=== PATIENT | female | born 1960 | race Caucasian/White ===

== ENCOUNTER 2022-12-17 10:06 | Outpatient (CLI) | payer MEDICAID, SELFPAY ==
--- NOTE | 2022-12-17 10:14 | MM_ITS ---
WS: [id number] SCREENING DIGITAL BREAST TOMOSYNTHESIS MAMMOGRAM WITH CAD HISTORY: SCREENING COMPARISON: None available. Bilateral CC and MLO with tomosynthesis and synthetic mammography submitted. Computer aided detection analyzed. Breast composition: There are scattered areas of fibroglandular density. Hyperdense 8 mm mass in the upper outer quadrant of the RIGHT breast is seen only on the MLO projection due to its posterior posi tion. This is probably a lymph node or sebaceous cyst. Cannot identify a fatty hilum. Benign calcific ations in each breast. No distortion. IMPRESSION: MM/[place] [id number] BI-RADS: 0-Incomplete: Need additional imaging evaluation FOLLOW UP: Need Additional Imaging Recommendation: RIGHT breast ultrasound follow-up, limited. Targeted to the upp er outer quadrant near the axillary tail. Lymph node versus mass or sebaceous c yst.
== END 2022-12-17 10:07 | disposition home or self-care (01) ==
PROVIDERS: Visit Provider Nurse Practitioner Family
DX: Z12.31 Encounter for screening mammogram for malignant neoplasm of breast (principal)
CPT/HCPCS: 77063; 77067

== ENCOUNTER 2023-01-07 15:13 | Emergency (ER) | payer MEDICAID, SELFPAY ==
[2023-01-07 15:21] VITALS: BP 172/83; PULSE 67; RESP 16; TEMP 36.6; O2SAT 98; BMI 23.5
--- NOTE | 2023-01-07 15:34 | XRR_ITS ---
PROCEDURE INFORMATION: Exam: XR Chest Exam date and time: 01/07/2023 4:02 PM Age: 62 years old Clinical indication: Pain; Angina pectoris; Additional info: Cp TECHNIQUE: Imaging protocol: Radiologic exam of the chest. Views: 1 view. COMPARISON: No relevant prior studies available. FINDINGS: Lungs: Unremarkable. No consolidation. Pleural spaces: Unremarkable. No pleural effusion. No pneumothorax. Heart/Mediastinum: Unremarkable. No cardiomegaly. Bones/joints: Unremarkable. XR/XR chest 1V portable 19300 IMPRESSION: No acute findings.
[2023-01-07] MEDS: aspirin 81 mg Chew Tablet 324 MG PO (15:38)
[2023-01-07 15:42] VITALS: BP 182/93; PULSE 59; RESP 18; O2SAT 99
--- NOTE | 2023-01-07 15:49 | ED_ITS ---
HPI - General Adult General: Chief complaint: Headache Stated complaint: headache, right arm pain, chest pain Time Seen by Provider: 01/07/23 15:32 Source: patient Mode of arrival: ambulatory Limitations: no limitations History of Present Illness: 62-year-old female states that she has been under a lot of stress last 2 days she is in the process of moving states she is bedbound her house yesterday and felt like she had inhaled some fumes said that since then she has had some intermittent sharp chest pains along with headaches she states that she currently headache free and having no chest pain dyspnea at this time no cough or fever. Associated symptoms: Reports chest pain and headache(s); Deny dyspnea, nausea, rash or vomiting Review of Systems Const: Denies: fever(s), chills, body aches or change in appetite ENMT: Denies: throat pain or dental pain Card: Reports: chest pain Resp: Denies: dyspnea GI: Denies: abdominal pain, nausea, vomiting or diarrhea Musc: Denies: neck pain or back pain Skin/Breast: Denies: rash Neuro: Reports: headache(s) Physical Exam Const: COMMON NORMALS: no acute distress, patient oriented x3 and healthy appearing HENMT: COMMON NORMALS: normocephalic and atraumatic HEAD & SCALP: normocephalic and atraumatic Neck/C-Spine: COMMON NORMALS: full ROM and supple Chest: COMMONS NORMALS: normal inspection of the chest and normal palpation of entire chest wall Resp: COMMON NORMALS: normal respiratory effort, No retractions, No use of accessory muscles and clear to auscultation bilaterally AUSCULTATION: clear to auscultation bilaterally Cardio: COMMON NORMALS: regular rate, regular rhythm and No murmurs present (Cardio) RATE: regular rate RHYTHM: regular rhythm GI: COMMON NORMALS: Normal to inspection, nondistended, normoactive bowel sounds present, Soft to palpation, non-tender and no masses PALPATION: Yes Soft to palpation Extremity: COMMON NORMALS: normal to inspection and full ROM Neuro: COMMON NORMALS: patient oriented x3, moves all extremities and no focal motor deficits Psych: COMMON NORMALS: mental status grossly normal, Normal thought process present and cooperative THOUGHT PROCESS: Normal thought process present Skin: COMMON NORMALS: no rashes or lesions noted and no wounds GENERAL SKIN EXAM: no rashes or lesions noted Course Vital Signs: Vital signs: Vital Signs Temperature 97.8 F 01/07/23 15:21 Pulse Rate 61 01/07/23 17:24 Respiratory Rate 16 01/07/23 17:24 Blood Pressure 180/80 01/07/23 17:24 Pulse Oximetry 98 01/07/23 17:24 Oxygen Delivery Me thod Room Air 01/07/23 15:42 MDM - General Adult Medical Decision Making Patient presents here with chest pain is atypical in nature she has been pain- free here her initial and repeat troponin had a negative delta no signs of acute coronary syndrome she is stable for discharge she is to follow-up with PCP and return if worsening. Lab Data I reviewed the patient's lab results. 01/07/23 15:49 01/07/23 15:49 Radiology Impressions Chest X-Ray 01/07/23 15:34 IMPRESSION: No acute findings. Laboratory Results WBC 9.83 10^3/uL (3.29-11.43) 01/07/23 15:49 RBC 4.64 10^6/uL (3.85-5.65) 01/07/23 15:49 Hgb 14.00 g/dL (11.27-16.99) 01/07/23 15:49 Hct 42.1 % (36-47) 01/07/23 15:49 MCV 90.7 fl (85-98) 01/07/23 15:49 MCH 30.2 pg (27-33) 01/07/23 15:49 MCHC 33.3 g/dL (30-55) 01/07/23 15:49 RDW 11.9 % (12.1-15.1) L 01/07/23 15:49 Plt Count 230 10^3/cmm (157-399) 01/07/23 15:49 MPV 9.5 fL (7.4-10.4) 01/07/23 15:49 Neut % (Auto) 62.5 % 01/07/23 15:49 Lymph % (Auto) 30.5 % 01/07/23 15:49 [place] % (Auto) 4.9 % 01/07/23 15:49 Eos % (Auto) 1.2 % 01/07/23 15:49 Baso % (Auto) 0.5 % 01/07/23 15:49 Neut # (Auto) 6.14 10^3/uL (1.8-7.7) 01/07/23 15:49 Lymph # (Auto) 3.0 10^3/uL (0.8-4.8) 01/07/23 15:49 [place] # (Auto) 0.5 10^3/uL (0.2-0.9) 01/07/23 15:49 Eos # (Auto) 0.1 10^3/uL (0.0-0.8) 01/07/23 15:49 Baso # (Auto) 0.1 10^3/uL (0.0-0.1) 01/07/23 15:49 Nucleated RBC % (auto) 0 % 01/07/23 15:49 Nucleated RBCs # 0.0 /100WBC 01/07/23 15:49 PT 12.00 SECONDS (12.1-14.9) L 01/07/23 15:49 INR 0.86 (0.8-1.2) 01/07/23 15:49 Sodium 137 mmol/L (136-145) 01/07/23 15:49 Potassium 3.5 mmol/L (3.5-5.1) 01/07/23 15:49 Chloride 100 mmol/L (98-107) 01/07/23 15:49 Carbon Dioxide 24 mmol/L (22-29) 01/07/23 15:49 Anion Gap 16.5 (5-19) 01/07/23 15:49 BUN 7 mg/dL (8-23) L 01/07/23 15:49 Creatinine 0.4 mg/dL (0.5-0.9) L 01/07/23 15:49 GFR Calculation 161.2 mL/min (90-130) H 01/07/23 15:49 Glucose 287 mg/dL (65-115) H 01/07/23 15:49 Calculated Osmolality 292 mOsm/kg (285-295) 01/07/23 15:49 Calcium 9.1 mg/dL (8.5-10.5) 01/07/23 15:49 Total Bilirubin 0.2 mg/dL (0.15-1.2) 01/07/23 15:49 AST 33 U/L (0-32) H 01/07/23 15:49 ALT 56 U/L (0-33) H 01/07/23 15:49 Alkaline Phosphatase 120 U/L (35-105) H 01/07/23 15:49 Troponin T Baseline 45 ng/L (0-10) H 01/07/23 15:49 Troponin T 120 Minute 44.34 ng/L (0-10) H 01/07/23 17:23 Delta Troponin T -0.66 ABS# (0-10) L 01/07/23 17:23 Total Protein 6.4 g/dL (6.6-8.7) L 01/07/23 15:49 Albumin 4.0 g/dL (3.5-5.2) 01/07/23 15:49 Globulin 2.4 g/dL (1.3-4.6) 01/07/23 15:49 No radiology studies performed this visit Discharge Plan Discharge Patient Disposition: Home Clinical Impression: Headache, Chest pain Condition: Stable Discharge Orders: Discharge ED (Routine); Ordered 01/07/23 Ordered By: Yunior Galloway Discharge Diet: Advance as tolerated Discharge Activity: Resume usual activity Patient Instructions: Chest Pain (ED) Coding Level of Care Code ED Packaging Machine Operator for Carlitos Parry
--- NOTE | 2023-01-07 15:51 | ECG_ITS ---
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 Measurements Intervals [place] Rate: 63 P: 29 IL: 182 QRS: 44 QRSD: 91 T: 56 QT: 420 QTc: 432 Interpretive Statements SINUS RHYTHM MODERATE ST DEPRESSION [0.05+ mV ST DEPRESSION] No previous ECG available for comparison Electronically Signed On 01-07-2023 19:06:55 CDT by Seven Gomez M.D. [email or web address]Tangerine Powerummc grenadaWhoisEDIprotestant deaconess hospitalSocial & Beyond/store/OM/[id number]
[2023-01-07 15:59] LABS: Basophils # 0.1 10^3/uL (0.0-0.1); Basophils % 0.5 %; Eosinophils # 0.1 10^3/uL (0.0-0.8); Eosinophils % 1.2 %; Hematocrit 42.1 % (36-47); Lymphocytes % 30.5 %; Mean Corpuscular HGB Conc 33.3 g/dL (30-55); Mean Corpuscular Hemoglobin 30.2 pg (27-33); Mean Corpuscular Volume 90.7 fl (85-98); Mean Platelet Volume 9.5 fL (7.4-10.4); Monocytes # 0.5 10^3/uL (0.2-0.9); Monocytes % 4.9 %; Neutrophils # 6.14 10^3/uL (1.8-7.7); Neutrophils % 62.5 %; Nucleated Red Blood Cells % 0 %; Platelet Count 230 10^3/cmm (157-399); Red Blood Count 4.64 10^6/uL (3.85-5.65); Red Cell Distribution Width 11.9 % (12.1-15.1); White Blood Count 9.83 10^3/uL (3.29-11.43)
[2023-01-07 16:11] LABS: INR 0.86 (0.8-1.2)
[2023-01-07 16:22] LABS: Troponin(5th) Baseline 45 ng/L (0-10)
[2023-01-07 16:24] LABS: Alanine Aminotransferase 56 U/L (0-33); Alkaline Phosphatase 120 U/L (35-105); Anion Gap 16.5 (5-19); Aspartate Amino Transferase 33 U/L (0-32); Blood Urea Nitrogen 7 mg/dL (8-23); Calcium 9.1 mg/dL (8.5-10.5); Carbon Dioxide 24 mmol/L (22-29); Chloride 100 mmol/L (98-107); Globulin 2.4 g/dL (1.3-4.6); Glomerular Filtration Rate 161.2 mL/min (90-130); Glucose 287 mg/dL (65-115); Osmolality Calculated 292 mOsm/kg (285-295); Potassium 3.5 mmol/L (3.5-5.1); Sodium 137 mmol/L (136-145); Total Bilirubin 0.2 mg/dL (0.15-1.2); Total Protein 6.4 g/dL (6.6-8.7)
[2023-01-07 17:24] VITALS: BP 180/80; PULSE 61; RESP 16; O2SAT 98
--- NOTE | 2023-01-07 17:34 | ECG_ITS ---
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 Measurements Intervals [place] Rate: 58 P: 33 RI: 204 QRS: 40 QRSD: 96 T: 58 QT: 468 QTc: 460 Interpretive Statements SINUS BRADYCARDIA MODERATE ST DEPRESSION [0.05+ mV ST DEPRESSION] Compared to ECG 01/07/2023 15:51:18 Sinus rhythm no longer present ST (T wave) deviation still present Electronically Signed On 01-07-2023 19:08:06 CDT by Seven Gomez M.D. [email or web address].SalonBookrwiser hospital for women and infantsServhawkst. mary's [facility] center.[employer]/store/OM/[id number]/[id number]
[2023-01-07 17:50] LABS: Troponin 5 2HR 44.34 ng/L (0-10); Troponin 5 2HR Delta -0.66 ABS# (0-10)
[2023-01-07 18:05] VITALS: BP 174/94; PULSE 65; RESP 16; O2SAT 98
== END 2023-01-07 18:06 | disposition home or self-care (01) ==
PROVIDERS: Emergency Provider Emergency Medicine
DX: R51.9 Headache, unspecified (principal); R07.9 Chest pain, unspecified
CPT/HCPCS: 36415; 71045; 80053; 84484; 85025; 85610; 93005; 99285

== ENCOUNTER → 2023-03-24 08:48 | Outpatient (BNVA) | payer MEDICAID, SELFPAY | PROVIDERS: Visit Provider Student in an Organized Health Care Education/Training Program | DX: G56.01 Carpal tunnel syndrome, right upper limb | CPT/HCPCS: 73130 ==

== ENCOUNTER 2023-04-22 05:46 | Day surgery (SDC) | payer MEDICAID, SELFPAY ==
[2023-04-22] VITALS (9 sets, daily range): BP systolic 126–182; BP diastolic 66–100; PULSE 71–82; RESP 17–22; TEMP 36.2–36.7; O2SAT 98–100; BMI 26.1
[2023-04-22 06:24] LABS: Glucose Point of Care 343 mg/dL (70-110)
[2023-04-22] MEDS: sodium chloride 0.9% 1,000 ML 30 ML IV (06:25)
[2023-04-22] MEDS: acetaminophen 1,000 MG/100 ML PIGGYBACK 400 MG IV (06:26)
[2023-04-22] MEDS: ketorolac 30 mg/mL INJ IVP (06:26)
[2023-04-22] MEDS: scopolamine 1.5 Patch 1 PATCH TRANSDERMA (06:26)
[2023-04-22] MEDS: insulin regular-human 100 units/1 mL 10 UNIT IVP (06:41)
--- NOTE | 2023-04-22 06:50 | ANES.PREANE2 ---
Pre-Anesthetic Assessment Height/Weight: Height 1.65 m Weight 71.214 kg Temp Pulse Resp BP Pulse Ox O2 Del Method 97.1 F L 82 18 182/90 98 Room Air 04/22/23 06:09 04/22/23 06:09 04/22/23 06:09 04/22/23 06:09 04/22/23 06:09 04/22/23 06:09 Operation Date: 04/22/23 07:00 Proposed Procedures p Carpal Tunnel Release(Right) - Osorio Abreu DO Last intake: Intake Last Liquid Date 04/21/23 Last Liquid Time 23:00 Last Solid Date 04/21/23 Last Solid Time 19:00 Social Tobacco Exam alert, oriented x 3 and regular rate & rhythm Airway Submandibular: within normal limits Cervical ROM: within normal limits Mallampati: Class I Pulmonary Chronic Obstructive Pulmonary Disease CV/HEM Hypertension Anesthetic Plan ASA status: 2 Anesthesia: MAC Medications/Allergies Home Medications Medication Instructions Recorded Confirmed Last Taken Type gabapentin 100 mg capsule 100 mg PO DAILY PRN Pain 03/24/23 04/21/23 04/19/23 History hydroxyzine HCl 25 mg tablet 25 mg PO BID PRN Anxiety 03/24/23 04/21/23 04/19/23 History ibuprofen 200 mg tablet (Advil) 200 mg PO 3XD 03/24/23 04/21/23 04/21/23 History lisinopril 5 mg tablet 5 mg PO BID 03/24/23 04/21/23 04/21/23 History metformin 500 mg tablet 500 mg PO BID 03/24/23 04/21/23 04/21/23 History rosuvastatin 5 mg tablet 5 mg PO DAILY 03/24/23 04/21/23 04/21/23 History prednisone 10 mg tablets in a dose 10 mg PO PER PKG DIR 04/21/23 04/21/23 04/18/23 History pack glipizide 5 mg tablet 5 mg PO DAILY 04/22/23 04/22/23 04/21/23 History Allergies Allergy/AdvReac Type Severity Reaction Status Date / Time Penicillins Allergy Unknown Verified 04/21/23 13:52 Current Medications Generic Name Dose Route Start Last Admin Trade Name Freq PRN Reason Stop Dose Admin Sodium Chloride 1,000 mls @ 30 mls/hr 04/22/23 06:00 04/22/23 06:25 Sodium Chloride 0.9% IV 04/23/23 05:59 30 mls/hr .Q24H BURKE Administration Data Anesthesia Cardiac Studies: No Data to Display
--- NOTE | 2023-04-22 06:50 | W.PM.OPSUD ---
Surgery/Procedure H&P Update DATE OF PROCEDURE: April 22, 2023 DATE H&P PERFORMED: 03/24/23 H&P UPDATE INFORMATION: I have reviewed H&P completed within last 30 days, I have examined patient prior to procedure and No changes to prior documentation PREOP DIAGNOSIS: Right carpal tunnel syndrome PRIMARY INDICATION FOR PROCEDURE: Right carpal tunnel syndrome PLANNED PROCEDURE: Operation Date: 04/22/23 07:00 Proposed Procedures p Carpal Tunnel Release(Right) - Osorio Abreu DO
[2023-04-22] MEDS: ceFAZolin 2,000 MG in sodium chloride 0.9% (plus) 50 ML 100 MG IV (07:04)
[2023-04-22] MEDS: ROPivacaine 0.5% SDV 30 mL 25 MG INJECTION (07:21)
[2023-04-22] MEDS: lidocaine-epi 1% 20 mL INJ 5 ML INJECTION (07:21)
--- NOTE | 2023-04-22 07:26 | W.PM.BPON ---
Date of Procedure: 04/22/2023 Surgeon: Osorio Abreu DO Admitting Representative(s): Reyna Miranda?Munira?TREE Procedure(s) performed: Right carpal tunnel release Findings of the procedure(s): Right carpal tunnel syndrome procedure went as planned with no complications or issues Estimated blood loss: 1 mL Specimen(s) removed: None Post-operative diagnosis: Right carpal tunnel syndrome
--- NOTE | 2023-04-22 07:27 | P.OP_ITS ---
Operative Report Date of procedure: April 22, 2023 Surgeon: Osorio Abreu DO Flight Test Mechanic: Reyna TAVAREZ was necessary for assistance in this case with hand positioning to execute the procedure, retraction and protection of neurovascular structures as well as to assist with wound closure and dressing application. Procedure: Preoperative diagnosis: Right carpal tunnel syndrome post-op diagnosis: Same Procedure done: 1.?Right carpal tunnel?release Surgeon: Osorio Abreu DO Anesthesia: MAC (Local) Estimated blood loss: 1 mL Tourniquet time 6 minutes IV fluids: See anesthesia?record Complications: None Findings: See operative?report narrative Condition: stable Disposition: same day Brief History: Patient is a pleasant 62 year-old female with?right carpal tunnel syndrome.? Patient has been worked up in the outpatient setting findings and physical examination consistent with this.? Patient nerve conduction studies consistent with carpal tunnel syndrome.? We detailed out patient's?risk benefits complication alternatives with surgical and nonsurgical treatment options. Through shared decision making, patient agrees to proceed with surgical intervention of the left carpal tunnel?release .? Patient understands and agrees with current plan.? All questions answered.? Patient elects to proceed with surgical intervention with carpal tunnel?release. Procedure: Patient seen and evaluated in the preoperative holding area.? Consent was?reviewed and signed with patient.? Correct extremity was marked.? Patient was seen evaluated by the anesthesia department once cleared for surgery was brought back to the operative suite.? Patient was [facility] in supine position all bony prominences were well-padded patient properly secured to the bed.??Right upper extremity was then placed onto an armboard.? A nonsterile tourniquet was applied to the?RIght upper arm.? Patient underwent anesthesia per the anesthesia department.? Patient's?Right upper extremity was then prepped and draped in standard orthopedic fashion.? Final timeout performed.? Patient?received appropriate preoperative antibiotics. Under sterile aseptic technique patient?received local anesthesia over the preplanned carpal tunnel incision site. Esmarch was used to exsanguinate the?Right upper extremity and tourniquet was insufflated to 250 mmHg. A standard mini open?Right carpal tunnel incision was made.? Starting distally at Martinez's cardinal line in line with the fourth?ray extending proximally distal to the wrist crease centered over the carpal tunnel.? Sharp scalpel incision was made through skin and subcutaneous tissue.? Self- retaining?retractor was placed and the palmar fascia was identified.? This was then split longitudinally and direct visualization of the transverse carpal ligament was then made.? I then utilizing scalpel feathered through the transverse carpal ligament until I entered the floor of the transverse carpal tunnel ligament into the carpal tunnel.? Next I switched to dissection scissors and completed my?release of the transverse carpal ligament distally with care to protect the?recurrent motor branch.? I completely?released into the palmar fat and until no entrapment was noted distally.? Care was made to protect the superficial palmar arch during my distal dissection.?? Next I utilized a nasal speculum placed on top of the transverse carpal ligament and utilize this to?retract the subcutaneous fat and tissue and under direct loupe magnification was able to identify the transverse carpal ligament.? Next I then placed a [place] underneath the transverse carpal tunnel ligament to protect the contents of the carpal tunnel and subsequently utilizing dissection scissors under loupe magnification completely?released the transverse carpal ligament proximally into the median antebrachial fascia.? Care was made to protect the palmar cutaneous branch by keeping my scissors curved ulnarly.? Once completely?released, I then placed my [place] and had appropriate decompression of the carpal tunnel proximally as well as distally.? I then inspected the contents of the carpal tunnel which showed an hourglass shape of the median nerve showing its compression.? No masses were noted.? Tendons appeared healthy.? Wound was then thoroughly irrigated.? Tourniquet deflated.? Hemostasis satisfactory with bipolar electrocautery.? I then closed the incision with interrupted nylon stitches.? Xeroform 4 x 4's and a bulky soft dressing was applied.? Patient was then awakened from anesthesia and taken to PACU in stable condition.? Patient tolerated procedure without complications. Disposition: Patient taken to PACU in stable condition?recovering well.? Dressing clean dry and intact.? Patient will?receive appropriate discharge instructions as well as pain medication postoperatively.? Patient to follow-up with me in the office in 2 weeks.? They understand they may be weightbearing as tolerated to the?right hand.? Patient should keep incision clean dry and intact.? Patient understands if any questions or concerns may contact the office.
[2023-04-22] MEDS: TRAMadol 50 mg Tablet PO (08:28)
--- NOTE | 2023-04-22 08:50 | ANE.PACU2 ---
Inpatient post-anesthesia follow up: Airway intact: Yes Vital signs: Temperature 98.1 F Pulse Rate 71 Respiratory Rate 18 Blood Pressure 156/87 Pulse Oximetry 99 Oxygen Delivery Me thod Room Air Oxygen Flow Rate 6 Fraction of Inspir ed Oxygen Hydration adequate: Yes Nausea and vomiting: No Pain level: 1 Mental status: Baseline
== END 2023-04-22 08:50 | disposition home or self-care (01) ==
PROVIDERS: Visit Provider Student in an Organized Health Care Education/Training Program
PROC: (CPT 64721; principal; 2023-04-22 07:00)
DX: G56.01 Carpal tunnel syndrome, right upper limb (principal); J44.9 Chronic obstructive pulmonary disease, unspecified; I10 Essential (primary) hypertension
CPT/HCPCS: 64721; 36416; 82962; J0131; J0690; J1815; J1885; J2250; J2704; J2795; J7030

== ENCOUNTER 2023-05-04 08:27 | Outpatient (CLI) | payer MEDICAID, SELFPAY ==
--- NOTE | 2023-05-04 08:34 | US_ITS ---
WS: [id number] ULTRASOUND RIGHT BREAST HISTORY: R BREAST MASS/ABNORMAL MAMMO COMPARISON: 12/17/2022 mammogram TECHNIQUE: 2-D and Doppler. There is a small lymph node in the upper outer quadrant of the RIGHT breast at 11:00, 6 cm from the n ipple measuring 1.1 x 0.7 x 0.3 cm. There is an additional cyst measuring 0.3 x 0.3 x 0.2 cm at 10:00 . No solid mass or area of shadowing. IMPRESSION: US/US breast LT limited* [id number] BI-RADS: 2-Benign FOLLOW-UP: 1 Year Follow-up
== END 2023-05-04 08:28 | disposition home or self-care (01) ==
LOC: RAD 08:27
PROVIDERS: Visit Provider Family Medicine
DX: N63.11 Unspecified lump in the right breast, upper outer quadrant (principal); N60.01 Solitary cyst of right breast
CPT/HCPCS: 76642

== ENCOUNTER 2023-08-06 19:50 | Emergency (ER) | payer MEDICAID, SELFPAY ==
[2023-08-06 19:58] VITALS: BP 153/66; PULSE 90; RESP 16; TEMP 36.6; O2SAT 95
--- NOTE | 2023-08-06 20:53 | XRR_ITS ---
PROCEDURE INFORMATION: Exam: XR Left Hip Exam date and time: 08/06/2023 9:24 PM Age: 62 years old Clinical indication: Hip pain; Left hip TECHNIQUE: Imaging protocol: Radiologic exam of the left hip. Views: 2 or 3 views hip with pelvis when performed. COMPARISON: No relevant prior studies available. FINDINGS: Bones/joints: Moderate osteoarthritis of the left hip without evidence of fracture or subluxation. Sacrum and coccyx are partially obscured by bowel gas/stool. Soft tissues: No gross soft tissue abnormality. XR/XR hip LT 2-3V wo/w pel* [id number] IMPRESSION: 1. Osteoarthritis without evidence of fracture or subluxation. If there is ongoing clinical concern, consider correlation with CT.
--- NOTE | 2023-08-06 20:55 | W.ED.BACK ---
HPI - Back Pain/Injury General: Chief Complaint: Back Pain/Injury Stated Complaint: left leg and back pain, cant put weight on leg Time Seen by Provider: 08/06/23 20:49 History of Present Illness: 62-year-old female comes in today for complaints of pain to the left hip. Patient reports increased pain with walking. Patient appears nontoxic. Patient appears no acute distress. Patient does have a history of diabetes, anxiety, and high cholesterol. Review of Systems General: Reports: 10 or more systems reviewed and unremarkable except in HPI and below Musc: Reports: joint pain (Left hip pain) Physical Exam Const: COMMON NORMALS: alert HENMT: COMMON NORMALS: normocephalic HEAD & SCALP: normocephalic Neck/C-Spine: COMMON NORMALS: full ROM Resp: COMMON NORMALS: normal respiratory effort and clear to auscultation bilaterally AUSCULTATION: clear to auscultation bilaterally Cardio: COMMON NORMALS: regular rate and regular rhythm RATE: regular rate RHYTHM: regular rhythm GI: COMMON NORMALS: Soft to palpation and non-tender PALPATION: Yes Soft to palpation Back/Pelvis: COMMON NORMALS: thoracic and lumbar spine normal to inspection LUMBAR SPINE/LOWER BACK: No lumbar spinal tenderness Extremity: LEFT LOWER EXTREMITY: Yes hip joint (Lateral hip) Left hip: Yes inspection, Yes palpation, Yes ROM and Yes neurovascular exam Neuro: SENSORIUM/ORIENTATION: Yes alert Skin: COMMON NORMALS: turgor normal GENERAL SKIN EXAM: turgor normal Course Vital Signs: Vital signs: Vital Signs Temperature 97.8 F 08/06/23 19:58 Pulse Rate 90 08/06/23 19:58 Respiratory Rate 16 08/06/23 19:58 Blood Pressure 153/66 08/06/23 19:58 Pulse Oximetry 95 08/06/23 19:58 Oxygen Delivery Me thod Room Air 08/06/23 19:58 MDM - Back Pain/Injury Medical Decision Making 62-year-old female comes in today for complaints of pain to the left lateral hip. On exam patient appears nontoxic. Patient has tenderness on palpation of the lateral hip. Distal pulses and sensation are intact. Differential diagnosis includes not limited to fracture, osteoarthritis, bursitis, sciatica. 2146, patient reported improvement of pain after 30 mg injection of Toradol. Patient continued to have some pain and was given 1 hydrocodone tablet. Patient x-ray noted no fracture or significant abnormality. Clinical exam suggest trochanteric bursitis. We will go ahead and give 10 mg of dexamethasone. Patient be put on some diclofenac. And recommended to follow-up with strategic debriefing specialist. Patient was given some hydrocodone 7 tablets to use as needed for severe pain. Patient reported understanding and agreed to plan. XR interpretation done by ED provider, pending radiology final review Discharge Plan Discharge Patient Disposition: Home Clinical Impression: Trochanteric bursitis of left hip Condition: Stable Prescriptions: New diclofenac sodium 75 mg tablet,delayed release (DR/EC) 75 mg PO BID Qty: 20 0RF hydrocodone-acetaminophen 5-325 mg tablet 1 tab PO Q8H PRN (Reason: pain (scale score 7-10)) Qty: 7 0RF No Action lisinopril 5 mg tablet 5 mg PO BID rosuvastatin 5 mg tablet 5 mg PO DAILY metformin 500 mg tablet 500 mg PO BID gabapentin 100 mg capsule 100 mg PO DAILY PRN (Reason: Pain) hydroxyzine HCl 25 mg tablet 25 mg PO BID PRN (Reason: Anxiety) ibuprofen [Advil] 200 mg tablet 200 mg PO 3XD prednisone 10 mg Tablets,Dose Pack 10 mg PO PER PKG DIR glipizide 5 mg Tablet 5 mg PO DAILY tramadol 50 mg tablet 50 mg PO Q6H PRN (Reason: pain) Qty: 20 0RF Discharge Orders: Discharge ED (Routine); Ordered 08/06/23 Ordered By: Keshav Conde Referrals: Rufino Childers [Primary Care Provider] - Patient Instructions: Bursitis - Hip Activity Restrictions/Additional Instructions: Take medication as directed. Drink plenty of water with medicine. Activity as tolerated. Use a cane or crutch to hide to help with walking if needed. Follow-up with primary care or strategic debriefing specialist for further evaluation and treatment as needed. Return to ED for new concerns. Coding Level of Care Code ED Day Care Supervisor for Carlitos Parry
[2023-08-06] MEDS: ketorolac 30 mg/mL INJ IM (21:00)
[2023-08-06] MEDS: dexamethasone 10 mg/mL INJ IM (21:57)
[2023-08-06] MEDS: HYDROcodone-acetaminophen 10-325 mg Tablet 1 TAB PO (21:58)
[2023-08-06 22:26] VITALS: PULSE 78; RESP 18; O2SAT 96
--- NOTE | 2023-08-06 22:29 | PC.NURSE ---
At time of report, patient reported pain as greatly improved.
--- NOTE | 2023-08-07 09:27 | DCPLANNER ---
message sent to ortho for er f/u
== END 2023-08-06 22:16 | disposition home or self-care (01) ==
PROVIDERS: Emergency Provider Nurse Practitioner Family; PCP Family Medicine
DX: M70.62 Trochanteric bursitis, left hip (principal); Z79.84 Long term (current) use of oral hypoglycemic drugs
CPT/HCPCS: 73502; 96372; 99284; J1100; J1885

== ENCOUNTER 2024-10-23 20:07 | Emergency (ER) | payer SELFPAY ==
--- OUTSIDE RECORDS SUMMARY | 2020-10-29 04:27 | XMS_ITS | Continuity of Care Document ---
Author Organization [facility] Address [address] [place] [address] Phone Care Team Providers Care Cashier Manager Name Role Phone Box , Austen Unavailable Unavailable Allergies, Adverse Reactions, Alerts Substance Reaction Status Criticality No Known Allergies Active No Inform ation Medications Medication Instructions Dosage Effective Dates (start - stop) Status Comments prednisone 20 mg tablet take 1 tablet by oral route 3 times every day 20 MG - Active omeprazole 20 mg capsule,delayed release take 1 capsule by oral route every day 30 minutes to 1 hour before a meal 20 MG - Active Durezol 0.05 % eye drops instill 1 drop by ophthalmic route 4 times every day into affected eye(s) ;start 24hrs post op x 2 wks; then 2 times/day x 7 days; then taper 1.00 drop - Active Vitamin D3 25 mcg (1,000 unit) capsule - Active Fish Oil 300 mg-500 mg capsule - Active Menopause Support 20 mg tablet - Active losartan 50 mg tablet take [...] Diagnoses Date Provider Providers Copied on Encounter [facility] , [address], [place], [address], [place] tel:[phone] [facility] No Information [address] Austen. [address], [place], [place], [id number]. tel:[phone] OFFICE/OUTPA TIENT VISIT EST [facility] , [address], [place], [address], [place] tel:[phone] [facility] Follow-up iridocycliti s (chief complaint) Body mass index [BMI]40.0-44 .9, adultIridocy clitisEssent ial (primary) hypertension 1 Masters Carina. [address], [place], [place], [address], [place]. [phone] OFFICE/OUTPA TIENT VISIT NEW [facility] , [address], [place], [address], [place] tel:[phone] [facility] New patient, iridocycliti s (chief complaint) Body mass index [BMI]40.0-44 .9, adultIridocy clitis 1 Masters Carina. [address], [place], [place], [id number], [place]. tel:[phone] Referring Provider: Eric Lombardo, [address], [place], [address]. tel:[phone] [facility] , [address], [place], [address], [place] tel:[phone] [facility] No Information [address] Austen. [address], [place], [place], [address]. tel:[phone] [facility] , [address], [place], [address], [place] tel:[phone] [facility] Unspecified iridocycliti sOther hyperlipidem iaEssential (primary) hypertension Major depressive disorder, recurrent, unspecifiedM igraine, unspecified, not intractable, without status migrainosusP rimary iridocycliti s, bilateralOth er specified abnormal immunologica l findings in serum Box Austen. [address], [place], [place], [address]. tel:[phone] Family History Family Member Type Diagnosis Age [...] protein, LNP, preservative free, 30 mcg/0.3mL dose ([email or web address]) administered Source: Other Provider Payers Payer name Insurance type Covered democrat ID Authoriza tion(s) [employer] [place] E2 OT [id number] Social History Type Description Quantity Date Captured [...] symptoms are not controlled. She saw her cow tender last week who put her on oral [...] iridocyclitis Fariba was referred by Dr Beltrán cow tender for iridocyclitis affecting the left eye only. Her PCP is Thea Neff [facility] in [place], [place] ph [phone].She has been having eye issues for about 3 years but it became much worse February 2020 with her eyes burning and hurting. There have been no biopsies completed The current cow tender has not been able to improve her [...]
--- OUTSIDE RECORDS SUMMARY | 2021-01-22 11:25 | XMS_ITS | Continuity of Care Document ---
Author Organization [facility] Address [address] [place] [address] Phone Care Team Providers Care Manager Delivery Name Role Phone Jose Miguel Godoy MD Unavailable Unavailable Allergies, Adverse Reactions, Alerts Substance Reaction Status Criticality No Known Allergies Active No Inform ation Medications Medication Instructions Dosage Effective Dates (start - stop) Status Comments metoprolol tartrate 50 mg tablet take 1 tablet by oral route every day with meals 50 MG - Active simvastatin 40 mg tablet take 1 tablet by oral route every day in the evening 40 MG - Active losartan 50 mg tablet take 1 tablet by oral route every day 50 MG - Active venlafaxine 75 mg tablet take 1 tablet by oral route 2 times every day with food 75 MG - Active FISH OIL (unknown strength) take 1 capsule by oral route 2 times every day Not Available - Active VITAMIN D2 (unknown strength) take 1 capsule by oral route 2 times every week Not Available - Active vitamin B complex tablet - Active black cohosh 40 mg tablet - Active Procedures Procedure Date OFFICE CONSULTATION CCP ANTIBODY ROUTINE VENIPUNCTURE Advance Directives Directive Yes / No Effective Date File Name No Information Encounters Encounter Description Practice Location Reason(s) For Visit Diagnoses Date Provider Providers Copied on Encounter [facility], [address] [place], [place], [id number], [place] tel:[phone] [facility] No Information Walt Gillespie. [address], [address], [place], [address]. tel: [phone] OFFICE CONSULTATION [facility], [address] [place], [place], [address], [phone] [facility] Body mass index (BMI) 38.0-38.9, adultChronic iritis of both eyesPositive GLORY (antinuclear antibody) Walt Gillespie. [address] [facility] [address], [place], [address]. tel: [phone] Referring Provider: Eric Lombardo, [address] [place], [address] . tel:[phone] Family History Family Member Type Diagnosis Age At Onset No Information Payers Payer name Insurance type Covered alliance party ID Authoriza tidavid(s) [facility] PPO BL [id number] Social History Type Description Quantity Date Captured Comments Alcohol Use Details Unknown Caffeine Use Details Unknown Tobacco Use Status No Information Smoking Status No Information Sex Female Chief Complaint And Reason For Visit No Information Reason For Referral Reason For Referral No Information Plan Of Treatment Date Type Action Status Referral Ordered: THEA NEFF -[facility] Assist[facility] & Advanced Practice Nursing Providers : Nurse Practitioner (related to Chronic iritis of both eyes) ordered Referral Ordered: Eric Beltrán MD -Allopathic & Osteopathic Physicians : Ophthalmology (related to Chronic iritis of both eyes) ordered Referral Referred To: THEA NEFF [address] [place], [phone] Ordered: Referrals: Physician Assistants & Advanced Practice Nursing Providers : Nurse Practitioner. THEA NEFF ordered Referral Referred To: Eric Beltrán MD Ordered: Referrals: Allopathic & Osteopathic Physicians : Ophthalmology. Eric Beltrán MD ordered Patient Education venlafaxine 75 mg table t completed History Of Present Illness Encounter Date Complaint History Of Prese nt Illness No Information Functional Status Date Functional Assessmen t No Information Instructions Date Instruction Additional Infor mation Give encouragement to exercise R elated to Body mass index (BMI) 38.0-38.9, adult Assessments Type Assessment Date No Information Patient Care Teams Name Effective Dates (start - stop) Status Members No Information
--- OUTSIDE RECORDS SUMMARY | 2021-05-24 04:20 | XMS_ITS | Continuity of Care Document ---
Author Organization [facility] Address [address] [place] [address] Phone Care Team Providers Care Spot Remover Name Role Phone Jacob CADET, Peter Unavailable Unavail able Allergies, Adverse Reactions, Alerts Substance Reaction Status Criticality No Known Allergies Active No Inform ation Medications Medication Instructions Dosage Effective Dates (start - stop) Status Comments doxycycline hyclate 20 mg tablet take 1 tablet by oral route every day 1 hour before a meal or 2 hours after a meal 20 MG - Active valacyclovir 500 mg tablet take 1 tablet by oral route 3 times every day x 2 weeks - Active losartan 50 mg tablet Take 1 tablet ever y day - Active metoprolol succinate ER 50 mg tablet,extended release 24 hr Take 1 tablet every day - Active rizatriptan 10 mg tablet PRN for migraines - Active venlafaxine ER 75 mg capsule,extended release 24 hr Take 1 tablet every day - Active simvastatin 40 mg tablet Take 1 tablet every day - Active Procedures Procedure Date Ophth Serv: Med Exam; Interm E Closure Lacrimal Punctum; By Plug Ophth Serv: Med Exam; Interm E Ophth Serv: Med Exam; Interm E Ophth Serv: Med Exam; Interm E Ophth Serv: Med Exam; Interm E Ophth Serv: Med Exam; Interm E Ophth Serv: Med Exam; Interm E Ophth Serv: Med Exam; Interm E Ophth Serv: Med Exam; Interm E Ophth Serv: Med Exam; Interm E Ophth Serv: Med Exam; Interm E Ophth Serv: Med Exam; Interm E Ophth Serv: Med Exam; Interm E Ophth Serv: Med Exam; Interm E 21 Refraction Ophth Serv: Med Exam; Comp Est Ophth Serv: Med Exam; Interm E Ophth Serv: Med Exam; Interm E OCT Posterior Chamber Of Optic Nerve Mar Ophth Serv: Med Exam; Comp New Advance Directives Directive Yes / No Effective Date File Name No Information Encounters Encounter Description Practice Location Reason(s) For Visit Diagnoses Date Provider Providers Copied on Encounter [facility], [address], [place], [place], [id number] , [place] tel:[phone] [facility] No Information 2 Jacob Green. [address] [place], [address], [place]. [phone] [place]: [place], [address] [address] [place], [address]. [phone] [facility], [address], [place], [place], [address] , [place] tel:[phone] [facility] dry eyes (chief complaint) Dry eye syndrome of bilateral lacrimal glandsOther forms of systemic lupus erythematosus Meibomian gland dysfunction of unsp, unspecified eyelid 2 Jacob Green. [address] [place], [address], [place]. [phone] [place]: [place], [address] [place], [address]. tel:[phone] [facility], [address], [place], [place], [address] , [place] tel:[phone] [facility] Punctual Plug insertion (chief complaint) Dry eye syndrome of bilateral lacrimal glands 1 Jacob Green. [address] [place], [address], [place]. tel:[phone] [place]: [place], [address] [place], [address]. [phone] [facility], [address], [place], [place], [address] , [place] tel:[phone] [facility] corneal eval (chief complaint) Dry eye syndrome of bilateral lacrimal glands 1 Jacob Green. [address] [place], [address], [place]. [phone] Referring Provider: Eric Beltrán MD, [address] [place], [address]. tel:[phone] [facility], [address], [place], [place], [address] , [place] tel:[phone] [facility] 2 week iritis recheck (chief complaint) Primary iridocyclitis , bilateralOthe r forms of systemic lupus erythematosus 1 Jerel Reyes. [address] [place], [address], [place]. tel:[phone] Referring Provider: Eric Beltrán MD, [address] [place], [address]. tel:[phone] [facility], [address], [place], [place], [address] , [place] tel:[phone] [facility] Iritis recheck OS (chief complaint) Primary iridocyclitis , bilateralOthe r forms of systemic lupus erythematosus 1 Jerel Reyes. [address], [place], [address], [place]. tel:[phone] Referring Provider: Eric Beltrán MD, [address], [place], [address]. tel:[phone] [facility], [address], [place], [place], [address] , [place] tel:[phone] [facility] problem (chief complaint) Primary iridocyclitis , bilateral Oct-2 1 Shiv Mcghee. [address], [place], [address], [place]. tel:[phone] Referring Provider: Taz Nunez, [address], [place], [address]. tel:[phone] [facility], [address], [place], [place], [address] , [place] tel:[phone] [facility] Iritis recheck OU (chief complaint) Primary iridocyclitis , bilateralOthe r forms of systemic lupus erythematosus Dry eye syndrome of bilateral lacrimal glands Oct-1 1 Jerel Reyes. [address], [place], [address], [place]. tel:[phone] Referring Provider: Eric Beltrán MD, [address], [place], [address]. tel:[phone] [facility], [address], [place], [place], [address] , [place] tel:[phone] [facility] Iritis recheck OU (chief complaint) Primary iridocyclitis , bilateralOthe r forms of systemic lupus erythematosus Dry eye syndrome of bilateral lacrimal glands Sep-3 1 Jerel Reyes. [address], [place], [address], [place]. tel:[phone] Referring Provider: Eric Beltrán MD, [address], [place], [address]. tel:[phone] [facility], [address], [place], [place], [address] , [place] tel:[phone] [facility] Iritis recheck (chief complaint) Primary iridocyclitis , bilateralOthe r forms of systemic lupus erythematosus Dry eye syndrome of bilateral lacrimal glands 1 Jerel Reyes. [address], [place], [address], [place]. [phone] Referring Provider: Eric Beltrán MD, [address], [place], [address]. tel:[phone] [facility], [address], [place], [place], [address] , [place] tel: [phone] [facility] Iritis recheck (chief complaint) Primary iridocyclitis , bilateralOthe r forms of systemic lupus erythematosus Dry eye syndrome of bilateral lacrimal glands 1 Jerel Reyes. [address], [place], [address], [place]. tel:[phone] Referring Provider: Eric Beltrán MD, [address], [place], [address]. tel:[phone] [facility], [address], [place], [place], [address] , [place] tel:[phone] [facility] Iritis recheck OS (chief complaint) Primary iridocyclitis , bilateralOthe r forms of systemic lupus erythematosus 1 Jerel Reyes. [address], [place], [address], [place]. [phone] Referring Provider: Eric Beltrán MD, [address], [place], [address]. [phone] [facility], [address], [place], [place], [address] , [place] tel:[phone] [facility] recheck (chief complaint) Primary iridocyclitis , bilateralOthe r forms of systemic lupus erythematosus 1 Jerel Reyes. [address], [place], [address], [place]. tel:[phone] Referring Provider: Eric Beltrán MD, [address], [place], [address]. [phone] [facility], [address], [place], [place], [address] , [place] tel: [phone] [facility] Iritis OU (chief complaint) Primary iridocyclitis , bilateralAge- related nuclear cataract, bilateralDry eye syndrome of bilateral lacrimal glandsGlaucom atous optic atrophy, bilateral Aug- 1 Jerel Reyes. [address], [place], [address], [place]. tel:[phone] Referring Provider: Eric Beltrán MD, [address], [place], [address]. tel:[phone] [facility], [address], [place], [place], [address] , [place] tel: [phone] [facility] 2 week iritis recheck OU (chief complaint) Primary iridocyclitis , bilateralAge- related nuclear cataract, bilateralDry eye syndrome of bilateral lacrimal glandsGlaucom atous optic atrophy, bilateral 1 Jerel Reyes. [address], [place], [address], [place]. [phone] Referring Provider: Eric Beltrán MD, [address], [place], [address]. [phone] [facility], [address], [place], [place], [address] , [place] tel:[phone] [facility] comprehensive eye exam (chief complaint) Primary iridocyclitis , bilateralAge- related nuclear cataract, bilateralDry eye syndrome of bilateral lacrimal glandsGlaucom atous optic atrophy, bilateral Jun- 1 Jerel Reyes. [address], [place], [address], [place]. tel:[phone] Referring Provider: Eric Beltrán MD, [address], [place], [address]. tel:[phone] [facility], [address], [place], [place], [address] , [place] tel: [phone] [facility] Iritis recheck OU (chief complaint) Primary iridocyclitis , bilateralDry eye syndrome of bilateral lacrimal glands 1 Jerel Reyes. [address], [place], [address], [place]. [phone] Referring Provider: Eric Beltrán MD, [address], [place], [address]. [phone] [facility], [address], [place], [place], [address] , [place] tel:[phone] [facility] Iritis Recheck (chief complaint) Primary iridocyclitis , bilateralGlau comatous optic atrophy, bilateralAge- related nuclear cataract, bilateralDry eye syndrome of bilateral lacrimal glands 1 Jerel Reyes. [address], [place], [address], [place]. [phone] Referring Provider: Eric Beltrán MD, [address], [place], [address]. tel:[phone] [facility], [address], [place], [place], [address] , [place] tel:[phone] [facility] Second Opinion (chief complaint) Primary iridocyclitis , bilateralGlau comatous optic atrophy, bilateralDry eye syndrome of bilateral lacrimal glandsAge-rel ated nuclear cataract, bilateral 1 Jerel Reyes. [address], [place], [address], [place]. tel:[phone] Referring Provider: Eric Beltrán MD, [address], [place], [address]. tel:[phone] Family History Family Member Type Diagnosis Age At Onset Paternal grandmother Problem (finding) stroke Father Problem (finding) heart attack Paternal grandfather Problem (finding) Diabetes mellit us Payers Payer name Insurance type Covered green party ID Authoriza tion(s) No Information Social History Type Description Quantity Date Captured Comments Alcohol Use Details Unknown Caffeine Use Details Unknown Tobacco Use Status No Information Smoking Status No Information Sex Female Chief Complaint And Reason For Visit No Information Reason For Referral Reason For Referral No Information History Of Present Illness Encounter Date Complaint History Of Prese nt Illness dry eyes The 60 year old female presents for dry eyes in both eyes. Patient reports dry eyes, foreign body sensation and irritation. It started about 1 month(s) ago. Symptom(s) affect left eye more than right. The symptom is constant. The condition is described as foreign body sensation. Patient denies decreased vision and eye pain. The patient reports compliance instilling AT's PRN OU. Last eye exam 3 month(s) ago. Punctual Plug insertion The 60 y ear old female presents for Punctual Plug insertion in both eyes. Pt states OS feels irritated and painful today. Pt has been using PF ATs BID. Vision is stable OU. corneal eval The 60 year old female presents for corneal eval in the left eye per Dr. Beltrán. Pt c/o irritation and intermittent sharp pain OS x 1 year. Pt is not instilling any drops as this time. VA has been stable OU. 2 week iritis recheck Iritis recheck OS The 60 year ol d female presents for Iritis recheck OS. Durezol qid OS x 1 week and now is using TID OS. 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 Patient's left eye is painful. Vision is unaffected. problem The 60 year old female presents for problem in the left eye. Eye pain. Earlier it was a jabbing. She is light sensitive. Headaches yesterday and today. Using Durezol BID OS. Iritis recheck OU The 60 year ol d female presents for Iritis recheck OU in the both eyes. Using Durezol QID OS, qday OD. Patient feels her eyes are doing good some days, and some days they are not. Vision is fluctuating. No eye pain or discomfort. Iritis recheck OU The 59 year ol d female presents for Iritis recheck OU in the both eyes. Durezol qday x 1 month. Her left eye still hurts since February. Vision is stable. Iritis recheck The 59 year old female presents for Iritis recheck in the both eyes. Sometimes light sensitive. Tapered off Pred. Does not use Tears. Iritis recheck The 59 year old female presents for Iritis recheck in the left eye. today was her last dose of Prednisone 20mg. She is still light sensitive. Her eye feels irritated. Not using any drops. Iritis recheck OS The 59 year ol d female has returned for a 2 week Iritis recheck OS. Durezol was started but she felt it wasn't helping. I couldn't see and it burned too much. She changed back to Prednisolone QID yesterday. Patient had evaluation with Dr. Alaniz. She said he ordered more blood work and it was all good. recheck The 59 year old female presents for recheck iritis in the left eye. It affects both near and far vision. The symptom is constant. The condition is stable. Using prednisolone two times daily in the left eye. Iritis OU The 59 year old female has returned for a 1 month Iritis recheck OU. She tapered off of drops OU. She has been off all steroid drops x 1 week. OS started bothering her today. Irritating. Vision is not affected. Light sensitive. 2 week iritis recheck OU The 59 year old female presents for 2 week iritis recheck OU. Patient is using Pred Forte OS TID to QID per day. No eye pain or discomfort. Using tears OD. comprehensive eye exam The 59 ye ar old female presents for comprehensive eye exam in the both eyes. Stopped steroid drop 2 weeks ago. Using OTC twice per day in each eye. Right eye is light sensitive and her left eye is painful. Burning in both eyes. Blurred vision both up close and far. She has to struggle to see. Denies flashes and floaters. Poor night vision. Glare from headlights. Iritis recheck OU The 59 year ol d female has returned for a 2 week Iritis recheck OU. She's using Durezol and down to qday OU. OS feels very stressed. Very light sensitive but outside only. Vision is a little blurry. Iritis Recheck The 59 year old female presents for Iritis Recheck in the both eyes.Patient reports vision is stable. Some blurry during VA.Patient using Durezol BID OU. Second Opinion The 59 year old female is here for a second opinion. CARYN 06/2019. Curious if she has glaucoma. Great grandmother had glaucoma. Her second concern is eye pain and light sensitivity for about 3 years. Very light sensitive on a cloudy day. Today is very severe. The eyes burn. It was worse this morning. It was harder to focus vision this morning but it's gotten better with the day as well. She does not use artificial tears but she does take Fish Oil Bid. No autoimmune diseases. No surgery or trauma. She had this same issues February 2020 and her regular eye doctor Rx'd Durezol 1 gtt q 3 hours and Polytrim 1 gtt q 3 hours. She only used the drops about 4 days then came down with COVID and hasn't used since. Functional Status Date Functional Assessmen t No Information Instructions Date Instruction Additional Infor obdulio Meibomian gland dysf unction of unspecified eye, unspecified eyelid, - warm compresses, digital expression, at's Related to Meibomian gland dysfunction of unspecified eye, unspecified eyelid Other forms of syste lucy lupus erythematosus, OU Related to Other forms of systemic lupus erythematosus Dry eye syndrome of bilateral lacrimal glands, OU - rx doxy 20mg qd po, subtherapeutic for inflammation ([place] in [place])still recommend patient familiarize with instilling gtts and increase use of artifical tears, I'm not good with them so I rarely use them. Related to Dry eye syndrome of bilateral lacrimal glands Dry eye syndrome of bilateral lacrimal glands, OU - f/u 3 months or sooner with issues. cont. use of ats. Related to Dry eye syndrome of bilateral lacrimal glands Dry eye syndrome of bilateral lacrimal glands, OU - will have patient return with clinic allows for punctal plug insertion. (green sheet completed today)pf at's liberally (pt reports she is not good at putting gtts in, but rec. familiarizing and trying to be better about it). Related to Dry eye syndrome of bilateral lacrimal glands Other forms of syste lucy lupus erythematosus, - Will touch base with Dr. Godoy again once patient is seen by Jocelynn. Not on systemic treatment at this time. Related to Other forms of systemic lupus erythematosus Primary iridocycliti s, bilateral, OU - Trace cell OS. Continue oral Valacyclovir 500mg TID and continue Durezol Bid OS until patient is seen by Dr. Cabezas on 02/26. Related to Primary iridocyclitis, bilateral Other forms of syste lucy lupus erythematosus, - She had her first visit with Dr. Godoy yesterday. Blood work drawn. Considering Humira. Dr. Beltrán will call to speak with Dr. Godoy. Related to Other forms of systemic lupus erythematosus Primary iridocycliti s, bilateral, OU - Quiet on Durezol TID. No pain with back/forth movement. OD bothers her occasionally but typically just OS. Unsure why she's having the discomfort she's having with no inflammatory evidence on exam. Would like second opinion with Dr. James. In the mean time back Durezol back to Bid. Related to Primary iridocyclitis, bilateral Primary iridocycliti s, bilateral, OU - Increase Durezol back to qid OS for 1 week, then may restart slow taper if symptoms resolve.Add cyclopentolate 1%: bid OS x 1 weekKeep f/u appt on 01/[address] Guevara if symptoms worsen Related to Primary iridocyclitis, bilateral Dry eye syndrome of bilateral lacrimal glands, OU - Continue PF tears 6-8x/day. Related to Dry eye syndrome of bilateral lacrimal glands Other forms of syste lucy lupus erythematosus, - Seeing Dr. Godoy 01/21/21. Related to Other forms of systemic lupus erythematosus Primary iridocycliti s, bilateral, OU - 1 week + on Durezol QID OS, qday OD: quiet OU today. Continue qday OD, Durezol tid x 2 weeks, bid x 2 weeks then follow up. It's currently under control. Explained that it will never go away completely. Related to Primary iridocyclitis, bilateral Primary iridocycliti s, bilateral, OU - Quiet OD, 1+ cell OS on Pred Forte qday OU. Would like to change back to Durezol. Patient felt the best on oral Prednisone but doesn't know if her body could take it again. Will restart Durezol QID OS, qday OD. Related to Primary iridocyclitis, bilateral Other forms of syste lucy lupus erythematosus, - Dr. Alaniz feels Humira is not necessary at this time. PCP feels she should get a second opinion after reviewing lab results. We work with Dr. Jose Miguel Godoy a lot. Related to Other forms of systemic lupus erythematosus Dry eye syndrome of bilateral lacrimal glands, OU - Continue PF tears 6-8x/day. Related to Dry eye syndrome of bilateral lacrimal glands Dry eye syndrome of bilateral lacrimal glands, OU - Continue PF tears 6-8x/day. Related to Dry eye syndrome of bilateral lacrimal glands Other forms of syste lucy lupus erythematosus, - Dr. Alaniz feels Humira is not necessary at this time. Related to Other forms of systemic lupus erythematosus Primary iridocycliti s, bilateral, OU - Tapered off oral Prednisone, not using Prednisolone drops. Some flare today, no cellular activity. Will restart Prednisolone (or Durezol, which every she has at home) qday to avoid reoccurrence, maintenance. Use x 1 month then recheck. Related to Primary iridocyclitis, bilateral Dry eye syndrome of bilateral lacrimal glands, OU - Need to aggressively treat dry eyes with Prednisone use. Recommend using PF tears 6-8x/day. Samples given in office. Related to Dry eye syndrome of bilateral lacrimal glands Other forms of syste lucy lupus erythematosus, - Spoke with Dr. Alaniz with potential to start patient on Humira if symptoms were to persist. Do not feel patient needs to start Humira at this time. 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 Related to Other forms of systemic lupus erythematosus Primary iridocycliti s, bilateral, OU - Inflammation resolved on exam today. Will taper Prednisone: 2 pills daily x 1 week, 1 pill daily x 1 week then 1/2 pill daily x 1 week. Related to Primary iridocyclitis, bilateral Primary iridocycliti s, bilateral, OU - Still has chronic flare OU. On Prednisolone QID x 1 day OS. Could not tolerate Durezol. At this time will DC steroid eye drops and start an oral steroid. Side effects reviewed. Prednisone 20m tablet tid x 10 days. Be sure to take with food and an antiacid. Related to Primary iridocyclitis, bilateral Other forms of syste lucy lupus erythematosus, - Has had evaluation with Dr. Alaniz. Blood work came back normal. The question is, is there an underlying disease? Even if she does not have an autoimmune disease it's appropriate to take a systemic medication for Iritis. Will consult with Dr. Alaniz via phone. Related to Other forms of systemic lupus erythematosus Primary iridocycliti s, bilateral, OU - Quiet OD, flare no cell OS on Pred QID. Will change to Durezol QID x 2 weeks. Related to Primary iridocyclitis, bilateral Other forms of syste lucy lupus erythematosus, - Explained how autoimmune diseases attack the eyes, bodies, etc. Now seeing Dr. Alaniz. We have sent all records to Dr. Alaniz. Dr. Beltrán wants to send all records with patient physically as well. Related to Other forms of systemic lupus erythematosus Age-related nuclear cataract, bilateral, OU - Working on iritis for now. Related to Age-related nuclear cataract, bilateral Primary iridocycliti s, bilateral, OU - Off steroid drops x 1 week OU. Trace cell OS. Restart Pred QID OS. Updated labs came back since last seen showing positive markers for Lupus. This is likely cause of recurrent Iritis. Recommend evaluation with Dr. Jose Miguel Godoy. Exams and labs faxed to Dr. Godoy. Related to Primary iridocyclitis, bilateral Dry eye syndrome of bilateral lacrimal glands, OU - Continue Gel QID AND PRN OU. 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 Will cut to Bid x 2 weeks, qday x 2 weeks then follow up in 1 month. At that time we'll decide if we can stop Pred. Patient has had labs drawn, working on getting results. Related to Primary iridocyclitis, bilateral Age-related nuclear cataract, bilateral, OU - Waiting for Iritis to be quiet/stable off treatment. Related to Age-related nuclear cataract, bilateral Dry eye syndrome of bilateral lacrimal glands, OU - Continue Gel QID AND PRN OU. 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 Due to chronic inflammation that's not resolving will order labs to rule out autoimmune disease. HLA-B27 lab sheet given to patient. Will restart Pred QID OS. Related to Primary iridocyclitis, bilateral Age-related nuclear cataract, bilateral, OU - Eye is not healing enough to proceed with cataract surgery at this time, see above. Will hold off updating the glasses Rx. Related to Age-related nuclear cataract, bilateral Dry eye syndrome of bilateral lacrimal glands, OU - Gel samples given. Stressed QID AND PRN OU. 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 Continue Fish Oil Bid. Discussed the impact JENN can have on eyes and vision. Related to Dry eye syndrome of bilateral lacrimal glands Primary iridocycliti s, bilateral, OU - Flare, no cell on Durezol qday OU. Will continue this regimen x 2 months then recheck. Related to Primary iridocyclitis, bilateral Primary iridocycliti s, bilateral, OU - Improving on Durezol QID OU. Will start Durezol taper OU: bid x 1 week, q day x 1 week. 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 IOP are within normal limits. Will monitor every 6 months. 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 Related to Age-related nuclear cataract, bilateral Dry eye syndrome of bilateral lacrimal glands, OU - Stressed artificial tears QID and prn daily. Dry eye can have the same symptoms as Iritis. Related to Dry eye syndrome of bilateral lacrimal glands Primary iridocycliti s, bilateral, OU - Inflammation OU. 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 Patient declined refraction today. Related to Age-related nuclear cataract, bilateral Glaucomatous optic a trophy, bilateral, OU - Nerve fiber layer OCT: borderline for glaucoma OU. IOP are within normal limits. Will monitor every 6 months. 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
--- OUTSIDE RECORDS SUMMARY | 2024-10-21 15:30 | XMS_ITS | Encounter Summary ---
Author Organization [employer] Address [address] [place] [address] Care Team Providers Care Ribbon Hanking Machine Operator Name Role Phone Rufino Childers MD Primary Care Provider [phone] Encounter Details Date Type Department Care Team (Latest Contact Info) Description 10/21/2024 3:30 PM CDT - 10/21/2024 11:59 PM CDT Hospital Encounter [facility] [employer] [facility] [address] [address] Kirstie Benjamin, [facility] [address] [place] [phone] Discharge Disposition: Home or Self Care Social History Tobacco Use Types Packs/Day Years Used Date Smoking Tobacco: Every Day Cigarettes Smokeless Tobacco: Never Alcohol Use Standard Drinks/Week Comments No 0 (1 standard drink = 0.6 oz pur e alcohol) Comments No Sex and Gender Information Value Date Recorded Sex Assigned at Not on file Legal Sex Female 5:01 AM DOORPERSON OR LUGGAGE PORTER Gender Identity Not on file Sexual Orientation Not on file documented as of this encounter Medications at Time of Discharge glipiZIDE (GLUCOTROL) 5 mg tabletIndications:O ther specified diabetes mellitus with hyperglycemia, unspecified whether fdc insulin use ([facility]) Take 1 Tablet (5 mg) by mouth daily with breakfast. 30 Tablet 10/21/2024 diclofenac sodium (VOLTAREN) 75 mg Tablet, Delayed Release (E.C.)Indications:A cute pain of right shoulder Take 1 Tablet (75 mg) by mouth 2 times daily. 60 Tablet 10/21/2024 metFORMIN (GLUCOPHAGE) 500 mg tabletIndications:O ther specified diabetes mellitus with hyperglycemia, unspecified whether terminal superintendent insulin use (CMS/HCC) Take 1 Tablet (500 mg) by mouth 2 times daily with meals. 60 Tablet 10/21/2024 lisinopriL (PRINIVIL) 10 mg tabletIndications:H TN (hypertension), benign 1 Tablet (10 mg) by NG Tube route daily. 100 Tablet 3 10/21/2024 rosuvastatin (CRESTOR) 20 mg tabletIndications:H yperlipidemia, unspecified hyperlipidemia type Take 1 Tablet (20 mg) by mouth daily. 100 Tablet 3 11/29/2023 ofloxacin (OCUFLOX) 0.3 % solution INSTILL 1 DROP INTO LEFT EYE 4 TIMES DAILY 07/07/2023 albuterol sulfate HFA 90 mcg/actuation aerosol inhalerIndications: Upper respiratory tract infection, unspecified type Take 2 Puffs by inhalation every 6 hours as needed for Shortness of Breath. 8.5 Gram 1 09/25/2023 hydrOXYzine HCL (ATARAX) 25 mg tabletIndications:A nxiety state Take 1 Tablet (25 mg) by mouth 3 times daily as needed for Anxiety. 30 Tablet 1 04/03/2023 documented as of this encounter Plan of Treatment Upcoming Encounters Date Type Department Care Team (Late st Contact Info) Description 01/23/2025 2:00 PM DOORPERSON OR LUGGAGE PORTER Office Visit [address] [phone] Kirstie Benjamin FNP [address] [phone] 03/24/2025 11:20 AM DOORPERSON OR LUGGAGE PORTER Office Visit [facility] [address] [phone] Rufino Childers MD [address] [phone] documented as of this encounter Procedures Procedure Name Priority Date/Time Associated Diagnosis Comments XR SHOULDER 2+ VW RIGHT Routine 10/21/2024 3:40 PM CDT Acute pain of right shoulder documented in this encounter Results * XR SHOULDER 2+ VW RIGHT (10/21/2024 3:40 PM CDT) Anatomical Region Laterality Modality Upper Extremity Computed Radiogr aphy 10/21/2024 3:40 PM CDT Impressions 10/24/2024 7:34 AM CDT IMPRESSION: 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 Narrative 10/24/2024 7:34 AM CDT EXAM: XR SHOULDER 2+ VW RIGHT DATE/TIME OF EXAM: 10/21/2024 3:40 PM REASON FOR EXAM: See Diagnosis DIAGNOSIS: Acute pain of right shoulder COMPARISON: None. FINDINGS: No evidence of a fracture, dislocation, or acute joint space abnormality. The acromioclavicular and coracoclavicular distances appear anatomic. Mild degenerative arthrosis radiographically in the acromioclavicular and coracoclavicular joints. Bones appear osteopenic. No underlying displaced rib or clavicular fracture. Procedure Note Rosalio Denny MD - 10/24/2024 EXAM: XR SHOULDER 2+ VW RIGHT DATE/TIME OF EXAM: 10/21/2024 3:40 PM REASON FOR EXAM: See Diagnosis DIAGNOSIS: Acute pain of right shoulder COMPARISON: None. FINDINGS: No evidence of a fracture, dislocation, or acute joint space abnormality. The acromioclavicular and coracoclavicular distances appear anatomic. Mild degenerative arthrosis radiographically in the acromioclavicular and coracoclavicular joints. Bones appear osteopenic. No underlying displaced rib or clavicular fracture. 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 Kirstie Benjamin DRAFTER CIVIL (CAD) DIAGNOSTIC IMAGING ORDER HEVER Final Result documented in this encounter Visit Diagnoses Diagnosis Acute pain of right shoulder documented in this encounter Care Teams Ribbon Hanking Machine Operator Relationship Specialty Start Date End Date Rufino Childers MD [address] [phone] PCP - General Family Practice 11/10/18 documented as of this encounter
--- OUTSIDE RECORDS SUMMARY | 2024-10-21 16:20 | XMS_ITS | Encounter Summary ---
Author Organization [facility] Address [address] [place] [address] Care Team Providers Care Sagger Soak Name Role Phone Rufino Childers MD Primary Care Provider [phone] Reason for Visit * Reason Comments Shoulder Pain Patient is c/o right shoulder pain. Encounter Details Date Type Department Care Team (Latest Contact Info) Description 10/21/2024 4:20 PM CDT Office Visit [address] [address] Kirstie Benjamin, [facility] [address] [address] Hyperlipidemia, unspecified hyperlipidemia type (Primary Dx); Type 2 diabetes mellitus with hyperglycemia, without long-term current use of insulin ([facility]); Acute pain of right shoulder; History of fall; Other specified diabetes mellitus with hyperglycemia, unspecified whether snf insulin use ([facility]); HTN (hypertension), benign; Pain of toe of right foot; Rheumatoid arthritis involving multiple sites with positive rheumatoid factor (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) Social History Tobacco Use Types Packs/Day Years Used Date Smoking Tobacco: Every Day Cigarettes Smokeless Tobacco: Never Tobacco Cessation:Ready to Q uit: No; Counseling Given: Yes Alcohol Use Standard Drinks/Week Comments No 0 (1 standard drink = 0.6 oz pur e alcohol) Comments No Sex and Gender Information Value Date Recorded Sex Assigned at Not on file Legal Sex Female 5:01 AM ROTARY DRUM TANNER Gender Identity Not on file Sexual Orientation Not on file documented as of this encounter Last Filed Vital Signs Vital Sign Reading Time Taken Comments Blood Pressure 136/70 10/21/2024 2:35 PM CDT Pulse 88 10/21/2024 2:35 PM CDT Temperature 36.3 C (97.3 F) 10/21/2024 2:35 PM CDT Respiratory Rate 20 10/21/2024 2:35 PM CDT Oxygen Saturation 98% 10/21/2024 2:35 PM CDT Inhaled Oxygen Concentration - - Weight 71.3 kg (157 lb 4 oz) 10/21/2024 2:35 PM CDT Height 165.1 cm (5' 5 ) 10/21/2024 2:35 PM CDT Body Mass Index 26.17 10/21/2024 2:35 PM CDT documented in this encounter Patient Instructions * Attachments The following attachments cannot be sent through Care Everywhere. * Shoulder Arthritis: Exercises (Macedonian) documented in this encounter Progress Notes * Kirstie Benjamin, IT SECURITY MANAGER - 10/21/2024 2:34 PM CDT Chief Complaint Patient presents with Shoulder Pain Patient is c/o right shoulder pain. History of Present Illness The patient is a 63-year-old female who presents for evaluation of right shoulder pain and inability to lift the shoulder. She reports significant pain in her right shoulder, which she can lift to some extent but with considerable discomfort. The onset of this pain was a few days ago. She recalls a fall a couple of weeksprior, after which she received treatment for a bruised hand. Her work involves considerable physical activity, which is currently hindered by her shoulder pain. She is seeking an injection for her shoulder pain. Additionally, she mentions an incident yesterday where she injured her second toe by kicking something. She can move her foot, but it is bruised. She believes her blood sugar levels are within the range of 125 to 151. She is currently on metformin and glipizide for diabetes management. She has discontinued gabapentin due to increased pain and stopped taking Voltaren but is considering resuming it. She is unsure about her current use of hydroxyzine. She is also on lisinopril. Review of Systems Constitutional: Negative. HENT: Negative. Eyes: Negative. Respiratory: Negative. Cardiovascular: Negative. Gastrointestinal: Negative. Genitourinary: Negative. Musculoskeletal: Positive for falls, joint pain and myalgias. Skin: Negative. Neurological: Negative. Endo/Heme/Allergies: Negative. Psychiatric/Behavioral: Negative. BP 136/70 (BP Location: Left arm, Patient Position (BP): Sitting, BP Cuff Size: Adult) Pulse 88 Temp 97.3 ??F (36.3 ??C) (Temporal) Resp 20 Ht 5' 5 (1.651 m) Wt 71.3 kg (157 lb 4 oz) SpO2 98% BMI 26.17 kg/m?? Physical Exam Ears: Fluid in ears Extremities: Bruising on right second toe Musculoskeletal: Right shoulder pain with limited range of motion Physical Exam Vitals and nursing note reviewed. Constitutional: Appearance: She is well-developed. HENT: Head: Normocephalic and atraumatic. Right Ear: External ear normal. Left Ear: External ear normal. Nose: Nose normal. Mouth/Throat: Mouth: Mucous membranes are moist. Eyes: Extraocular Movements: Extraocular movements intact. Conjunctiva/sclera: Conjunctivae normal. Cardiovascular: Rate and Rhythm: Normal rate and regular rhythm. Heart sounds: Normal heart sounds. Pulmonary: Effort: Pulmonary effort is normal. Breath sounds: Normal breath sounds. Musculoskeletal: Right shoulder: Decreased range of motion (extension to 90 degrees). Cervical back: Normal range of motion. Skin: General: Skin is warm and dry. Neurological: Mental Status: She is alert and oriented to person, place, and time. Psychiatric: Mood and Affect: Mood normal. Behavior: Behavior normal. Thought Content: Thought content normal. Judgment: Judgment normal. Results Labs - Blood Glucose Test: 125-151 mg/dL Administrations This Visit dexAMETHasone (DECADRON) injection 4 mg Admin Date 10/21/2024 Action Given Dose 4 mg Route IM Documented By Bria Sheriff LPN ICD-10-CM ICD-9-CM 1. Hyperlipidemia, unspecified hyperlipidemia type E78.5 272.4 LIPID PANEL LIPID PANEL 2. Type 2 diabetes mellitus with hyperglycemia, without long-term current use of insulin ([facility]) E11.65 250.00 CBC WITH DIFFERENTIAL 790.29 COMPREHENSIVE METABOLIC PANEL HEMOGLOBIN A1C MICROALBUMIN/CREATININE RATIO, RANDOM UR MICROALBUMIN/CREATININE RATIO, RANDOM UR HEMOGLOBIN A1C COMPREHENSIVE METABOLIC PANEL CBC WITH DIFFERENTIAL 3. Acute pain of right shoulder M25.511 719.41 diclofenac sodium (VOLTAREN) 75 mg Tablet, Delayed Release (E.C.) dexAMETHasone (DECADRON) injection 4 mg XR SHOULDER 2+ VW RIGHT 4. History of fall Z91.81 V15.88 5. Other specified diabetes mellitus with hyperglycemia, unspecified whether rodent exterminator insulin use ([facility]) E13.65 250.00 glipiZIDE (GLUCOTROL) 5 mg tablet metFORMIN (GLUCOPHAGE) 500 mg tablet 6. HTN (hypertension), benign I10 401.1 lisinopriL (PRINIVIL) 10 mg tablet 7. Pain of toe of right foot M79.674 729.5 dexAMETHasone (DECADRON) injection 4 mg 8. Rheumatoid arthritis involving multiple sites with positive rheumatoid factor ([facility]) M05.79 714.0 9. 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 Right shoulder pain. - Severe pain in the right shoulder, started a few days ago, difficulty lifting the shoulder. - Steroid injection will be administered today to alleviate the shoulder pain. - X-ray of the shoulder ordered to rule out dislocation or other issues. - Further treatment will be considered based on x-ray results. 2. Second toe injury. - Injured second toe yesterday by kicking it against an object, reports bruising but can move the toe. - Taping the injured toe to the adjacent one recommended as primary treatment if broken. - No x-ray ordered for the toe due to limited treatment options. - Toe injury monitored through physical examination. 3. Diabetes mellitus. - Blood sugar levels reported between 125-151, considered good control. - Currently taking metformin and glipizide. - Lab work will be conducted today to monitor diabetes and ensure continued medication refills. - Diabetes management discussed, lab work ordered. 4. Medication management. - Requested refills for medications. - Prescriptions for metformin, glipizide, and lisinopril sent to pharmacy. - Gabapentin discontinued due to causing more pain. - Voltaren refill offered for shoulder and foot pain. 5. Hypertension-stable. Continue current management with medications and BP monitoring at home. Labs drawn in clinic for monitoring of disease progression 6. Mixed hyperlipidemia- Continue statin therapy. No statin induced myalgia reported. If this develops may try COQ10. Follow low cholesterol diet. Labs drawn in clinic to monitor for chronic disease progression 7. RA-stable. Continue follow up with specialty. No changes to medications Kirstie YOU-Munira This note was automatically generated by a Generative AI technology (WaveConnex), reviewed, edited, and finalized by KENYATTA Maldonado. The author of this note, patient (or authorized signs sales representative), and all other persons present consent to the audio recording of this visit for charting documentation purposes. Depression Screen Positive: PHQ-2 score >= 3 or PHQ-9 score >= 9 PHQ-2 Total: 0 (10/21/2024 2:34 PM) DEPRESSION PLAN OF CARE Her depression screen was negative. (PHQ2 <3, PHQ9 <10, [place] <11) documented in this encounter Miscellaneous Notes * Patient Instructions - Bria SheriffABDIAS - 10/21/2024 2:34 PM CDT What is Diabetic Retinopathy? Diabetic retinopathy is the most common eye disease in patients with diabetes and a leading cause of blindness in [place] adults. It is caused by changes in the blood vessels in the light-sensitive tissue at the back of the eyeball, called the retina. A healthy retina is necessary for good vision. In some people with diabetic retinopathy, blood vessels may swell and leak fluid. In other people, abnormal new blood vessels grow on the surface of theretina. Diabetic retinopathy usually affects both eyes. If you have diabetic retinopathy, at first you may not notice changes to your vision. But over time, diabetic retinopathy can get worse and cause vision loss. Fortunately, vision loss can be prevented if diabetic retinopathy is found and treated early. Who is at risk for diabetic retinopathy? All people with diabetes - both type 1 and type 2 - are at risk. That's why everyone with diabetes should get a complete dilated eye exam at least once a year. (A dilated exam uses eye drops to open the pupil for a better view of the retina.) What can I do to protect my vision? Get a complete dilated eye exam at least once a year and remember to ask your accounts payable coordinator or mold tooling technician to send a report of their findings to your Primary Care Provider (or give you a report that you can take to your PCP.) Better control of blood sugar levels slows the start and worsening of retinopathy. People with diabetes who keep their blood sugar levels as close to normal as possible also have much less kidney andnerve disease. Better control also reduces the need for sight-saving laser surgery. Other studies have shown that controlling elevated blood pressure and cholesterol can reduce the risk of vision loss. Controlling these will help your overall health as well as help protect your vision. Facts about diabetic retinopathy: You can develop diabetic retinopathy and still be able to see fine. However, you are at high risk for vision loss. Your eyeglass cutter can tell if you have diabetic retinopathy. Whether or not you have symptoms, early detection and timely treatment can prevent vision loss. People with the most severe type of retinopathy, called proliferative retinopathy. can reduce theirrisk of blindness by 95 percent with timely treatment and appropriate follow-up care. The longer someone has diabetes, the more likely he or she will get diabetic retinopathy. Between 40 to 45 percent of Americans diagnosed with diabetes have some stage of diabetic retinopathy. If you have diabetic retinopathy, your doctor can recommend treatment to help prevent it from getting worse. documented in this encounter Plan of Treatment Upcoming Encounters Date Type Department Care Team (Late st Contact Info) Description 01/23/2025 2:00 PM ROTARY DRUM TANNER Office Visit [facility] [address] [address] Kirstie Benjamin FNP [address] [address] 03/24/2025 11:20 AM ROTARY DRUM TANNER Office Visit [facility] [address] [address] Rufino Childers MD [address] [address] documented as of this encounter Procedures Procedure Name Priority Date/Time Associated Diagnosis Comments MICROALBUMIN/CREATINI NE RATIO, RANDOM UR Routine 10/21/2024 2:56 PM CDT Type 2 diabetes mellitus with hyperglycemia, without long-term current use of insulin ([facility]) CBC WITH DIFFERENTIAL Stat 10/21/2024 2:56 PM CDT Type 2 diabetes mellitus with hyperglycemia, without long-term current use of insulin ([facility]) HEMOGLOBIN A1C Routine 10/21/2024 2:56 PM CDT Type 2 diabetes mellitus with hyperglycemia, without long-term current use of insulin ([facility]) LIPID PANEL Routine 10/21/2024 2:56 PM CDT Hyperlipidemia, unspecified hyperlipidemia type COMPREHENSIVE METABOLIC PANEL Routine 10/21/2024 2:56 PM CDT Type 2 diabetes mellitus with hyperglycemia, without long-term current use of insulin ([facility]) documented in this encounter Results * XR [...] a superimposed fracture or dislocation. Kirstie Benjamin [facility] DIAGNOSTIC IMAGING ORDER HEVER Final Result * (ABNORMAL) MICROALBUMIN/CREATININE RATIO, RANDOM UR (10/21/2024 2:56 PM CDT) CREATININE, URINE 149 20 - 275 mg/dL [facility] ALBUMIN, URINE 14.5 See Note: mg/dL [facility] Comment: Reference Range: Reference Range Not established ALB/CREAT RATIO, URINE 97(H) <30 mg/g creat [facility] Comment: The ADA defines abnormalities in albumin excretion as follows: Albuminuria Category Result (mg/g creatinine) Normal to Mildly increased <30 Moderately increased 30-299 Severely increased > OR = 300 The ADA recommends that at least two of three specimens collected within a 3-6 month period be abnormal before considering a patient to be within a diagnostic category. Test Performed at: [facility] [address] [place] [address] Harriett Oliva MD Urine URINE SPECIMEN OBTAINED BY CLEAN CATCH PROCEDURE / Unknown 10/21/2024 2:56 PM CDT 10/22/2024 2:59 AM CDT Kirstie Benjamin [facility] URINE ORDERABLES Final R esult [facility] [phone] [facility] [address] [place] [address] * (ABNORMAL) LIPID PANEL (10/21/2024 2:56 PM CDT) CHOLESTEROL 247(H) <200 mg/dL [facility] HDL 35(L) > OR = 50 mg/dL [facility] TRIGLYCERIDE 415(H) <150 mg/dL [facility] Comment: If a non-fasting specimen was collected, consider repeat triglyceride testing on a fasting specimen if clinically indicated. Kwabena et al. J. of Clin. Lipidol. 2015;9:129-169. LDL CALCULATED mg/dL (calc) [facility] Comment: LDL cholesterol not calculated. Triglyceride levels greater than 400 mg/dL invalidate calculated LDL results. Reference range: <100 Desirable range <100 mg/dL for primary prevention; <70 mg/dL for patients with CHD or diabetic patients with > or = 2 CHD risk factors. LDL-C is now calculated using the Murtaza calculation, which is a validated novel method providing better accuracy than the Friedewald equation in the estimation of LDL-C. John KINGSTON et al. KAI. 2013;310(19): 3441-2750 (http://education.51Talk/faq/BHC505) CHOL/HDL RATIO 7.1(H) <5.0 (calc) [facility] NON-HDL CHOLESTEROL 212(H) <130 mg/dL (calc) [facility] Comment: For patients with diabetes plus 1 major ASCVD risk factor, treating to a non-HDL-C goal of <100 mg/dL (LDL-C of <70 mg/dL) is considered a therapeutic option. Test Performed at: [facility] [id number] [facility] [place] [address] Harriett Oliva MD Blood 10/21/2024 2:56 PM CDT 10/22/2024 5:33 AM CDT Kirstie YOU CHEMISTRY ORDERABLES Fin al Result [facility] [phone] [facility] [address] [facility] [place] [address] * (ABNORMAL) HEMOGLOBIN A1C (10/21/2024 2:56 PM CDT) HEMOGLOBIN A1C 12.1(H) <5.7 % [facility] Comment: For someone without known diabetes, a hemoglobin A1c value of 6.5% or greater indicates that they may have diabetes and this should be confirmed with a follow-up test. For someone with known diabetes, a value <7% indicates that their diabetes is well controlled and a value greater than or equal to 7% indicates suboptimal control. A1c targets should be individualized based on duration of diabetes, age, comorbid conditions, and other considerations. Currently, no consensus exists regarding use of hemoglobin A1c for diagnosis of diabetes for children. ESTIMATED AVERAGE GLUCOSE (MG/DL) 301 mg/dL [facility] ESTIMATED AVERAGE GLUCOSE (MMOL/L) 16.6 mmol/L [facility] Comment: Test Performed at: [facility] [address] [place] [address] Harriett Oliva MD Blood 10/21/2024 2:56 PM CDT 10/22/2024 5:33 AM CDT Kirstie Benjamin IT SECURITY MANAGER CHEMISTRY ORDERABLES Fin al Result [facility] [phone] [facility] [address] [place] [address] * (ABNORMAL) COMPREHENSIVE METABOLIC PANEL (10/21/2024 2:56 PM CDT) Pathologist [facility] GLUCOSE 225(H) 65 - 99 mg/dL [facility] Comment: Fasting reference interval For someone without known diabetes, a glucose value >125 mg/dL indicates that they may have diabetes and this should be confirmed with a follow-up test. BUN 10 7 - 25 mg/dL [facility] CREATININE 0.63 0.50 - 1.05 mg/dL [facility] GFR 99 > OR = 60 mL/min/1. 73m2 [facility] BUN/CREAT RATIO SEE NOTE: 6 - 22 (calc) [facility] Comment: Not Reported: BUN and Creatinine are within reference range. SODIUM 138 135 - 146 mmol/L [facility] POTASSIUM 3.9 3.5 - 5.3 mmol/L [facility] CHLORIDE 100 98 - 110 mmol/L [facility] CO2 27 20 - 32 mmol/L [facility] CALCIUM 9.5 8.6 - 10.4 mg/dL [facility] TOTAL PROTEIN 6.7 6.1 - 8.1 g/dL [facility] ALBUMIN 3.9 3.6 - 5.1 g/dL [facility] GLOBULIN 2.8 1.9 - 3.7 g/dL (calc) [facility] ALBUMIN/GLOBULIN RATIO 1.4 1.0 - 2.5 (calc) [facility] BILIRUBIN TOTAL 0.3 0.2 - 1.2 mg/dL [facility] ALKALINE PHOSPHATASE 86 37 - 153 U/L [facility] AST 10 10 - 35 U/L [facility] ALT 8 6 - 29 U/L [facility] Comment: Test Performed at: [facility] [address] [place] [address] Harriett Oliva MD Blood 10/21/2024 2:56 PM CDT 10/22/2024 5:33 AM CDT Kirstie Benjamin IT SECURITY MANAGER CHEMISTRY ORDERABLES Fin al Result [facility] [phone] [facility] [address] [place] [address] * CBC WITH DIFFERENTIAL (10/21/2024 2:56 PM CDT) WBC 8.8 3.8 - 10.8 Thousand/u L [facility] RBC 4.65 3.80 - 5.10 Million/uL [facility] HEMOGLOBIN 14.4 11.7 - 15.5 g/dL [facility] HEMATOCRIT 42.5 35.0 - 45.0 % [facility] MCV 91.4 80.0 - 100.0 fL [facility] MCH 31.0 27.0 - 33.0 pg [facility] MCHC 33.9 32.0 - 36.0 g/dL [facility] Comment: For adults, a slight decrease in the calculated MCHC value (in the range of 30 to 32 g/dL) is most likely not clinically significant; however, it should be interpreted with caution in correlation with other red cell parameters and the patient's clinical condition. RDW 12.7 11.0 - 15.0 % [facility] PLATELETS 288 140 - 400 Thousand/u L [facility] MPV 9.5 7.5 - 12.5 fL [facility] NEUTROPHIL ABSOLUTE 4,963 1,500 - 7,800 cells/uL [facility] LYMPHOCYTE ABSOLUTE 3,124 850 - 3,900 cells/uL [facility] MONOCYTE ABSOLUTE 493 200 - 950 cells/uL [facility] EOSINOPHIL ABSOLUTE 158 15 - 500 cells/uL [facility] BASOPHILS ABSOLUTE 62 0 - 200 cells/uL [facility] NEUTROPHIL 56.4 % [facility] LYMPHOCYTES 35.5 % [facility] MONOCYTE 5.6 % [facility] EOSINOPHILS 1.8 % [facility] BASOPHILS 0.7 % [facility] Comment: Test Performed at: [facility] [address] Harriett Oliva MD Blood 10/21/2024 2:56 PM CDT 10/22/2024 5:33 AM CDT us Kirstie Benjamin IT SECURITY MANAGER HEMATOLOGY ORDERABLES Fi nal Result [facility] [phone] [facility] [address] [place] [address] documented in this encounter Visit Diagnoses Diagnosis Hyperlipidemia, unspecified hyperlipidemia type- Primary Type 2 diabetes mellitus with hyperglycemia, without long-term current use of insulin ([facility]) Acute pain of right shoulder History of fall Personal history of fall Other specified diabetes mellitus with hyperglycemia, unspecified whether rodent exterminator insulin use ([facility]) HTN (hypertension), benign Essential hypertension, benign Pain of toe of right foot Pain in limb Rheumatoid arthritis involving multiple sites with positive rheumatoid factor ([facility]) Neuropathy due to secondary diabetes mellitus ([facility]) Acute pain of right shoulder documented in this encounter Administered Medications Inactive Administered Medications - up to 3 most recent administrations Medication Order MAR Action Action Date Dose Rate Site dexAMETHasone (DECADRON) injection 4 mg 4 mg, IM, ONE TIME ONLY, 1 dose, On Thu10/21/24 at 1445, RoutineIndications:Acute pain of right shoulder,Pain of toe of right foot Given 10/21/2024 2:51 PM CDT 4 mg Ventrogluteal, Right documented in this encounter Care Teams Sagger Soak Relationship Specialty Start Date End Date Rufino Childers MD [address] [facility] [address] [place] [address] PCP - General Family Practice 11/10/18 documented as of this encounter
[2024-10-23 20:14] VITALS: BP 191/91; PULSE 74; RESP 16; TEMP 36.6; O2SAT 97
--- NOTE | 2024-10-23 21:28 | CTR_ITS ---
PROCEDURE INFORMATION: Exam: CT Head Without Contrast Exam date and time: 10/23/2024 11:16 PM Age: 63 years old Clinical indication: Altered mental status/memory loss; Confusion or disorientation; C/O confusion x 3 days; Additional info: AMS TECHNIQUE: Imaging protocol: Computed tomography of the head without contrast. Radiation optimization: All CT scans at this facility use at least one of these dose optimization techniques: automated exposure control; mA and/or kV adjustment per patient size (includes targeted exams where dose is matched to clinical indication); or iterative reconstruction. COMPARISON: No relevant prior studies available. RADIATION DOSE METRICS: Total DLP (mGy-cm): 982.73 FINDINGS: Brain: Normal. No hemorrhage. Unremarkable white matter. No mass effect. Cerebral ventricles: No ventriculomegaly. Paranasal sinuses: Visualized sinuses are unremarkable. No fluid levels. Mastoid air cells: Visualized mastoid air cells are well aerated. Bones: Unremarkable. No acute fracture. Soft tissues: Unremarkable. CT/CT head wo con* [id number] IMPRESSION: No acute intracranial abnormality.
--- NOTE | 2024-10-23 21:28 | XRR_ITS ---
PROCEDURE INFORMATION: Exam: XR Chest Exam date and time: 10/23/2024 11:08 PM Age: 63 years old Clinical indication: Other: AMS; C/O confusion x 3 days TECHNIQUE: Imaging protocol: Radiologic exam of the chest. Views: 1 view. COMPARISON: CR XR chest 1V portable [id number] 01/07/2023 4:02 PM FINDINGS: Lungs: Unremarkable. No consolidation. Pleural spaces: Unremarkable. No pleural effusion. No pneumothorax. Heart/Mediastinum: Unremarkable. No cardiomegaly. Bones/joints: Unremarkable. XR/XR chest 1V portable [id number] IMPRESSION: No acute findings.
[2024-10-23 23:09] LABS: Hematocrit 42.1 % (36-47); Hemoglobin 14.20 g/dL (11.27-16.99); Mean Corpuscular HGB Conc 33.7 g/dL (30-55); Mean Corpuscular Hemoglobin 30.0 pg (27-33); Mean Corpuscular Volume 88.8 fl (85-98); Nucleated Red Blood Cells % 0 %; Platelet Count 271 10^3/cmm (157-399); Red Blood Count 4.74 10^6/uL (3.85-5.65); White Blood Count 9.69 10^3/uL (3.29-11.43)
[2024-10-23 23:36] LABS: Alanine Aminotransferase 10 U/L (0-33); Albumin Level 3.8 g/dL (3.5-5.2); Alkaline Phosphatase 97 U/L (35-105); Anion Gap 15.3 (5-19); Aspartate Amino Transferase 7 U/L (0-32); Blood Urea Nitrogen 9 mg/dL (8-23); Calcium 9.7 mg/dL (8.5-10.5); Carbon Dioxide 25 mmol/L (22-29); Chloride 100 mmol/L (98-107); Creatinine Clr Calc Pharmacy 113.4627; Globulin 3.5 g/dL (1.3-4.6); Glucose 187 mg/dL (65-115); Magnesium 1.9 mg/dL (1.7-2.3); Osmolality Calculated 288 mOsm/kg (285-295); Potassium 3.3 mmol/L (3.5-5.1); Sodium 137 mmol/L (136-145); Total Protein 7.3 g/dL (6.6-8.7)
[2024-10-23 23:37] LABS: Lactic Sepsis W/Reflex 1.1 mmol/L (0.5-2.2)
[2024-10-23 23:39] LABS: Glucose Urine UA Negative (Normal); Nitrate Urine Negative (Negative)
[2024-10-23 23:45] LABS: Add Urine Microscopic? YES
[2024-10-23 23:50] LABS: Specific Gravity, Urine 1.033 (1.005-1.030)
--- NOTE | 2024-10-23 23:53 | W.ED.GENADLT ---
HPI - General Adult General: Chief complaint: General Medical Stated complaint: Low Sugar, Confusion, Barely eating, sleeping more Time Seen by Provider: 10/23/24 23:10 History of Present Illness: 63-year-old female with intermittent confusion over the last week or so. Seems to be getting a bit worse. She was afraid her sugar was low, but was not not. She has had some chills this evening, not prior. No vision or language problems. No new trouble with strength or walking. She is concerned she may have a urinary tract infection Related Data Home Medications ?Medication ?Instructions ?Recorded ?Confirmed ibuprofen 200 mg tablet (Advil) 200 mg PO 3XD 03/24/23 10/20/24 lisinopril 5 mg tablet 5 mg PO BID 03/24/23 10/20/24 rosuvastatin 5 mg tablet 5 mg PO DAILY 03/24/23 10/20/24 Previous Rx's ?Medication ?Instructions ?Recorded glipizide 5 mg tablet 5 mg PO DAILY 1 month #30 tabs 10/19/24 metformin 500 mg tablet 500 mg PO BID 1 month #60 tabs 10/19/24 sulfamethoxazole 800 1 tab PO DAILY 5 days #14 tabs 10/24/24 mg-trimethoprim 160 mg tablet (Bactrim DS) Allergies Allergy/AdvReac Type Severity Reaction Status Date / Time Penicillins Allergy Unknown Verified 10/20/24 13:41 [facility] ED PFSH: Social History Smoking and tobacco/nicotine status: unknown if used tobacco/nicotine Physical Exam Const: COMMON NORMALS: no acute distress GENERAL APPEARANCE: cooperative; not ill appearing and not frail appearing HENMT: COMMON NORMALS: normocephalic, atraumatic and Normal external nose present HEAD & SCALP: normocephalic and atraumatic FACE & SINUS: normal facial exam and face symmetric NOSE: Normal external nose present Eye: COMMON NORMALS: Equal, round and reactive pupils present and EOMs intact bilaterally PUPIL: Yes Equal, round and reactive pupils present Neck/C-Spine: GENERAL: Yes trachea midline Chest: CHEST: Yes Symmetrical chest wall rise Resp: COMMON NORMALS: normal respiratory effort, No retractions, No use of accessory muscles and clear to auscultation bilaterally AUSCULTATION: clear to auscultation bilaterally Cardio: COMMON NORMALS: regular rate and regular rhythm RATE: regular rate RHYTHM: regular rhythm GI: COMMON NORMALS: Normal to inspection, nondistended, normoactive bowel sounds present Extremity: COMMON NORMALS: no pedal edema Neuro: CHAYITO COMA SCALE: document GCS findings [place] coma scale eye opening: Spontaneous [place] coma scale verbal response: Orientated [place] coma scale motor response: Obey commands [place] coma scale total score: 15 SENSORY EXAM: Yes extremities (intact) Psych: COMMON NORMALS: speech normal SPEECH: Yes normal speech Skin: COMMON NORMALS: no rashes or lesions noted GENERAL SKIN EXAM: no rashes or lesions noted Course Vital Signs: Vital signs: Vital Signs Temperature 97.8 F 10/23/24 20:14 Pulse Rate 89 10/24/24 00:31 Respiratory Rate 17 10/24/24 00:31 Blood Pressure 190/78 10/24/24 00:31 Pulse Oximetry 99 10/24/24 00:31 Oxygen Delivery Me thod Room Air 10/23/24 20:14 [facility] - General Adult Medical Decision Making Patient was hypertensive on arrival. Improved currently. Blood sugar is 187. Potassium is 3.3. Other laboratory in terms of serum not remarkable. Chest x-ray is negative. Head CT is negative. Urine specific gravity is mildly high with 1+ leukocyte esterase. Other findings are equivocal urinalysis noriega. In absence of any other discernible cause, will treat urine. Hydration. Antibiotics. Lab Data 10/23/24 23:03 10/23/24 23:03 Radiology Impressions Chest X-Ray 10/23/24 21:28 IMPRESSION: No acute findings. Head CT 10/23/24 21:28 IMPRESSION: No acute intracranial abnormality. Laboratory Results WBC 9.69 10^3/uL (3.29-11.43) 10/23/24 23:03 RBC 4.74 10^6/uL (3.85-5.65) 10/23/24 23:03 Hgb 14.20 g/dL (11.27-16.99) 10/23/24 23:03 Hct 42.1 % (36-47) 10/23/24 23:03 MCV 88.8 fl (85-98) 10/23/24 23:03 MCH 30.0 pg (27-33) 10/23/24 23:03 MCHC 33.7 g/dL (30-55) 10/23/24 23:03 RDW 12.4 % (12.1-15.1) 10/23/24 23:03 Plt Count 271 10^3/cmm (157-399) 10/23/24 23:03 MPV 9.0 fL (7.4-10.4) 10/23/24 23:03 Neut % (Auto) 48.7 % 10/23/24 23:03 Lymph % (Auto) 42.4 % 10/23/24 23:03 Fleming % (Auto) 5.9 % 10/23/24 23:03 Eos % (Auto) 2.1 % 10/23/24 23:03 Baso % (Auto) 0.6 % 10/23/24 23:03 Neut # (Auto) 4.72 10^3/uL (1.8-7.7) 10/23/24 23:03 Lymph # (Auto) 4.1 10^3/uL (0.8-4.8) 10/23/24 23:03 Fleming # (Auto) 0.6 10^3/uL (0.2-0.9) 10/23/24 23:03 Eos # (Auto) 0.2 10^3/uL (0.0-0.8) 10/23/24 23:03 Baso # (Auto) 0.1 10^3/uL (0.0-0.1) 10/23/24 23:03 Nucleated RBC % (auto) 0 % 10/23/24 23:03 Nucleated RBCs # 0.0 /100WBC 10/23/24 23:03 Sodium 137 mmol/L (136-145) 10/23/24 23:03 Potassium 3.3 mmol/L (3.5-5.1) L 10/23/24 23:03 Chloride 100 mmol/L (98-107) 10/23/24 23:03 Carbon Dioxide 25 mmol/L (22-29) 10/23/24 23:03 Anion Gap 15.3 (5-19) 10/23/24 23:03 BUN 9 mg/dL (8-23) 10/23/24 23:03 Creatinine 0.5 mg/dL (0.5-0.9) 10/23/24 23:03 GFR Calculation 124.2 mL/min (90-130) 10/23/24 23:03 Glucose 187 mg/dL (65-115) H 10/23/24 23:03 POC Glucose 189 mg/dL (70-110) H 10/23/24 20:13 Calculated Osmolality 288 mOsm/kg (285-295) 10/23/24 23:03 Lactic Acid 1.1 mmol/L (0.5-2.2) 10/23/24 23:03 Calcium 9.7 mg/dL (8.5-10.5) 10/23/24 23:03 Magnesium 1.9 mg/dL (1.7-2.3) 10/23/24 23:03 Total Bilirubin 0.3 mg/dL (0.15-1.2) 10/23/24 23:03 AST 7 U/L (0-32) 10/23/24 23:03 ALT 10 U/L (0-33) 10/23/24 23:03 Alkaline Phosphatase 97 U/L (35-105) 10/23/24 23:03 C-Reactive Protein 8.6 mg/L (0.0-4.9) H 10/23/24 23:03 Total Protein 7.3 g/dL (6.6-8.7) 10/23/24 23:03 Albumin 3.8 g/dL (3.5-5.2) 10/23/24 23:03 Globulin 3.5 g/dL (1.3-4.6) 10/23/24 23:03 Urine Color Yellow (Yellow) 10/23/24:33 Urine Appearance Clear (CLEAR) 10/23/24 23: Urine pH 5.5 (5-7) 10/23/24 23:33 Ur Specific Sacul 1.033 (1.005-1.030) H 10/23/24 23:33 Urine Protein 2+ (Negative) A 10/23/24: Urine Glucose (UA) Negative (Normal) 10/23/24: Urine Ketones 2+ (Negative) H 10/23/24 23:33 Urine Blood Negative (Negative) 10/23/24 23: Urine Nitrate Negative (Negative) 10/23/24 23: Urine Bilirubin Negative (Negative) 10/23/24 23: Urine Urobilinogen 1.0 mg/dL (Negative) 10/23/24 23:33 Ur Leukocyte Esterase 1+ (Negative) A 10/23/24 23:33 Urine RBC 0-2 /hpf (0-2) 10/23/24 23:33 Urine WBC 0-5 /hpf (0-5) 10/23/24 23:33 Ur Squamous Epith Cells 6-10 /hpf (0-5) 10/23/24 23:33 Amorphous Sediment Not Reportable 10/23/24 23:33 Urine Bacteria None seen /hpf (NONE) 10/23/24 23:33 Hyaline Casts 3.30 /lpf 10/23/24 23:33 All radiology interpretation(s) finalized by discharge Discharge Plan Discharge Patient Disposition: Home Clinical Impression: UTI (urinary tract infection), Acute dehydration Condition: Stable Prescriptions: New sulfamethoxazole-trimethoprim [Bactrim DS] 800-160 mg tablet 1 tab PO DAILY 5 Days Qty: 14 0RF No Action lisinopril 5 mg tablet 5 mg PO BID rosuvastatin 5 mg tablet 5 mg PO DAILY ibuprofen [Advil] 200 mg tablet 200 mg PO 3XD glipizide 5 mg tablet 5 mg PO DAILY 30 Days Qty: 30 0RF metformin 500 mg tablet 500 mg PO BID 30 Days Qty: 60 0RF Discharge Orders: Discharge ED (Routine); Ordered 10/24/24 Ordered By: Jose Miguel Antunez Referrals: Rufino Childers [Primary Care Provider, Family Practice] - 4-7 days Patient Instructions: Dehydration (ED), Urinary Tract Infection in Older Adults (ED), Opioid Safety, Pain Management, Patient Portal & Lyn Instructions Activity Restrictions/Additional Instructions: Antibiotics as directed. Stay hydrated. Drink plenty of fluids for the next 48 hours. Return for worsening mental status despite the above, fever despite antibiotics, any other concerning symptoms. Follow-up with your doctor this coming week. Call tomorrow for appointment. Print Language: Comoran Coding Level of Care Code ED Washing Machine Operator for Carlitos Parry
[2024-10-24] VITALS (7 sets, daily range): BP systolic 123–197; BP diastolic 58–111; PULSE 58–89; RESP 17; O2SAT 95–99
[2024-10-24] MEDS: potassium chloride oral liq 20 mEq/15 mL UDC 40 MEQ PO (00:24)
[2024-10-24] MEDS: cefTRIAXone 1,000 mg SDV 1000 MG IVP (00:24)
[2024-10-24] MEDS: labetalol 5 mg/mL SDV 20mL 20 MG IVP (01:19)
--- OUTSIDE RECORDS SUMMARY | 2024-10-26 07:57 | XMS_ITS | Encounter Summary ---
Author Organization [facility] Address [address] [place] [address] Care Team Providers Care Paper Reel Operator Name Role Phone Rufino Childers MD Primary Care Provider [phone] Encounter Details Date Type Department Care Team (Late st Contact Info) Description 08/24/2017 Lab Requisition [facility] [place] [address] [place] [address] Flavio Flores, WIL [address] [place] [address] Social History Tobacco Use Types Packs/Day Years Used Date Smoking Tobacco: Every Day Cigarettes 1 30 Smokeless Tobacco: Never Alcohol Use Standard Drinks/Week Comments No 0 (1 standard drink = 0.6 oz pur e alcohol) Comments No Sex and Gender Information Value Date Recorded Sex Assigned at Not on file 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 Gender Identity Not on file Sexual Orientation Not on file Occupation Industry Job Start Date Job End Date Not on file Not on file Not on file Not on file documented as of this encounter Plan of Treatment Not on file documented as of this encounter Procedures Procedure Name Priority Date/Time Associated Diagnosis Comments SEDIMENTATION RATE Routine 08/24/2017 9: 00 PM CDT RHEUMATOID FACTOR Routine 08/24/2017 9:0 0 PM CDT GLORY SCREEN W/REFLEX Routine 08/24/2017 9 :00 PM CDT documented in this encounter Results * GLORY SCREEN W/REFLEX (08/24/2017 9:00 PM CDT) Pathologist [facility] GLORY SCREEN Negative Negative 08/26/2017 3:28 PM CDT [facility] Blood Collection / Unknown 08/24/2017 9:00 PM CDT 08/24/2017 11:20 PM CDT Flavio Flores LITERATURE PROFESSOR CHEMISTRY ORDERABLES Final Resu lt Performing Organization Address City/[facility]/ZIP Co de Phone Number [facility] CLIA# [id number] [address] [place], [place] [id number] * (ABNORMAL) SEDIMENTATION RATE (08/24/2017 9:00 PM CDT) Pathologist [facility] ESR (SEDIMENTATION RATE) 31(H) 0 - 30 mm/Hr 08/24/2017 11:50 PM CDT [facility] Blood Collection / Unknown 08/24/2017 9:00 PM CDT 08/24/2017 11:20 PM CDT Flavio Flores LITERATURE PROFESSOR HEMATOLOGY ORDERABLES Final Res ult Performing Organization Address City/[facility]/ZIP Co de Phone Number [facility] CLIA # [id number] [address] [place] [id number] * (ABNORMAL) RHEUMATOID FACTOR (08/24/2017 9:00 PM CDT) Pathologist [facility] RHEUMATOID FACTOR 51(H) <14 IU/mL 08/25/2017 10:50 PM CDT [facility] Blood Collection / Unknown 08/24/2017 9:00 PM CDT 08/24/2017 11:20 PM CDT Flavio Flores LITERATURE PROFESSOR CHEMISTRY ORDERABLES Final Resu lt Performing Organization Address City/[facility]/ZIP Co de Phone Number [facility] CLIA# [id number] [address] [place], [place] [address] documented in this encounter Visit Diagnoses Not on filedocumented in this encounter Care Teams Paper Reel Operator Relationship Specialty Start Date End Date Rufino Childers MD [address] [address] PCP - General Family Practice 11/10/18 documented as of this encounter
--- OUTSIDE RECORDS SUMMARY | 2024-10-26 07:57 | XMS_ITS | Encounter Summary ---
Author Organization [facility] Address [address] [place] [address] Care Team Providers Care Rotary Shear Operator Name Role Phone Rufino Childers MD Primary Care Provider [phone] Encounter Details Date Type Department Care Team (Latest Contact Info) Description 11/26/2006 Outpatient Historical [facility] Medicine [address] [address] Rhona Duenas MD NO ADDRESS ON FILE Acute Bronchitis (Primary Dx) Social History Tobacco Use Types Packs/Day Years Used Date Smoking Tobacco: Never Assessed Comments Unknown Sex and Gender Information Value Date Recorded Sex Assigned at Not on file 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
--- OUTSIDE RECORDS SUMMARY | 2024-10-26 07:57 | XMS_ITS | Encounter Summary ---
Author Organization [facility] Address [address] [place] [address] Care Team Providers Care Mail Distributor Name Role Phone Rufino Childers MD Primary Care Provider [phone] Encounter Details Date Type Department Care Team (Late st Contact Info) Description 10/18/2024 External Device Data [facility] ABSTRACTION Provider, Abstract NO ADDRESS ON FILE Social History Tobacco Use Types Packs/Day Years Used Date Smoking Tobacco: Every Day Cigarettes Smokeless Tobacco: Never Alcohol Use Standard Drinks/Week Comments No 0 (1 standard drink = 0.6 oz pur e alcohol) Comments No Sex and Gender Information Value Date Recorded Sex Assigned at Not on file Legal Sex Female 5:01 AM APPLICATION SUPPORT DEVELOPER Gender Identity Not on file Sexual Orientation Not on file documented as of this encounter Plan of Treatment Upcoming Encounters Date Type Department Care Team (Late st Contact Info) Description 01/23/2025 2:00 PM APPLICATION SUPPORT DEVELOPER Office Visit [address] [address] Kirstie Benjamin FNP [address] [address] 03/24/2025 11:20 AM APPLICATION SUPPORT DEVELOPER Office Visit [address] [address] Rufino Chidlers MD [address] [address] documented as of this encounter Visit Diagnoses Not on filedocumented in this encounter Care Teams Mail Distributor Relationship Specialty Start Date End Date Rufino Childers MD [address] [address] PCP - General Family Practice 11/10/18 documented as of this encounter
--- OUTSIDE RECORDS SUMMARY | 2024-10-26 07:57 | XMS_ITS | Encounter Summary ---
Author Organization [facility] Address [address] [place] [address] Care Team Providers Care Art Instructor Name Role Phone Rufino Childers MD Primary Care Provider [phone] Encounter Details Date Type Department Care Team (Late st Contact Info) Description 07/06/2017 Lab Requisition [facility] Laboratory Services [place] [address] [place] [address] Anam Kenyon, NO ADDRESS ON FILE Social History Tobacco Use Types Packs/Day Years Used Date Smoking Tobacco: Every Day Cigarettes 1 30 Smokeless Tobacco: Never Alcohol Use Standard Drinks/Week Comments No 0 (1 standard drink = 0.6 oz pur e alcohol) Comments No Sex and Gender Information Value Date Recorded Sex Assigned at Not on file Legal 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 Gender Identity Not on file Sexual Orientation Not on file Occupation Industry Job Start Date Job End Date Not on file Not on file Not on file Not on file documented as of this encounter Plan of Treatment Not on file documented as of this encounter Procedures Procedure Name Priority Date/Time Associated Diagnosis Comments CBC WITH DIFFERENTIAL Routine 07/06/2017 9:00 PM CDT TSH Routine 07/06/2017 9:00 PM CDT HEMOGLOBIN A1C Routine 07/06/2017 9:00 PM CDT LIPID PANEL Routine 07/06/2017 9:00 PM CDT COMPREHENSIVE METABOLIC PANEL Routine 07/06/2017 9:00 PM CDT documented in this encounter Results * (ABNORMAL) COMPREHENSIVE METABOLIC PANEL (07/06/2017 9:00 PM CDT) SODIUM 140 136 - 145 mmol/L 07/06/2017 11:53 PM [facility] POTASSIUM 3.8 3.5 - 5.1 mmol/L 07/06/2017 11:53 PM [facility] CHLORIDE 99 98 - 107 mmol/L 07/06/2017 11:53 PM [facility] CO2 25 22 - 29 mmol/L 07/06/2017 11:53 PM [facility] CALCIUM 9.5 8.6 - 10.0 mg/dL 07/06/2017 11:53 PM [facility] BUN 12 6 - 20 mg/dL 07/06/2017 11:53 PM [facility] CREATININE 0.71 0.51 - 0.95 mg/dL 07/06/2017 11:53 PM [facility] GLUCOSE 147(H) 74 - 106 mg/dL 07/06/2017 11:53 PM [facility] TOTAL PROTEIN 7.3 6.6 - 8.7 g/dL 07/06/2017 11:53 PM [facility] ALBUMIN 4.4 3.5 - 5.2 g/dL 07/06/2017 11:53 PM [facility] BILIRUBIN TOTAL <0.2 0.0 - 1.2 mg/dL 07/06/2017 11:53 PM [facility] ALKALINE PHOSPHATASE 78 35 - 104 U/L 07/06/2017 11:53 PM [facility] AST 12 10 - 35 U/L 07/06/2017 11:53 PM [facility] ALT 15 10 - 35 U/L 07/06/2017 11:53 PM [facility] GFR >60 >=60 mL/min/1.7 3 sq meter 07/06/2017 11:53 PM [facility] Comment: eGFR has not been validated for use in the elderly (> 70 years of age), women, patients with serious co-morbid conditions, or persons with extremes of body size or muscle mass and should also be interpreted with caution in patients with acute kidney failure, dialysis dependent patients, patients reporting exceptional dietary intake (e.g. vegetarian diet, high protein diets, creatine supplementation), and patients with severe liver disease. Based on National Kidney Disease Education Program If patient is , please refer to the GFR result. GFR, >60 >=60 mL/min/1.7 3 sq meter 07/06/2017 11:53 PM T [facility] ANION GAP 16 12 - 20 mmol/L 07/06/2017 11:53 PM [facility] Blood Collection / Unknown 07/06/2017 9:00 PM CDT 07/06/2017 9:47 PM CDT us Anam Kenyon DO CHEMISTRY ORDERABLES Final Resu lt [facility] CLIA # [id number] [address] [place] [phone] * (ABNORMAL) CBC WITH DIFFERENTIAL (07/06/2017 9:00 PM CDT) WBC 10.4(H) 4.0 - 10.0 K/uL 07/06/2017 11:54 PM [facility] RBC 4.43 3.93 - 5.22 M/uL 07/06/2017 11:54 PM [facility] HEMOGLOBIN 13.6 11.2 - 15.7 g/dL 07/06/2017 11:54 PM [facility] HEMATOCRIT 41.3 34.1 - 44.9 % 07/06/2017 11:54 PM [facility] MCV 93.2 79.4 - 94.8 fL 07/06/2017 11:54 PM [facility] MCH 30.7 25.6 - 32.2 pg 07/06/2017 11:54 PM [facility] MCHC 32.9 32.2 - 35.5 g/dL 07/06/2017 11:54 PM [facility] RDW 13.5 11.0 - 14.5 % 07/06/2017 11:54 PM [facility] RDW-STDEV 43.9 36.9 - 56.9 fL 07/06/2017 11:54 PM [facility] PLATELETS 308 163 - 337 K/uL 07/06/2017 11:54 PM [facility] MPV 9.8(L) 10.0 - 14.8 fL 07/06/2017 11:54 PM [facility] NEUTROPHILS 41 34 - 71 % 07/06/2017 11:54 PM [facility] LYMPHOCYTES 46 19 - 52 % 07/06/2017 11:54 PM [facility] MONOCYTES 7 5 - 13 % 07/06/2017 11:54 PM [facility] EOSINOPHILS 6 1 - 6 % 07/06/2017 11:54 PM [facility] BASOPHILS 0 0 - 1 % 07/06/2017 11:54 PM [facility] IMMATURE GRANULOCYTES 0 % 07/06/2017 11:54 PM [facility] NEUTROPHIL ABSOLUTE 4.25 1.56 - 6.13 K/uL 07/06/2017 11:54 PM [facility] LYMPHOCYTE ABSOLUTE 4.81(H) 1.20 - 3.40 K/uL 07/06/2017 11:54 PM [facility] MONOCYTE ABSOLUTE 0.70(H) 0.24 - 0.36 K/uL 07/06/2017 11:54 PM [facility] EOSINOPHIL ABSOLUTE 0.57(H) 0.04 - 0.36 K/uL 07/06/2017 11:54 PM [facility] BASOPHILS ABSOLUTE 0.04 0.01 - 0.08 K/uL 07/06/2017 11:54 PM [facility] IMMATURE GRANULOCYTES ABSOLUTE 0.03 K/uL 07/06/2017 11:54 PM [facility] Blood Collection / Unknown 07/06/2017 9:00 PM CDT 07/06/2017 9:47 PM CDT us Anam W Kenyon DO HEMATOLOGY ORDERABLES Final Res ult Performing Organization Address [facility]/ZIP Co de Phone Number [facility] CLIA # [id number] [address] [place] [address] * (ABNORMAL) HEMOGLOBIN A1C (07/06/2017 9:00 PM CDT) HEMOGLOBIN A1C 6.9(H) 4.8 - 5.9 % 07/06/2017 11:55 PM CDT [facility] EST. AVG GLUCOSE, A1C 151 mg/dL 07/06/2017 11:55 PM CDT [facility] Blood Collection / Unknown 07/06/2017 9:00 PM CDT 07/06/2017 9:47 PM CDT us Anam Kenyon DO CHEMISTRY ORDERABLES Final Resu lt Performing Organization Address [facility]/ZIP Co de Phone Number [facility] CLIA # [id number] [address] [place] [phone] * TSH (07/06/2017 9:00 PM CDT) Pathologist [facility] TSH 2.84 0.27 - 4.20 uIU/mL 07/06/2017 11:54 PM CDT [facility] Blood Collection / Unknown 07/06/2017 9:00 PM CDT 07/06/2017 9:47 PM CDT us Anam Kenyon DO CHEMISTRY ORDERABLES Final Resu lt Performing Organization Address [facility]/ZIP Co de Phone Number [facility] CLIA # [id number] [address] [place] [phone] * (ABNORMAL) LIPID PANEL (07/06/2017 9:00 PM CDT) CHOLESTEROL 222(H) <200 mg/dL 07/06/2017 11:53 PM CDT [facility] TRIGLYCERIDE 195(H) <150 mg/dL 07/06/2017 11:53 PM CDT [facility] HDL 42 40 - 59 mg/dL 07/06/2017 11:53 PM T [facility] LDL CALCULATED 141(H) <100 mg/dL 07/06/2017 11:53 PM T [facility] NON-HDL CHOLESTEROL 180(H) <130 mg/dL 07/06/2017 11:53 PM T [facility] Blood Collection / Unknown 07/06/2017 9:00 PM CDT 07/06/2017 9:47 PM CDT Narrative [facility] - 07/06/2017 11:53 PM CDT TOTAL CHOLESTEROL mg/dL Desirable <200 Borderline high 200-239 High >=240 TRIGLYCERIDES mg/dL Normal <150 Borderline high 150-199 High 200-499 Very high >=500 HDL CHOLESTEROL mg/dL Low <40 Normal 40-59 Desirable >=60 NON HDL CHOLESTEROL mg/dL Optimal <130 Near Optimal 130-159 Borderline High 160-189 Very High >=190 Calculated LDL mg/dL Optimal <100 Near Optimal 100-129 Borderline High 130-159 High 160-189 Very High >=190 ATPIII Guidelines Reference Ranges for Lipid Panels (NCEP/AMA) Anam Kenyon DO CHEMISTRY ORDERABLES Final Resu lt [facility] CLIA # [id number] [address] [id number] documented in this encounter Visit Diagnoses Not on filedocumented in this encounter Care Teams Art Instructor Relationship Specialty Start Date End Date Rufino Childers MD [address] [address] PCP - General Family Practice 11/10/18 documented as of this encounter
--- OUTSIDE RECORDS SUMMARY | 2024-10-26 07:57 | XMS_ITS | Encounter Summary ---
Author Organization [facility] Address [address] [place] [address] Care Team Providers Care Land Acquisition Manager Name Role Phone Rufino Childers MD Primary Care Provider [phone] Reason for Visit * Auth/Cert Specialty Diagnoses / Procedures Referred By Maryann blackburn Referred To Contact Laboratory [facility] Laboratory Services [address] [address] Phone: tel: fax: Referral ID Status Reason Start Date Expiration Date Visits Re quested Visits Authorized [id number] 1 1 Encounter Details Date Type Department Care Team ([facility] Contact Info) Description 12/25/2020 Lab Requisition [facility] Laboratory [facility] [address] [address] Renetta Dunn [address] [phone] Social History Tobacco Use Types Packs/Day Years Used Date Smoking Tobacco: Every Day Cigarettes Smokeless Tobacco: Never Alcohol Use Standard Drinks/Week Comments No 0 (1 standard drink = 0.6 oz pur e alcohol) Comments Unknown Sex and Gender Information Value Date Recorded Sex Assigned at Not on file Legal Sex Female 5:01 AM DREDGE HAND Gender Identity Not on file Sexual Orientation Not on file documented as of this encounter Plan of Treatment Upcoming Encounters Date Type Department Care Team ([facility] Contact Info) Description 01/23/2025 2:00 PM DREDGE HAND Office Visit [facility] [address] [address] Kirstie Benjamin FNP [address] [place] [address] 03/24/2025 11:20 AM DREDGE HAND Office Visit [facility] [address] [place] [address] Rufino Childers MD [address] [place] [address] documented as of this encounter Procedures Procedure Name Priority Date/Time Associated Diagnosis Comments CBC WITH DIFFERENTIAL Routine 12/24/2020 7:00 PM CDT HEMOGLOBIN A1C Routine 12/24/2020 7:00 PM CDT LIPID PANEL Routine 12/24/2020 7:00 PM CDT COMPREHENSIVE METABOLIC PANEL Routine 12/24/2020 7:00 PM CDT documented in this encounter Results * (ABNORMAL) LIPID PANEL (12/24/2020 7:00 PM CDT) CHOLESTEROL 143 <200 mg/dL 12/25/2020 9:22 AM CDT [facility] TRIGLYCERIDE 232(H) <150 mg/dL 12/25/2020 9:22 AM CDT [facility] HDL 40 40 - 59 mg/dL 12/25/2020 9:22 AM CDT [facility] LDL CALCULATED 57 <100 mg/dL 12/25/2020 9:22 AM CDT [facility] NON-HDL CHOLESTEROL 103 <130 mg/dL 12/25/2020 9:22 AM T [facility] Blood 12/24/2020 7:00 PM CDT 12/25/2020 8:04 AM CDT Narrative [facility] - 12/25/2020 9:22 AM CDT TOTAL CHOLESTEROL mg/dL Desirable <200 Borderline high 200-239 High >=240 TRIGLYCERIDES mg/dL Normal <150 Borderline high 150-199 High 200-499 Very high >=500 HDL CHOLESTEROL mg/dL Low <40 Normal 40-59 Desirable >=60 NON HDL CHOLESTEROL mg/dL Optimal <130 Near Optimal 130-159 Borderline High 160-189 Very High >=190 CALCULATED LDL mg/dL LDL <70, OPTIMAL if have Atherosclerotic cardiovascular disease (ASCVD) or intermediate or higher (>7.5%) 10 year risk of ASCVD including most adults with diabetes. LDL <100, Optimal in adult patients with low (<7.5%) 10 year ASCVD risk LDL 100-160, Suboptimal LDL >160, High LDL >190, Very high ATPIII Guidelines Reference Ranges for Lipid Panels (NCEP/AMA) . Renetta PARKERP CHEMISTRY ORDERABLES Final Resul t Performing Organization Address [facility] de Phone Number [facility] [id number] [address] [place] [address] [phone] * (ABNORMAL) HEMOGLOBIN A1C (12/24/2020 7:00 PM CDT) HEMOGLOBIN A1C 9.5(H) <=5.6 % 12/25/2020 9:22 AM CDT [facility] EST. AVG GLUCOSE, A1C 226 mg/dL 12/25/2020 9:22 AM CDT [facility] Blood Collection / Unknown 12/24/2020 7:00 PM CDT 12/25/2020 8:04 AM CDT Narrative [facility] - 12/25/2020 9:22 AM CDT HGB A1C INTERPRETATION NORMAL: <5.7% PRE-DIABETES: 5.7 - 6.4% DIABETES: 6.5% OR GREATER Renetta YOU CHEMISTRY ORDERABLES Final Resul t Performing Organization Address [facility] Co de Phone Number [facility] [id number] [address] [place] [address] [phone] * (ABNORMAL) COMPREHENSIVE METABOLIC PANEL (12/24/2020 7:00 PM CDT) SODIUM 136 136 - 145 mmol/L 12/25/2020 9:22 AM [facility] POTASSIUM 3.5 3.5 - 5.1 mmol/L 12/25/2020 9:22 AM [facility] CHLORIDE 99 98 - 107 mmol/L 12/25/2020 9:22 AM [facility] CO2 25 22 - 29 mmol/L 12/25/2020 9:22 AM [facility] CALCIUM 9.5 8.8 - 10.2 mg/dL 12/25/2020 9:22 AM [facility] BUN 10 8 - 23 mg/dL 12/25/2020 9:22 AM [facility] CREATININE 0.61 0.51 - 0.95 mg/dL 12/25/2020 9:22 AM [facility] GLUCOSE 256(H) 74 - 99 mg/dL 12/25/2020 9:22 AM [facility] TOTAL PROTEIN 6.9 6.6 - 8.7 g/dL 12/25/2020 9:22 AM [facility] ALBUMIN 4.4 3.5 - 5.2 g/dL 12/25/2020 9:22 AM [facility] BILIRUBIN TOTAL 0.2 <=1.2 mg/dL 12/25/2020 9:22 AM [facility] ALKALINE PHOSPHATASE 86 35 - 104 U/L 12/25/2020 9:22 AM [facility] AST 11 10 - 35 U/L 12/25/2020 9:22 AM [facility] ALT 11 10 - 35 U/L 12/25/2020 9:22 AM [facility] GFR >60 mL/min/1.7 3 sq meter 12/25/2020 9:22 AM [facility] Comment: eGFR has not been validated for [...] refer to the GFR result. GFR, >60 mL/min/1.7 3 sq meter 12/25/2020 9:22 AM CDT [facility] ANION GAP 12 12 - 20 mmol/L 12/25/2020 9:22 AM T [facility] Blood 12/24/2020 7:00 PM CDT 12/25/2020 8:04 AM CDT us Renetta Dunn DAY CARE AIDE CHEMISTRY ORDERABLES Final Resul t [facility] [id number] [address] [place] [phone] * (ABNORMAL) CBC WITH DIFFERENTIAL (12/24/2020 7:00 PM CDT) WBC 9.9 4.0 - 10.0 K/uL 12/25/2020 8:58 AM [facility] RBC 4.34 3.93 - 5.22 M/uL 12/25/2020 8:58 AM [facility] HEMOGLOBIN 13.0 11.2 - 15.7 g/dL 12/25/2020 8:58 AM [facility] HEMATOCRIT 40.0 34.1 - 44.9 % 12/25/2020 8:58 AM [facility] MCV 92.2 79.4 - 94.8 fL 12/25/2020 8:58 AM [facility] MCH 30.0 25.6 - 32.2 pg 12/25/2020 8:58 AM [facility] MCHC 32.5 32.2 - 35.5 g/dL 12/25/2020 8:58 AM [facility] RDW 12.4 11.0 - 14.5 % 12/25/2020 8:58 AM [facility] RDW-STDEV 42.2 36.9 - 56.9 fL 12/25/2020 8:58 AM [facility] PLATELETS 289 163 - 337 K/uL 12/25/2020 8:58 AM [facility] MPV 9.8(L) 10.0 - 14.8 fL 12/25/2020 8:58 AM [facility] NEUTROPHILS 43 34 - 71 % 12/25/2020 8:58 AM [facility] LYMPHOCYTES 47 19 - 52 % 12/25/2020 8:58 AM [facility] MONOCYTES 6 5 - 13 % 12/25/2020 8:58 AM [facility] EOSINOPHILS 3 1 - 6 % 12/25/2020 8:58 AM [facility] BASOPHILS 1 0 - 1 % 12/25/2020 8:58 AM [facility] IMMATURE GRANULOCYTES 0 % 12/25/2020 8:58 AM [facility] NEUTROPHIL ABSOLUTE 4.28 1.56 - 6.13 K/uL 12/25/2020 8:58 AM [facility] LYMPHOCYTE ABSOLUTE 4.65(H) 1.20 - 3.40 K/uL 12/25/2020 8:58 AM [facility] MONOCYTE ABSOLUTE 0.55(H) 0.24 - 0.36 K/uL 12/25/2020 8:58 AM [facility] EOSINOPHIL ABSOLUTE 0.33 0.04 - 0.36 K/uL 12/25/2020 8:58 AM [facility] BASOPHILS ABSOLUTE 0.05 0.01 - 0.08 K/uL 12/25/2020 8:58 AM [facility] IMMATURE GRANULOCYTES ABSOLUTE 0.02 K/uL 12/25/2020 8:58 AM [facility] Blood 12/24/2020 7:00 PM CDT 12/25/2020 8:04 AM CDT us Renetta Dunn DAY CARE AIDE HEMATOLOGY ORDERABLES Final Resu lt [facility] [id number] [address] [address] documented in this encounter Visit Diagnoses Not on filedocumented in this encounter Care Teams Land Acquisition Manager Relationship Specialty Start Date End Date Rufino Childers MD [address] [address] PCP - General Family Practice 11/10/18 documented as of this encounter
--- OUTSIDE RECORDS SUMMARY | 2024-10-26 07:57 | XMS_ITS | Encounter Summary ---
Author Organization [facility] Address [address] [place] [address] Care Team Providers Care Pca Name Role Phone Rufino Childers MD Primary Care Provider [phone] Encounter Details Date Type Department Care Team (Late st Contact Info) Description 01/18/2018 Lab Requisition [facility] Laboratory Services [place] [address] [address] Rufino Childers MD [address] [place] [phone] Social History Tobacco Use Types Packs/Day Years Used Date Smoking Tobacco: Every Day Cigarettes 1 40 Smokeless Tobacco: Never Alcohol Use Standard Drinks/Week Comments No 0 (1 standard drink = 0.6 oz pur e alcohol) Comments No Sex and Gender Information Value Date Recorded Sex Assigned at Not on file Legal Sex Female 6:48 AM ASSET PROTECTION GREETER Gender Identity Not on file Sexual Orientation Not on file Occupation Industry Job Start Date Job End Date Not on file Not on file Not on file Not on file documented as of this encounter Plan of Treatment Not on file documented as of this encounter Procedures Procedure Name Priority Date/Time Associated Diagnosis Comments HEMOGLOBIN A1C Routine 01/18/2018 8:00 PM ASSET PROTECTION GREETER documented in this encounter Results * (ABNORMAL) HEMOGLOBIN A1C (01/18/2018 8:00 PM ASSET PROTECTION GREETER) HEMOGLOBIN A1C 6.8(H) 4.8 - 5.9 % 01/18/2018 10:12 PM ASSET PROTECTION GREETER [facility] EST. AVG GLUCOSE, A1C 148 mg/dL 01/18/2018 10:12 PM ASSET PROTECTION GREETER [facility] Blood Collection / Unknown 01/18/2018 8:00 PM ASSET PROTECTION GREETER 01/18/2018 9:42 PM ASSET PROTECTION GREETER Narrative [facility] - 01/18/2018 10:12 PM ASSET PROTECTION GREETER HGB A1C INTERPRETATION NORMAL: <5.7% PRE-DIABETES: 5.7 - 6.4% DIABETES: 6.5% OR GREATER Rufino Childers MD CHEMISTRY ORDERABLES Laxmi l Result [facility] CLIA # [id number] [address] [address] documented in this encounter Visit Diagnoses Not on filedocumented in this encounter Care Teams Pca Relationship Specialty Start Date End Date Rufino Childers MD [address] [phone] PCP - General Family Practice 11/10/18 documented as of this encounter
--- OUTSIDE RECORDS SUMMARY | 2024-10-26 07:57 | XMS_ITS | Encounter Summary ---
Author Organization [facility] Address [address] [place] [address] Care Team Providers Care Photography Assistant Name Role Phone Rufino Childers MD Primary Care Provider [phone] Encounter Details Date Type Department Care Team (Late st Contact Info) Description 01/26/2017 Lab Requisition [facility] Laboratory Services [place] [address] [place] [address] Yoly Mosqueda, LAW RESEARCHER [address] [place] [phone] Social History Tobacco Use Types Packs/Day Years Used Date Smoking Tobacco: Every Day Cigarettes 1 30 Smokeless Tobacco: Never Alcohol Use Standard Drinks/Week Comments No 0 (1 standard drink = 0.6 oz pur e alcohol) Comments No Sex and Gender Information Value Date Recorded Sex Assigned at Not on file Legal Sex Female 6:48 AM PASSENGER BRAKEMAN Gender Identity Not on file Sexual Orientation Not on file Occupation Industry Job Start Date Job End Date Not on file Not on file Not on file Not on file documented as of this encounter Plan of Treatment Not on file documented as of this encounter Procedures Procedure Name Priority Date/Time Associated Diagnosis Comments HEMOGLOBIN A1C Routine 01/26/2017 8:13 PM PASSENGER BRAKEMAN LIPID PANEL Routine 01/26/2017 8:13 PM PASSENGER BRAKEMAN COMPREHENSIVE METABOLIC PANEL Routine 01/26/2017 8:13 PM PASSENGER BRAKEMAN documented in this encounter Results * (ABNORMAL) COMPREHENSIVE METABOLIC PANEL (01/26/2017 8:13 PM [facility]) SODIUM 140 136 - 145 mmol/L 01/26/2017 10:24 PM [facility] POTASSIUM 3.9 3.5 - 5.1 mmol/L 01/26/2017 10:24 PM [facility] CHLORIDE 100 98 - 107 mmol/L 01/26/2017 10:24 PM [facility] CO2 26 22 - 29 mmol/L 01/26/2017 10:24 PM [facility] CALCIUM 10.0 8.6 - 10.0 mg/dL 01/26/2017 10:24 PM [facility] BUN 12 6 - 20 mg/dL 01/26/2017 10:24 PM [facility] CREATININE 0.52 0.51 - 0.95 mg/dL 01/26/2017 10:24 PM [facility] GLUCOSE 121(H) 74 - 106 mg/dL 01/26/2017 10:24 PM [facility] TOTAL PROTEIN 7.3 6.6 - 8.7 g/dL 01/26/2017 10:24 PM [facility] ALBUMIN 4.2 3.5 - 5.2 g/dL 01/26/2017 10:24 PM [facility] BILIRUBIN TOTAL <0.2 0.0 - 1.2 mg/dL 01/26/2017 10:24 PM [facility] ALKALINE PHOSPHATASE 85 35 - 104 U/L 01/26/2017 10:24 PM [facility] AST 13 10 - 35 U/L 01/26/2017 10:24 PM [facility] ALT 15 10 - 35 U/L 01/26/2017 10:24 PM [facility] GFR >60 >=60 mL/min/1.7 3 sq meter 01/26/2017 10:24 PM [facility] Comment: eGFR has not been validated [...] GFR, >60 >=60 mL/min/1.7 3 sq meter 01/26/2017 10:24 PM [facility] ANION GAP 14 12 - 20 mmol/L 01/26/2017 10:24 PM [facility] Blood Venipuncture / Unknown 01/26/2017 8:13 PM PASSENGER BRAKEMAN 01/26/2017 9:10 PM PASSENGER BRAKEMAN Yoly Mosqueda [facility] CHEMISTRY ORDERABLES Final Resu lt Performing Organization Address [facility] Co de Phone Number [facility] CLIA # [id number] [address] [place] [id number] * (ABNORMAL) HEMOGLOBIN A1C (01/26/2017 8:13 PM PASSENGER BRAKEMAN) HEMOGLOBIN A1C 8.7(H) 4.8 - 5.9 % 01/26/2017 9:36 PM [facility] EST. AVG GLUCOSE, A1C 203 mg/dL 01/26/2017 9:36 PM [facility] Blood Venipuncture / Unknown 01/26/2017 8:13 PM PASSENGER BRAKEMAN 01/26/2017 9:10 PM PASSENGER BRAKEMAN Yoly Mosqueda [facility] CHEMISTRY ORDERABLES Final Resu lt Performing Organization Address [facility]/ZIP Co de Phone Number [facility] CLIA # [id number] [address] [place] [address] * (ABNORMAL) LIPID PANEL (01/26/2017 8:13 PM PASSENGER BRAKEMAN) CHOLESTEROL 213(H) <200 mg/dL 01/26/2017 10:24 PM [facility] TRIGLYCERIDE 426(H) <150 mg/dL 01/26/2017 10:24 PM PASSENGER BRAKEMAN [facility] HDL 34(L) 40 - 59 mg/dL 01/26/2017 10:24 PM [facility] LDL CALCULATED <100 mg/dL 01/26/2017 10:24 PM [facility] Comment:Calculated LDL is no t accurate when the Triglyceride value exceeds 400. NON-HDL CHOLESTEROL 179(H) <130 mg/dL 01/26/2017 10:24 PM [facility] Blood Venipuncture / Unknown 01/26/2017 8:13 PM PASSENGER BRAKEMAN 01/26/2017 9:10 PM PASSENGER BRAKEMAN Narrative [facility] - 01/26/2017 10:24 PM PASSENGER BRAKEMAN TOTAL CHOLESTEROL mg/dL Desirable <200 Borderline high [...] Guidelines Reference Ranges for Lipid Panels (NCEP/AMA) Yoly Mosqueda LAW RESEARCHER CHEMISTRY ORDERABLES Final Resu lt [facility] CLIA # [id number] [address] [address] documented in this encounter Visit Diagnoses Not on filedocumented in this encounter Care Teams Photography Assistant Relationship Specialty Start Date End Date Rufino Childers MD [address] [phone] PCP - General Family Practice 11/10/18 documented as of this encounter
--- OUTSIDE RECORDS SUMMARY | 2024-10-26 07:57 | XMS_ITS | Encounter Summary ---
Author Organization [facility] Address [address] [place] [address] Care Team Providers Care Touch Up Painter Name Role Phone Rufino Childers MD Primary Care Provider [phone] Encounter Details Date Type Department Care Team (Late st Contact Info) Description 04/08/2016 Lab Requisition [facility] Laboratory Services [place] [address] [place] [address] Renay Castillo MD [address] [place] [address] Social History Tobacco Use Types Packs/Day Years Used Date Smoking Tobacco: Every Day Cigarettes 1 30 Smokeless Tobacco: Never Alcohol Use Standard Drinks/Week Comments No 0 (1 standard drink = 0.6 oz pur e alcohol) Comments No Sex and Gender Information Value Date Recorded Sex Assigned at Not on file Legal Sex Female 6:48 AM MASTER TECHNICIAN Gender Identity Not on file Sexual Orientation Not on file Occupation Industry Job Start Date Job End Date Not on file Not on file Not on file Not on file documented as of this encounter Plan of Treatment Not on file documented as of this encounter Procedures Procedure Name Priority Date/Time Associated Diagnosis Comments DIFFERENTIAL, MANUAL Routine 04/07/2016 5:00 PM MASTER TECHNICIAN CBC WITH DIFFERENTIAL Routine 04/07/2016 5:00 PM MASTER TECHNICIAN HEMOGLOBIN A1C Routine 04/07/2016 5:00 PM MASTER TECHNICIAN COMPREHENSIVE METABOLIC PANEL Routine 04/07/2016 5:00 PM MASTER TECHNICIAN documented in this encounter Results * (ABNORMAL) MANUAL DIFFERENTIAL (04/07/2016 5:00 PM MASTER TECHNICIAN) SEGMENTED NEUTROPHILS 40(L) 45 - 70 % 04/08/2016 1:[address] [facility] LYMPHOCYTES RELATIVE 56(H) 20 - 45 % 04/08/2016 1:[address] [facility] MONOCYTES RELATIVE 4 2 - 8 % 04/08/2016 1:[address] [facility] NEUTROPHILS ABSOLUTE COUNT 4.04 1.78 - 5.38 K/uL 04/08/2016 1:[address] [facility] LYMPHOCYTES ABSOLUTE 5.66(H) 1.20 - 4.00 K/uL 04/08/2016 1:[address] [facility] MONOCYTES ABSOLUTE 0.40 0.30 - 0.82 K/uL 04/08/2016 1:[address] [facility] TOTAL CELLS COUNTED IN DIFF 100 04/08/2016 1:[address] [facility] PLATELET EST. Adequate 04/08/2016 1:[address] [facility] RBC MORPHOLOGY Normal 04/08/2016 1:[address] [facility] Blood Collection / Unknown 04/07/2016 5:00 PM MASTER TECHNICIAN 04/08/2016 10:14 AM MASTER TECHNICIAN us Renay Castillo MD HEMATOLOGY ORDERABLES COM Final Result [facility] CLIA # [id number] [address] [place] [address] * (ABNORMAL) HEMOGLOBIN A1C (04/07/2016 5:00 PM MASTER TECHNICIAN) HEMOGLOBIN A1C 7.7(H) 4.8 - 5.9 % 04/08/2016 11:[address] [facility] EST. AVG GLUCOSE, A1C 174 mg/dL 04/08/2016 11:[address] [facility] Blood Collection / Unknown 04/07/2016 5:00 PM MASTER TECHNICIAN 04/08/2016 10:14 AM MASTER TECHNICIAN us Renay Castillo MD CHEMISTRY ORDERABLES Final Resul t [facility] CLIA # [id number] [address] [address] * (ABNORMAL) COMPREHENSIVE METABOLIC PANEL (04/07/2016 5:00 PM MASTER TECHNICIAN) SODIUM 137 136 - 145 mmol/L 04/08/2016 11:[address] [facility] POTASSIUM 4.3 3.5 - 5.1 mmol/L 04/08/2016 11:[address] [facility] CHLORIDE 98 98 - 107 mmol/L 04/08/2016 11:[address] [facility] CO2 26 22 - 29 mmol/L 04/08/2016 11:[address] [facility] CALCIUM 9.8 8.6 - 10.0 mg/dL 04/08/2016 11:[address] [facility] BUN 14 6 - 20 mg/dL 04/08/2016 11:[address] [facility] CREATININE 0.61 0.51 - 0.95 mg/dL 04/08/2016 11:[address] [facility] GLUCOSE 118(H) 74 - 106 mg/dL 04/08/2016 11:[address] [facility] TOTAL PROTEIN 7.3 6.6 - 8.7 g/dL 04/08/2016 11:[address] [facility] ALBUMIN 4.4 3.5 - 5.2 g/dL 04/08/2016 11:[address] [facility] BILIRUBIN TOTAL <0.2 0.0 - 1.2 mg/dL 04/08/2016 11:[address] [facility] ALKALINE PHOSPHATASE 73 35 - 104 U/L 04/08/2016 11:[address] [facility] AST 14 10 - 35 U/L 04/08/2016 11:[address] [facility] ALT 12 10 - 35 U/L 04/08/2016 11:[address] [facility] GFR >60 >=60 mL/min/1.7 3 sq meter 04/08/2016 11:[address] [facility] Comment: eGFR has not been validated [...] GFR, >60 >=60 mL/min/1.7 3 sq meter 04/08/2016 11:[address] [facility] ANION GAP 13 12 - 20 mmol/L 04/08/2016 11:[address] [facility] Blood Collection / Unknown 04/07/2016 5:00 PM MASTER TECHNICIAN 04/08/2016 10:14 AM [facility] us Renay Castillo MD CHEMISTRY ORDERABLES Final Resul t [facility] CLIA # [id number] [address] [place] [address] * (ABNORMAL) CBC WITH DIFFERENTIAL (04/07/2016 5:00 PM MASTER TECHNICIAN) WBC 10.1(H) 4.0 - 10.0 K/uL 04/08/2016 10:[address] [facility] RBC 4.75 3.93 - 5.22 M/uL 04/08/2016 10:[address] [facility] HEMOGLOBIN 14.3 11.2 - 15.7 g/dL 04/08/2016 10:[address] [facility] HEMATOCRIT 44.3 34.1 - 44.9 % 04/08/2016 10:[address] [facility] MCV 93.3 79.4 - 94.8 fL 04/08/2016 10:[address] [facility] MCH 30.1 25.6 - 32.2 pg 04/08/2016 10:[address] [facility] MCHC 32.3 32.2 - 35.5 g/dL 04/08/2016 10:[address] [facility] RDW 12.9 11.0 - 14.5 % 04/08/2016 10:[address] [facility] RDW-STDEV 43.0 36.9 - 56.9 fL 04/08/2016 10:[address] [facility] PLATELETS 291 163 - 337 K/uL 04/08/2016 10:[address] [facility] MPV 9.8(L) 10.0 - 14.8 fL 04/08/2016 10:[address] [facility] Blood Collection / Unknown 04/07/2016 5:00 PM MASTER TECHNICIAN 04/08/2016 10:14 AM MASTER TECHNICIAN us Renay Castillo MD HEMATOLOGY ORDERABLES Final Resu lt [facility] CLIA # [id number] [address] [place] [address] documented in this encounter Visit Diagnoses Not on filedocumented in this encounter Care Teams Touch Up Painter Relationship Specialty Start Date End Date Rufino Childers MD [address] [phone] PCP - General Family Practice 11/10/18 documented as of this encounter
--- OUTSIDE RECORDS SUMMARY | 2024-10-26 07:57 | XMS_ITS | Encounter Summary ---
Author Organization [facility] Address [address] [place] [address] Care Team Providers Care Armature Tester Name Role Phone Rufino Childers MD Primary Care Provider [phone] Reason for Visit * Reason Comments Clinical Consult Before Scheduling Encounter Details Date Type Department Care Team (Late st Contact Info) Description 10/20/2024 Nurse Triage [facility] Medicine [address] [address] Rufino Childers MD [facility] [address] [address] Social History Tobacco Use Types Packs/Day Years Used Date Smoking Tobacco: Every Day Cigarettes Smokeless Tobacco: Never Alcohol Use Standard Drinks/Week Comments No 0 (1 standard drink = 0.6 oz pur e alcohol) Comments No Sex and Gender Information Value Date Recorded Sex Assigned at Not on file Legal Sex Female 5:01 AM DOCK PUMPER Gender Identity Not on file Sexual Orientation Not on file documented as of this encounter Miscellaneous Notes * Telephone Encounter - Zarina Womack - 10/20/2024 10:30 AM CDT 10/20/2024 10:30 AM I returned the pt's call and advised that her insurance coverage has not been active for over a year. I advised that I could not give her definite pricing for her appointment as I did not know the level of care she would need but provided an estimate of $110 - $155 for her office visit. The pt advised that she needs labs done in order to get her medications refilled as she is a diabetic and has not been seen in almost 12 months. I advised that we can order her labs and she may have them performed at the health department in lieu of having them performed at the clinic to limit her spending forher care today. I advised that I could not give her an estimate for any ordered imaging at this time. I advised the pt that we can take payment via Debit / Credit card as well as taking palomino / check payment. She advised that she will get dressed and come in for a walk in appointment. I advised thatthe walk in is on a first come first serve basis and cannot be scheduled till she is in office. Understanding was obtained. Zarina * Telephone Encounter - Taylor Galo LPN - 10/20/2024 8:38 AM CDT 10/20/2024 8:38 AM Adult patient complains of Joint Pain: Patient c/o pain in right shoulder Symptoms started this AM Denies an injury or activity outside the norm precipitating the pain. Denies swelling to affected joint. Denies redness or heat to affected joint. Pain is rated 10/10 Patient has had this pain before. Home therapies tried: / Status: Patient likely cannot become Patient reports she cannot lift her right arm above her head. Patient rates her pain 10 out of 10. Patient states this is from her rheumatoid arthritis. Upon reviewing chart, this is not a new problem for Fariba. Patient also has not been seen since 11/07/2023. Patient is also requesting to know how much the visit will cost. I advised I did not have that information but I could have the clinic return her call and let her know. Patient verbalized understanding and will wait for the phone call. FORMATIONAL MESSAGE ONLY. Not able to schedule appointment within the recommended timeframe. Patient informed of additional [facility] and expresses intent to utilize walk-in. Taylor CALERO * Telephone Encounter - Rochelle Bettencourt - 10/20/2024 8:38 AM CDT Copied from [facility] #[id number]. Topic: Symptomatic Care >> Oct 20, 2024 8:34 AM Rochelle Lombardo wrote: Has this patient seen any provider (current or former) at the requested clinic in the past? Yes, Select the appropriate age range and symptom Patient has symptoms and is seeking care. Caller Name: Fariba Nick Callback Number: Telephone Information: Call Notes: arm pain - pain has been going on for a while but getting worse. Today she can't lift her arm. She said there is extreme pain. Age Range/Symptom: Adult 18+ - Pain, present for less than 3 days AND 8, 9 or 10 severity on a 0-10scale (10 being worst) Is there an encounter open? No Transferred to [facility] line and Taylor answered call. documented in this encounter Plan of Treatment Upcoming Encounters Date Type Department Care Team (Late st Contact Info) Description 01/23/2025 2:00 PM DOCK PUMPER Office Visit [facility] [address] [phone] Kirstie Benjamin FNP [address] [place] [phone] 03/24/2025 11:20 AM DOCK PUMPER Office Visit [facility] [address] [place] [phone] Rufino Childers MD [address] [phone] documented as of this encounter Visit Diagnoses Not on filedocumented in this encounter Care Teams Armature Tester Relationship Specialty Start Date End Date Rufino Childers MD [address] [phone] PCP - General Family Practice 11/10/18 documented as of this encounter
--- OUTSIDE RECORDS SUMMARY | 2024-10-26 07:57 | XMS_ITS | Encounter Summary ---
Author Organization [facility] Address [address] [place] [address] Care Team Providers Care [employer] Advisor Name Role Phone Rufino Childers MD Primary Care Provider + [phone] Encounter Details Date Type Department Care Team (Late st Contact Info) Description 05/23/2019 Lab Requisition [facility] Laboratory Services [place] [address] [address] Kirstie Benjamin, [facility] [address] [place] [phone] Social History Tobacco Use Types Packs/Day Years Used Date Smoking Tobacco: Every Day Cigarettes 1 40 Smokeless Tobacco: Never Alcohol Use Standard Drinks/Week Comments No 0 (1 standard drink = 0.6 oz pur e alcohol) Comments No Sex and Gender Information Value Date Recorded Sex Assigned at Not on file Legal Sex Female 6:48 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 Gender Identity Not on file Sexual Orientation Not on file Occupation Industry Job Start Date Job End Date Not on file Not on file Not on file Not on file documented as of this encounter Plan of Treatment Not on file documented as of this encounter Procedures Procedure Name Priority Date/Time Associated Diagnosis Comments CBC WITH DIFFERENTIAL Routine 05/23/2019 7:18 PM CDT HEMOGLOBIN A1C Routine 05/23/2019 7:18 PM CDT LIPID PANEL Routine 05/23/2019 7:18 PM CDT COMPREHENSIVE METABOLIC PANEL Routine 05/23/2019 7:18 PM CDT documented in this encounter Results * (ABNORMAL) CBC WITH DIFFERENTIAL (05/23/2019 7:18 PM CDT) WBC 10.3(H) 4.0 - 10.0 K/uL 05/23/2019 9:44 PM CDT [facility] RBC 4.64 3.93 - 5.22 M/uL 05/23/2019 9:44 PM [facility] HEMOGLOBIN 13.7 11.2 - 15.7 g/dL 05/23/2019 9:44 PM [facility] HEMATOCRIT 42.7 34.1 - 44.9 % 05/23/2019 9:44 PM [facility] MCV 92.0 79.4 - 94.8 fL 05/23/2019 9:44 PM [facility] MCH 29.5 25.6 - 32.2 pg 05/23/2019 9:44 PM [facility] MCHC 32.1(L) 32.2 - 35.5 g/dL 05/23/2019 9:44 PM [facility] RDW 13.3 11.0 - 14.5 % 05/23/2019 9:44 PM [facility] RDW-STDEV 43.4 36.9 - 56.9 fL 05/23/2019 9:44 PM [facility] PLATELETS 281 163 - 337 K/uL 05/23/2019 9:44 PM [facility] MPV 10.1 10.0 - 14.8 fL 05/23/2019 9:44 PM [facility] NEUTROPHILS 49 34 - 71 % 05/23/2019 9:44 PM [facility] LYMPHOCYTES 40 19 - 52 % 05/23/2019 9:44 PM [facility] MONOCYTES 7 5 - 13 % 05/23/2019 9:44 PM [facility] EOSINOPHILS 3 1 - 6 % 05/23/2019 9:44 PM [facility] BASOPHILS 0 0 - 1 % 05/23/2019 9:44 PM CDT [facility] IMMATURE GRANULOCYTES 0 % 05/23/2019 9:44 PM CDT [facility] NEUTROPHIL ABSOLUTE 5.03 1.56 - 6.13 K/uL 05/23/2019 9:44 PM CDT [facility] LYMPHOCYTE ABSOLUTE 4.13(H) 1.20 - 3.40 K/uL 05/23/2019 9:44 PM CDT [facility] MONOCYTE ABSOLUTE 0.71(H) 0.24 - 0.36 K/uL 05/23/2019 9:44 PM CDT [facility] EOSINOPHIL ABSOLUTE 0.34 0.04 - 0.36 K/uL 05/23/2019 9:44 PM CDT [facility] BASOPHILS ABSOLUTE 0.04 0.01 - 0.08 K/uL 05/23/2019 9:44 PM CDT [facility] IMMATURE GRANULOCYTES ABSOLUTE 0.01 K/uL 05/23/2019 9:44 PM CDT [facility] Blood Collection / Unknown 05/23/2019 7:18 PM CDT 05/23/2019 7:18 PM CDT us Kirstie Benjamin ADMISSIONS CLINICIAN HEMATOLOGY ORDERABLES Fi nal Result [facility] CLIA # [id number] [address] [place] [id number] * (ABNORMAL) HEMOGLOBIN A1C (05/23/2019 7:18 PM CDT) HEMOGLOBIN A1C 6.7(H) <=5.6 % 05/23/2019 10:17 PM CDT [facility] EST. AVG GLUCOSE, A1C 146 mg/dL 05/23/2019 10:17 PM CDT [facility] Blood Collection / Unknown 05/23/2019 7:18 PM CDT 05/23/2019 7:18 PM CDT Narrative [facility] - 05/23/2019 10:17 PM CDT HGB A1C INTERPRETATION NORMAL: <5.7% PRE-DIABETES: 5.7 - 6.4% DIABETES: 6.5% OR GREATER Kirstie Benjamin ADMISSIONS CLINICIAN CHEMISTRY ORDERABLES Fin al Result [facility] CLIA # [id number] [address] [address] * (ABNORMAL) COMPREHENSIVE METABOLIC PANEL (05/23/2019 7:18 PM CDT) SODIUM 139 136 - 145 mmol/L 05/23/2019 9:46 PM [facility] POTASSIUM 3.8 3.5 - 5.1 mmol/L 05/23/2019 9:46 PM [facility] CHLORIDE 101 98 - 107 mmol/L 05/23/2019 9:46 PM [facility] CO2 26 22 - 29 mmol/L 05/23/2019 9:46 PM [facility] CALCIUM 9.8 8.6 - 10.0 mg/dL 05/23/2019 9:46 PM [facility] BUN 14 6 - 20 mg/dL 05/23/2019 9:46 PM [facility] CREATININE 0.53 0.51 - 0.95 mg/dL 05/23/2019 9:46 PM [facility] GLUCOSE 114(H) 74 - 99 mg/dL 05/23/2019 9:46 PM [facility] TOTAL PROTEIN 7.8 6.6 - 8.7 g/dL 05/23/2019 9:46 PM [facility] ALBUMIN 4.4 3.5 - 5.2 g/dL 05/23/2019 9:46 PM [facility] BILIRUBIN TOTAL <0.2 <=1.2 mg/dL 05/23/2019 9:46 PM [facility] ALKALINE PHOSPHATASE 94 35 - 104 U/L 05/23/2019 9:46 PM [facility] AST 10 10 - 35 U/L 05/23/2019 9:46 PM [facility] ALT 8(L) 10 - 35 U/L 05/23/2019 9:46 PM CDT [facility] GFR >60 >=60 mL/min/1.7 3 sq meter 05/23/2019 9:46 PM CDT [facility] Comment: eGFR has not been validated for [...] GFR, >60 >=60 mL/min/1.7 3 sq meter 05/23/2019 9:46 PM CDT [facility] ANION GAP 12 12 - 20 mmol/L 05/23/2019 9:46 PM CDT [facility] Blood Collection / Unknown 05/23/2019 7:18 PM CDT 05/23/2019 7:18 PM CDT us Kirstie Benjamin ADMISSIONS CLINICIAN CHEMISTRY ORDERABLES Fin al Result [facility] CLIA # [id number] [address] [place] [address] * (ABNORMAL) LIPID PANEL (05/23/2019 7:18 PM CDT) CHOLESTEROL 230(H) <200 mg/dL 05/23/2019 9:47 PM CDT [facility] TRIGLYCERIDE 216(H) <150 mg/dL 05/23/2019 9:47 PM CDT [facility] HDL 39(L) 40 - 59 mg/dL 05/23/2019 9:47 PM T [facility] LDL CALCULATED 148(H) <100 mg/dL 05/23/2019 9:47 PM CDT [facility] NON-HDL CHOLESTEROL 191(H) <130 mg/dL 05/23/2019 9:47 PM T [facility] Blood Collection / Unknown 05/23/2019 7:18 PM CDT 05/23/2019 7:18 PM CDT Narrative [facility] - 05/23/2019 9:47 PM CDT TOTAL CHOLESTEROL mg/dL Desirable <200 [...] Reference Ranges for Lipid Panels (NCEP/AMA) . Kirstie Benjamin ADMISSIONS CLINICIAN CHEMISTRY ORDERABLES Fin al Result [facility] CLIA # [id number] [address] [address] documented in this encounter Visit Diagnoses Not on filedocumented in this encounter Care Teams [employer] Advisor Relationship Specialty Start Date End Date Rufino Childers MD [address] [phone] PCP - General Family Practice 11/10/18 documented as of this encounter
--- OUTSIDE RECORDS SUMMARY | 2024-10-26 07:57 | XMS_ITS | Encounter Summary ---
Author Organization [facility] Address [address] [place] [address] Care Team Providers Care Mud Tank Operator Name Role Phone Rufino Childers MD Primary Care Provider [phone] Encounter Details Date Type Department Care Team ([facility] st Contact Info) Description 07/13/2018 Lab Requisition [facility] Laboratory Services [place] [address] [place] [address] Dimas Carr, INTELLECTUAL PROPERTY LEGAL ASSISTANT [address] [address] Social History Tobacco Use Types Packs/Day Years Used Date Smoking Tobacco: Every Day Cigarettes 1 40 Smokeless Tobacco: Never Alcohol Use Standard Drinks/Week Comments No 0 (1 standard drink = 0.6 oz pur e alcohol) Comments No Sex and Gender Information Value Date Recorded Sex Assigned at Not on file 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0 - 10.0 K/uL 07/13/2018 2:33 AM [facility] RBC 4.62 3.93 - 5.22 M/uL 07/13/2018 2:33 AM [facility] HEMOGLOBIN 13.6 11.2 - 15.7 g/dL 07/13/2018 2:33 AM [facility] HEMATOCRIT 42.8 34.1 - 44.9 % 07/13/2018 2:33 AM [facility] MCV 92.6 79.4 - 94.8 fL 07/13/2018 2:33 AM [facility] MCH 29.4 25.6 - 32.2 pg 07/13/2018 2:33 AM [facility] MCHC 31.8(L) 32.2 - 35.5 g/dL 07/13/2018 2:33 AM [facility] RDW 13.3 11.0 - 14.5 % 07/13/2018 2:33 AM [facility] RDW-STDEV 43.6 36.9 - 56.9 fL 07/13/2018 2:33 AM [facility] PLATELETS 302 163 - 337 K/uL 07/13/2018 2:33 AM [facility] MPV 9.7(L) 10.0 - 14.8 fL 07/13/2018 2:33 AM [facility] NEUTROPHILS 34 34 - 71 % 07/13/2018 2:33 AM [facility] LYMPHOCYTES 52 19 - 52 % 07/13/2018 2:33 AM [facility] MONOCYTES 8 5 - 13 % 07/13/2018 2:33 AM [facility] EOSINOPHILS 5 1 - 6 % 07/13/2018 2:33 AM [facility] BASOPHILS 0 0 - 1 % 07/13/2018 2:33 AM [facility] IMMATURE GRANULOCYTES 0 % 07/13/2018 2:33 AM [facility] NEUTROPHIL ABSOLUTE 3.61 1.56 - 6.13 K/uL 07/13/2018 2:33 AM T [facility] LYMPHOCYTE ABSOLUTE 5.51(H) 1.20 - 3.40 K/uL 07/13/2018 2:33 AM [facility] MONOCYTE ABSOLUTE 0.83(H) 0.24 - 0.36 K/uL 07/13/2018 2:33 AM [facility] EOSINOPHIL ABSOLUTE 0.53(H) 0.04 - 0.36 K/uL 07/13/2018 2:33 AM [facility] BASOPHILS ABSOLUTE 0.04 0.01 - 0.08 K/uL 07/13/2018 2:33 AM [facility] IMMATURE GRANULOCYTES ABSOLUTE 0.03 K/uL 07/13/2018 2:33 AM [facility] Blood Collection / Unknown 07/12/2018 10:00 PM CDT 07/13/2018 2:29 AM CDT us Dj Gross INTELLECTUAL PROPERTY LEGAL ASSISTANT HEMATOLOGY ORDERABLES Final Resu lt [facility] CLIA # [id number] [address] [place] [address] * COMPREHENSIVE METABOLIC PANEL (07/12/2018 10:00 PM CDT) SODIUM 141 136 - 145 mmol/L 07/13/2018 2:31 AM [facility] POTASSIUM 3.8 3.5 - 5.1 mmol/L 07/13/2018 2:31 AM [facility] CHLORIDE 103 98 - 107 mmol/L 07/13/2018 2:31 AM [facility] CO2 25 22 - 29 mmol/L 07/13/2018 2:31 AM [facility] CALCIUM 9.7 8.6 - 10.0 mg/dL 07/13/2018 2:31 AM [facility] BUN 14 6 - 20 mg/dL 07/13/2018 2:31 AM [facility] CREATININE 0.66 0.51 - 0.95 mg/dL 07/13/2018 2:31 AM [facility] GLUCOSE 95 74 - 99 mg/dL 07/13/2018 2:31 AM [facility] TOTAL PROTEIN 7.4 6.6 - 8.7 g/dL 07/13/2018 2:31 AM [facility] ALBUMIN 4.3 3.5 - 5.2 g/dL 07/13/2018 2:31 AM [facility] BILIRUBIN TOTAL <0.2 0.0 - 1.2 mg/dL 07/13/2018 2:31 AM [facility] ALKALINE PHOSPHATASE 82 35 - 104 U/L 07/13/2018 2:31 AM [facility] AST 12 10 - 35 U/L 07/13/2018 2:31 AM [facility] ALT 10 10 - 35 U/L 07/13/2018 2:31 AM [facility] GFR >60 >=60 mL/min/1.7 3 sq meter 07/13/2018 2:31 AM [facility] Comment: eGFR has not been validated for [...] GFR, >60 >=60 mL/min/1.7 3 sq meter 07/13/2018 2:31 AM [facility] ANION GAP 13 12 - 20 mmol/L 07/13/2018 2:31 AM [facility] Blood Collection / Unknown 07/12/2018 10:00 PM CDT 07/13/2018 2:10 AM CDT us Dj Gross INTELLECTUAL PROPERTY LEGAL ASSISTANT CHEMISTRY ORDERABLES Final Resul t [facility] CLIA # [id number] [address] [address] * (ABNORMAL) HEMOGLOBIN A1C (07/12/2018 10:00 PM CDT) HEMOGLOBIN A1C 6.5(H) 4.8 - 5.9 % 07/13/2018 2:46 AM CDT [facility] EST. AVG GLUCOSE, A1C 140 mg/dL 07/13/2018 2:46 AM CDT [facility] Blood Collection / Unknown 07/12/2018 10:00 PM CDT 07/13/2018 2:30 AM CDT Narrative [facility] - 07/13/2018 2:46 AM CDT HGB A1C INTERPRETATION NORMAL: <5.7% PRE-DIABETES: 5.7 - 6.4% DIABETES: 6.5% OR GREATER us Dj Gross INTELLECTUAL PROPERTY LEGAL ASSISTANT CHEMISTRY ORDERABLES Final Resul t [facility] CLIA # [id number] [address] [id number] documented in this encounter Visit Diagnoses Not on filedocumented in this encounter Care Teams Mud Tank Operator Relationship Specialty Start Date End Date Rufino Childers MD [address] [id number] PCP - General Family Practice 11/10/18 documented as of this encounter
--- OUTSIDE RECORDS SUMMARY | 2024-10-26 07:57 | XMS_ITS | Encounter Summary ---
Author Organization [facility] Address [address] [place] [address] Care Team Providers Care Automotive Paint Technician Name Role Phone Rufino Childers MD Primary Care Provider [phone] Encounter Details Date Type Department Care Team (Late st Contact Info) Description 12/24/2015 Lab Requisition [facility] Laboratory Services [place] [address] [place] [address] Anam Kenyon, NO ADDRESS ON FILE Social History Tobacco Use Types Packs/Day Years Used Date Smoking Tobacco: Every Day Cigarettes 1 30 Smokeless Tobacco: Never Alcohol Use Standard Drinks/Week Comments No 0 (1 standard drink = 0.6 oz pur e alcohol) Comments No Sex and Gender Information Value Date Recorded Sex Assigned at Not on file 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 Gender Identity Not on file Sexual Orientation Not on file Occupation Industry Job Start Date Job End Date Not on file Not on file Not on file Not on file documented as of this encounter Plan of Treatment Not on file documented as of this encounter Procedures Procedure Name Priority Date/Time Associated Diagnosis Comments DIFFERENTIAL, MANUAL Routine 12/24/2015 9:05 PM CDT CBC WITH DIFFERENTIAL Routine 12/24/2015 9:05 PM CDT TSH Routine 12/24/2015 9:05 PM CDT HEMOGLOBIN A1C Routine 12/24/2015 9:05 PM CDT COMPREHENSIVE METABOLIC PANEL Routine 12/24/2015 9:05 PM CDT documented in this encounter Results * (ABNORMAL) MANUAL DIFFERENTIAL (12/24/2015 9:05 PM CDT) SEGMENTED NEUTROPHILS 46 45 - 70 % 12/25/2015 12:38 AM CDT [facility] LYMPHOCYTES RELATIVE 49(H) 20 - 45 % 12/25/2015 12:38 AM CDT [facility] MONOCYTES RELATIVE 5 2 - 8 % 12/25/2015 12:38 AM CDT [facility] NEUTROPHILS ABSOLUTE COUNT 4.74 1.78 - 5.38 K/uL 12/25/2015 12:38 AM CDT [facility] LYMPHOCYTES ABSOLUTE 5.05(H) 1.20 - 4.00 K/uL 12/25/2015 12:38 AM T [facility] MONOCYTES ABSOLUTE 0.52 0.30 - 0.82 K/uL 12/25/2015 12:38 AM T [facility] TOTAL CELLS COUNTED IN DIFF 100 12/25/2015 12:38 AM T [facility] PLATELET EST. Consistent with Count 12/25/2015 12:38 AM T [facility] RBC MORPHOLOGY Normal 12/25/2015 12:38 AM T [facility] Blood Collection / Unknown 12/24/2015 9:05 PM CDT 12/24/2015 9:53 PM CDT us Anam Kenyon DO HEMATOLOGY ORDERABLES COM Final Result [facility] CLIA # [id number] [address] [place] [address] * TSH (12/24/2015 9:05 PM CDT) TSH 1.88 0.27 - 4.20 uIU/mL 12/24/2015 11:52 PM CDT [facility] Blood Collection / Unknown 12/24/2015 9:05 PM CDT 12/24/2015 9:53 PM CDT us Anam Kenyon DO CHEMISTRY ORDERABLES Final Resu lt Performing Organization Address City/[facility]/ZIP Co de Phone Number [facility] CLIA # [id number] [address] [place] [address] * (ABNORMAL) HEMOGLOBIN A1C (12/24/2015 9:05 PM CDT) HEMOGLOBIN A1C 12.1(H) 4.8 - 5.9 % 12/24/2015 11:30 PM CDT [facility] EST. AVG GLUCOSE, A1C 301 mg/dL 12/24/2015 11:30 PM CDT [facility] Blood Collection / Unknown 12/24/2015 9:05 PM CDT 12/24/2015 9:53 PM CDT us Anam Kenyon DO CHEMISTRY ORDERABLES Final Resu lt Performing Organization Address [facility]/ZIP Co de Phone Number [facility] CLIA # [id number] [address] [place] [address] * (ABNORMAL) COMPREHENSIVE METABOLIC PANEL (12/24/2015 9:05 PM CDT) SODIUM 137 136 - 145 mmol/L 12/24/2015 11:52 PM T [facility] POTASSIUM 3.9 3.5 - 5.1 mmol/L 12/24/2015 11:52 PM T [facility] CHLORIDE 97(L) 98 - 107 mmol/L 12/24/2015 11:52 PM T [facility] CO2 25 22 - 29 mmol/L 12/24/2015 11:52 PM T [facility] CALCIUM 9.7 8.6 - 10.0 mg/dL 12/24/2015 11:52 PM [facility] BUN 18 6 - 20 mg/dL 12/24/2015 11:52 PM [facility] CREATININE 0.57 0.51 - 0.95 mg/dL 12/24/2015 11:52 PM T [facility] GLUCOSE 318(H) 74 - 106 mg/dL 12/24/2015 11:52 PM [facility] TOTAL PROTEIN 7.1 6.6 - 8.7 g/dL 12/24/2015 11:52 PM [facility] ALBUMIN 3.8 3.5 - 5.2 g/dL 12/24/2015 11:52 PM [facility] BILIRUBIN TOTAL <0.2 0.0 - 1.2 mg/dL 12/24/2015 11:52 PM [facility] ALKALINE PHOSPHATASE 104 35 - 104 U/L 12/24/2015 11:52 PM [facility] AST 9(L) 10 - 35 U/L 12/24/2015 11:52 PM [facility] ALT 13 10 - 35 U/L 12/24/2015 11:52 PM [facility] GFR >60 >=60 mL/min/1.7 3 sq meter 12/24/2015 11:52 PM [facility] Comment: eGFR has not been validated [...] GFR, >60 >=60 mL/min/1.7 3 sq meter 12/24/2015 11:52 PM [facility] ANION GAP 15 12 - 20 mmol/L 12/24/2015 11:52 PM [facility] Blood Collection / Unknown 12/24/2015 9:05 PM CDT 12/24/2015 9:53 PM CDT us Anam Kenyon DO CHEMISTRY ORDERABLES Final Resu lt [facility] CLIA # [id number] [address] [place] [address] * (ABNORMAL) CBC WITH DIFFERENTIAL (12/24/2015 9:05 PM CDT) WBC 10.3(H) 4.0 - 10.0 K/uL 12/24/2015 11:05 PM [facility] RBC 4.63 3.93 - 5.22 M/uL 12/24/2015 11:05 PM [facility] HEMOGLOBIN 14.1 11.2 - 15.7 g/dL 12/24/2015 11:05 PM [facility] HEMATOCRIT 41.3 34.1 - 44.9 % 12/24/2015 11:05 PM [facility] MCV 89.2 79.4 - 94.8 fL 12/24/2015 11:05 PM [facility] MCH 30.5 25.6 - 32.2 pg 12/24/2015 11:05 PM [facility] MCHC 34.1 32.2 - 35.5 g/dL 12/24/2015 11:05 PM [facility] RDW 12.5 11.0 - 14.5 % 12/24/2015 11:05 PM [facility] RDW-STDEV 40.2 36.9 - 56.9 fL 12/24/2015 11:05 PM [facility] PLATELETS 275 163 - 337 K/uL 12/24/2015 11:05 PM [facility] MPV 10.0 10.0 - 14.8 fL 12/24/2015 11:05 PM [facility] Blood Collection / Unknown 12/24/2015 9:05 PM CDT 12/24/2015 9:53 PM CDT us Anam Kenyon DO HEMATOLOGY ORDERABLES Final Res ult [facility] CLIA # [id number] [address] [place] [id number] documented in this encounter Visit Diagnoses Not on filedocumented in this encounter Care Teams Automotive Paint Technician Relationship Specialty Start Date End Date Rufino Childers MD [address] [address] PCP - General Family Practice 11/10/18 documented as of this encounter
--- OUTSIDE RECORDS SUMMARY | 2024-10-26 07:57 | XMS_ITS | Encounter Summary ---
Author Organization [facility] Address [address] [place] [address] Care Team Providers Care Cemetery Workers Supervisor Name Role Phone Rufino Childers MD Primary Care Provider [phone] Encounter Details Date Type Department Care Team (Late st Contact Info) Description 11/28/2019 Lab Requisition [facility] Laboratory Services [place] [address] [place] [address] Anam Kenyon, NO ADDRESS ON FILE Social History Tobacco Use Types Packs/Day Years Used Date Smoking Tobacco: Every Day Cigarettes 1 40 Smokeless Tobacco: Never Alcohol Use Standard Drinks/Week Comments No 0 (1 standard drink = 0.6 oz pur e alcohol) Comments No Sex and Gender Information Value Date Recorded Sex Assigned at Not on file 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 Gender Identity Not on file Sexual Orientation Not on file Occupation Industry Job Start Date Job End Date Not on file Not on file Not on file Not on file documented as of this encounter Plan of Treatment Not on file documented as of this encounter Procedures Procedure Name Priority Date/Time Associated Diagnosis Comments CBC WITH DIFFERENTIAL Routine 11/29/2019 5:34 AM CDT SEDIMENTATION RATE Routine 11/29/2019 5: 34 AM CDT RHEUMATOID FACTOR Routine 11/29/2019 5:3 4 AM CDT TSH Routine 11/29/2019 5:34 AM CDT HEMOGLOBIN A1C Routine 11/29/2019 5:34 AM CDT LIPID PANEL Routine 11/29/2019 5:34 AM CDT COMPREHENSIVE METABOLIC PANEL Routine 11/29/2019 5:34 AM CDT documented in this encounter Results * (ABNORMAL) RHEUMATOID FACTOR (11/29/2019 5:34 AM CDT) Pathologist [facility] RHEUMATOID FACTOR 84(H) <14 IU/mL 11/29/2019 11:57 PM CDT [facility]ORAT[facility] Blood Collection / Unknown 11/29/2019 5:34 AM CDT 11/29/2019 5:35 AM CDT Anam Kenyon DO CHEMISTRY ORDERABLES Final Resu lt Performing Organization Address City/[facility]/ZIP Co de Phone Number [facility] [address] [place] [address] * TSH (11/29/2019 5:34 AM CDT) Pathologist [facility] TSH 2.82 0.27 - 4.20 uIU/mL 11/29/2019 7:42 AM CDT [facility] Blood Collection / Unknown 11/29/2019 5:34 AM CDT 11/29/2019 5:35 AM CDT us Anam Kenyon DO CHEMISTRY ORDERABLES Final Resu lt [facility] CLIA # [id number] [address] [place] [address] * (ABNORMAL) LIPID PANEL (11/29/2019 5:34 AM CDT) Pathologist [facility] CHOLESTEROL 223(H) <200 mg/dL 11/29/2019 7:42 AM CDT [facility] TRIGLYCERIDE 159(H) <150 mg/dL 11/29/2019 7:42 AM CDT [facility] HDL 38(L) 40 - 59 mg/dL 11/29/2019 7:42 AM CDT [facility] LDL CALCULATED 153(H) <100 mg/dL 11/29/2019 7:42 AM CDT [facility] NON-HDL CHOLESTEROL 185(H) <130 mg/dL 11/29/2019 7:42 AM CDT [facility] Blood Collection / Unknown 11/29/2019 5:34 AM CDT 11/29/2019 5:35 AM CDT Narrative [facility] - 11/29/2019 7:42 AM CDT TOTAL CHOLESTEROL mg/dL Desirable <200 [...] Reference Ranges for Lipid Panels (NCEP/AMA) . us Anam Kenyon DO CHEMISTRY ORDERABLES Final Resu lt [facility] CLIA # [id number] [address] [place] [id number] * (ABNORMAL) HEMOGLOBIN A1C (11/29/2019 5:34 AM CDT) HEMOGLOBIN A1C 7.3(H) <=5.6 % 11/29/2019 7:43 AM CDT [facility] EST. AVG GLUCOSE, A1C 163 mg/dL 11/29/2019 7:43 AM CDT [facility] Blood Collection / Unknown 11/29/2019 5:34 AM CDT 11/29/2019 5:35 AM CDT Narrative [facility] - 11/29/2019 7:43 AM CDT HGB A1C INTERPRETATION NORMAL: <5.7% PRE-DIABETES: 5.7 - 6.4% DIABETES: 6.5% OR GREATER us Anam Kenyon DO CHEMISTRY ORDERABLES Final Resu lt Performing Organization Address [facility]/ZIP Co de Phone Number [facility] CLIA # [id number] [address] [place] [address] * SEDIMENTATION RATE (11/29/2019 5:34 AM CDT) ESR (SEDIMENTATION RATE) 12 0 - 30 mm/Hr 11/29/2019 7:48 AM CDT [facility] Blood Collection / Unknown 11/29/2019 5:34 AM CDT 11/29/2019 5:35 AM CDT us Anam Kenyon DO HEMATOLOGY ORDERABLES Final Res ult Performing Organization Address [facility]/ZIP Co de Phone Number [facility] CLIA # [id number] [address] [place] [address] * (ABNORMAL) COMPREHENSIVE METABOLIC PANEL (11/29/2019 5:34 AM CDT) SODIUM 138 136 - 145 mmol/L 11/29/2019 7:42 AM CDT [facility] POTASSIUM 3.7 3.5 - 5.1 mmol/L 11/29/2019 7:42 AM CDT [facility] CHLORIDE 102 98 - 107 mmol/L 11/29/2019 7:42 AM CDT [facility] CO2 25 22 - 29 mmol/L 11/29/2019 7:42 AM CDT [facility] CALCIUM 9.9 8.6 - 10.0 mg/dL 11/29/2019 7:42 AM CDT [facility] BUN 9 6 - 20 mg/dL 11/29/2019 7:42 AM CDT [facility] CREATININE 0.62 0.51 - 0.95 mg/dL 11/29/2019 7:42 AM [facility] GLUCOSE 76 74 - 99 mg/dL 11/29/2019 7:42 AM [facility] TOTAL PROTEIN 7.1 6.6 - 8.7 g/dL 11/29/2019 7:42 AM [facility] ALBUMIN 4.3 3.5 - 5.2 g/dL 11/29/2019 7:42 AM [facility] BILIRUBIN TOTAL 0.2 <=1.2 mg/dL 11/29/2019 7:42 AM [facility] ALKALINE PHOSPHATASE 83 35 - 104 U/L 11/29/2019 7:42 AM [facility] AST 13 10 - 35 U/L 11/29/2019 7:42 AM [facility] ALT 8(L) 10 - 35 U/L 11/29/2019 7:42 AM [facility] GFR >60 >=60 mL/min/1.7 3 sq meter 11/29/2019 7:42 AM [facility] Comment: eGFR has not been validated [...] GFR, >60 >=60 mL/min/1.7 3 sq meter 11/29/2019 7:42 AM [facility] ANION GAP 11(L) 12 - 20 mmol/L 11/29/2019 7:42 AM [facility] Blood Collection / Unknown 11/29/2019 5:34 AM CDT 11/29/2019 5:35 AM CDT us Anam Kenyon DO CHEMISTRY ORDERABLES Final Resu lt [facility] CLIA # [id number] [address] [place] [address] * (ABNORMAL) CBC WITH DIFFERENTIAL (11/29/2019 5:34 AM CDT) WBC 10.6(H) 4.0 - 10.0 K/uL 11/29/2019 7:31 AM [facility] RBC 4.43 3.93 - 5.22 M/uL 11/29/2019 7:31 AM [facility] HEMOGLOBIN 13.4 11.2 - 15.7 g/dL 11/29/2019 7:31 AM [facility] HEMATOCRIT 40.2 34.1 - 44.9 % 11/29/2019 7:31 AM [facility] MCV 90.7 79.4 - 94.8 fL 11/29/2019 7:31 AM [facility] MCH 30.2 25.6 - 32.2 pg 11/29/2019 7:31 AM [facility] MCHC 33.3 32.2 - 35.5 g/dL 11/29/2019 7:31 AM [facility] RDW 12.3 11.0 - 14.5 % 11/29/2019 7:31 AM [facility] RDW-STDEV 40.9 36.9 - 56.9 fL 11/29/2019 7:31 AM [facility] PLATELETS 268 163 - 337 K/uL 11/29/2019 7:31 AM [facility] MPV 9.5(L) 10.0 - 14.8 fL 11/29/2019 7:31 AM [facility] NEUTROPHILS 42 34 - 71 % 11/29/2019 7:31 AM [facility] LYMPHOCYTES 48 19 - 52 % 11/29/2019 7:31 AM [facility] MONOCYTES 5 5 - 13 % 11/29/2019 7:31 AM [facility] EOSINOPHILS 4 1 - 6 % 11/29/2019 7:31 AM [facility] BASOPHILS 1 0 - 1 % 11/29/2019 7:31 AM [facility] IMMATURE GRANULOCYTES 0 % 11/29/2019 7:31 AM [facility] NEUTROPHIL ABSOLUTE 4.44 1.56 - 6.13 K/uL 11/29/2019 7:31 AM [facility] LYMPHOCYTE ABSOLUTE 5.12(H) 1.20 - 3.40 K/uL 11/29/2019 7:31 AM [facility] MONOCYTE ABSOLUTE 0.54(H) 0.24 - 0.36 K/uL 11/29/2019 7:31 AM T [facility] EOSINOPHIL ABSOLUTE 0.38(H) 0.04 - 0.36 K/uL 11/29/2019 7:31 AM [facility] BASOPHILS ABSOLUTE 0.08 0.01 - 0.08 K/uL 11/29/2019 7:31 AM [facility] IMMATURE GRANULOCYTES ABSOLUTE 0.03 K/uL 11/29/2019 7:31 AM [facility] REVIEWED ON SMEAR 020 7:31 AM [facility] Blood Collection / Unknown 11/29/2019 5:34 AM CDT 11/29/2019 5:35 AM CDT us Anam Kenyon DO HEMATOLOGY ORDERABLES Final Res ult [facility] CLIA # [id number] [address] [address] documented in this encounter Visit Diagnoses Not on filedocumented in this encounter Care Teams Cemetery Workers Supervisor Relationship Specialty Start Date End Date Rufino Childers MD [address] [address] PCP - General Family Practice 11/10/18 documented as of this encounter
--- OUTSIDE RECORDS SUMMARY | 2024-10-26 07:58 | XMS_ITS | Encounter Summary ---
Author Organization [facility] Address [address] [place] [address] Care Team Providers Care Wildlife Control Operator Name Role Phone Rufino Childers MD Primary Care Provider [phone] [phone] Encounter Details Date Type Department Care Team (Late st Contact Info) Description 05/08/2020 Lab Requisition [facility] [place] [address] [place] [address] Anam Kenyon, NO ADDRESS ON FILE Social History Tobacco Use Types Packs/Day Years Used Date Smoking Tobacco: Every Day Cigarettes 0.5 40 Smokeless Tobacco: Never Alcohol Use Standard Drinks/Week Comments No 0 (1 standard drink = 0.6 oz pur e alcohol) Comments No Sex and Gender Information Value Date Recorded Sex Assigned at Not on file 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 No / Unsure 04/27/2020 9:18 AM PIPE INSULATOR documented as of this encounter Plan of Treatment Not on file documented as of this encounter Procedures Procedure Name Priority Date/Time Associated Diagnosis Comments RHEUMATOID FACTOR Routine 05/08/2020 1:4 6 PM PIPE INSULATOR GLORY SCREEN W/REFLEX Routine 05/08/2020 1 :46 PM PIPE INSULATOR TSH Routine 05/08/2020 1:44 PM PIPE INSULATOR LIPID PANEL Routine 05/08/2020 1:44 PM PIPE INSULATOR COMPREHENSIVE METABOLIC PANEL Routine 05/08/2020 1:44 PM PIPE INSULATOR CBC WITH DIFFERENTIAL Routine 05/08/2020 1:42 PM PIPE INSULATOR HEMOGLOBIN A1C Routine 05/08/2020 1:42 PM PIPE INSULATOR documented in this encounter Results * (ABNORMAL) RHEUMATOID FACTOR (05/08/2020 1:46 PM PIPE INSULATOR) Pathologist [facility] [place] RHEUMATOID FACTOR 119(H) <14 IU/mL 05/09/2020 1:00 AM PIPE INSULATOR [facility] Blood Venipuncture / Unknown 05/08/2020 1:46 PM PIPE INSULATOR 05/08/2020 1:46 PM PIPE INSULATOR Anam Kenyon DO CHEMISTRY ORDERABLES Final Resu lt Performing Organization Address [facility]/ZIP Co de Phone Number [address] [address] * (ABNORMAL) GLORY SCREEN W/REFLEX (05/08/2020 1:46 PM PIPE INSULATOR) Pathologist [facility] [place] GLORY SCREEN Positive(A) Negative 05/09/2020 7:43 PM PIPE INSULATOR [facility] GLORY TITER 1:80 Titer 05/09/2020 7:43 PM PIPE INSULATOR [facility] GLORY PATTERN Homogeneous 05/09/2020 7:43 PM PIPE INSULATOR [facility] Blood Venipuncture / Unknown 05/08/2020 1:46 PM PIPE INSULATOR 05/08/2020 1:46 PM PIPE INSULATOR Narrative [facility] - 05/09/2020 7:43 PM PIPE INSULATOR GLORY performed by indirect immunofluorescence(IFA). Anam Kenyon DO CHEMISTRY ORDERABLES Final Resu lt [facility] [address] [place] [address] * TSH (05/08/2020 1:44 PM PIPE INSULATOR) Pathologist [facility] [place] TSH 2.39 0.27 - 4.20 uIU/mL 05/08/2020 2:14 PM PIPE INSULATOR [facility] Blood Venipuncture / Unknown 05/08/2020 1:44 PM PIPE INSULATOR 05/08/2020 1:44 PM PIPE INSULATOR us Anam Kenyon DO CHEMISTRY ORDERABLES Final Resu lt [facility] CLIA # [id number] [address] [place] [address] * (ABNORMAL) LIPID PANEL (05/08/2020 1:44 PM PIPE INSULATOR) Pathologist [facility] [place] CHOLESTEROL 228(H) <200 mg/dL 05/08/2020 2:14 PM PIPE INSULATOR [facility] TRIGLYCERIDE 161(H) <150 mg/dL 05/08/2020 2:14 PM [facility] HDL 42 40 - 59 mg/dL 05/08/2020 2:14 PM [facility] LDL CALCULATED 154(H) <100 mg/dL 05/08/2020 2:14 PM [facility] NON-HDL CHOLESTEROL 186(H) <130 mg/dL 05/08/2020 2:14 PM PIPE INSULATOR [facility] Blood Venipuncture / Unknown 05/08/2020 1:44 PM PIPE INSULATOR 05/08/2020 1:44 PM PIPE INSULATOR Narrative [facility] - 05/08/2020 2:14 PM PIPE INSULATOR TOTAL CHOLESTEROL mg/dL Desirable <200 Borderline high [...] Kenyon DO CHEMISTRY ORDERABLES Final Resu lt [facility] CLIA # [id number] [address] [place] [address] * (ABNORMAL) COMPREHENSIVE METABOLIC PANEL (05/08/2020 1:44 PM PIPE INSULATOR) SODIUM 138 136 - 145 mmol/L 05/08/2020 2:16 PM [facility] POTASSIUM 4.4 3.5 - 5.1 mmol/L 05/08/2020 2:16 PM [facility] CHLORIDE 103 98 - 107 mmol/L 05/08/2020 2:16 PM [facility] CO2 24 22 - 29 mmol/L 05/08/2020 2:16 PM [facility] CALCIUM 9.5 8.8 - 10.2 mg/dL 05/08/2020 2:16 PM [facility] BUN 9 8 - 23 mg/dL 05/08/2020 2:16 PM [facility] CREATININE 0.56 0.51 - 0.95 mg/dL 05/08/2020 2:16 PM [facility] GLUCOSE 139(H) 74 - 99 mg/dL 05/08/2020 2:16 PM [facility] TOTAL PROTEIN 7.2 6.6 - 8.7 g/dL 05/08/2020 2:16 PM [facility] ALBUMIN 4.0 3.5 - 5.2 g/dL 05/08/2020 2:16 PM [facility] BILIRUBIN TOTAL 0.2 <=1.2 mg/dL 05/08/2020 2:16 PM [facility] ALKALINE PHOSPHATASE 91 35 - 104 U/L 05/08/2020 2:16 PM [facility] AST 15 10 - 35 U/L 05/08/2020 2:16 PM [facility] ALT <5(L) 10 - 35 U/L 05/08/2020 2:16 PM [facility] GFR >60 >=60 mL/min/1.7 3 sq meter 05/08/2020 2:16 PM [facility] Comment: eGFR has not been validated for [...] GFR, >60 >=60 mL/min/1.7 3 sq meter 05/08/2020 2:16 PM [facility] ANION GAP 11(L) 12 - 20 mmol/L 05/08/2020 2:16 PM [facility] Blood Venipuncture / Unknown 05/08/2020 1:44 PM PIPE INSULATOR 05/08/2020 1:44 PM PIPE INSULATOR us Anam Kenyon DO CHEMISTRY ORDERABLES Final Resu lt [facility] CLIA # [id number] [address] [place] [address] * (ABNORMAL) HEMOGLOBIN A1C (05/08/2020 1:42 PM PIPE INSULATOR) HEMOGLOBIN A1C 7.6(H) <=5.6 % 05/08/2020 2:18 PM [facility] EST. AVG GLUCOSE, A1C 171 mg/dL 05/08/2020 2:18 PM [facility] Blood Venipuncture / Unknown 05/08/2020 1:42 PM PIPE INSULATOR 05/08/2020 1:42 PM PIPE INSULATOR Narrative [facility] - 05/08/2020 2:18 PM PIPE INSULATOR HGB A1C INTERPRETATION NORMAL: <5.7% PRE-DIABETES: 5.7 - 6.4% DIABETES: 6.5% OR GREATER us Anam Kenyon DO CHEMISTRY ORDERABLES Final Resu lt [facility] CLIA # [id number] [address] [place] [address] * (ABNORMAL) CBC WITH DIFFERENTIAL (05/08/2020 1:42 PM PIPE INSULATOR) WBC 8.3 4.0 - 10.0 K/uL 05/08/2020 1:49 PM [facility] RBC 4.43 3.93 - 5.22 M/uL 05/08/2020 1:49 PM [facility] HEMOGLOBIN 13.5 11.2 - 15.7 g/dL 05/08/2020 1:49 PM [facility] HEMATOCRIT 40.4 34.1 - 44.9 % 05/08/2020 1:49 PM [facility] MCV 91.2 79.4 - 94.8 fL 05/08/2020 1:49 PM [facility] MCH 30.5 25.6 - 32.2 pg 05/08/2020 1:49 PM [facility] MCHC 33.4 32.2 - 35.5 g/dL 05/08/2020 1:49 PM [facility] RDW 12.1 11.0 - 14.5 % 05/08/2020 1:49 PM [facility] RDW-STDEV 40.5 36.9 - 56.9 fL 05/08/2020 1:49 PM [facility] PLATELETS 301 163 - 337 K/uL 05/08/2020 1:49 PM [facility] MPV 9.7(L) 10.0 - 14.8 fL 05/08/2020 1:49 PM [facility] NEUTROPHILS 38 34 - 71 % 05/08/2020 1:49 PM [facility] LYMPHOCYTES 52 19 - 52 % 05/08/2020 1:49 PM [facility] MONOCYTES 6 5 - 13 % 05/08/2020 1:49 PM [facility] EOSINOPHILS 4 1 - 6 % 05/08/2020 1:49 PM [facility] BASOPHILS 1 0 - 1 % 05/08/2020 1:49 PM [facility] IMMATURE GRANULOCYTES 0 % 05/08/2020 1:49 PM [facility] NEUTROPHIL ABSOLUTE 3.14 1.56 - 6.13 K/uL 05/08/2020 1:49 PM [facility] LYMPHOCYTE ABSOLUTE 4.27(H) 1.20 - 3.40 K/uL 05/08/2020 1:49 PM [facility] MONOCYTE ABSOLUTE 0.47(H) 0.24 - 0.36 K/uL 05/08/2020 1:49 PM [facility] EOSINOPHIL ABSOLUTE 0.31 0.04 - 0.36 K/uL 05/08/2020 1:49 PM [facility] BASOPHILS ABSOLUTE 0.06 0.01 - 0.08 K/uL 05/08/2020 1:49 PM [facility] IMMATURE GRANULOCYTES ABSOLUTE 0.01 K/uL 05/08/2020 1:49 PM [facility] Blood Venipuncture / Unknown 05/08/2020 1:42 PM PIPE INSULATOR 05/08/2020 1:42 PM PIPE INSULATOR us Anam Kenyon DO HEMATOLOGY ORDERABLES Final Res ult [facility] CLIA # [id number] [address] [place] [address] documented in this encounter Visit Diagnoses Not on filedocumented in this encounter Care Teams Wildlife Control Operator Relationship Specialty Start Date End Date Rufino Childers MD [address] [phone] PCP - General Family Practice 11/10/18 documented as of this encounter
--- OUTSIDE RECORDS SUMMARY | 2024-10-26 07:58 | XMS_ITS | Clinical Summary ---
Author Organization [facility] Address [address] [place] [address] Care Team Providers Care Mill Platform Supervisor Name Role Phone Rufino Childers MD Primary Care Provider [phone] [phone] Allergies Active Allergy Reactions Criticality Noted Date Comments Penicillins Other (See Comments) 09/01/2008 Many years ago, unsure of reaction Medications blood sugar diagnostic (ACCU-CHEK ADVANTAGE TEST) Misc Strp Test twice per day Dx250.02 100 Strip 3 11/28/2011 Active lancets (ACCU-CHEK SOFTCLIX LANCETS) Misc Misc Test twice per day and prn 100 Each 3 11/28/2011 Active metFORMIN (GLUCOPHAGE) 1,000 mg tabletIndicatio ns:Uncontrolled type 2 diabetes mellitus without complication, without long-term current use of insulin Take 1 Tablet (1,000 mg) by mouth 2 times daily with meals. 180 Tablet 03/10/2017 Active gabapentin (NEURONTIN) 100 mg capsuleIndicati ons:Bilateral carpal tunnel syndrome Take 1 Capsule (100 mg) by mouth 3 times daily. 90 Capsule 01/17/2020 Active meloxicam (Mobic) 7.5 mg tabletIndicatio ns:Rheumatoid arthritis involving multiple sites with positive rheumatoid factor (CMS/HCC) Take 1 Tablet (7.5 mg) by mouth 2 times daily as needed for Pain. 60 Tablet 2 01/17/2020 Active ibuprofen (MOTRIN) 200 mg tablet Take 200 mg by mouth every 6 hours as needed for Pain, Mild. Active Active Problems Problem Noted Date Diagnosed Date Rheumatoid arthritis involvi ng multiple sites with positive rheumatoid factor 01/12/2018 Primary osteoarthritis involving multiple joints 01/12/2018 Encounter for monitoring of hydroxychloroquine t herapy 01/12/2018 Trigger ring finger of left hand 01/12/2018 Tobacco use 03/01/2015 Migraine 01/24/2013 Diabetes mellitus type II, uncontrolled 11/26/19 12 Plantar fasciitis 11/26/2011 Resolved Problems Problem Noted Date Diagnosed Date Resolved Date Foot pain 01/09/2011 04/16/2014 Family History Medical History Relation Name Comments Colon Cancer Father Diabetes Maternal Grandmother Breast Cancer Mother Diabetes Mother Osteoporosis Mother Ovarian Cancer Mother Relation Name Status Comments Father Maternal Grandmother Mother Social History Tobacco Use Types Packs/Day Years Used Date Smoking Tobacco: Every Day Cigarettes 0.5 40 Smokeless Tobacco: Never Tobacco Cessation:Ready to Q uit: No; Counseling Given: Yes Alcohol Use Standard Drinks/Week Comments No 0 (1 standard drink = 0.6 oz pur e alcohol) Comments No Sex and Gender Information Value Date Recorded Sex Assigned at Not on file Legal Sex Female 6:48 AM COMPUTER TYPESETTER Gender Identity Not on file Sexual Orientation Not on file Occupation Industry Job Start Date Job End Date Not on file Not on file Not on file Not on file Last Filed Vital Signs Vital Sign Reading Time Taken Comments Blood Pressure 150/78 04/27/2020 9:54 AM COMPUTER TYPESETTER Pulse 78 04/27/2020 9:25 AM COMPUTER TYPESETTER Temperature 36.4 C (97.6 F) 04/14/2019 11:24 AM COMPUTER TYPESETTER Respiratory Rate 20 04/14/2019 11:24 AM COMPUTER TYPESETTER Oxygen Saturation 99% 04/14/2019 11:24 AM COMPUTER TYPESETTER Inhaled Oxygen Concentration - - Weight 83.5 kg (184 lb) 04/27/2020 9:25 AM COMPUTER TYPESETTER Height 165.1 cm (5' 5 ) 04/27/2020 9:25 AM COMPUTER TYPESETTER Body Mass Index 30.62 04/27/2020 9:25 AM COMPUTER TYPESETTER Plan of Treatment Health Maintenance Due Date Last Done Comments DIABETES ANNUAL FOOT EXAM 12/22/1977 DTAP/TDAP/TD VACCINES (1 - Tdap) 12/22/1978 HPV/Cotest (21-29) 12/22/1980 CERVICAL CANCER SCREENING 12/22/1989 HPV/Cotest (30-65) 12/22/1989 PAP SMEAR 12/22/1989 COLORECTAL SCREENING 12/22/2004 Colorectal Cancer Screening 12/22/2004 FIT-DNA Q 3 years 12/22/2004 FIT/FOBT Q 1 year 12/22/2004 Flex Sig/CT Colonography Q 5 years 12/22/2004 ZOSTER VACCINE (1 of 2) 12/22/2009 DIABETES MICROALBUMIN ANNUAL SCREEN 01/12/2016 01/11/2015 DIABETES HBA1C Q 6 MONTHS 11/05/20202020, 11/29/2019, 05/23/2019, Additional history exists LDL CHOLESTEROL ANNUAL 05/08/2021 , 11/29/2019, 05/23/2019, Additional history exists BREAST CANCER SCREENING 12/18/2023 12/17/2022 DIABETES ANNUAL RETINAL EXAM 05/14/2024 05/15/2023 INFLUENZA VACCINE (#1) 2024 04/14/2019, 2019 RSV VACCINE (60+ or ) (1 - 1-dose 75+ series) 12/22/2034 Procedures Procedure Name Priority Date/Time Associated Diagnosis Comments LIPID PANEL Routine 05/08/2020 1:44 PM COMPUTER TYPESETTER HEMOGLOBIN A1C Routine 05/08/2020 1:42 PM COMPUTER TYPESETTER MICROALBUMIN/CREATIN INE RATIO, RANDOM UR Routine 01/11/2015 from Last 3 Months or Most Recently Relevant to Health Maintenance Results * (ABNORMAL) LIPID PANEL (05/08/2020 1:44 PM COMPUTER TYPESETTER) CHOLESTEROL 228(H) <200 mg/dL 05/08/2020 2:14 PM COMPUTER TYPESETTER [facility] TRIGLYCERIDE 161(H) <150 mg/dL 05/08/2020 2:14 PM [facility] HDL 42 40 - 59 mg/dL 05/08/2020 2:14 PM [facility] LDL CALCULATED 154(H) <100 mg/dL 05/08/2020 2:14 PM [facility] NON-HDL CHOLESTEROL 186(H) <130 mg/dL 05/08/2020 2:14 PM [facility] Blood Venipuncture / Unknown 05/08/2020 1:44 PM COMPUTER TYPESETTER 05/08/2020 1:44 PM COMPUTER TYPESETTER [facility] - 05/08/2020 2:14 PM COMPUTER TYPESETTER TOTAL CHOLESTEROL mg/dL Desirable <200 Borderline high [...] ORDERABLES Final Resu lt Performing Organization Address [facility] Co de Phone Number [facility] CLIA # [id number] [address] [place] [address] * (ABNORMAL) HEMOGLOBIN A1C (05/08/2020 1:42 PM COMPUTER TYPESETTER) HEMOGLOBIN A1C 7.6(H) <=5.6 % 05/08/2020 2:18 PM [facility] EST. AVG GLUCOSE, A1C 171 mg/dL 05/08/2020 2:18 PM [facility] Blood Venipuncture / Unknown 05/08/2020 1:42 PM COMPUTER TYPESETTER 05/08/2020 1:42 PM COMPUTER TYPESETTER [facility] - 05/08/2020 2:18 PM COMPUTER TYPESETTER HGB A1C INTERPRETATION NORMAL: <5.7% PRE-DIABETES: 5.7 - 6.4% DIABETES: 6.5% OR GREATER Anam Kenyon DO CHEMISTRY ORDERABLES Final Resu lt Performing Organization Address [facility]/ZIP Co de Phone Number [facility] CLIA # [id number] [address] [address] * MICROALBUMIN/CREATININE RATIO, RANDOM UR (01/11/2015) ABSTRACTED MICROALBUMIN,UR INE 17 EXTERNAL LAB MICROALBUMIN, URINE mg/dL EXTERNAL LAB CREATININE, URINE EXTERNAL LAB MICROALBUMIN/CR EAT RATIO, UR EXTERNAL LAB MICROALBUMIN, URINE mg/dL EXTERNAL LAB CREATININE, URINE 29.0 - 226.0 mg/dL EXTERNAL LAB MICROALBUMIN/CR EAT RATIO, UR mg/g Creatinine EXTERNAL LAB Urine specimen (specimen) 01/11/2015 Chiquis Li [employer] CONSULTANT URINE ORDERABLES Final Result EXTERNAL LAB from Last 3 Months or Most Recently Relevant to Health Maintenance Care Teams Mill Platform Supervisor Relationship Specialty Start Date End Date Rufino Childers MD [address] [phone] PCP - General Family Practice 11/10/18
--- OUTSIDE RECORDS SUMMARY | 2024-10-26 07:58 | XMS_ITS | Encounter Summary ---
Author Organization [facility] Address [address] [place] [address] Care Team Providers Care Manager Equipment Name Role Phone Rufino Childers MD Primary Care Provider [phone] Encounter Details Date Type Department Care Team (Late st Contact Info) Description 10/19/2024 External Device Data ST[facility] ABSTRACTION Provider, Abstract [...] on file Legal Sex Female 5:01 AM HEEL TURNER Gender Identity Not on file Sexual Orientation Not on file documented as of this encounter Plan of Treatment Upcoming Encounters Date Type Department Care Team (Late st Contact Info) Description 01/23/2025 2:00 PM HEEL TURNER Office Visit [address] [address] Kirstie Benjamin FNP [address] [address] 03/24/2025 11:20 AM HEEL TURNER Office Visit [address] [phone] Rufino Childers MD [address] [address] documented as of this encounter Visit Diagnoses Not on filedocumented in this encounter Care Teams Manager Equipment Relationship Specialty Start Date End Date Rufino Childers MD [address] [phone] PCP - General Family Practice 11/10/18 documented as of this encounter
--- OUTSIDE RECORDS SUMMARY | 2024-10-26 07:58 | XMS_ITS | Clinical Summary ---
Author Organization [facility] Address [address] Paul: Epic Prelude ADT WILLEM MARKS [address] Care Team Providers Care Electrician Manager Name Role Phone Rufino Childers MD Primary Care Provider [phone] Allergies Active Allergy Reactions Criticality Noted Date Comments Penicillins Other (See Comments) 09/01/2008 Many years ago, unsure of reaction Medications ofloxacin (OCUFLOX) 0.3 % solution INSTILL 1 DROP INTO LEFT EYE 4 TIMES DAILY 07/07/19 24 Active albuterol sulfate HFA 90 mcg/actuation aerosol inhalerIndications :Upper respiratory tract infection, unspecified type Take 2 Puffs by inhalation every 6 hours as needed for Shortness of Breath. 8.5 Gram 1 09/25/19 24 Active rosuvastatin (CRESTOR) 20 mg tabletIndications: Hyperlipidemia, unspecified hyperlipidemia type Take 1 Tablet (20 mg) by mouth daily. 100 Tablet 3 11/29/19 24 Active glipiZIDE (GLUCOTROL) 5 mg tabletIndications: Other specified diabetes mellitus with hyperglycemia, unspecified whether stock roller insulin use (CMS/HCC) Take 1 Tablet (5 mg) by mouth daily with breakfast. 30 Tablet 10/22/19 25 Active diclofenac sodium (VOLTAREN) 75 mg Tablet, Delayed Release (E.C.)Indications: Acute pain of right shoulder Take 1 Tablet (75 mg) by mouth 2 times daily. 60 Tablet 10/22/19 25 Active metFORMIN (GLUCOPHAGE) 500 mg tabletIndications: Other specified diabetes mellitus with hyperglycemia, unspecified whether stock roller insulin use (CMS/HCC) Take 1 Tablet (500 mg) by mouth 2 times daily with meals. 60 Tablet 10/22/19 25 Active lisinopriL (PRINIVIL) 10 mg tabletIndications: HTN (hypertension), benign 1 Tablet (10 mg) by NG Tube route daily. 100 Tablet 3 10/22/19 25 Active dapagliflozin propanediol (Farxiga) 10 mg TabletIndications: Type 2 diabetes mellitus with hyperglycemia, without long-term current use of insulin ([facility]) Take 1 Tablet (10 mg) by mouth daily. 90 Tablet 1 10/23/19 25 Active sulfamethoxazole-t rimethoprim (BACTRIM DS) 800-160 mg tablet Take 1 Tablet by mouth 2 times daily. Active hydrOXYzine HCL (ATARAX) 25 mg tabletIndications: Anxiety state,Primary insomnia Take 1 Tablet (25 mg) by mouth 3 times daily as needed for Anxiety or Insomnia. 90 Tablet 1 10/26/19 25 Active lisinopriL (PRINIVIL) 10 mg tabletIndications: HTN (hypertension), benign 1 Tablet (10 mg) by NG Tube route daily. 90 Tablet 3 01/14/20 23 025 Discontin ued(Reord er) hydrOXYzine HCL (ATARAX) 25 mg tabletIndications: Anxiety state Take 1 Tablet (25 mg) by mouth 3 times daily as needed for Anxiety. 30 Tablet 1 04/03/19 24 025 Discontin ued(Reord er) diclofenac sodium (VOLTAREN) 75 mg Tablet, Delayed Release (E.C.) Take 1 Tablet by mouth 2 times daily. 08/07/19 24 025 Discontin ued(Reord er) metFORMIN (GLUCOPHAGE) 500 mg tabletIndications: Other specified diabetes mellitus with hyperglycemia, unspecified whether stock roller insulin use ([facility]) Take 1 Tablet (500 mg) by mouth 2 times daily with meals. 60 Tablet 09/07/19 25 025 Discontin ued(Reord er) glipiZIDE (GLUCOTROL) 5 mg tabletIndications: Other specified diabetes mellitus with hyperglycemia, unspecified whether [facility] insulin use ([facility]) Take 1 Tablet (5 mg) by mouth daily with breakfast. 30 Tablet 09/07/19 25 025 Discontin ued(Reord er) Hospital, Clinic, or Other Facility Administered Medication Ordered Dose Route Frequency Start Date End Date Status dexAMETHasone (DECADRON) injection 4 mgIndications:Acute pain of right shoulder,Pain of toe of right foot 4 mg IM ONE TIME ONLY 10/21/2024 10/21/2024 Ended Active Problems Problem Noted Date Diagnosed Date Primary insomnia 10/25/2024 Type 2 diabetes mellitus wit h hyperglycemia, without long-term current use of insulin 10/21/2024 HTN (hypertension), benign 10/21/2024 Neuropathy due to secondary diabetes mellitus Rheumatoid arthritis involvi ng multiple sites with positive rheumatoid factor 01/12/2018 Encounter for monitoring of hydroxychloroquine t herapy 01/12/2018 Primary osteoarthritis involving multiple joints 01/12/2018 Trigger ring finger of left hand 01/12/2018 Tobacco use 03/01/2015 Migraine 01/24/2013 Diabetes mellitus type II, uncontrolled 11/26/19 12 Plantar fasciitis 11/26/2011 Resolved Problems Problem Noted Date Diagnosed Date Resolved Date Foot pain 01/09/2011 04/16/2014 Encounters Date Type Department Care Team Description 10/25/2024 2:20 PM CDT Office Visit [address] [phone] Kirstie Benjamin FNP Urinary tract infection without hematuria, site unspecified (Primary Dx); Anxiety state; Primary insomnia; Confusion; Dehydration; Type 2 diabetes mellitus with hyperglycemia, without long-term current use of insulin ([facility]) 10/25/2024 External Device Data ST[facility] ABSTRACTION Provider, Abstract 10/25/2024 External Device Data [facility] ABSTRACTION Provider, Abstract 10/25/2024 External Device Data [facility] ABSTRACTION Provider, Abstract 10/25/2024 Nurse Triage [address] [phone] Rufino Childers MD 10/24/2024 Orders Only [facility] [address] [place] [id number] Provider, Abstract 10/22/2024 Results Follow-Up [address] [phone] Kirstie Benjamin FNP MICROALBUMIN/CREATINI NE RATIO, RANDOM UR, LIPID PANEL, HEMOGLOBIN A1C, Additional followed-up results: 3 10/21/2024 4:20 PM CDT Office Visit [address] [address] Kirstie Benjamin FNP Hyperlipidemia, unspecified hyperlipidemia type (Primary Dx); Type 2 diabetes mellitus with hyperglycemia, without long-term current use of insulin ([facility]); Acute pain of right shoulder; History of fall; Other specified diabetes mellitus with hyperglycemia, unspecified whether [facility] insulin use ([facility]); HTN (hypertension), benign; Pain of toe of right foot; Rheumatoid arthritis involving multiple sites with positive rheumatoid factor ([facility]); Neuropathy due to secondary diabetes mellitus ([facility]) 10/21/2024 3:30 PM CDT - 10/21/2024 11:59 PM CDT Hospital Encounter [facility] [address] [phone] Kirstie Benjamin FNP Discharge Disposition: Home or Self Care 10/20/2024 Nurse Triage [address] [address] Rufino Childers MD 10/19/2024 External Device Data [place] ABSTRACTION Provider, Abstract 10/18/2024 External Device Data [facility] ABSTRACTION Provider, Abstract 09/28/2024 External Device Data [facility] ABSTRACTION Provider, Abstract 09/28/2024 External Device Data [facility] ABSTRACTION Provider, Abstract 09/27/2024 External Device Data [facility] ABSTRACTION Provider, Abstract 09/13/2024 External Device Data [facility] ABSTRACTION Provider, Abstract 09/06/2024 External Device Data [facility] ABSTRACTION Provider, Abstract 09/06/2024 Orders Only [address] [place] [phone] Zoila Farrell, RN Other specified diabetes mellitus with hyperglycemia, unspecified whether [facility] insulin use ([facility]) 09/06/[address] [address] Rufino Childers MD Needs Orders Written; Erroneous encounter-disregard 09/05/2024 Telephone [facility] [address] [place] [address] Rufino Childers MD Information; Patient Communication 08/11/2024 Orders Only [facility] [address] [place] [phone] Rufino Childers MD Other specified diabetes mellitus with hyperglycemia, unspecified whether stock roller insulin use ([facility]) 08/09/2024 External Device Data ST[facility] ABSTRACTION Provider, Abstract 08/03/2024 External Device Data [facility] ABSTRACTION Provider, Abstract 08/02/2024 External Device Data [facility] ABSTRACTION Provider, Abstract from Last 3 Months Immunizations Immunization Administration Dates Next Due (PNEUMOVAX 23)(50 YRS UP) PN EUMOCOCCAL POLYSACCHARIDE (PPV23) 0.5 ML, IM 01/26/2013 Adacel Vaccine > 7 Yo IM 06/20/2024 Family History Medical History Relation Name Comments [...] on file Legal Sex 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 Gender Identity Not on file Sexual Orientation Not on file Last Filed Vital Signs [...] Mass Index 25.38 10/25/2024 2:32 PM CDT Plan of Treatment Upcoming Encounters Date Type Department Care Team (Late st Contact Info) Description 01/23/2025 2:00 PM WASH OIL PUMP OPERATOR Office Visit [facility] [address] [address] Kirstie Benjamin FNP [address] [address] 03/24/2025 11:20 AM WASH OIL PUMP OPERATOR Office Visit [address] [place] [address] Rufino Childers MD [address] [place] [address] Health Maintenance Due Date Last Done Comments HPV/Cotest (21-29) 12/22/1980 CERVICAL CANCER SCREENING 12/22/1989 HPV/Cotest (30-65) 12/22/1989 PAP SMEAR 12/22/1989 COLORECTAL SCREENING 12/22/2004 Colorectal Cancer Screening 12/22/2004 FIT-DNA Q 3 years 12/22/2004 FIT/FOBT Q 1 year 12/22/2004 Flex Sig/CT Colonography Q 5 years 12/22/2004 ZOSTER VACCINE (1 of 2) 12/22/2009 RSV VACCINE (60+ or ) (1 - Risk 60-74 years 1-dose series) 2019 BREAST CANCER SCREENING 12/18/2023 12/17/2022 DIABETES ANNUAL FOOT EXAM 01/14/2024 01/13/2023 DIABETES ANNUAL RETINAL EXAM 05/14/2024 05/15/2023 INFLUENZA VACCINE (#1) 2024 , 04/14/2019, 04/14/2019 DIABETES: A1C (Auto Order) 01/21/202510/21, 10/15/2023, 04/16/2023, Additional history exists DIABETES HBA1C Q 6 MONTHS 04/23/20252024, 10/15/2023, 04/16/2023, Additional history exists DIABETES MICROALBUMIN ANNUAL SCREEN 10/21/2025 10/21/2024, 01/01/2023, 01/11/2015 LDL CHOLESTEROL ANNUAL 10/21/2025 , 12/24/2020, 05/08/2020, Additional history exists DTAP/TDAP/TD VACCINES (2 - T d or Tdap) 06/20/2034 06/20/2024 Medical Devices Implanted Type Area Technical Support 1 Software Engineer Device Identifier Shelf Expiration Date Model / Serial / Lot Lens Iol Tecnis Eyhance 19.5 [id number] - [id number] Implanted:Qty: 1 on 07/08/2023 by Deonte Mcnamara MD at [facility] Lens Left: Eye [employer] 08/17/2025 [id number] / [id number] / Lens Iol Tecnis [employer] 19.5 [id number] - [id number] Implanted:Qty: 1 on 09/30/2023 by Deonte Mcnamara MD at [facility] Lens Right: Eye [employer] 09/08/2025 [id number] / [id number] / Procedures Procedure Name Priority Date/Time Associated Diagnosis Comments POC URINALYSIS DIPSTICK AUTOMATED Routine 10/25/2024 3:10 PM CDT Urinary tract infection without hematuria, site unspecified Confusion POC GLUCOSE Routine 10/25/2024 3:09 PM CDT Confusion COMPREHENSIVE METABOLIC PANEL Routine 10/23/2024 10:22 AM CDT XR SHOULDER 2+ VW RIGHT Routine 10/21/2024 3:40 PM CDT Acute pain of right shoulder CBC WITH DIFFERENTIAL Stat 10/21/2024 2:56 PM CDT Type 2 diabetes mellitus with hyperglycemia, without long-term current use of insulin (CMS/HCC) COMPREHENSIVE METABOLIC PANEL Routine 10/21/2024 2:56 PM CDT Type 2 diabetes mellitus with hyperglycemia, without long-term current use of insulin (CMS/HCC) HEMOGLOBIN A1C Routine 10/21/2024 2:56 PM CDT Type 2 diabetes mellitus with hyperglycemia, without long-term current use of insulin ([facility]) LIPID PANEL Routine 10/21/2024 2:56 PM CDT Hyperlipidemia, unspecified hyperlipidemia type MICROALBUMIN/CREATINI NE RATIO, RANDOM UR Routine 10/21/2024 2:56 PM CDT Type 2 diabetes mellitus with hyperglycemia, without long-term current use of insulin ([facility]) DIABETES EYE EXAM Routine 05/15/2023 7:29 AM WASH OIL PUMP OPERATOR MAMMO 3D RC SCREEN BILAT W OR WO CAD Routine 12/17/2022 Encounter for screening mammogram for breast cancer from Last 3 Months or Most Recently Relevant to Health Maintenance Results * (ABNORMAL) POC URINALYSIS DIPSTICK AUTOMATED (10/25/2024 3:10 PM CDT) COLOR UA POC Yellow Pale to Dark Yellow [facility] CLARITY UA POC Clear Clear, Other [place] [facility] GLUCOSE UA POC 2+(A) Negative, Normal [facility] BILIRUBIN UA POC Negative Negative [facility] KETONES UA POC 3+(A) Negative [facility] SPECIFIC GRAVITY UA POC 1.020 1.000 - 1.030 [facility] BLOOD UA POC Negative Negative [facility] C LINIC [facility] PH UA POC 6.0 5.0 - 8.0 [facility] PROTEIN UA POC 1+(A) Negative [facility] UROBILINOGEN UA POC 0.2 <2.0 mg/dL [facility] NITRITE UA POC Negative Negative [facility] LEUKOCYTE ESTERASE UA POC Negative Negative [facility] KIT LOT NUMBER POC [phone] [facility] KIT EXP DATE POC 09/12/2024 [facility] Urine 10/25/2024 3:10 PM CDT Kirstie Benjamin IRON CARRIER POINT OF CARE TESTING Fi nal Result Performing Organization Address City/[facility]/ZIP Co de Phone Number [facility] CLIA# [id number] [address] [place] [address] * (ABNORMAL) POC GLUCOSE (10/25/2024 3:09 PM CDT) GLUCOSE POC 115(A) 65 - 99 mg/dL [facility] SPECIMEN SOURCE, GLUCOSE POC [facility] INTERNAL KIT QC POC Pass Pass [facility] KIT LOT NUMBER POC [phone] [facility] KIT EXP DATE POC 10/08/2024 [facility] Blood, capillary 10/25/2024 3:09 PM CDT Kirstie Benjamin IRON CARRIER POINT OF CARE TESTING Fi nal Result Performing Organization Address City/[facility] Co de Phone Number [facility] CLIA# [id number] [address] [facility] [address] [address] * COMPREHENSIVE METABOLIC PANEL (10/23/2024 10:22 AM CDT) Only the most recent of2 resultswithin the time period is included. Blood us Abstract Provider CHEMISTRY ORDERABLES Final Res ult * XR SHOULDER 2+ VW RIGHT (10/21/2024 [...] a superimposed fracture or dislocation. Kirstie Benjamin IRON CARRIER DIAGNOSTIC IMAGING ORDER HEVER Final Result * (ABNORMAL) MICROALBUMIN/CREATININE RATIO, RANDOM UR (10/21/2024 2:56 PM CDT) CREATININE, URINE 149 20 - 275 mg/dL [facility] ALBUMIN, URINE 14.5 See Note: mg/dL [facility] Comment: Reference Range: Reference Range Not established ALB/CREAT RATIO, URINE 97(H) <30 mg/g creat [facility] Comment: The ADA defines abnormalities in albumin excretion as follows: Albuminuria Category Result (mg/g creatinine) Normal to Mildly increased <30 Moderately increased 30-299 Severely increased > OR = 300 The ADA recommends that at least two of three specimens collected within a 3-6 month period be abnormal before considering a patient to be within a diagnostic category. Test Performed at: [facility] [address] [address] Harriett Oliva MD Urine URINE SPECIMEN OBTAINED BY CLEAN CATCH PROCEDURE / Unknown 10/21/2024 2:56 PM CDT 10/22/2024 2:59 AM CDT us Kirstie Silvina Benjamin IRON CARRIER URINE ORDERABLES Final R esult [facility] [phone] [facility] [address] [place] [address] * CBC WITH DIFFERENTIAL (10/21/2024 2:56 PM [...] [facility] Comment: Test Performed at: [facility] [address] [place] [address] Harriett Oliva MD Blood 10/21/2024 2:56 PM CDT 10/22/2024 5:33 AM CDT Kirstie PARKERP HEMATOLOGY ORDERABLES Fi nal Result Performing Organization Address [facility]/ZIP Co de Phone Number [facility] [phone] [facility] [address] [place] [address] * (ABNORMAL) HEMOGLOBIN A1C (10/21/2024 2:56 PM [...] [facility] Comment: Test Performed at: [facility] [address] [place] [address] Harriett Oliva MD Blood 10/21/2024 2:56 PM CDT 10/22/2024 5:33 AM CDT Kirstie YOU CHEMISTRY ORDERABLES Fin al Result Performing Organization Address City/[facility]/ZIP Co de Phone Number [facility] [phone] [facility] [address] [facility] [address] [address] * (ABNORMAL) LIPID PANEL (10/21/2024 2:56 PM CDT) CHOLESTEROL 247(H) <200 mg/dL [facility] HDL 35(L) > OR = 50 mg/dL [facility] TRIGLYCERIDE 415(H) <150 mg/dL [facility] Comment: If a non-fasting specimen was collected, consider repeat triglyceride testing on a fasting specimen if clinically indicated. Kwabena et al. J. of Clin. Lipidol. 2015;9:129-169. LDL CALCULATED mg/dL (calc) [facility] Comment: LDL cholesterol not calculated. Triglyceride levels greater than 400 mg/dL invalidate calculated LDL results. Reference range: <100 Desirable range <100 mg/dL for primary prevention; <70 mg/dL for patients with CHD or diabetic patients with > or = 2 CHD risk factors. LDL-C is now calculated using the John-Marcelino calculation, which is a validated novel method providing better accuracy than the Friedewald equation in the estimation of LDL-C. John SS et al. KAI. 2013;310(19): 0295-6971 (http://education.CIVICO/faq/NWB428) CHOL/HDL RATIO 7.1(H) <5.0 (calc) [facility] NON-HDL CHOLESTEROL 212(H) <130 mg/dL (calc) [facility] Comment: For patients with diabetes plus 1 major ASCVD risk factor, treating to a non-HDL-C goal of <100 mg/dL (LDL-C of <70 mg/dL) is considered a therapeutic option. Test Performed at: [facility] [address] [facility] [address] [address] Harriett Oliva MD Blood 10/21/2024 2:56 PM CDT 10/22/2024 5:33 AM CDT Kirstie Benjamin IRON CARRIER CHEMISTRY ORDERABLES Fin al Result [facility] [phone] [facility] [address] [address] * DIABETES EYE EXAM (05/15/2023 7:29 AM WASH OIL PUMP OPERATOR) us Abstract Provider HEALTH MAINTENANCE Final Resul t * MAMMO SCRN BILAT 3D RC W OR WO CAD (12/17/2022) Anatomical Region Laterality Modality Breast Bilateral Mammography us Padmini Ricks IRON CARRIER MAMMO ORDERABLES Edited Res ult - Final from Last 3 Months or Most Recently Relevant to Health Maintenance Advance Directives For more information, please contact: [phone] * Full Code (Latest Code Status on File) Date Activated Date Inactivated Comments 09/30/2023 9:56 AM 09/30/2023 12:49 PM * Full Code Date Activated Date Inactivated Comments 07/08/2023 12:37 PM 07/08/2023 4:11 PM Care Teams Electrician Manager Relationship Specialty Start Date End Date Rufino Childers MD [address] [address] PCP - General Family Practice 11/10/18
--- OUTSIDE RECORDS SUMMARY | 2024-10-26 07:58 | XMS_ITS | Encounter Summary ---
Author Organization [facility] Address [address] [place] [address] Care Team Providers Care Head And Neck Surgeon Name Role Phone Rufino Childers MD Primary Care Provider [phone] Encounter Details Date Type Department Care Team (Late st Contact Info) Description 09/10/[address] 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
--- OUTSIDE RECORDS SUMMARY | 2024-10-26 07:58 | XMS_ITS | Encounter Summary ---
Author Organization [facility] Address [address] [place] [address] Care Team Providers Care Certified Public Accountant Name Role Phone Rufino Childers MD Primary Care Provider [phone] Reason for Visit * Reason Onset Date Comments Results 10/22/2024 Encounter Details Date Type Department Care Team (Late st Contact Info) Description 10/22/2024 Results Follow-Up [facility] [address] [address] Kirstie Benjamin, [facility] [address] [address] MICROALBUMIN/CREATIN INE RATIO, RANDOM UR, LIPID PANEL, HEMOGLOBIN A1C, Additional followed-up results: 3 Social History Tobacco Use Types Packs/Day Years Used Date Smoking Tobacco: Every Day Cigarettes Smokeless Tobacco: Never Alcohol Use Standard Drinks/Week Comments No 0 (1 standard drink = 0.6 oz pur e alcohol) Comments No Sex and Gender Information Value Date Recorded Sex Assigned at Not on file Legal Sex Female 5:01 AM PRACTICE SPECIALIST Gender Identity Not on file Sexual Orientation Not on file documented as of this encounter Miscellaneous Notes * Telephone Encounter - Zoila Farrell RN - 10/24/2024 3:28 PM CDT 10/24/2024 3:28 PM Called and notified patients daughter whom is on the PHI of results. Voiced understanding. She willcall back if patient wants to do PT Zoila GUIDRY * Telephone Encounter - Zoila Farrell RN - 10/24/2024 10:17 AM CDT 10/24/2024 10:17 AM No answer. No voicemail or answering machine. Will continue to try to reach patient/caregiver. . Ifpatient/caregiver calls back, contact center please inform caller to expect a return call from the clinic. Zoila GUIDRY * Telephone Encounter - Zoila Farrell RN - 10/24/2024 10:16 AM CDT ----- Message from Kirstie Benjamin sent at 10/24/2024 8:07 AM CDT ----- Degenerative arthritis changes noted in the shoulder without other abnormalities. If not improving in 6 weeks let me know. If you wish to try physical therapy now we can place that order ----- Message ----- From: Reddy Cohen [facility] Incoming [facility] Results Sent: 10/24/2024 7:34 AM CDT To: KENYATTA Lee * Telephone Encounter - Zoila Farrell RN - 10/24/2024 10:16 AM CDT ----- Message from Kirstie Benjamin sent at 10/22/2024 11:59 AM CDT ----- Cholesterol panel is elevated. Decrease sugars and carbs in diet. Increase lean meats, leafy green vegetables, avocado, and nuts in diet. Sugar at time of draw was 225. Electrolytes are in normal range. Liver function is in normal range. Kidney function is in normal range. A1C is 12.1 making average daily sugar 301. I am sending in another oral medication to help get your sugars under control and hopefully prevent end organ damage. Blood counts are good. No anemia noted. ----- Message ----- From: Reddy Cohen [facility] Results Sent: 10/22/2024 8:18 AM CDT To: KENYATTA Lee documented in this encounter Plan of Treatment Upcoming Encounters Date Type Department Care Team (Late st Contact Info) Description 01/23/2025 2:00 PM PRACTICE SPECIALIST Office Visit [facility] [address] [place] [address] Kirstie Benjamin FNP [address] [place] [address] 03/24/2025 11:20 AM PRACTICE SPECIALIST Office Visit [facility] [address] [place] [address] Rufino Childers MD [address] [place] [address] documented as of this encounter Visit Diagnoses Diagnosis Type 2 diabetes mellitus with hyperglycemia, without long-term current use of insulin ([facility])- Primary documented in this encounter Care Teams Certified Public Accountant Relationship Specialty Start Date End Date Rufino Childers MD [address] [place] [address] PCP - General Family Practice 11/10/18 documented as of this encounter
== END 2024-10-24 02:19 | disposition home or self-care (01) ==
PROVIDERS: Emergency Provider Emergency Medicine; PCP Family Medicine
DX: N39.0 Urinary tract infection, site not specified (principal); E86.0 Dehydration; Z79.84 Long term (current) use of oral hypoglycemic drugs
CPT/HCPCS: 36415; 36416; 70450; 71045; 80053; 81001; 82962; 83605; 83735; 85025; 86140; 96361; 96374; 96375; 99285; J0696; J3490; J7030; J9999

== ENCOUNTER 2024-10-26 11:27 | Outpatient (CLI) | payer SELFPAY ==
--- NOTE | 2024-10-26 11:36 | MR_ITS ---
WS: [id number] MRI BRAIN WITH AND WITHOUT CONTRAST HISTORY: CONFUSION COMPARISON: CT head 10/23/2024 TECHNIQUE: Multiplanar imaging performed through the brain with MultiHance 16 ml's IV. Several diffusion abnormalities are noted in the brain. Largest diffusion abnormality with hypointense center in the RIGHT thalamus abuts the midline and is closely associated with the third ventricle. This necrotic lesion measures 13 x 10 mm. Additional diffusion abnormalities bilaterally in the rowan radiata. No associated hemorrhage. There is only a small amount of adjacent edema. Mild cerebral and cerebellar atrophy. No hippocampal atrophy. Ventricles and extra-axial spaces are normal. Clivus and pituitary gland are normal. Visualized posterior fossa and brainstem are also normal. Enhancement of the cortical spinal tracts associated with the diffusion abnormality. Mild peripheral enhancement of the RIGHT thalamic lesion. There is an additional 5 mm and area of nodular enhancement in the LEFT temporal lobe. Seen only on the coronal T1 postcontrast images is a 3 mm area of enhancement near the RIGHT caudate. Dural venous sinuses are normal. Paranasal sinuses: Small air-fluid level LEFT maxillary sinus. Mastoid air cells: Normal. Calvarium and scalp: Normal. MR/MR head wo/w con [id number] IMPRESSION: 1. Bilateral diffusion abnormalities with peripheral enhancement. RIGHT thalam ic lesion with peripheral enhancement. There is mild enhancement of the diffusi on abnormality associated with the cortical tracts and additional 5 mm area of nodular enhancement in the LEFT temporal lobe. Differential includes acute infa rcts. Consider embolic source due to the multiple distributions. Atypical appea oren for infarcts but this remains most likely. Also consider HAND SPRAY OPERATOR lymphoma, de myelination and less likely metastatic disease. Recommend evaluation by neurolo gy. 2. No hemorrhage. No midline shift or mass effect. Notified Kirstie Benjamin at 10/26/2024 1:10 PM.
[2024-10-26] MEDS: gadobenate dimeglumine 20 mL vial 16 ML IV (12:24)
== END 2024-10-26 11:28 | disposition home or self-care (01) ==
LOC: RAD 11:28
PROVIDERS: PCP Family Medicine; Visit Provider Registered Nurse
DX: R41.0 Disorientation, unspecified (principal); R93.0 Abnormal findings on diagnostic imaging of skull and head, not elsewhere classified; G93.89 Other specified disorders of brain
CPT/HCPCS: 70553; A9577

== ENCOUNTER 2024-10-27 13:52 | Inpatient (IN) | payer SELFPAY ==
--- OUTSIDE RECORDS SUMMARY | 2020-10-29 04:27 | XMS_ITS | Continuity of Care Document ---
Author Organization [facility] Address [address] [place] [address] Phone Care Team Providers Care Sales Floor Associate Name Role Phone Box , Austen Unavailable Unavailable Allergies, Adverse Reactions, Alerts Substance Reaction Status Criticality No Known Allergies Active No Inform ation Medications Medication Instructions Dosage Effective Dates (start - stop) Status Comments omeprazole 20 mg capsule,delayed release take 1 capsule by oral route every day 30 minutes to 1 hour before a meal 20 MG - Active prednisone 20 mg tablet take 1 tablet by oral route 3 times every day 20 MG - Active Menopause Support 20 mg tablet - Active Fish Oil 300 mg-500 mg capsule - Active Vitamin D3 25 mcg (1,000 unit) capsule - Active Durezol 0.05 % eye drops instill 1 drop by ophthalmic route 4 times every day into affected eye(s) ;start 24hrs post op x 2 wks; then 2 times/day x 7 days; then taper 1.00 drop - Active losartan 50 mg tablet take 1 tablet by oral route every day 50 MG - Active metoprolol succinate ER 50 mg tablet,extended release 24 hr take 1 tablet by oral route every day 50 MG - Active rizatriptan 10 mg tablet prn for migraines - Active venlafaxine ER 75 mg tablet,extended release 24 hr take 1 tablet by oral route every day in the morning at the same time each day with food 75 MG - Active simvastatin 40 mg tablet take 1 tablet by oral route every day in the evening 40 MG - Active Procedures Procedure Date OFFICE/OUTPATIENT VISIT EST OFFICE/OUTPATIENT VISIT NEW Advance Directives Directive Yes / No Effective Date File Name No Information Encounters Encounter Description Practice Location Reason(s) For Visit Diagnoses Date Provider Providers Copied on Encounter [facility] , [address], [place], [address], [place] tel:[phone] [facility] No Information [address] Box Austen. [address], [place], [place], [id number]. tel:[phone] OFFICE/OUTPA TIENT VISIT EST [facility] , [address], [place], [address], [place] tel:[phone] [facility] Follow-up iridocycliti s (chief complaint) Body mass index [BMI]40.0-44 .9, adultIridocy clitisEssent ial (primary) hypertension 1 Masters Carina. [address], [place], [place], [address], [place]. [phone] OFFICE/OUTPA TIENT VISIT NEW [facility] , [address], [place], [address], [place] tel:[phone] [facility] New patient, iridocycliti s (chief complaint) Body mass index [BMI]40.0-44 .9, adultIridocy clitis 1 Masters Carina. [address], [place], [place], [id number], [place]. tel:[phone] Referring Provider: Eric Lombardo, [address], [place], [address]. tel:[phone] [facility] , [address], [place], [address], [place] tel:[phone] [facility] No Information [address] Austen. [address], [place], [place], [id number]. tel:[phone] [facility] , [address], [place], [address], [place] tel:[phone] [facility] Unspecified iridocycliti sOther hyperlipidem iaEssential (primary) hypertension Major depressive disorder, recurrent, unspecifiedM igraine, unspecified, not intractable, without status migrainosusP rimary iridocycliti s, bilateralOth er specified abnormal immunologica l findings in serum Box Austen. [address], [place], [place], [id number]. tel:[phone] Family History Family Member Type Diagnosis Age At Onset Father Problem hypertension Father Problem Myocardial infarction Father Problem Alive and well Mother Problem MVA Father Problem coronary arteriosclerosis Immunizations Vaccine Date Status Comments SARS-COV-2 (COVID-19) vaccin e, mRNA, spike protein, LNP, preservative free, 30 mcg/0.3mL dose (Pfizer) administered Source: Other Provider SARS-COV-2 (COVID-19) vaccin e, mRNA, spike protein, LNP, preservative free, 30 mcg/0.3mL dose (wh[employer]Box) administered Source: Other Provider Payers Payer name Insurance type Covered alliance party ID Authoriza tion(s) [employer] [place] E2 OT [id number] Social History Type Description Quantity Date Captured Comments Sex Female Smoking Status No Information Chief Complaint And Reason For Visit No Information Reason For Referral Reason For Referral No Information Plan Of Treatment Date Type Action Status Goal Lifestyle education regardin g diet completed Goal Lifestyle education regardin g diet completed History Of Present Illness Encounter Date Complaint History Of Prese nt Illness Follow-up iridocyclitis Fariba sharpe s primary iridocyclitis. We have ruled out an autoimmune disease. Her symptoms are not controlled. She saw her customer consultant last week who put her on oral steroids and her symptoms have not improved at all. Dr Alaniz spoke with Dr Butts last week who said he wanted to try a few different treatments before preceding with Humira. Dr Alaniz let him know that we will have no problems getting the Humira approved. The patient seems a bit frustrated and wants to know if she is on the right path. I explained to her that the next treatment steps are in the hands of her eye doctor. She can communicated to the provider that she would like to start Humira. New patient, iridocyclitis Fariba was referred by Dr Beltrán customer consultant for iridocyclitis affecting the left eye only. Her PCP is Thea Neff [facility] in [place], [place] ph [phone].She has been having eye issues for about 3 years but it became much worse February 2020 with her eyes burning and hurting. There have been no biopsies completed The current customer consultant has not been able to improve her symptoms and that's what prompted him to perform an autoimmune work-up. She notes burning, painful, sensitivity to light even with cloudy days, blurred vision. She does not think there is an issue with dryness. she does not have watery eye. MEDICATIONS: polymyxin B sulfate- 0, Durezol- unsure if it helps because this was just started, Prednisolone acetate-0.LABS 07/17/20: CRP 2, ESR 22, HLA B27 negative, GLORY 1: 320 nuclear pattern, GLORY 1:160 homogenous, RF <14, ANCA <1, Lyme disease work-up was negative, PADMINI normal compliment levels normal (not low). She has not had problems with any signs or symptoms of infection. She denies fever, chills or sweats. Not having problems with hair loss, rashes or photosensitivity. Denies oral ulcers, lymphadenopathy, pleurisy, chest pain, shortness of breath, abdominal pains or edema. She gets short of breath when walking up steps. She has issues with headaches even prior to the eye issues. The migraines became better with ear piercing. She has achilles tendon pain at the insertion on the right. Sometimes there is swelling to the left ankle despite not having an injury. She denies GI issues. She has a history of CRPS. Functional Status Date Functional Assessmen t No Information Instructions Date Instruction Additional Infor obdulio Diet education (procedure) Relat ed to Hypertension Lifestyle education regarding di et Related to Body mass index [BMI]40.0-44.9, adult Giving encouragement to exercise Related to Body mass index [BMI]40.0-44.9, adult Lifestyle education regarding di et Related to Body mass index [BMI]40.0-44.9, adult Assessments Type Assessment Date No Information Patient Care Teams Name Effective Dates (start - stop) Status Members No Information
--- OUTSIDE RECORDS SUMMARY | 2021-01-22 11:25 | XMS_ITS | Continuity of Care Document ---
Author Organization [facility] Address [address] [place] [address] Phone Care Team Providers Care Prosthetic Technician Name Role Phone Jose Miguel Godoy MD [...] Diagnoses Date Provider Providers Copied on Encounter [facility], [address] [place], [place], [id number], [place] tel:[phone] [facility] [place] No Information Walt Gillespie. [address], [address], [place], [address]. tel: [phone] OFFICE CONSULTATION [facility], [address] [place], [place], [id number], [phone] [facility] Body mass index (BMI) 38.0-38.9, adultChronic iritis of both eyesPositive GLORY (antinuclear antibody) Walt Gillespie. [address], [place], [address]. tel: [phone] Referring Provider: Eric Lombardo, [address] [place], [address] . tel:[phone] Family History Family Member Type Diagnosis Age At Onset No Information Payers Payer name Insurance type Covered alliance party ID Authoriza tidavid(s) [facility] PPO BL [id number] Social History Type Description Quantity Date Captured [...] ordered Referral Referred To: THEA NEFF [address] [place], [phone] Ordered: Referrals: Physician Assistants & Advanced Practice [...]
--- OUTSIDE RECORDS SUMMARY | 2021-05-24 04:20 | XMS_ITS | Continuity of Care Document ---
Author Organization [facility] Address [address] [place] [address] Phone Care Team Providers Care Cardiovascular Technologist Name Role Phone Jacob CADET, Peter Unavailable [...] Diagnoses Date Provider Providers Copied on Encounter [facility], [address], [place], [place], [id number] , [place] tel:[phone] [facility] No Information 2 Jacob Green. [address] [place], [address], [place]. [phone] [place]: [place], [address] [facility] [place], [address]. [phone] [facility], [address], [place], [place], [address] , [place] tel:[phone] [facility] dry eyes (chief complaint) Dry eye syndrome of bilateral lacrimal glandsOther forms of systemic lupus erythematosus Meibomian gland dysfunction of unsp, unspecified eyelid 2 Jacob Green. [address] [facility] [place], [address], [place]. [phone] [place]: [place], [address] [place], [address]. tel:[phone] [facility], [address], [place], [place], [address] , [place] tel:[phone] [facility] Punctual Plug insertion (chief complaint) Dry eye syndrome of bilateral lacrimal glands 1 Jacob Green. [address] [place], [address], [place]. tel:[phone] [place]: [place], [address] [place], [address]. [phone] [facility], [address], [place], [place], [address] , [place] tel:[phone] [facility] corneal eval (chief complaint) Dry eye syndrome of bilateral lacrimal glands 1 Jacob Green. [address] [place], [address], [place]. [phone] Referring Provider: Eric Beltrán MD, [address] [place], [address]. tel:[phone] [facility], [address], [place], [place], [address] , [place] tel:[phone] [facility] 2 week iritis recheck (chief complaint) Primary iridocyclitis , bilateralOthe r forms of systemic lupus erythematosus 1 Jerel Reyes. [address] [place], [address], [place]. tel:[phone] Referring Provider: Eric Beltrán MD, [address] [place], [address]. tel:[phone] [facility], [address], [place], [place], [address] , [place] tel:[phone] [facility] Iritis recheck OS (chief complaint) Primary iridocyclitis , bilateralOthe r forms of systemic lupus erythematosus 1 Jerel Reyes. [address], [place], [address], [place]. tel:[phone] Referring Provider: Eric Beltrán MD, [address], [place], [address]. tel:[phone] [facility], [address], [place], [place], [address] , [place] tel:[phone] [facility] problem (chief complaint) Primary iridocyclitis , bilateral Oct-2 1 Shiv Mcghee. [address], [place], [address], [place]. tel:[phone] Referring Provider: Taz Nunez, [address], [place], [address]. tel:[phone] [facility], [address], [place], [place], [address] , [place] tel:[phone] [facility] Iritis recheck OU (chief complaint) Primary iridocyclitis , bilateralOthe r forms of systemic lupus erythematosus Dry eye syndrome of bilateral lacrimal glands Oct-1 1 Jerel Reyes. [address], [place], [address], [place]. tel:[phone] Referring Provider: Eric Beltrán MD, [address], [place], [address]. tel:[phone] [facility], [address], [place], [place], [address] , [place] tel:[phone] [facility] Iritis recheck OU (chief complaint) Primary iridocyclitis , bilateralOthe r forms of systemic lupus erythematosus Dry eye syndrome of bilateral lacrimal glands Sep-3 1 Jerel Reyes. [address], [place], [address], [place]. tel:[phone] Referring Provider: Eric Beltrán MD, [address], [place], [address]. tel:[phone] [facility], [address], [place], [place], [address] , [place] tel:[phone] [facility] Iritis recheck (chief complaint) Primary iridocyclitis , bilateralOthe r forms of systemic lupus erythematosus Dry eye syndrome of bilateral lacrimal glands 1 Jerel Reyes. [address], [place], [address], [place]. [phone] Referring Provider: Eric Beltrán MD, [address], [place], [address]. tel:[phone] [facility], [address], [place], [place], [address] , [place] tel: [phone] [facility] Iritis recheck (chief complaint) Primary iridocyclitis , bilateralOthe r forms of systemic lupus erythematosus Dry eye syndrome of bilateral lacrimal glands 1 Jerel Reyes. [address], [place], [address], [place]. tel:[phone] Referring Provider: Eric Beltrán MD, [address], [place], [address]. tel:[phone] [facility], [address], [place], [place], [address] , [place] tel:[phone] [facility] Iritis recheck OS (chief complaint) Primary iridocyclitis , bilateralOthe r forms of systemic lupus erythematosus 1 Jerel Reyes. [address], [place], [address], [place]. [phone] Referring Provider: Eric Beltrán MD, [address], [place], [address]. [phone] [facility], [address], [place], [place], [address] , [place] tel:[phone] [facility] recheck (chief complaint) Primary iridocyclitis , bilateralOthe r forms of systemic lupus erythematosus 1 Jerel Reyes. [address], [place], [address], [place]. tel:[phone] Referring Provider: Eric Beltrán MD, [address], [place], [address]. [phone] [facility], [address], [place], [place], [address] , [place] tel: [phone] [facility] Iritis OU (chief complaint) Primary iridocyclitis , bilateralAge- related nuclear cataract, bilateralDry eye syndrome of bilateral lacrimal glandsGlaucom atous optic atrophy, bilateral Aug- 1 Jerel Reyes. [address], [place], [address], [place]. tel:[phone] Referring Provider: Eric Beltrán MD, [address], [place], [address]. tel:[phone] [facility], [address], [place], [place], [address] , [place] tel: [phone] [facility] 2 week iritis recheck OU (chief complaint) Primary iridocyclitis , bilateralAge- related nuclear cataract, bilateralDry eye syndrome of bilateral lacrimal glandsGlaucom atous optic atrophy, bilateral 1 Jerel Reyes. [address], [place], [address], [place]. [phone] Referring Provider: Eric Beltrán MD, [address], [place], [address]. [phone] [facility], [address], [place], [place], [address] , [place] tel:[phone] [facility] comprehensive eye exam (chief complaint) Primary iridocyclitis , bilateralAge- related nuclear cataract, bilateralDry eye syndrome of bilateral lacrimal glandsGlaucom atous optic atrophy, bilateral Jun- 1 Jerel Reyes. [address], [place], [address], [place]. tel:[phone] Referring Provider: Eric Beltrán MD, [address], [place], [address]. tel:[phone] [facility], [address], [place], [place], [address] , [place] tel: [phone] [facility] Iritis recheck OU (chief complaint) Primary iridocyclitis , bilateralDry eye syndrome of bilateral lacrimal glands 1 Jerel Reyes. [address], [place], [address], [place]. [phone] Referring Provider: Eric Beltrán MD, [address], [place], [address]. [phone] [facility], [address], [place], [place], [address] , [place] tel:[phone] [facility] Iritis Recheck (chief complaint) Primary iridocyclitis , bilateralGlau comatous optic atrophy, bilateralAge- related nuclear cataract, bilateralDry eye syndrome of bilateral lacrimal glands 1 Jerel Reyes. [address], [place], [address], [place]. [phone] Referring Provider: Eric Beltrán MD, [address], [place], [address]. tel:[phone] [facility], [address], [place], [place], [address] , [place] tel:[phone] [facility] Second Opinion (chief complaint) Primary iridocyclitis , bilateralGlau comatous optic atrophy, bilateralDry eye syndrome of bilateral lacrimal glandsAge-rel ated nuclear cataract, bilateral 1 Jerel Reeys. [address], [place], [address], [place]. tel:[phone] Referring Provider: Eric Beltrán MD, [address], [place], [address]. tel:[phone] Family History Family Member Type Diagnosis Age At Onset Paternal grandmother Problem (finding) stroke Father Problem (finding) heart attack Paternal grandfather Problem (finding) Diabetes mellit us Payers Payer name Insurance type Covered constitution party ID Authoriza tion(s) No Information Social [...] is using TID OS. 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 Patient's left eye is painful. 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 Related to Other forms of [...] glands Age-related nuclear cataract, bilateral, OU - Working [...] Dr. Godoy. 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 Related to Age-related nuclear cataract, bilateral Dry eye syndrome of bilateral lacrimal glands, OU - Stressed artificial tears QID and prn daily. Dry eye can have the same symptoms as Iritis. Related to Dry eye syndrome of bilateral lacrimal glands Primary iridocycliti s, bilateral, OU - Improving on Durezol QID OU. Will start Durezol taper OU: bid x 1 week, q day x 1 week. 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 IOP are within normal limits. Will monitor every 6 months. 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
--- OUTSIDE RECORDS SUMMARY | 2024-10-21 15:30 | XMS_ITS | Encounter Summary ---
Author Organization [employer] Address [address] [place] [address] Care Team Providers Care Retail Administrative Assistant Name Role Phone Rufino Childers MD Primary Care Provider [phone] Encounter Details Date Type Department Care Team (Latest Contact Info) Description 10/21/2024 3:30 PM CDT - 10/21/2024 11:59 PM CDT Hospital Encounter [facility] [employer] [facility] [address] [phone] Kirstie Benjamin, [facility] [address] [place] [phone] Discharge Disposition: Home or Self Care Social History Tobacco Use Types Packs/Day Years Used Date Smoking Tobacco: Every Day Cigarettes Smokeless Tobacco: Never Alcohol Use Standard Drinks/Week Comments No 0 (1 standard drink = 0.6 oz pur e alcohol) Comments No Sex and Gender Information Value Date Recorded Sex Assigned at Not on file Legal Sex Female 5:01 AM SALES ANALYST Gender Identity Not on file Sexual Orientation Not on file documented as of this encounter Medications at Time of Discharge glipiZIDE (GLUCOTROL) 5 mg tabletIndications:O ther specified diabetes mellitus with hyperglycemia, unspecified whether penitentiary insulin use ([facility]) Take 1 Tablet (5 mg) by mouth daily with breakfast. 30 Tablet 10/21/2024 diclofenac sodium (VOLTAREN) 75 mg Tablet, Delayed Release (E.C.)Indications:A cute pain of right shoulder Take 1 Tablet (75 mg) by mouth 2 times daily. 60 Tablet 10/21/2024 metFORMIN (GLUCOPHAGE) 500 mg tabletIndications:O ther specified diabetes mellitus with hyperglycemia, unspecified whether intermodal dispatcher insulin use (CMS/HCC) Take 1 Tablet (500 [...] st Contact Info) Description 01/23/2025 2:00 PM SALES ANALYST Office Visit [address] [phone] Kirstie Benjamin FNP [address] [phone] 03/24/2025 11:20 AM SALES ANALYST Office Visit [facility] [address] [phone] Rufino Childers MD [address] [phone] documented as of this encounter [...] a superimposed fracture or dislocation. Kirstie Benjamin PHONE OPERATOR DIAGNOSTIC IMAGING ORDER HEVER Final Result documented in this encounter Visit Diagnoses Diagnosis Acute pain of right shoulder documented in this encounter Care Teams Retail Administrative Assistant Relationship Specialty Start Date End Date Rufino Childers MD [address] [phone] PCP - General Family Practice 11/10/18 documented as of this encounter
--- OUTSIDE RECORDS SUMMARY | 2024-10-21 16:20 | XMS_ITS | Encounter Summary ---
Author Organization [facility] Address [address] [place] [address] Care Team Providers Care Ship'S Carpenter Name Role Phone Rufino Childers MD Primary Care Provider [phone] Reason for Visit * Reason Comments Shoulder Pain Patient is c/o right shoulder pain. Encounter Details Date Type Department Care Team (Latest Contact Info) Description 10/21/2024 4:20 PM CDT Office Visit [address] [address] Kirstie Benjamin, [facility] [address] [address] Hyperlipidemia, unspecified hyperlipidemia type (Primary Dx); Type 2 diabetes mellitus with hyperglycemia, without long-term current use of insulin ([facility]); Acute pain of right shoulder; History of fall; Other specified diabetes mellitus with hyperglycemia, unspecified whether chcf insulin use ([facility]); HTN (hypertension), benign; Pain of toe of right foot; Rheumatoid arthritis involving multiple sites with positive rheumatoid factor ([facility]); Neuropathy due to secondary diabetes mellitus ([facility]) Social History Tobacco Use Types Packs/Day Years Used Date Smoking Tobacco: Every Day Cigarettes Smokeless Tobacco: Never Tobacco Cessation:Ready to Q uit: No; Counseling Given: Yes Alcohol Use Standard Drinks/Week Comments No 0 (1 standard drink = 0.6 oz pur e alcohol) Comments No Sex and Gender Information Value Date Recorded Sex Assigned at Not on file Legal Sex Female 5:01 AM PR MANAGER Gender Identity Not on file Sexual Orientation [...] through Care Everywhere. * Shoulder Arthritis: Exercises (Mohawk) documented in this encounter Progress Notes * Kirstie Benjamin, FITNESS AND WELLNESS MANAGER - 10/21/2024 2:34 PM CDT Chief [...] hyperglycemia, without long-term current use of insulin ([facility]) E11.65 250.00 CBC WITH DIFFERENTIAL 790.29 COMPREHENSIVE [...] hyperglycemia, unspecified whether terminal superintendent insulin use ([facility]) E13.65 250.00 glipiZIDE (GLUCOTROL) 5 mg tablet metFORMIN (GLUCOPHAGE) 500 mg tablet 6. HTN (hypertension), benign I10 401.1 lisinopriL (PRINIVIL) 10 mg tablet 7. Pain of toe of right foot M79.674 729.5 dexAMETHasone (DECADRON) injection 4 mg 8. Rheumatoid arthritis involving multiple sites with positive rheumatoid factor ([facility]) M05.79 714.0 9. Neuropathy due to secondary diabetes mellitus ([facility]) E13.40 249.60 357.2 Assessment & Plan 1. [...] automatically generated by a Generative AI technology ([employer]), reviewed, edited, and finalized by KENYATTA Maldonado. The author of this note, patient (or authorized loan servicing representative), and all other persons present consent to the audio recording of this visit for charting documentation purposes. Depression Screen Positive: PHQ-2 score >= 3 or PHQ-9 score >= 9 PHQ-2 Total: 0 (10/21/2024 2:34 PM) DEPRESSION PLAN OF CARE Her depression screen was negative. (PHQ2 <3, PHQ9 <10, [place] <11) documented in this encounter Miscellaneous Notes * Patient Instructions - Bria SheriffABDIAS - 10/21/2024 2:34 PM CDT What is Diabetic Retinopathy? Diabetic retinopathy is the most common eye disease in patients with diabetes and a leading cause of blindness in [place] adults. It is caused by changes in [...] a year and remember to ask your document preparation specialist or styrene dehydration reactor operator to send a report of their findings [...] at high risk for vision loss. Your retail parts professional can tell if you have diabetic retinopathy. [...] st Contact Info) Description 01/23/2025 2:00 PM PR MANAGER Office Visit [facility] [address] [address] Kirstie Benjamin FNP [address] [address] 03/24/2025 11:20 AM PR MANAGER Office Visit [facility] [address] [address] Rufino Childers MD [address] [address] documented as of this encounter Procedures Procedure Name Priority Date/Time Associated Diagnosis Comments MICROALBUMIN/CREATINI NE RATIO, RANDOM UR Routine 10/21/2024 2:56 PM CDT Type 2 diabetes mellitus with hyperglycemia, without long-term current use of insulin ([facility]) CBC WITH DIFFERENTIAL Stat 10/21/2024 2:56 PM CDT Type 2 diabetes mellitus with hyperglycemia, without long-term current use of insulin ([facility]) HEMOGLOBIN A1C Routine 10/21/2024 2:56 PM CDT Type 2 diabetes mellitus with hyperglycemia, without long-term current use of insulin ([facility]) LIPID PANEL Routine 10/21/2024 2:56 PM CDT Hyperlipidemia, unspecified hyperlipidemia type COMPREHENSIVE METABOLIC PANEL Routine 10/21/2024 2:56 PM CDT Type 2 diabetes mellitus with hyperglycemia, without long-term current use of insulin ([facility]) documented in this encounter Results * XR [...] a superimposed fracture or dislocation. Kirstie Benjamin [facility] DIAGNOSTIC IMAGING ORDER HEVER Final Result * (ABNORMAL) MICROALBUMIN/CREATININE RATIO, RANDOM UR (10/21/2024 2:56 PM CDT) CREATININE, URINE 149 20 - 275 mg/dL [facility] ALBUMIN, URINE 14.5 See Note: mg/dL [facility] Comment: Reference Range: Reference Range Not established ALB/CREAT RATIO, URINE 97(H) <30 mg/g creat [facility] Comment: The ADA defines abnormalities in albumin excretion as follows: Albuminuria Category Result (mg/g creatinine) Normal to Mildly increased <30 Moderately increased 30-299 Severely increased > OR = 300 The ADA recommends that at least two of three specimens collected within a 3-6 month period be abnormal before considering a patient to be within a diagnostic category. Test Performed at: [facility] [address] [place] [address] Harriett Oliva MD Urine URINE SPECIMEN OBTAINED BY CLEAN CATCH PROCEDURE / Unknown 10/21/2024 2:56 PM CDT 10/22/2024 2:59 AM CDT Kirstie Benjamin [facility] URINE ORDERABLES Final R esult [facility] [phone] [facility] [address] [place] [address] * (ABNORMAL) LIPID PANEL (10/21/2024 2:56 PM [...] LDL-C. John KINGSTON et al. KAI. 2013;310(19): 9274-9766 (http://education.[employer]/faq/RFU688) CHOL/HDL RATIO 7.1(H) <5.0 (calc) [facility] NON-HDL CHOLESTEROL 212(H) <130 mg/dL (calc) [facility] Comment: For patients with diabetes plus 1 major ASCVD risk factor, treating to a non-HDL-C goal of <100 mg/dL (LDL-C of <70 mg/dL) is considered a therapeutic option. Test Performed at: [facility] [address] [facility] [place] [address] Harriett Oliva MD Blood 10/21/2024 2:56 PM CDT 10/22/2024 5:33 AM CDT Kirstie YOU CHEMISTRY ORDERABLES Fin al Result [facility] [phone] [facility] [address] [facility] [place] [address] * (ABNORMAL) HEMOGLOBIN A1C (10/21/2024 2:56 PM [...] [facility] Comment: Test Performed at: [facility] [address] [place] [address] Harriett Oliva MD Blood 10/21/2024 2:56 PM CDT 10/22/2024 5:33 AM CDT Kirstie Benjamin FITNESS AND WELLNESS MANAGER CHEMISTRY ORDERABLES Fin al Result [facility] [phone] [facility] [address] [place] [address] * (ABNORMAL) COMPREHENSIVE METABOLIC PANEL (10/21/2024 2:56 PM CDT) Pathologist [facility] GLUCOSE 225(H) 65 - 99 mg/dL [facility] Comment: Fasting reference interval For someone [...] [facility] Comment: Test Performed at: [facility] [address] [place] [address] Harriett Oliva MD Blood 10/21/2024 2:56 PM CDT 10/22/2024 5:33 AM CDT Kirstie Benjamin FITNESS AND WELLNESS MANAGER CHEMISTRY ORDERABLES Fin al Result [facility] [phone] [facility] [address] [place] [address] * CBC WITH DIFFERENTIAL (10/21/2024 2:56 PM [...] [facility] Comment: Test Performed at: [facility] [address] Harriett Oliva MD Blood 10/21/2024 2:56 PM CDT 10/22/2024 5:33 AM CDT us Kirstie Benjamin FITNESS AND WELLNESS MANAGER HEMATOLOGY ORDERABLES Fi nal Result [facility] [phone] [facility] [address] [place] [address] documented in this encounter Visit Diagnoses Diagnosis Hyperlipidemia, unspecified hyperlipidemia type- Primary Type 2 diabetes mellitus with hyperglycemia, without long-term current use of insulin ([facility]) Acute pain of right shoulder History of fall Personal history of fall Other specified diabetes mellitus with hyperglycemia, unspecified whether terminal superintendent insulin use ([facility]) HTN (hypertension), benign Essential hypertension, benign Pain of toe of right foot Pain in limb Rheumatoid arthritis involving multiple sites with positive rheumatoid factor ([facility]) Neuropathy due to secondary diabetes mellitus ([facility]) Acute pain of right shoulder documented in [...] Right documented in this encounter Care Teams Ship'S Carpenter Relationship Specialty Start Date End Date Rufino Childers MD [address] [facility] [address] [place] [id number] PCP - General Family Practice 11/10/18 documented as of this encounter
--- OUTSIDE RECORDS SUMMARY | 2024-10-25 14:20 | XMS_ITS | Encounter Summary ---
Author Organization [facility] Address [address] [place] [address] Care Team Providers Care Throat Cutter Name Role Phone Rufino Childers MD Primary Care Provider [phone] Reason for Referral * MRI (Urgent) - Closed Specialty Diagnoses / Procedures Referred By Maryann blackburn Referred To Contact Radiology Diagnoses Confusion Procedures MRI BRAIN W WO CONTRAST Kirstie Benjamin FNP [address] [address] Phone: tel: fax: [facility] [address] [place] [address] Phone: tel: fax: Referral ID Status Reason Start Date Expiration Date Visits Re quested Visits Authorized [id number] Closed 10/25/2024 11/25/2025 1 1 Reason for Visit * Reason Comments ER Follow Up Encounter Details Date Type Department Care Team (Late st Contact Info) Description 10/25/2024 2:20 PM CDT Office Visit [facility] [place] [address] [address] Kirstie Benjamin FNP [address] [address] Urinary tract infection without hematuria, site unspecified (Primary Dx); Anxiety state; Primary insomnia; Confusion; Dehydration; Type 2 diabetes mellitus with hyperglycemia, without long-term current use of insulin ([facility]) Social History Tobacco Use Types Packs/Day Years Used Date Smoking Tobacco: Every Day Cigarettes Smokeless Tobacco: Never Tobacco Cessation:Ready to Q uit: No; Counseling Given: Yes Alcohol Use Standard Drinks/Week Comments No 0 (1 standard drink = 0.6 oz pur e alcohol) Comments No Sex and Gender Information Value Date Recorded Sex Assigned at Not on file 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 Gender Identity Not on file Sexual Orientation Not on file documented as of this encounter Last Filed Vital Signs Vital Sign Reading Time Taken Comments Blood Pressure 152/80 10/25/2024 2:37 PM CDT Pulse 92 10/25/2024 2:32 PM CDT Temperature 36.4 C (97.5 F) 10/25/2024 2:32 PM CDT Respiratory Rate 22 10/25/2024 2:32 PM CDT Oxygen Saturation 98% 10/25/2024 2:32 PM CDT Inhaled Oxygen Concentration - - Weight 69.2 kg (152 lb 8 oz) 10/25/2024 2:32 PM CDT Height 165.1 cm (5' 5 ) 10/25/2024 2:32 PM CDT Body Mass Index 25.38 10/25/2024 2:32 PM CDT documented in this encounter Patient Instructions * Attachments The following attachments cannot be sent through Care Everywhere. * Dehydration (Macedonian) documented in this encounter Progress Notes * Kirstie Benjamin, CERAMIC RESTORER - 10/25/2024 3:07 PM CDT Chief Complaint Patient presents with ER Follow Up History of Present Illness The patient is a 63-year-old female who presents for confusion. She was seen in the ER on 10/23/2024 for the same complaint and felt it might have been related to her blood sugar, which was 187 at that time. A head CT was negative, and she was treated for a urinary tract infection due to the presence of leukocytes and mildly high specific gravity. She was given a prescription for Bactrim but has o nly taken one pill since discharge and has not improved. She is accompanied by her daughter. The patient's daughter reports that she was prescribed antibiotics for a urinary tract infection during her recent ER visit. However, she has only taken one dose as she could not recall if she had taken it this morning. Her fluid intake is primarily coffee, tea, and soda. She is uncertain about herability to urinate today. She experiences nausea and poor sleep, which started around the same time as her shoulder pain. She also reports difficulty walking and pain in her left arm. She has a slight headache. The confusion began last week, with the first noticeable episode occurring on . Prior to this, she occasionally confused the days of the week. She is able to identify her current location anddate of but struggles with identifying the current day, month, year, and president. She has not made any recent changes to her chronic medications, except for those prescribed in the ER. She has not taken hydroxyzine for some time and is currently out of it. She was started on Farxiga and has taken two doses so far. Coffee/Tea/Caffeine-containing Drinks: The patient drinks coffee and tea. Sleep: She reports poor sleep. Living Condition: She lives with her daughter. Review of Systems Constitutional: Negative. HENT: Negative. Eyes: Negative. Respiratory: Negative. Cardiovascular: Negative. Gastrointestinal: Positive for nausea. Genitourinary: Negative. Musculoskeletal: Negative. Skin: Negative. Neurological: Positive for weakness. Endo/Heme/Allergies: Negative. Psychiatric/Behavioral: Positive for memory loss. The patient has insomnia. BP (!) 152/80 Pulse 92 Temp 97.5 ??F (36.4 ??C) (Temporal) Resp 22 Ht 5' 5 (1.651 m) Wt 69.2 kg (152 lb 8 oz) SpO2 98% BMI 25.38 kg/m?? Physical Exam General: Alert, oriented to place, mildly confused about time and date. Neurological: Alert, oriented to place, mildly confused about time and date. Unable to recall current president. No focal deficits noted. Physical Exam Vitals and nursing note reviewed. [...] normal. Breath sounds: Normal breath sounds. Musculoskeletal: General: Normal range of motion. Cervical back: Normal range of motion. Skin: General: Skin is warm and dry. Neurological: Mental Status: She is confused. Comments: Shuffling gait, weakness Psychiatric: Mood and Affect: Mood normal. Behavior: Behavior normal. Thought Content: Thought content normal. Judgment: Judgment normal. Results Labs - Blood sugar: 10/23/2024, 187 mg/dL - Urine test: 10/23/2024, Presence of leukocytes and mildly high specific gravity - Blood sugar: 115 mg/dL - Urine test: Dehydration symptoms, spilling ketones and protein Imaging - Head CT: 10/23/2024, Negative Lab Results Component Value Date/Time PHUA 6.0 10/25/2024 03:10 PM URINELEUKOC Negative 10/25/2024 03:10 PM NITRITEUA Negative 10/25/2024 03:10 PM KETONEURINE 3+ (A) 10/25/2024 03:10 PM PROTEINUA 1+ (A) 10/25/2024 03:10 PM GLUUA 2+ (A) 10/25/2024 03:10 PM BLOODUA Negative 10/25/2024 03:10 PM Lab Results Component Value Date/Time GLUCPOC 115 (A) 10/25/2024 03:09 PM FLUAPOC Not Detected 09/25/2023 03:38 PM FLUBPOC Not Detected 09/25/2023 03:38 PM RHEUMFACTOR 119 (H) 05/08/2020 01:46 PM ICD-10-CM ICD-9-CM 1. Urinary tract infection without hematuria, site unspecified N39.0 599.0 POC URINALYSIS DIPSTICK AUTOMATED 2. Anxiety state F41.1 300.00 hydrOXYzine HCL (ATARAX) 25 mg tablet 3. Primary insomnia F51.01 307.42 hydrOXYzine HCL (ATARAX) 25 mg tablet 4. Confusion R41.0 298.9 MRI BRAIN W WO CONTRAST POC URINALYSIS DIPSTICK AUTOMATED POC GLUCOSE 5. Dehydration E86.0 276.51 6. Type 2 diabetes mellitus with hyperglycemia, without long-term current use of insulin ([facility]) E11.65 250.00 790.29 Assessment & Plan 1. Confusion. - Confusion may be attributed to a urinary tract infection or a rapid decrease in blood sugar levels. - Head CT scan was negative for stroke. - MRI of the brain will be ordered to further investigate the cause of confusion. - Prescription for hydroxyzine provided to aid in sleep regulation, which may help alleviate confusion. 2. Urinary Tract Infection. - Previously treated for UTI with Bactrim but has only taken one dose since discharge. - Urinary tract infections can cause significant confusion. - Advised to continue taking Bactrim twice daily to treat the infection. - Increase fluid intake, particularly water, juice, or tea, and avoid soda. 3. Dehydration. - Showing signs of dehydration, including spilling ketones and protein in urine. - Blood sugar was 115, which is normal but a significant drop from previous levels. - Increase fluid intake recommended to address dehydration. 4. Insomnia/anxiety. - Prescription for hydroxyzine provided to aid in sleep regulation. - Hydroxyzine may help improve sleep and potentially reduce confusion. 5. Type II DM- Monitor blood sugars at home. Will obtain A1C for monitoring of stability of disease. Continue current medication regimen. Check feet daily for wounds. Wear shoes at all times. Kirstie KAHN This note was automatically generated by a Generative AI technology (SPARQ), reviewed, edited, and finalized by KENYATTA Maldonado. The author of this note, patient (or authorized food products sales representative), and all other persons present consent to the audio recording of this visit for charting documentation purposes. documented in this encounter Miscellaneous Notes * Patient Instructions - Bria Sheriff LPN - 10/25/2024 2:31 PM CDT What is Diabetic Retinopathy? Diabetic retinopathy is the most common eye disease in patients with diabetes and a leading cause of blindness in [place] adults. It is caused by changes in [...] a year and remember to ask your design engineering manager or automotive light mechanic to send a report of their findings [...] at high risk for vision loss. Your carpentry professional can tell if you have diabetic [...] st Contact Info) Description 01/23/2025 2:00 PM AUTO HEADLIGHT MECHANIC Office Visit [address] [id number] Kirstie Benjamin, KENYATTA [address] [place] [address] 03/24/2025 11:20 AM AUTO HEADLIGHT MECHANIC Office Visit [facility] [address] [place] [address] Rufino Childers MD [address] [place] [address] documented as of this encounter Procedures Procedure Name Priority Date/Time Associated Diagnosis Comments POC URINALYSIS DIPSTICK AUTOMATED Routine 10/25/2024 3:10 PM CDT Urinary tract infection without hematuria, site unspecified Confusion POC GLUCOSE Routine 10/25/2024 3:09 PM CDT Confusion documented in this encounter Results * MRI BRAIN W WO CONTRAST (10/26/2024) Anatomical Region Laterality Modality Head Magnetic Resonan ce Kirstie Benjamin [facility] MR ORDERABLES Final Re sult * (ABNORMAL) POC URINALYSIS DIPSTICK AUTOMATED (10/25/2024 3:10 PM CDT) COLOR UA POC Yellow Pale to Dark Yellow [facility] CLARITY UA POC Clear Clear, Other [facility] GLUCOSE UA POC 2+(A) Negative, Normal [facility] BILIRUBIN UA POC Negative Negative [facility] KETONES UA POC 3+(A) Negative [facility] SPECIFIC GRAVITY UA POC 1.020 1.000 - 1.030 [facility] BLOOD UA POC Negative Negative [facility] C LINIC [facility] PH UA POC 6.0 5.0 - 8.0 [facility] IC [facility] PROTEIN UA POC 1+(A) Negative [facility] UROBILINOGEN UA POC 0.2 <2.0 mg/dL [facility] NITRITE UA POC Negative Negative [facility] LEUKOCYTE ESTERASE UA POC Negative Negative [facility] KIT LOT NUMBER POC [id number] [facility] KIT EXP DATE POC 09/12/2024 [facility] Urine 10/25/2024 3:10 PM CDT Kirstie Benjamin CERAMIC RESTORER POINT OF CARE TESTING Fi nal Result [facility] CLIA# [id number] [address] [facility] [address] [place] [address] * (ABNORMAL) POC GLUCOSE (10/25/2024 3:09 PM CDT) GLUCOSE POC 115(A) 65 - 99 mg/dL [facility] SPECIMEN SOURCE, GLUCOSE POC [facility] INTERNAL KIT QC POC Pass Pass [facility] KIT LOT NUMBER POC [id number] [facility] KIT EXP DATE POC 10/08/2024 [facility] Blood, capillary 10/25/2024 3:09 PM CDT Kirstie Silvinaobi Benjamin CERAMIC RESTORER POINT OF CARE TESTING Fi nal Result Performing Organization Address City/[facility]/ZIP Co de Phone Number [facility] CLIA# [id number] [address] [facility] [address] [address] documented in this encounter Visit Diagnoses Diagnosis Urinary tract infection without hematuria, site unspecified- Primary Anxiety state Anxiety state, unspecified Primary insomnia Persistent disorder of initiating or maintaining sleep Confusion Unspecified psychosis Dehydration Type 2 diabetes mellitus with hyperglycemia, without long-term current use of insulin ([facility]) documented in this encounter Care Teams Throat Cutter Relationship Specialty Start Date End Date Rufino Childers MD [address] [facility] [address] [place] [address] PCP - General Family Practice 11/10/18 documented as of this encounter
[2024-10-27] VITALS (14 sets, daily range): BP systolic 117–155; BP diastolic 55–94; PULSE 74–103; RESP 16–22; TEMP 36.6–36.7; O2SAT 91–97; BMI 26.6
--- NOTE | 2024-10-27 13:53 | CT_ITS ---
WS: [id number] CT HEAD TECHNIQUE: Noncontrast CT of the head obtained from the skullbase to the vertex. CLINICAL INFORMATION: STROKE SYMPTOMS COMPARISON: 10/23/2024 DLP: [address] scans at [facility] use at least one of these dose optimization techniques: automated exposure control; mA and/or kV adjustment per patient size (includes targeted exams where dose is matched to clinical indication); or iterative reconstruction. FINDINGS: No evidence of intracranial hemorrhage. Stable low-attenuation areas in the RIGHT thalamus and bilateral rowan radiata extending into the RIGHT greater than LEFT corticospinal tracts. This is not significantly changed since the recent studies. No hemorrhage. No hydrocephalus. Differential considerations are unchanged since the MRI. Vascular calcification. Paranasal sinuses and mastoid air cells are well aerated. .Normal visualized soft tissues. CT/CT head thrombolytic 42055 IMPRESSION: 1. No evidence of intracranial hemorrhage 2. Previously described RIGHT thalamic and bilateral rowan radiata lesions ap pear stable since the recent studies. 3. No significant changes since the recent studies. Notified Justin Peoples DO at 10/27/2024 2:10PM.
--- NOTE | 2024-10-27 13:54 | CT_ITS ---
WS: [id number] CTA HEAD AND NECK TECHNIQUE: Contrast enhanced CTA of the head and neck with coronal and sagittal reformatted images and maximum intensity projection (MIP) images. NASCET criteria utilized. CLINICAL INFORMATION: ACUTE SYMPTOMS OF STROKE COMPARISON: MRI 10/26/[address] 10/23/2024 DLP: 372.[address] scans at [facility] use at least one of these dose optimization techniques: automated exposure control; mA and/or kV adjustment per patient size (includes targeted exams where dose is matched to clinical indication); or iterative reconstruction. FINDINGS: RIGHT: RIGHT common carotid artery is patent. Moderate calcified atheromatous disease RIGHT carotid bulb extending into the ICA. RIGHT ICA stenosis measures approximately 50%. RIGHT ICA is patent to the skull base. LEFT: LEFT common carotid artery is patent. Calcified atheromatous disease LEFT carotid bulb extending into the ICA. High-grade LEFT ICA stenosis with a small residual lumen measuring 1.5 mm compatible with approximately 75 to 80% stenosis. LEFT ICA remains patent to the skull base. Dominant LEFT vertebral artery. Smaller but patent RIGHT vertebral artery. Proximal basilar artery is patent. Normal vascularity to the SUPERVISOR FISH HATCHERY territory bilaterally. Mild segmental stenosis in the proximal SUPERVISOR FISH HATCHERY territory. Distal vessels are patent. Both ICAs are patent at the skull base. Moderate cavernous carotid calcification. Normal vascularity to the RORO and MCA territories bilaterally. No evidence of high-grade proximal intracranial stenosis. 5 mm LEFT thyroid nodule. Proximal subclavian arteries are patent. CT/CT angio headneck* [id number] IMPRESSION: 1. RIGHT ICA stenosis measures approximately 50% with moderate calcified ather omatous plaque. 2. LEFT ICA stenosis measures 75 to 80%. 3. No flow-limiting intracranial stenosis. 4. Mild segmental narrowing in the proximal SUPERVISOR FISH HATCHERY territory bilaterally and like ly due to atheromatous disease. 5. 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 6. No other acute findings. Notified Justin Peolpes DO at 10/27/2024 2:39 PM.
--- OUTSIDE RECORDS SUMMARY | 2024-10-27 14:03 | XMS_ITS | Encounter Summary ---
Author Organization [facility] Address [address] [place] [address] Care Team Providers Care Student Financial Services Counselor Name Role Phone Rufino Childers MD Primary Care Provider [phone] Reason for Visit * Reason Onset Date Comments Referral 10/27/2024 Urgent Neurology Referal Encounter Details Date Type Department Care Team ([facility] [address] Contact Info) Description 10/27/2024 Telephone [facility] Medicine [place] [address] [address] Kirstie Benjamin, [facility] [address] [address] Referral (Urgent Neurology Referal) Social History Tobacco Use Types Packs/Day Years Used Date Smoking Tobacco: Every Day Cigarettes Smokeless Tobacco: Never Alcohol Use Standard Drinks/Week Comments No 0 (1 standard drink = 0.6 oz pur e alcohol) Comments No Sex and Gender Information Value Date Recorded Sex Assigned at Not on file Legal Sex Female 5:01 AM RN CHILD Gender Identity Not on file Sexual Orientation Not on file documented as of this encounter Miscellaneous Notes * Telephone Encounter - Alba Barajas LPN - 10/27/2024 12:58 PM CDT 10/27/2024 12:59 PM Received message from Dr Henriquez regarding urgent Neurology referral stating that patient needs to go tot ER. Phoned daughter to advise of the above message. Daughter voices understanding. [place] and that patient is much worse then yesterday and that she is not going to be able to take her by car and will have to call an ambulance. Asked daughter if she needs me to call ambulance for her - daughter states no she can call. Advised daughter to hang up our call and call ambulance immediately. Daughter voices understanding. Alba CALERO documented in this encounter Plan of Treatment Upcoming Encounters Date Type Department Care Team (Late st Contact Info) Description 01/23/2025 2:00 PM RN CHILD Office Visit [facility] [address] [place] [address] Kirstie Benjamin FNP [address] [place] [address] 03/24/2025 11:20 AM RN CHILD Office Visit [facility] [address] [place] [address] Rufino Childers MD [address] [place] [address] documented as of this encounter Visit Diagnoses Not on filedocumented in this encounter Care Teams Student Financial Services Counselor Relationship Specialty Start Date End Date Rufino Childers MD [address] [place] [address] PCP - General Family Practice 11/10/18 documented as of this encounter
--- OUTSIDE RECORDS SUMMARY | 2024-10-27 14:03 | XMS_ITS | Encounter Summary ---
Author Organization [facility] Address [address] [place] [address] Care Team Providers Care Truck Supervisor Name Role Phone Rufino Childers MD Primary Care Provider [phone] Encounter Details Date Type Department Care Team (Late st Contact Info) Description 01/26/2017 Lab Requisition [facility] Laboratory Services [place] [address] [place] [address] Yoly Mosqueda, TIRE MOLD TESTER [address] [place] [id number] Social History Tobacco Use Types Packs/Day Years Used Date Smoking Tobacco: Every Day Cigarettes 1 30 Smokeless Tobacco: Never Alcohol Use Standard Drinks/Week Comments No 0 (1 standard drink = 0.6 oz pur e alcohol) Comments No Sex and Gender Information Value Date Recorded Sex Assigned at Not on file Legal Sex Female 6:48 AM FOREIGN EXCHANGE TRADER Gender Identity Not on file Sexual Orientation Not on file Occupation Industry Job Start Date Job End Date Not on file Not on file Not on file Not on file documented as of this encounter Plan of Treatment Not on file documented as of this encounter Procedures Procedure Name Priority Date/Time Associated Diagnosis Comments HEMOGLOBIN A1C Routine 01/26/2017 8:13 PM FOREIGN EXCHANGE TRADER LIPID PANEL Routine 01/26/2017 8:13 PM FOREIGN EXCHANGE TRADER COMPREHENSIVE METABOLIC PANEL Routine 01/26/2017 8:13 PM FOREIGN EXCHANGE TRADER documented in this encounter Results * (ABNORMAL) COMPREHENSIVE METABOLIC PANEL (01/26/2017 8:13 PM [facility]) SODIUM 140 136 - 145 mmol/L 01/26/2017 10:24 PM [facility] POTASSIUM 3.9 3.5 - 5.1 mmol/L 01/26/2017 10:24 PM [facility] CHLORIDE 100 98 - 107 mmol/L 01/26/2017 10:24 PM [facility] CO2 26 22 - 29 mmol/L 01/26/2017 10:24 PM [facility] CALCIUM 10.0 8.6 - 10.0 mg/dL 01/26/2017 10:24 PM [facility] BUN 12 6 - 20 mg/dL 01/26/2017 10:24 PM [facility] CREATININE 0.52 0.51 - 0.95 mg/dL 01/26/2017 10:24 PM [facility] GLUCOSE 121(H) 74 - 106 mg/dL 01/26/2017 10:24 PM [facility] TOTAL PROTEIN 7.3 6.6 - 8.7 g/dL 01/26/2017 10:24 PM [facility] ALBUMIN 4.2 3.5 - 5.2 g/dL 01/26/2017 10:24 PM [facility] BILIRUBIN TOTAL <0.2 0.0 - 1.2 mg/dL 01/26/2017 10:24 PM [facility] ALKALINE PHOSPHATASE 85 35 - 104 U/L 01/26/2017 10:24 PM [facility] AST 13 10 - 35 U/L 01/26/2017 10:24 PM [facility] ALT 15 10 - 35 U/L 01/26/2017 10:24 PM [facility] GFR >60 >=60 mL/min/1.7 3 sq meter 01/26/2017 10:24 PM [facility] Comment: eGFR has not been [...] mL/min/1.7 3 sq meter 01/26/2017 10:24 PM [facility] ANION GAP 14 12 - 20 mmol/L 01/26/2017 10:24 PM [facility] Blood Venipuncture / Unknown 01/26/2017 8:13 PM FOREIGN EXCHANGE TRADER 01/26/2017 9:10 PM FOREIGN EXCHANGE TRADER Yoly Mosqueda [facility] CHEMISTRY ORDERABLES Final Resu lt Performing Organization Address [facility] Co de Phone Number [facility] CLIA # [id number] [address] [place] [address] [phone] * (ABNORMAL) HEMOGLOBIN A1C (01/26/2017 8:13 PM FOREIGN EXCHANGE TRADER) HEMOGLOBIN A1C 8.7(H) 4.8 - 5.9 % 01/26/2017 9:36 PM [facility] EST. AVG GLUCOSE, A1C 203 mg/dL 01/26/2017 9:36 PM [facility] Blood Venipuncture / Unknown 01/26/2017 8:13 PM FOREIGN EXCHANGE TRADER 01/26/2017 9:10 PM FOREIGN EXCHANGE TRADER Yoly Mosqueda [facility] CHEMISTRY ORDERABLES Final Resu lt Performing Organization Address [facility]/ZIP Co de Phone Number [facility] CLIA # [id number] [address] [place] [phone] * (ABNORMAL) LIPID PANEL (01/26/2017 8:13 PM FOREIGN EXCHANGE TRADER) CHOLESTEROL 213(H) <200 mg/dL 01/26/2017 10:24 PM [facility] TRIGLYCERIDE 426(H) <150 mg/dL 01/26/2017 10:24 PM FOREIGN EXCHANGE TRADER [facility] HDL 34(L) 40 - 59 mg/dL 01/26/2017 10:24 PM [facility] LDL CALCULATED <100 mg/dL 01/26/2017 10:24 PM [facility] Comment:Calculated LDL is no t accurate when the Triglyceride value exceeds 400. NON-HDL CHOLESTEROL 179(H) <130 mg/dL 01/26/2017 10:24 PM [facility] Blood Venipuncture / Unknown 01/26/2017 8:13 PM FOREIGN EXCHANGE TRADER 01/26/2017 9:10 PM FOREIGN EXCHANGE TRADER Narrative [facility] - 01/26/2017 10:24 PM FOREIGN EXCHANGE TRADER TOTAL CHOLESTEROL mg/dL Desirable <200 Borderline high [...] Ranges for Lipid Panels (NCEP/AMA) Yoly Mosqueda TIRE MOLD TESTER CHEMISTRY ORDERABLES Final Resu lt [facility] CLIA # [id number] [address] [address] documented in this encounter Visit Diagnoses Not on filedocumented in this encounter Care Teams Truck Supervisor Relationship Specialty Start Date End Date Rufino Childers MD [address] [phone] PCP - General Family Practice 11/10/18 documented as of this encounter
--- OUTSIDE RECORDS SUMMARY | 2024-10-27 14:03 | XMS_ITS | Encounter Summary ---
Author Organization [facility] Address [address] [place] [address] Care Team Providers Care High School Mathematics Teacher Name Role Phone Rufino Childers MD Primary Care Provider [phone] Encounter Details Date Type Department Care Team (Late st Contact Info) Description 12/24/2015 Lab Requisition [facility] Laboratory Services [place] [address] [place] [address] Anam Kenyon, NO ADDRESS ON FILE Social History Tobacco Use Types Packs/Day Years Used Date Smoking Tobacco: Every Day Cigarettes 1 30 Smokeless Tobacco: Never Alcohol Use Standard Drinks/Week Comments No 0 (1 standard drink = 0.6 oz pur e alcohol) Comments No Sex and Gender Information Value Date Recorded Sex Assigned at Not on file Legal Sex Female 6:48 AM FILING CLERK Gender Identity Not on file Sexual Orientation [...] - 70 % 12/25/2015 12:38 AM CDT [facility] LYMPHOCYTES RELATIVE 49(H) 20 - 45 % 12/25/2015 12:38 AM CDT [facility] MONOCYTES RELATIVE 5 2 - 8 % 12/25/2015 12:38 AM CDT [facility] NEUTROPHILS ABSOLUTE COUNT 4.74 1.78 - 5.38 K/uL 12/25/2015 12:38 AM CDT [facility] LYMPHOCYTES ABSOLUTE 5.05(H) 1.20 - 4.00 K/uL 12/25/2015 12:38 AM T [facility] MONOCYTES ABSOLUTE 0.52 0.30 - 0.82 K/uL 12/25/2015 12:38 AM T [facility] TOTAL CELLS COUNTED IN DIFF 100 12/25/2015 12:38 AM T [facility] PLATELET EST. Consistent with Count 12/25/2015 12:38 AM T [facility] RBC MORPHOLOGY Normal 12/25/2015 12:38 AM T [facility] Blood Collection / Unknown 12/24/2015 9:05 PM CDT 12/24/2015 9:53 PM CDT us Anam Kenyon DO HEMATOLOGY ORDERABLES COM Final Result [facility] CLIA # [id number] [address] [place] [address] * TSH (12/24/2015 9:05 PM CDT) TSH 1.88 0.27 - 4.20 uIU/mL 12/24/2015 11:52 PM CDT [facility] Blood Collection / Unknown 12/24/2015 9:05 PM CDT 12/24/2015 9:53 PM CDT us Anam Kenyon DO CHEMISTRY ORDERABLES Final Resu lt Performing Organization Address City/[facility]/ZIP Co de Phone Number [facility] CLIA # [id number] [address] [place] [phone] * (ABNORMAL) HEMOGLOBIN A1C (12/24/2015 9:05 PM CDT) HEMOGLOBIN A1C 12.1(H) 4.8 - 5.9 % 12/24/2015 11:30 PM CDT [facility] EST. AVG GLUCOSE, A1C 301 mg/dL 12/24/2015 11:30 PM CDT [facility] Blood Collection / Unknown 12/24/2015 9:05 PM CDT 12/24/2015 9:53 PM CDT us Anam Kenyon DO CHEMISTRY ORDERABLES Final Resu lt Performing Organization Address [facility]/ZIP Co de Phone Number [facility] CLIA # [id number] [address] [place] [phone] * (ABNORMAL) COMPREHENSIVE METABOLIC PANEL (12/24/2015 9:05 PM CDT) SODIUM 137 136 - 145 mmol/L 12/24/2015 11:52 PM T [facility] POTASSIUM 3.9 3.5 - 5.1 mmol/L 12/24/2015 11:52 PM T [facility] CHLORIDE 97(L) 98 - 107 mmol/L 12/24/2015 11:52 PM T [facility] CO2 25 22 - 29 mmol/L 12/24/2015 11:52 PM T [facility] CALCIUM 9.7 8.6 - 10.0 mg/dL 12/24/2015 11:52 PM [facility] BUN 18 6 - 20 mg/dL 12/24/2015 11:52 PM [facility] CREATININE 0.57 0.51 - 0.95 mg/dL 12/24/2015 11:52 PM T [facility] GLUCOSE 318(H) 74 - 106 mg/dL 12/24/2015 11:52 PM [facility] TOTAL PROTEIN 7.1 6.6 - 8.7 g/dL 12/24/2015 11:52 PM [facility] ALBUMIN 3.8 3.5 - 5.2 g/dL 12/24/2015 11:52 PM [facility] BILIRUBIN TOTAL <0.2 0.0 - 1.2 mg/dL 12/24/2015 11:52 PM [facility] ALKALINE PHOSPHATASE 104 35 - 104 U/L 12/24/2015 11:52 PM [facility] AST 9(L) 10 - 35 U/L 12/24/2015 11:52 PM [facility] ALT 13 10 - 35 U/L 12/24/2015 11:52 PM [facility] GFR >60 >=60 mL/min/1.7 3 sq meter 12/24/2015 11:52 PM [facility] Comment: eGFR has not been validated for [...] mL/min/1.7 3 sq meter 12/24/2015 11:52 PM [facility] ANION GAP 15 12 - 20 mmol/L 12/24/2015 11:52 PM [facility] Blood Collection / Unknown 12/24/2015 9:05 PM CDT 12/24/2015 9:53 PM CDT us Anam Kenyon DO CHEMISTRY ORDERABLES Final Resu lt [facility] CLIA # [id number] [address] [place] [address] * (ABNORMAL) CBC WITH DIFFERENTIAL (12/24/2015 9:05 PM CDT) WBC 10.3(H) 4.0 - 10.0 K/uL 12/24/2015 11:05 PM [facility] RBC 4.63 3.93 - 5.22 M/uL 12/24/2015 11:05 PM [facility] HEMOGLOBIN 14.1 11.2 - 15.7 g/dL 12/24/2015 11:05 PM [facility] HEMATOCRIT 41.3 34.1 - 44.9 % 12/24/2015 11:05 PM [facility] MCV 89.2 79.4 - 94.8 fL 12/24/2015 11:05 PM [facility] MCH 30.5 25.6 - 32.2 pg 12/24/2015 11:05 PM [facility] MCHC 34.1 32.2 - 35.5 g/dL 12/24/2015 11:05 PM [facility] RDW 12.5 11.0 - 14.5 % 12/24/2015 11:05 PM [facility] RDW-STDEV 40.2 36.9 - 56.9 fL 12/24/2015 11:05 PM [facility] PLATELETS 275 163 - 337 K/uL 12/24/2015 11:05 PM [facility] MPV 10.0 10.0 - 14.8 fL 12/24/2015 11:05 PM [facility] Blood Collection / Unknown 12/24/2015 9:05 PM CDT 12/24/2015 9:53 PM CDT us Anam Kenyon DO HEMATOLOGY ORDERABLES Final Res ult [facility] CLIA # [id number] [address] [place] [phone] documented in this encounter Visit Diagnoses Not on filedocumented in this encounter Care Teams High School Mathematics Teacher Relationship Specialty Start Date End Date Rufino Childers MD [address] [address] PCP - General Family Practice 11/10/18 documented as of this encounter
--- OUTSIDE RECORDS SUMMARY | 2024-10-27 14:03 | XMS_ITS | Encounter Summary ---
Author Organization [facility] Address [address] [place] [address] Care Team Providers Care Television Repairer Name Role Phone Rufino Childers MD Primary Care Provider [phone] Encounter Details Date Type Department Care Team (Latest Contact Info) Description 11/26/2006 Outpatient Historical [facility] Medicine [address] [address] Rhona Duenas MD NO ADDRESS ON FILE Acute Bronchitis (Primary Dx) Social History Tobacco Use Types Packs/Day Years Used Date Smoking Tobacco: Never Assessed Comments Unknown Sex and Gender Information Value Date Recorded Sex Assigned at Not on file Legal Sex Female 6:48 AM EMPLOYEE RELATION MANAGER Gender Identity Not on file Sexual Orientation Not on file documented as of this encounter Plan of Treatment Not on file documented as of this encounter Visit Diagnoses Diagnosis Acute bronchitis- Primary documented in this encounter Care Teams Television Repairer Relationship Specialty Start Date End Date Rufino Childers MD [address] [address] PCP - General Family Practice 11/10/18 documented as of this encounter
--- OUTSIDE RECORDS SUMMARY | 2024-10-27 14:03 | XMS_ITS | Encounter Summary ---
Author Organization [facility] Address [address] [place] [address] Care Team Providers Care Fire Control Mechanic Name Role Phone Rufino Childers MD Primary Care Provider [phone] Reason for Visit * Reason Onset Date Comments Results 10/22/2024 Encounter Details Date Type Department Care Team (Late st Contact Info) Description 10/22/2024 Results Follow-Up [facility] [address] [address] Kirstie Benjamin, [facility] [address] [address] MICROALBUMIN/CREATIN INE RATIO, RANDOM UR, [...] on file Legal Sex Female 5:01 AM DIETARY WORKER Gender Identity Not on file Sexual Orientation [...] st Contact Info) Description 01/23/2025 2:00 PM DIETARY WORKER Office Visit [facility] [address] [place] [address] Kirstie Benjamin FNP [address] [place] [address] 03/24/2025 11:20 AM DIETARY WORKER Office Visit [facility] [address] [place] [address] Rufino Childers MD [address] [place] [address] documented as of this encounter Visit Diagnoses Diagnosis Type 2 diabetes mellitus with hyperglycemia, without long-term current use of insulin ([facility])- Primary documented in this encounter Care Teams Fire Control Mechanic Relationship Specialty Start Date End Date Rufino Childers MD [address] [place] [address] PCP - General Family Practice 11/10/18 documented as of this encounter
--- OUTSIDE RECORDS SUMMARY | 2024-10-27 14:03 | XMS_ITS | Encounter Summary ---
Author Organization [facility] Address [address] [place] [address] Care Team Providers Care Director Of Early Childhood Name Role Phone Rufino Childers MD Primary Care Provider [phone] Encounter Details Date Type Department Care Team (Late st Contact Info) Description 07/06/2017 Lab Requisition [facility] Laboratory Services [place] [address] [place] [address] Anam Kenyon, NO ADDRESS ON FILE Social History Tobacco Use Types Packs/Day Years Used Date Smoking Tobacco: Every Day Cigarettes 1 30 Smokeless Tobacco: Never Alcohol Use Standard Drinks/Week Comments No 0 (1 standard drink = 0.6 oz pur e alcohol) Comments No Sex and Gender Information Value Date Recorded Sex Assigned at Not on file Legal Sex Female 6:48 AM HOSPICE HOME CARE COORDINATOR Gender Identity Not on file Sexual Orientation [...] 136 - 145 mmol/L 07/06/2017 11:53 PM [facility] POTASSIUM 3.8 3.5 - 5.1 mmol/L 07/06/2017 11:53 PM [facility] CHLORIDE 99 98 - 107 mmol/L 07/06/2017 11:53 PM [facility] CO2 25 22 - 29 mmol/L 07/06/2017 11:53 PM [facility] CALCIUM 9.5 8.6 - 10.0 mg/dL 07/06/2017 11:53 PM [facility] BUN 12 6 - 20 mg/dL 07/06/2017 11:53 PM [facility] CREATININE 0.71 0.51 - 0.95 mg/dL 07/06/2017 11:53 PM [facility] GLUCOSE 147(H) 74 - 106 mg/dL 07/06/2017 11:53 PM [facility] TOTAL PROTEIN 7.3 6.6 - 8.7 g/dL 07/06/2017 11:53 PM [facility] ALBUMIN 4.4 3.5 - 5.2 g/dL 07/06/2017 11:53 PM [facility] BILIRUBIN TOTAL <0.2 0.0 - 1.2 mg/dL 07/06/2017 11:53 PM [facility] ALKALINE PHOSPHATASE 78 35 - 104 U/L 07/06/2017 11:53 PM [facility] AST 12 10 - 35 U/L 07/06/2017 11:53 PM [facility] ALT 15 10 - 35 U/L 07/06/2017 11:53 PM [facility] GFR >60 >=60 mL/min/1.7 3 sq meter 07/06/2017 11:53 PM [facility] Comment: eGFR has not been validated [...] 3 sq meter 07/06/2017 11:53 PM T [facility] ANION GAP 16 12 - 20 mmol/L 07/06/2017 11:53 PM [facility] Blood Collection / Unknown 07/06/2017 9:00 PM CDT 07/06/2017 9:47 PM CDT us Anam Kenyon DO CHEMISTRY ORDERABLES Final Resu lt [facility] CLIA # [id number] [address] [place] [address] * (ABNORMAL) CBC WITH DIFFERENTIAL (07/06/2017 9:00 PM CDT) WBC 10.4(H) 4.0 - 10.0 K/uL 07/06/2017 11:54 PM [facility] RBC 4.43 3.93 - 5.22 M/uL 07/06/2017 11:54 PM [facility] HEMOGLOBIN 13.6 11.2 - 15.7 g/dL 07/06/2017 11:54 PM [facility] HEMATOCRIT 41.3 34.1 - 44.9 % 07/06/2017 11:54 PM [facility] MCV 93.2 79.4 - 94.8 fL 07/06/2017 11:54 PM [facility] MCH 30.7 25.6 - 32.2 pg 07/06/2017 11:54 PM [facility] MCHC 32.9 32.2 - 35.5 g/dL 07/06/2017 11:54 PM [facility] RDW 13.5 11.0 - 14.5 % 07/06/2017 11:54 PM [facility] RDW-STDEV 43.9 36.9 - 56.9 fL 07/06/2017 11:54 PM [facility] PLATELETS 308 163 - 337 K/uL 07/06/2017 11:54 PM [facility] MPV 9.8(L) 10.0 - 14.8 fL 07/06/2017 11:54 PM [facility] NEUTROPHILS 41 34 - 71 % 07/06/2017 11:54 PM [facility] LYMPHOCYTES 46 19 - 52 % 07/06/2017 11:54 PM [facility] MONOCYTES 7 5 - 13 % 07/06/2017 11:54 PM [facility] EOSINOPHILS 6 1 - 6 % 07/06/2017 11:54 PM [facility] BASOPHILS 0 0 - 1 % 07/06/2017 11:54 PM [facility] IMMATURE GRANULOCYTES 0 % 07/06/2017 11:54 PM [facility] NEUTROPHIL ABSOLUTE 4.25 1.56 - 6.13 K/uL 07/06/2017 11:54 PM [facility] LYMPHOCYTE ABSOLUTE 4.81(H) 1.20 - 3.40 K/uL 07/06/2017 11:54 PM [facility] MONOCYTE ABSOLUTE 0.70(H) 0.24 - 0.36 K/uL 07/06/2017 11:54 PM [facility] EOSINOPHIL ABSOLUTE 0.57(H) 0.04 - 0.36 K/uL 07/06/2017 11:54 PM [facility] BASOPHILS ABSOLUTE 0.04 0.01 - 0.08 K/uL 07/06/2017 11:54 PM [facility] IMMATURE GRANULOCYTES ABSOLUTE 0.03 K/uL 07/06/2017 11:54 PM [facility] Blood Collection / Unknown 07/06/2017 9:00 PM CDT 07/06/2017 9:47 PM CDT us Anam W Kenyon DO HEMATOLOGY ORDERABLES Final Res ult Performing Organization Address [facility]/ZIP Co de Phone Number [facility] CLIA # [id number] [address] [place] [address] * (ABNORMAL) HEMOGLOBIN A1C (07/06/2017 9:00 PM CDT) HEMOGLOBIN A1C 6.9(H) 4.8 - 5.9 % 07/06/2017 11:55 PM CDT [facility] EST. AVG GLUCOSE, A1C 151 mg/dL 07/06/2017 11:55 PM CDT [facility] Blood Collection / Unknown 07/06/2017 9:00 PM CDT 07/06/2017 9:47 PM CDT us Anam Kenyon DO CHEMISTRY ORDERABLES Final Resu lt Performing Organization Address [facility]/ZIP Co de Phone Number [facility] CLIA # [id number] [address] [place] [address] * TSH (07/06/2017 9:00 PM CDT) Pathologist [facility] TSH 2.84 0.27 - 4.20 uIU/mL 07/06/2017 11:54 PM CDT [facility] Blood Collection / Unknown 07/06/2017 9:00 PM CDT 07/06/2017 9:47 PM CDT us Anam Kenyon DO CHEMISTRY ORDERABLES Final Resu lt Performing Organization Address [facility]/ZIP Co de Phone Number [facility] CLIA # [id number] [address] [place] [address] * (ABNORMAL) LIPID PANEL (07/06/2017 9:00 PM CDT) CHOLESTEROL 222(H) <200 mg/dL 07/06/2017 11:53 PM CDT [facility] TRIGLYCERIDE 195(H) <150 mg/dL 07/06/2017 11:53 PM CDT [facility] HDL 42 40 - 59 mg/dL 07/06/2017 11:53 PM T [facility] LDL CALCULATED 141(H) <100 mg/dL 07/06/2017 11:53 PM T [facility] NON-HDL CHOLESTEROL 180(H) <130 mg/dL 07/06/2017 11:53 PM T [facility] Blood Collection / Unknown 07/06/2017 9:00 PM CDT 07/06/2017 9:47 PM CDT Narrative [facility] - 07/06/2017 11:53 PM CDT TOTAL CHOLESTEROL [...] Kenyon DO CHEMISTRY ORDERABLES Final Resu lt [facility] CLIA # [id number] [address] [id number] documented in this encounter Visit Diagnoses Not on filedocumented in this encounter Care Teams Director Of Early Childhood Relationship Specialty Start Date End Date Rufino Childers MD [address] [address] PCP - General Family Practice 11/10/18 documented as of this encounter
--- OUTSIDE RECORDS SUMMARY | 2024-10-27 14:03 | XMS_ITS | Encounter Summary ---
Author Organization [facility] Address [address] [place] [address] Care Team Providers Care Tool Or Die Drawing Checker Name Role Phone Rufino Childers MD Primary Care Provider [phone] Encounter Details Date Type Department Care Team ([facility] [address] Contact Info) Description 10/26/2024 Results Follow-Up [address] [address] Kirstie Benjamin FNP [address] [address] MRI BRAIN W WO CONTRAST Social History Tobacco Use Types Packs/Day Years Used Date Smoking Tobacco: Every Day Cigarettes Smokeless Tobacco: Never Alcohol Use Standard Drinks/Week Comments No 0 (1 standard drink = 0.6 oz pur e alcohol) Comments No Sex and Gender Information Value Date Recorded Sex Assigned at Not on file Legal Sex Female 5:01 AM HAND SCUDDER Gender Identity Not on file Sexual Orientation Not on file documented as of this encounter Plan of Treatment Upcoming Encounters Date Type Department Care Team ([facility] [address] Contact Info) Description 01/23/2025 2:00 PM HAND SCUDDER Office Visit [address] [address] Kirstie Benjamin FNP [address] [address] 03/24/2025 11:20 AM HAND SCUDDER Office Visit [address] [address] Rufino Childers MD [address] [address] documented as of this encounter Visit Diagnoses Not on filedocumented in this encounter Care Teams Tool Or Die Drawing Checker Relationship Specialty Start Date End Date Rufino Childers MD [address] [address] PCP - General Family Practice 11/10/18 documented as of this encounter
--- OUTSIDE RECORDS SUMMARY | 2024-10-27 14:03 | XMS_ITS | Clinical Summary ---
Author Organization [facility] Address [address] [place] [address] Care Team Providers Care Cleat Blanker Name Role Phone Rufino Childers MD Primary Care Provider [phone] Allergies Active Allergy Reactions Criticality Noted Date [...] on file Legal Sex Female 6:48 AM CURRICULUM DEVELOPMENT COORDINATOR Gender Identity Not on file Sexual Orientation Not on file Occupation Industry Job Start Date Job End Date Not on file Not on file Not on file Not on file Last Filed Vital Signs Vital Sign Reading Time Taken Comments Blood Pressure 150/78 04/27/2020 9:54 AM CURRICULUM DEVELOPMENT COORDINATOR Pulse 78 04/27/2020 9:25 AM CURRICULUM DEVELOPMENT COORDINATOR Temperature 36.4 C (97.6 F) 04/14/2019 11:24 AM CURRICULUM DEVELOPMENT COORDINATOR Respiratory Rate 20 04/14/2019 11:24 AM CURRICULUM DEVELOPMENT COORDINATOR Oxygen Saturation 99% 04/14/2019 11:24 AM CURRICULUM DEVELOPMENT COORDINATOR Inhaled Oxygen Concentration - - Weight 83.5 kg (184 lb) 04/27/2020 9:25 AM CURRICULUM DEVELOPMENT COORDINATOR Height 165.1 cm (5' 5 ) 04/27/2020 9:25 AM CURRICULUM DEVELOPMENT COORDINATOR Body Mass Index 30.62 04/27/2020 9:25 AM CURRICULUM DEVELOPMENT COORDINATOR Plan of Treatment Health Maintenance Due Date [...] Comments LIPID PANEL Routine 05/08/2020 1:44 PM CURRICULUM DEVELOPMENT COORDINATOR HEMOGLOBIN A1C Routine 05/08/2020 1:42 PM CURRICULUM DEVELOPMENT COORDINATOR MICROALBUMIN/CREATIN INE RATIO, RANDOM UR Routine 01/11/2015 from Last 3 Months or Most Recently Relevant to Health Maintenance Results * (ABNORMAL) LIPID PANEL (05/08/2020 1:44 PM CURRICULUM DEVELOPMENT COORDINATOR) CHOLESTEROL 228(H) <200 mg/dL 05/08/2020 2:14 PM CURRICULUM DEVELOPMENT COORDINATOR [facility] TRIGLYCERIDE 161(H) <150 mg/dL 05/08/2020 2:14 PM [facility] HDL 42 40 - 59 mg/dL 05/08/2020 2:14 PM [facility] LDL CALCULATED 154(H) <100 mg/dL 05/08/2020 2:14 PM [facility] NON-HDL CHOLESTEROL 186(H) <130 mg/dL 05/08/2020 2:14 PM [facility] Blood Venipuncture / Unknown 05/08/2020 1:44 PM CURRICULUM DEVELOPMENT COORDINATOR 05/08/2020 1:44 PM CURRICULUM DEVELOPMENT COORDINATOR [facility] - 05/08/2020 2:14 PM CURRICULUM DEVELOPMENT COORDINATOR TOTAL CHOLESTEROL mg/dL Desirable <200 Borderline high [...] ORDERABLES Final Resu lt Performing Organization Address [facility] Co de Phone Number [facility] CLIA # [id number] [address] [place] [address] * (ABNORMAL) HEMOGLOBIN A1C (05/08/2020 1:42 PM CURRICULUM DEVELOPMENT COORDINATOR) HEMOGLOBIN A1C 7.6(H) <=5.6 % 05/08/2020 2:18 PM [facility] EST. AVG GLUCOSE, A1C 171 mg/dL 05/08/2020 2:18 PM [facility] Blood Venipuncture / Unknown 05/08/2020 1:42 PM CURRICULUM DEVELOPMENT COORDINATOR 05/08/2020 1:42 PM CURRICULUM DEVELOPMENT COORDINATOR [facility] - 05/08/2020 2:18 PM CURRICULUM DEVELOPMENT COORDINATOR HGB A1C INTERPRETATION NORMAL: <5.7% PRE-DIABETES: 5.7 - 6.4% DIABETES: 6.5% OR GREATER Anam Kenyon DO CHEMISTRY ORDERABLES Final Resu lt Performing Organization Address [facility]/ZIP Co de Phone Number [facility] CLIA # [id number] [address] [address] * MICROALBUMIN/CREATININE RATIO, RANDOM UR (01/11/2015) ABSTRACTED MICROALBUMIN,UR INE 17 EXTERNAL LAB MICROALBUMIN, URINE mg/dL EXTERNAL LAB CREATININE, URINE EXTERNAL LAB MICROALBUMIN/CR EAT RATIO, UR EXTERNAL LAB MICROALBUMIN, URINE mg/dL EXTERNAL LAB CREATININE, URINE 29.0 - 226.0 mg/dL EXTERNAL LAB MICROALBUMIN/CR EAT RATIO, UR mg/g Creatinine EXTERNAL LAB Urine specimen (specimen) 01/11/2015 Chiquis Li CERAMIC TILER URINE ORDERABLES Final Result EXTERNAL LAB from Last 3 Months or Most Recently Relevant to Health Maintenance Care Teams Cleat Blanker Relationship Specialty Start Date End Date Rufino Childers MD [address] [address] PCP - General Family Practice 11/10/18
--- OUTSIDE RECORDS SUMMARY | 2024-10-27 14:03 | XMS_ITS | Encounter Summary ---
Author Organization [facility] Address [address] [place] [address] Care Team Providers Care Mortgage Loan Underwriter Name Role Phone Rufino Childers MD Primary Care Provider [phone] [phone] Encounter Details Date Type Department Care Team [...] on file Legal Sex Female 5:01 AM ON SITE CONSTRUCTION SUPERINTENDENT Gender Identity Not on file Sexual Orientation Not on file documented as of this encounter Plan of Treatment Upcoming Encounters Date Type Department Care Team (Late st Contact Info) Description 01/23/2025 2:00 PM ON SITE CONSTRUCTION SUPERINTENDENT Office Visit [address] [address] Kirstie Benjamin FNP [address] [address] 03/24/2025 11:20 AM ON SITE CONSTRUCTION SUPERINTENDENT Office Visit [address] [address] Rufino Childers MD [address] [address] documented as of this encounter Visit Diagnoses Not on filedocumented in this encounter Care Teams Mortgage Loan Underwriter Relationship Specialty Start Date End Date Rufino Childers MD [address] [address] PCP - General Family Practice 11/10/18 documented as of this encounter
--- OUTSIDE RECORDS SUMMARY | 2024-10-27 14:03 | XMS_ITS | Encounter Summary ---
Author Organization [facility] Address [address] [place] [address] Care Team Providers Care Spike Driver Name Role Phone Rufino Childers MD Primary Care Provider [phone] [phone] Encounter Details Date Type Department Care Team (Late st Contact Info) Description 11/28/2019 Lab Requisition [facility] Laboratory Services [place] [address] [place] [address] Anam Kenyon, NO ADDRESS ON FILE Social History Tobacco Use Types Packs/Day Years Used Date Smoking Tobacco: Every Day Cigarettes 1 40 Smokeless Tobacco: Never Alcohol Use Standard Drinks/Week Comments No 0 (1 standard drink = 0.6 oz pur e alcohol) Comments No Sex and Gender Information Value Date Recorded Sex Assigned at Not on file Legal Sex Female 6:48 AM TRANSPORTATION MAINTENANCE SPECIALIST Gender Identity Not on file Sexual [...] RHEUMATOID FACTOR (11/29/2019 5:34 AM CDT) Pathologist [facility] RHEUMATOID FACTOR 84(H) <14 IU/mL 11/29/2019 11:57 PM CDT [facility] Blood Collection / Unknown 11/29/2019 5:34 AM CDT 11/29/2019 5:35 AM CDT Anam Kenyon DO CHEMISTRY ORDERABLES Final Resu lt Performing Organization Address City/[facility]/ZIP Co de Phone Number [facility] [address] [place] [address] * TSH (11/29/2019 5:34 AM CDT) Pathologist [facility] TSH 2.82 0.27 - 4.20 uIU/mL 11/29/2019 7:42 AM CDT [facility] Blood Collection / Unknown 11/29/2019 5:34 AM CDT 11/29/2019 5:35 AM CDT us Anam Kenyon DO CHEMISTRY ORDERABLES Final Resu lt [facility] CLIA # [id number] [address] [place] [address] * (ABNORMAL) LIPID PANEL (11/29/2019 5:34 AM CDT) Pathologist [facility] CHOLESTEROL 223(H) <200 mg/dL 11/29/2019 7:42 AM CDT [facility] TRIGLYCERIDE 159(H) <150 mg/dL 11/29/2019 7:42 AM CDT [facility] HDL 38(L) 40 - 59 mg/dL 11/29/2019 7:42 AM CDT [facility] LDL CALCULATED 153(H) <100 mg/dL 11/29/2019 7:42 AM CDT [facility] NON-HDL CHOLESTEROL 185(H) <130 mg/dL 11/29/2019 7:42 AM CDT [facility] Blood Collection / Unknown 11/29/2019 5:34 AM CDT 11/29/2019 5:35 AM CDT Narrative [facility] - 11/29/2019 7:42 AM CDT TOTAL CHOLESTEROL [...] Kenyon DO CHEMISTRY ORDERABLES Final Resu lt [facility] CLIA # [id number] [address] [place] [id number] * (ABNORMAL) HEMOGLOBIN A1C (11/29/2019 5:34 AM CDT) HEMOGLOBIN A1C 7.3(H) <=5.6 % 11/29/2019 7:43 AM CDT [facility] EST. AVG GLUCOSE, A1C 163 mg/dL 11/29/2019 7:43 AM CDT [facility] Blood Collection / Unknown 11/29/2019 5:34 AM CDT 11/29/2019 5:35 AM CDT Narrative [facility] - 11/29/2019 7:43 AM CDT HGB A1C INTERPRETATION NORMAL: <5.7% PRE-DIABETES: 5.7 - 6.4% DIABETES: 6.5% OR GREATER us Anam Kenyon DO CHEMISTRY ORDERABLES Final Resu lt Performing Organization Address [facility]/ZIP Co de Phone Number [facility] CLIA # [id number] [address] [place] [address] * SEDIMENTATION RATE (11/29/2019 5:34 AM CDT) ESR (SEDIMENTATION RATE) 12 0 - 30 mm/Hr 11/29/2019 7:48 AM CDT [facility] Blood Collection / Unknown 11/29/2019 5:34 AM CDT 11/29/2019 5:35 AM CDT us Anam Kenyon DO HEMATOLOGY ORDERABLES Final Res ult Performing Organization Address [facility]/ZIP Co de Phone Number [facility] CLIA # [id number] [address] [place] [address] * (ABNORMAL) COMPREHENSIVE METABOLIC PANEL (11/29/2019 5:34 AM CDT) SODIUM 138 136 - 145 mmol/L 11/29/2019 7:42 AM CDT [facility] POTASSIUM 3.7 3.5 - 5.1 mmol/L 11/29/2019 7:42 AM CDT [facility] CHLORIDE 102 98 - 107 mmol/L 11/29/2019 7:42 AM CDT [facility] CO2 25 22 - 29 mmol/L 11/29/2019 7:42 AM CDT [facility] CALCIUM 9.9 8.6 - 10.0 mg/dL 11/29/2019 7:42 AM CDT [facility] BUN 9 6 - 20 mg/dL 11/29/2019 7:42 AM CDT [facility] CREATININE 0.62 0.51 - 0.95 mg/dL 11/29/2019 7:42 AM [facility] GLUCOSE 76 74 - 99 mg/dL 11/29/2019 7:42 AM [facility] TOTAL PROTEIN 7.1 6.6 - 8.7 g/dL 11/29/2019 7:42 AM [facility] ALBUMIN 4.3 3.5 - 5.2 g/dL 11/29/2019 7:42 AM [facility] BILIRUBIN TOTAL 0.2 <=1.2 mg/dL 11/29/2019 7:42 AM [facility] ALKALINE PHOSPHATASE 83 35 - 104 U/L 11/29/2019 7:42 AM [facility] AST 13 10 - 35 U/L 11/29/2019 7:42 AM [facility] ALT 8(L) 10 - 35 U/L 11/29/2019 7:42 AM [facility] GFR >60 >=60 mL/min/1.7 3 sq meter 11/29/2019 7:42 AM [facility] Comment: eGFR has not been [...] mL/min/1.7 3 sq meter 11/29/2019 7:42 AM [facility] ANION GAP 11(L) 12 - 20 mmol/L 11/29/2019 7:42 AM [facility] Blood Collection / Unknown 11/29/2019 5:34 AM CDT 11/29/2019 5:35 AM CDT us Anam Kenyon DO CHEMISTRY ORDERABLES Final Resu lt [facility] CLIA # [id number] [address] [place] [address] * (ABNORMAL) CBC WITH DIFFERENTIAL (11/29/2019 5:34 AM CDT) WBC 10.6(H) 4.0 - 10.0 K/uL 11/29/2019 7:31 AM [facility] RBC 4.43 3.93 - 5.22 M/uL 11/29/2019 7:31 AM [facility] HEMOGLOBIN 13.4 11.2 - 15.7 g/dL 11/29/2019 7:31 AM [facility] HEMATOCRIT 40.2 34.1 - 44.9 % 11/29/2019 7:31 AM [facility] MCV 90.7 79.4 - 94.8 fL 11/29/2019 7:31 AM [facility] MCH 30.2 25.6 - 32.2 pg 11/29/2019 7:31 AM [facility] MCHC 33.3 32.2 - 35.5 g/dL 11/29/2019 7:31 AM [facility] RDW 12.3 11.0 - 14.5 % 11/29/2019 7:31 AM [facility] RDW-STDEV 40.9 36.9 - 56.9 fL 11/29/2019 7:31 AM [facility] PLATELETS 268 163 - 337 K/uL 11/29/2019 7:31 AM [facility] MPV 9.5(L) 10.0 - 14.8 fL 11/29/2019 7:31 AM [facility] NEUTROPHILS 42 34 - 71 % 11/29/2019 7:31 AM [facility] LYMPHOCYTES 48 19 - 52 % 11/29/2019 7:31 AM [facility] MONOCYTES 5 5 - 13 % 11/29/2019 7:31 AM [facility] EOSINOPHILS 4 1 - 6 % 11/29/2019 7:31 AM [facility] BASOPHILS 1 0 - 1 % 11/29/2019 7:31 AM [facility] IMMATURE GRANULOCYTES 0 % 11/29/2019 7:31 AM [facility] NEUTROPHIL ABSOLUTE 4.44 1.56 - 6.13 K/uL 11/29/2019 7:31 AM [facility] LYMPHOCYTE ABSOLUTE 5.12(H) 1.20 - 3.40 K/uL 11/29/2019 7:31 AM [facility] MONOCYTE ABSOLUTE 0.54(H) 0.24 - 0.36 K/uL 11/29/2019 7:31 AM T [facility] EOSINOPHIL ABSOLUTE 0.38(H) 0.04 - 0.36 K/uL 11/29/2019 7:31 AM [facility] BASOPHILS ABSOLUTE 0.08 0.01 - 0.08 K/uL 11/29/2019 7:31 AM [facility] IMMATURE GRANULOCYTES ABSOLUTE 0.03 K/uL 11/29/2019 7:31 AM [facility] REVIEWED ON SMEAR 020 7:31 AM [facility] Blood Collection / Unknown 11/29/2019 5:34 AM CDT 11/29/2019 5:35 AM CDT us Anam Kenyon DO HEMATOLOGY ORDERABLES Final Res ult [facility] CLIA # [id number] [address] [address] documented in this encounter Visit Diagnoses Not on filedocumented in this encounter Care Teams Spike Driver Relationship Specialty Start Date End Date Rufino Childers MD [address] [address] PCP - General Family Practice 11/10/18 documented as of this encounter
--- OUTSIDE RECORDS SUMMARY | 2024-10-27 14:03 | XMS_ITS | Encounter Summary ---
Author Organization [facility] Address [address] [place] [address] Care Team Providers Care Right Of Way Supervisor Name Role Phone Rufino Childers MD Primary Care Provider +1 [phone] Reason for Visit * Reason Comments Clinical Consult Before Scheduling Encounter Details Date Type Department Care Team (Late st Contact Info) Description 10/20/2024 Nurse Triage [facility] Medicine [address] [address] Rufino Childers MD [facility] [address] [address] Social History Tobacco Use Types Packs/Day Years Used Date Smoking Tobacco: Every Day Cigarettes Smokeless Tobacco: Never Alcohol Use Standard Drinks/Week Comments No 0 (1 standard drink = 0.6 oz pur e alcohol) Comments No Sex and Gender Information Value Date Recorded Sex Assigned at Not on file Legal Sex Female 5:01 AM GROUP COUNSELOR Gender Identity Not on file Sexual Orientation [...] 8:38 AM CDT Copied from [facility] #[id number]. Topic: Symptomatic Care >> Oct 20, 2024 [...] there an encounter open? No Transferred to [facility] line and Taylor answered call. documented in this encounter Plan of Treatment Upcoming Encounters Date Type Department Care Team (Late st Contact Info) Description 01/23/2025 2:00 PM GROUP COUNSELOR Office Visit [facility] [address] [phone] Kirstie Benjamin FNP [address] [place] [address] 03/24/2025 11:20 AM GROUP COUNSELOR Office Visit [facility] [address] [place] [address] Rufino Childers MD [address] [phone] documented as of this encounter Visit Diagnoses Not on filedocumented in this encounter Care Teams Right Of Way Supervisor Relationship Specialty Start Date End Date Rufino Childers MD [address] [phone] PCP - General Family Practice 11/10/18 documented as of this encounter
--- OUTSIDE RECORDS SUMMARY | 2024-10-27 14:03 | XMS_ITS | Encounter Summary ---
Author Organization [facility] Address [address] [place] [address] Care Team Providers Care Sock Ironer Name Role Phone Rufino Childers MD Primary Care Provider [phone] [phone] Encounter Details Date Type Department Care Team (Late Contact Info) Description 10/26/2024 Orders Only [address] [address] Kirstie Benjamin FNP [address] [address] Confusion Social History Tobacco Use Types Packs/Day Years Used Date Smoking Tobacco: Every Day Cigarettes Smokeless Tobacco: Never Alcohol Use Standard Drinks/Week Comments No 0 (1 standard drink = 0.6 oz pur e alcohol) Comments No Sex and Gender Information Value Date Recorded Sex Assigned at Not on file Legal Sex Female 5:01 AM EYELET MAKER Gender Identity Not on file Sexual Orientation Not on file documented as of this encounter Plan of Treatment Upcoming Encounters Date Type Department Care Team (Late Contact Info) Description 01/23/2025 2:00 PM EYELET MAKER Office Visit [address] [address] Kirstie Benjamin [facility] [address] [address] 03/24/2025 11:20 AM EYELET MAKER Office Visit [address] [address] Rufino Childers MD [address] [place] [address] documented as of this encounter Procedures Procedure Name Priority Date/Time Associated Diagnosis Comments MRI BRAIN W WO CONTRAST Stat 10/26/2024 Confusion documented in this encounter Results * MRI BRAIN W WO CONTRAST (10/26/2024) Anatomical Region Laterality Modality Head Magnetic Resonan ce Kirstie Silvina Benjamin SALVAGE CUTTER MR ORDERABLES Final Re sult documented in this encounter Visit Diagnoses Diagnosis Confusion Unspecified psychosis documented in this encounter Care Teams Sock Ironer Relationship Specialty Start Date End Date Rufino Childers MD [address] [phone] PCP - General Family Practice 11/10/18 documented as of this encounter
--- OUTSIDE RECORDS SUMMARY | 2024-10-27 14:03 | XMS_ITS | Encounter Summary ---
Author Organization [facility] Address [address] [place] [address] Care Team Providers Care Power Nut Runner Operator Name Role Phone Rufino Childers MD Primary Care Provider + [phone] Encounter Details Date Type Department Care Team (Late st Contact Info) Description 01/18/2018 Lab Requisition [facility] [address] [address] Rufino Childers MD [address] [place] [phone] Social History Tobacco Use Types Packs/Day Years Used Date Smoking Tobacco: Every Day Cigarettes 1 40 Smokeless Tobacco: Never Alcohol Use Standard Drinks/Week Comments No 0 (1 standard drink = 0.6 oz pur e alcohol) Comments No Sex and Gender Information Value Date Recorded Sex Assigned at Not on file Legal Sex Female 6:48 AM COVERAGE ANALYST Gender Identity Not on file Sexual Orientation Not on file Occupation Industry Job Start Date Job End Date Not on file Not on file Not on file Not on file documented as of this encounter Plan of Treatment Not on file documented as of this encounter Procedures Procedure Name Priority Date/Time Associated Diagnosis Comments HEMOGLOBIN A1C Routine 01/18/2018 8:00 PM COVERAGE ANALYST documented in this encounter Results * (ABNORMAL) HEMOGLOBIN A1C (01/18/2018 8:00 PM COVERAGE ANALYST) HEMOGLOBIN A1C 6.8(H) 4.8 - 5.9 % 01/18/2018 10:12 PM COVERAGE ANALYST [facility] EST. AVG GLUCOSE, A1C 148 mg/dL 01/18/2018 10:12 PM COVERAGE ANALYST [facility] Blood Collection / Unknown 01/18/2018 8:00 PM COVERAGE ANALYST 01/18/2018 9:42 PM COVERAGE ANALYST Narrative [facility] - 01/18/2018 10:12 PM COVERAGE ANALYST HGB A1C INTERPRETATION NORMAL: <5.7% PRE-DIABETES: 5.7 - 6.4% DIABETES: 6.5% OR GREATER Rufino Childers MD CHEMISTRY ORDERABLES Laxmi l Result [facility] CLIA # [id number] [address] [address] documented in this encounter Visit Diagnoses Not on filedocumented in this encounter Care Teams Power Nut Runner Operator Relationship Specialty Start Date End Date Rufino Childers MD [address] [phone] PCP - General Family Practice 11/10/18 documented as of this encounter
--- OUTSIDE RECORDS SUMMARY | 2024-10-27 14:03 | XMS_ITS | Clinical Summary ---
Author Organization [facility] Address [address] Paul: Epic Prelude ADT [place] [address] Care Team Providers Care Archivist Nonprofit Foundation Name Role Phone Rufino Childers MD Primary Care Provider [phone] [phone] Allergies Active Allergy Reactions Criticality Noted Date [...] specified diabetes mellitus with hyperglycemia, unspecified whether longwall headgate operator insulin use (CMS/HCC) Take 1 Tablet (5 mg) by mouth daily with breakfast. 30 Tablet 10/22/19 25 Active diclofenac sodium (VOLTAREN) 75 mg Tablet, Delayed Release (E.C.)Indications: Acute pain of right shoulder Take 1 Tablet (75 mg) by mouth 2 times daily. 60 Tablet 10/22/19 25 Active metFORMIN (GLUCOPHAGE) 500 mg tabletIndications: Other specified diabetes mellitus with hyperglycemia, unspecified whether longwall headgate operator insulin use (CMS/HCC) Take 1 Tablet (500 mg) by mouth 2 times daily with meals. 60 Tablet 10/22/19 25 Active lisinopriL (PRINIVIL) 10 mg tabletIndications: HTN (hypertension), benign 1 Tablet (10 mg) by NG Tube route daily. 100 Tablet 3 10/22/19 25 Active dapagliflozin propanediol (Farxiga) 10 mg TabletIndications: Type 2 diabetes mellitus with hyperglycemia, without long-term current use of insulin ([facility]) Take 1 Tablet (10 mg) by mouth [...] specified diabetes mellitus with hyperglycemia, unspecified whether longwall headgate operator insulin use ([facility]) Take 1 Tablet (500 mg) by mouth 2 times daily with meals. 60 Tablet 09/07/19 25 025 Discontin ued(Reord er) glipiZIDE (GLUCOTROL) 5 mg tabletIndications: Other specified diabetes mellitus with hyperglycemia, unspecified whether penitentiary insulin use (CMS/[facility]) Take 1 Tablet (5 mg) by mouth [...] Encounters Date Type Department Care Team Description 10/27/[address] [address] Kirstie Benjamin FNP Referral (Urgent Neurology Referal) 10/26/2024 Results Follow-Up [address] [address] Kirstie Benjamin FNP MRI BRAIN W WO CONTRAST 10/26/2024 Orders Only [address] [phone] Kirstie Benjamin FNP Confusion 10/26/[address] [address] Rufino Childers MD Provider Call 10/25/2024 2:20 PM CDT Office Visit [address] [phone] Kirstie Benjamin FNP Urinary tract infection without hematuria, site unspecified (Primary Dx); Anxiety state; Primary insomnia; Confusion; Dehydration; Type 2 diabetes mellitus with hyperglycemia, without long-term current use of insulin ([facility]/HCC) 10/25/2024 External Device Data STL ABSTRACTION Provider, Abstract 10/25/2024 External Device Data STL ABSTRACTION Provider, Abstract 10/25/2024 External Device Data STL ABSTRACTION Provider, Abstract 10/25/2024 Nurse Triage [address] [phone] Rufino Childers MD 10/24/2024 Orders Only [facility] [address] [place] [phone] Provider, Abstract 10/22/2024 Results Follow-Up [address] [phone] Kirstie Benjamin FNP MICROALBUMIN/CREATINI NE RATIO, RANDOM UR, LIPID PANEL, HEMOGLOBIN A1C, Additional followed-up results: 3 10/21/2024 4:20 PM CDT Office Visit [address] [phone] Kirstie Benjamin FNP Hyperlipidemia, unspecified hyperlipidemia type (Primary Dx); Type 2 diabetes mellitus with hyperglycemia, without long-term current use of insulin (CMS/HCC); Acute pain of right shoulder; History of fall; Other specified diabetes mellitus with hyperglycemia, unspecified whether longwall headgate operator insulin use (CMS/HCC); HTN (hypertension), benign; Pain of toe of right foot; Rheumatoid arthritis involving multiple sites with positive rheumatoid factor (CMS/HCC); Neuropathy due to secondary diabetes mellitus (CMS/HCC) 10/21/2024 3:30 PM CDT - 10/21/2024 11:59 PM CDT Hospital Encounter [facility] [address] [phone] Kirstie Benjamin FNP Discharge Disposition: Home or Self Care 10/20/2024 Nurse Triage [address] [phone] Rufino Childers MD 10/19/2024 External Device Data STL ABSTRACTION Provider, Abstract 10/18/2024 External Device Data STL ABSTRACTION Provider, Abstract 09/28/2024 External Device Data STL ABSTRACTION Provider, Abstract 09/28/2024 External Device Data STL ABSTRACTION Provider, Abstract 09/27/2024 External Device Data STL ABSTRACTION Provider, Abstract 09/13/2024 External Device Data STL ABSTRACTION Provider, Abstract 09/06/2024 External Device Data STL ABSTRACTION Provider, Abstract 09/06/2024 Orders Only [address] [phone] Zoila Farrell, RN Other specified diabetes mellitus with hyperglycemia, unspecified whether longwall headgate operator insulin use ([facility]) 09/06/[address] [phone] Rufino Childers MD Needs Orders Written; Erroneous encounter-disregard 09/05/[address] [phone] Rufino Childers MD Information; Patient Communication 08/11/2024 Orders Only [address] [phone] Rufino Childers MD Other specified diabetes mellitus with hyperglycemia, unspecified whether penitentiary insulin use ([facility]) 08/09/2024 External Device Data STL ABSTRACTION Provider, [...] on file Legal Sex Female 5:01 AM SHIFTMAN Gender Identity Not on file Sexual Orientation [...] st Contact Info) Description 01/23/2025 2:00 PM SHIFTMAN Office Visit [facility] [address] [address] Kirstie Benjamin FNP [address] [address] 03/24/2025 11:20 AM SHIFTMAN Office Visit [facility] [address] [phone] Rufino Childers MD [address] [address] Health Maintenance Due Date Last Done [...] 06/20/2034 06/20/2024 Medical Devices Implanted Type Area Manager Compliance Device Identifier Shelf Expiration Date Model / Serial / Lot Lens Iol Tecnis Eyhance 19.5 [id number] - [id number] Implanted:Qty: 1 on 07/08/2023 by Deonte Mcnamara MD at [facility] Lens Left: Eye [email or web address] 08/17/2025 [id number] / [id number] / Lens Iol Tecnis Eyhance 19.5 [id number] - [id number] Implanted:Qty: 1 on 09/30/2023 by Deonte Mcnamara MD at [facility] Lens Right: Eye [email or web address] 09/08/2025 [id number] / [id number] / Procedures Procedure Name Priority Date/Time Associated Diagnosis Comments MRI BRAIN W WO CONTRAST Stat 10/26/2024 Confusion POC URINALYSIS DIPSTICK AUTOMATED Routine 10/25/2024 3:10 [...] without long-term current use of insulin (CMS/HCC) LIPID PANEL Routine 10/21/2024 2:56 PM CDT Hyperlipidemia, unspecified hyperlipidemia type MICROALBUMIN/CREATINI NE RATIO, RANDOM UR Routine 10/21/2024 2:56 PM CDT Type 2 diabetes mellitus with hyperglycemia, without long-term current use of insulin (CMS/HCC) HM DIABETES EYE EXAM Routine 05/15/2023 7:29 AM SHIFTMAN MAMMO 3D RC SCREEN BILAT W OR WO CAD Routine 12/17/2022 Encounter for screening mammogram for breast cancer from Last 3 Months or Most Recently Relevant to Health Maintenance Results * MRI BRAIN W WO CONTRAST (10/26/2024) Anatomical Region Laterality Modality Head Magnetic Resonan ce us Kirstie Benjamin BELT MACHINE OPERATOR MR ORDERABLES Final Re sult * (ABNORMAL) POC URINALYSIS DIPSTICK AUTOMATED (10/25/2024 3:10 PM CDT) COLOR UA POC Yellow Pale to Dark Yellow [facility] CLARITY UA POC Clear Clear, Other ME [facility] GLUCOSE UA POC 2+(A) Negative, Normal [facility] BILIRUBIN UA POC Negative Negative [facility] KETONES UA POC 3+(A) Negative [facility] SPECIFIC GRAVITY UA POC 1.020 1.000 - 1.030 [facility] BLOOD UA POC Negative Negative [facility] UA POC 6.0 5.0 - 8.0 [facility] IC [facility] PROTEIN UA POC 1+(A) Negative [facility] UROBILINOGEN UA POC 0.2 <2.0 mg/dL [facility] NITRITE UA POC Negative Negative [facility] LEUKOCYTE ESTERASE UA POC Negative Negative [facility] KIT LOT NUMBER POC [id number] [facility] KIT EXP DATE POC 09/12/2024 [facility] Urine 10/25/2024 3:10 PM CDT Kirstie Benjamin BELT MACHINE OPERATOR POINT OF CARE TESTING Fi nal Result [facility] CLIA# [id number] [address] [place] [address] * (ABNORMAL) POC GLUCOSE (10/25/2024 3:09 PM [...] capillary 10/25/2024 3:09 PM CDT Kirstie Benjamin BELT MACHINE OPERATOR POINT OF CARE TESTING Fi nal Result [facility] [id number] [address] [place] [address] * COMPREHENSIVE METABOLIC PANEL (10/23/2024 10:22 AM [...] a superimposed fracture or dislocation. Kirstie Benjamin [facility] DIAGNOSTIC IMAGING ORDER HEVER Final [...] within a diagnostic category. Test Performed at: [facility] [address] [place] [address] Harriett Oliva MD Urine URINE SPECIMEN OBTAINED BY CLEAN CATCH PROCEDURE / Unknown 10/21/2024 2:56 PM CDT 10/22/2024 2:59 AM CDT Kirstie Benjamin [facility] URINE ORDERABLES Final R esult [facility] [phone] [facility] [address] [place] [address] * CBC WITH DIFFERENTIAL (10/21/2024 2:56 PM CDT) Pathologist [facility] WBC 8.8 3.8 - 10.8 Thousand/u L [...] [facility] Comment: Test Performed at: [facility] [address] Harriett Oliva MD Blood 10/21/2024 2:56 PM CDT 10/22/2024 5:33 AM CDT Kirstie Benjamin BELT MACHINE OPERATOR HEMATOLOGY ORDERABLES Fi nal Result [facility] [phone] [facility] [address] * (ABNORMAL) HEMOGLOBIN A1C (10/21/2024 2:56 PM CDT) HEMOGLOBIN A1C 12.1(H) <5.7 % [facility] Comment: For someone without known diabetes, [...] children. ESTIMATED AVERAGE GLUCOSE (MG/DL) 301 mg/dL [facility] ESTIMATED AVERAGE GLUCOSE (MMOL/L) 16.6 mmol/L [facility] Comment: Test Performed at: [facility] [address] [facility] [place] [address] Harriett Oliva MD Blood 10/21/2024 2:56 PM CDT 10/22/2024 5:33 AM CDT Kirstie YOU CHEMISTRY ORDERABLES Fin al Result [facility] [phone] [facility] [address] [place] [address] * (ABNORMAL) LIPID PANEL (10/21/2024 2:56 PM CDT) CHOLESTEROL 247(H) <200 mg/dL [facility] HDL 35(L) > OR = 50 mg/dL [facility] TRIGLYCERIDE 415(H) <150 mg/dL [facility] Comment: If a non-fasting specimen was collected, consider repeat triglyceride testing on a fasting specimen if clinically indicated. Kwabena et al. J. of Clin. Lipidol. 2015;9:129-169. LDL CALCULATED mg/dL (calc) [facility] Comment: LDL cholesterol not calculated. Triglyceride [...] LDL-C. John KINGSTON et al. KAI. 2013;310(19): 1044-3628 (http://education.Buxfer/faq/EHU204) CHOL/HDL RATIO 7.1(H) <5.0 (calc) [facility] NON-HDL CHOLESTEROL 212(H) <130 mg/dL (calc) [facility] Comment: For patients with diabetes plus 1 major ASCVD risk factor, treating to a non-HDL-C goal of <100 mg/dL (LDL-C of <70 mg/dL) is considered a therapeutic option. Test Performed at: [facility] [address] [place] [address] Harriett Oliva MD Blood 10/21/2024 2:56 PM CDT 10/22/2024 5:33 AM CDT Kirstie Benjamin BELT MACHINE OPERATOR CHEMISTRY ORDERABLES Fin al Result [facility] [phone] [facility] [address] [place] [address] * DIABETES EYE EXAM (05/15/2023 7:29 AM SHIFTMAN) us Abstract Provider HEALTH MAINTENANCE Final Resul t * MAMMO SCRN BILAT 3D RC W OR WO CAD (12/17/2022) Anatomical Region Laterality Modality Breast Bilateral Mammography us Padmini Ricks BELT MACHINE OPERATOR MAMMO ORDERABLES Edited Res ult - Final from Last 3 Months or Most Recently Relevant to Health Maintenance Advance Directives For more information, please contact: [phone] * Full Code (Latest Code Status on File) Date Activated Date Inactivated Comments 09/30/2023 9:56 AM 09/30/2023 12:49 PM * Full Code Date Activated Date Inactivated Comments 07/08/2023 12:37 PM 07/08/2023 4:11 PM Care Teams Archivist Nonprofit Foundation Relationship Specialty Start Date End Date Rufino Childers MD [address] [phone] PCP - General Family Practice 11/10/18
--- OUTSIDE RECORDS SUMMARY | 2024-10-27 14:03 | XMS_ITS | Encounter Summary ---
Author Organization [facility] Address [address] [place] [address] Care Team Providers Care Hoop Riveter Name Role Phone Rufino Childers MD Primary Care Provider +[phone] Reason for Referral * Eval and Treat (8-30 Days) - Pending Review Specialty Diagnoses / Procedures Referred By Maryann blackburn Referred To Contact Neurology Diagnoses Abnormal brain MRI Confusion Procedures TX OFFICE/OUTPATIENT ESTABLISHED MOD MDM 30 MIN TX OFFICE/OUTPATIENT NEW MODERATE MDM 45 MINUTES Mariya Michel FNP [address] [address] Phone: tel: fax: [address] [address] Phone: tel: fax: Referral ID Status Reason Start Date Expiration Date V isits Requested Visits Authorized [id number] Pending Review 10/26/2024 10/27/2025 1 1 Reason for Visit * Reason Comments Provider Call Encounter Details Date Type Department Care Team (Late st Contact Info) Description 10/26/[address] [facility] Family Medicine [place] [address] [address] Rufino Childers MD [address] [address] Provider Call Social History Tobacco Use Types Packs/Day Years Used Date Smoking Tobacco: Every Day Cigarettes Smokeless Tobacco: Never Alcohol Use Standard Drinks/Week Comments No 0 (1 standard drink = 0.6 oz pur e alcohol) Comments No Sex and Gender Information Value Date Recorded Sex Assigned at Not on file Legal Sex Female 5:01 AM DOOR TO DOOR SELLING AGENT Gender Identity Not on file Sexual Orientation Not on file documented as of this encounter Miscellaneous Notes * Addendum Note - Mariya Michel FNP - 10/26/2024 1:34 PM CDTAddended by: MARIYA MICHEL on: 10/26/2024 01:34 PM Modules accepted: Orders * Telephone Encounter - Bria Sheriff LPN - 10/26/2024 1:27 PM CDT 10/26/2024 1:27 PM KENYATTA Sow received call from Dr. Justin. KENYATTA Sow states MRI showed possible demyelating process, drive in teller lymphoma, or embolic infarct. [facility] Called and notified Nisa (daughter on PHI) of results. She voiced understanding. She request that referral go to [place]. Bria Sheriff LPN, 10/26/2024 1:28 PM * Telephone Encounter - Mary Espino - 10/26/2024 1:23 PM CDT 10/26/2024 1:23 PM Transferred call to Mariya Hernandez * Telephone Encounter - Minna Mancini - 10/26/2024 1:22 PM CDT Copied from [facility] #[id number]. Topic: Apsgfbec-Ca-Dijbyoop Call >> Oct 26, 2024 1:21 PM Minna Alvarez wrote: Caller is requesting to speak with Clinical Care Team. Caller Name: Dr. Justin Callback Number: Is the caller a Physician, Nurse Practitioner or Physician Furnace Process Plant Operator? Yes Caller is a Provider (Physician, Nurse Practitioner or Physician Furnace Process Plant Operator) and is requesting to speak with Clinical Care Team. Call Notes: Dr. Justin wanting to talk to Mariya Transferred to Backline/SHORE WORKER Line and Mary answered call. documented in this encounter Plan of Treatment Upcoming Encounters Date Type Department Care Team (Late st Contact Info) Description 01/23/2025 2:00 PM DOOR TO DOOR SELLING AGENT Office Visit [facility] [address] [place] [phone] Mariya Michel FNP [address] [place] [address] 03/24/2025 11:20 AM DOOR TO DOOR SELLING AGENT Office Visit [facility] [address] [place] [address] Rufino Childers MD [address] [place] [phone] Scheduled Referrals Name Type Priority Associated Diagnoses Orde r Schedule AMB REFERRAL TO NEUROLOGY Outpatient Referral Routine Abnormal brain MRI Confusion Ordered: 10/26/2024 documented as of this encounter Visit Diagnoses Diagnosis Abnormal brain MRI- Primary Nonspecific (abnormal) findings on radiological and other examination of skull and head Confusion Unspecified psychosis documented in this encounter Care Teams Hoop Riveter Relationship Specialty Start Date End Date Rufino Childers MD [address] [place] [phone] PCP - General Family Practice 11/10/18 documented as of this encounter
--- OUTSIDE RECORDS SUMMARY | 2024-10-27 14:03 | XMS_ITS | Encounter Summary ---
Author Organization [facility] Address [address] [place] [address] Care Team Providers Care Instrument Repair Specialist Name Role Phone Rufino Childers MD Primary Care Provider [phone] Reason for Visit * Auth/Cert Specialty Diagnoses / Procedures Referred By Maryann blackburn Referred To Contact Laboratory [facility] Laboratory Services [address] [address] Phone: tel: fax: Referral ID Status Reason Start Date Expiration Date Visits Re quested Visits Authorized [id number] 1 1 Encounter Details Date Type Department Care Team ([facility] Contact Info) Description 12/25/2020 Lab Requisition [facility] Laboratory [facility] [address] [address] Renetta Dunn [address] [phone] Social History Tobacco Use Types Packs/Day Years Used Date Smoking Tobacco: Every Day Cigarettes Smokeless Tobacco: Never Alcohol Use Standard Drinks/Week Comments No 0 (1 standard drink = 0.6 oz pur e alcohol) Comments Unknown Sex and Gender Information Value Date Recorded Sex Assigned at Not on file Legal Sex Female 5:01 AM ICT TEACHER Gender Identity Not on file Sexual Orientation Not on file documented as of this encounter Plan of Treatment Upcoming Encounters Date Type Department Care Team ([facility] Contact Info) Description 01/23/2025 2:00 PM ICT TEACHER Office Visit [facility] [address] [address] Kirstie Benjamin FNP [address] [place] [address] 03/24/2025 11:20 AM ICT TEACHER Office Visit [facility] [address] [place] [address] Rufino Childers MD [address] [place] [address] documented as of this encounter Procedures [...] 143 <200 mg/dL 12/25/2020 9:22 AM CDT [facility] TRIGLYCERIDE 232(H) <150 mg/dL 12/25/2020 9:22 AM CDT [facility] HDL 40 40 - 59 mg/dL 12/25/2020 9:22 AM CDT [facility] LDL CALCULATED 57 <100 mg/dL 12/25/2020 9:22 AM CDT [facility] NON-HDL CHOLESTEROL 103 <130 mg/dL 12/25/2020 9:22 AM T [facility] Blood 12/24/2020 7:00 PM CDT 12/25/2020 8:04 AM CDT Narrative [facility] - 12/25/2020 9:22 AM CDT TOTAL CHOLESTEROL [...] ORDERABLES Final Resul t Performing Organization Address [facility] de Phone Number [facility] [id number] [address] [place] [phone] * (ABNORMAL) HEMOGLOBIN A1C (12/24/2020 7:00 PM CDT) HEMOGLOBIN A1C 9.5(H) <=5.6 % 12/25/2020 9:22 AM CDT [facility] EST. AVG GLUCOSE, A1C 226 mg/dL 12/25/2020 9:22 AM CDT [facility] Blood Collection / Unknown 12/24/2020 7:00 PM CDT 12/25/2020 8:04 AM CDT Narrative [facility] - 12/25/2020 9:22 AM CDT HGB A1C INTERPRETATION NORMAL: <5.7% PRE-DIABETES: 5.7 - 6.4% DIABETES: 6.5% OR GREATER Renetta YOU CHEMISTRY ORDERABLES Final Resul t Performing Organization Address [facility] Co de Phone Number [facility] # [id number] [address] [place] [phone] * (ABNORMAL) COMPREHENSIVE METABOLIC PANEL (12/24/2020 7:00 PM CDT) SODIUM 136 136 - 145 mmol/L 12/25/2020 9:22 AM [facility] POTASSIUM 3.5 3.5 - 5.1 mmol/L 12/25/2020 9:22 AM [facility] CHLORIDE 99 98 - 107 mmol/L 12/25/2020 9:22 AM [facility] CO2 25 22 - 29 mmol/L 12/25/2020 9:22 AM [facility] CALCIUM 9.5 8.8 - 10.2 mg/dL 12/25/2020 9:22 AM [facility] BUN 10 8 - 23 mg/dL 12/25/2020 9:22 AM [facility] CREATININE 0.61 0.51 - 0.95 mg/dL 12/25/2020 9:22 AM [facility] GLUCOSE 256(H) 74 - 99 mg/dL 12/25/2020 9:22 AM [facility] TOTAL PROTEIN 6.9 6.6 - 8.7 g/dL 12/25/2020 9:22 AM [facility] ALBUMIN 4.4 3.5 - 5.2 g/dL 12/25/2020 9:22 AM [facility] BILIRUBIN TOTAL 0.2 <=1.2 mg/dL 12/25/2020 9:22 AM [facility] ALKALINE PHOSPHATASE 86 35 - 104 U/L 12/25/2020 9:22 AM [facility] AST 11 10 - 35 U/L 12/25/2020 9:22 AM [facility] ALT 11 10 - 35 U/L 12/25/2020 9:22 AM [facility] GFR >60 mL/min/1.7 3 sq meter 12/25/2020 9:22 AM [facility] Comment: eGFR has not been validated [...] 3 sq meter 12/25/2020 9:22 AM CDT [facility] ANION GAP 12 12 - 20 mmol/L 12/25/2020 9:22 AM T [facility] Blood 12/24/2020 7:00 PM CDT 12/25/2020 8:04 AM CDT us Renetta Dunn PRODUCTION COORDINATOR CHEMISTRY ORDERABLES Final Resul t [facility] # [id number] [address] [place] [id number] * (ABNORMAL) CBC WITH DIFFERENTIAL (12/24/2020 7:00 PM CDT) WBC 9.9 4.0 - 10.0 K/uL 12/25/2020 8:58 AM [facility] RBC 4.34 3.93 - 5.22 M/uL 12/25/2020 8:58 AM [facility] HEMOGLOBIN 13.0 11.2 - 15.7 g/dL 12/25/2020 8:58 AM [facility] HEMATOCRIT 40.0 34.1 - 44.9 % 12/25/2020 8:58 AM [facility] MCV 92.2 79.4 - 94.8 fL 12/25/2020 8:58 AM [facility] MCH 30.0 25.6 - 32.2 pg 12/25/2020 8:58 AM [facility] MCHC 32.5 32.2 - 35.5 g/dL 12/25/2020 8:58 AM [facility] RDW 12.4 11.0 - 14.5 % 12/25/2020 8:58 AM [facility] RDW-STDEV 42.2 36.9 - 56.9 fL 12/25/2020 8:58 AM [facility] PLATELETS 289 163 - 337 K/uL 12/25/2020 8:58 AM [facility] MPV 9.8(L) 10.0 - 14.8 fL 12/25/2020 8:58 AM [facility] NEUTROPHILS 43 34 - 71 % 12/25/2020 8:58 AM [facility] LYMPHOCYTES 47 19 - 52 % 12/25/2020 8:58 AM [facility] MONOCYTES 6 5 - 13 % 12/25/2020 8:58 AM [facility] EOSINOPHILS 3 1 - 6 % 12/25/2020 8:58 AM [facility] BASOPHILS 1 0 - 1 % 12/25/2020 8:58 AM [facility] IMMATURE GRANULOCYTES 0 % 12/25/2020 8:58 AM [facility] NEUTROPHIL ABSOLUTE 4.28 1.56 - 6.13 K/uL 12/25/2020 8:58 AM [facility] LYMPHOCYTE ABSOLUTE 4.65(H) 1.20 - 3.40 K/uL 12/25/2020 8:58 AM [facility] MONOCYTE ABSOLUTE 0.55(H) 0.24 - 0.36 K/uL 12/25/2020 8:58 AM [facility] EOSINOPHIL ABSOLUTE 0.33 0.04 - 0.36 K/uL 12/25/2020 8:58 AM [facility] BASOPHILS ABSOLUTE 0.05 0.01 - 0.08 K/uL 12/25/2020 8:58 AM [facility] IMMATURE GRANULOCYTES ABSOLUTE 0.02 K/uL 12/25/2020 8:58 AM [facility] Blood 12/24/2020 7:00 PM CDT 12/25/2020 8:04 AM CDT us Renetta Dunn PRODUCTION COORDINATOR HEMATOLOGY ORDERABLES Final Resu lt [facility] # [id number] [address] [address] documented in this encounter Visit Diagnoses Not on filedocumented in this encounter Care Teams Instrument Repair Specialist Relationship Specialty Start Date End Date Rufino Childers MD [address] [address] PCP - General Family Practice 11/10/18 documented as of this encounter
--- OUTSIDE RECORDS SUMMARY | 2024-10-27 14:03 | XMS_ITS | Encounter Summary ---
Author Organization [facility] Address [address] [place] [address] Care Team Providers Care Tankroom Worker Name Role Phone Rufino Childers MD Primary Care Provider + [phone] Encounter Details Date Type Department Care Team ([facility] st Contact Info) Description 07/13/2018 Lab Requisition [facility] Laboratory Services [place] [address] [place] [address] Dimas Carr, SUBCONTRACT ADMINISTRATOR [address] [address] Social History Tobacco Use Types Packs/Day Years Used Date Smoking Tobacco: Every Day Cigarettes 1 40 Smokeless Tobacco: Never Alcohol Use Standard Drinks/Week Comments No 0 (1 standard drink = 0.6 oz pur e alcohol) Comments No Sex and Gender Information Value Date Recorded Sex Assigned at Not on file 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 Gender Identity Not on file Sexual Orientation [...] 4.0 - 10.0 K/uL 07/13/2018 2:33 AM [facility] RBC 4.62 3.93 - 5.22 M/uL 07/13/2018 2:33 AM [facility] HEMOGLOBIN 13.6 11.2 - 15.7 g/dL 07/13/2018 2:33 AM [facility] HEMATOCRIT 42.8 34.1 - 44.9 % 07/13/2018 2:33 AM [facility] MCV 92.6 79.4 - 94.8 fL 07/13/2018 2:33 AM [facility] MCH 29.4 25.6 - 32.2 pg 07/13/2018 2:33 AM [facility] MCHC 31.8(L) 32.2 - 35.5 g/dL 07/13/2018 2:33 AM [facility] RDW 13.3 11.0 - 14.5 % 07/13/2018 2:33 AM [facility] RDW-STDEV 43.6 36.9 - 56.9 fL 07/13/2018 2:33 AM [facility] PLATELETS 302 163 - 337 K/uL 07/13/2018 2:33 AM [facility] MPV 9.7(L) 10.0 - 14.8 fL 07/13/2018 2:33 AM [facility] NEUTROPHILS 34 34 - 71 % 07/13/2018 2:33 AM [facility] LYMPHOCYTES 52 19 - 52 % 07/13/2018 2:33 AM [facility] MONOCYTES 8 5 - 13 % 07/13/2018 2:33 AM [facility] EOSINOPHILS 5 1 - 6 % 07/13/2018 2:33 AM [facility] BASOPHILS 0 0 - 1 % 07/13/2018 2:33 AM [facility] IMMATURE GRANULOCYTES 0 % 07/13/2018 2:33 AM [facility] NEUTROPHIL ABSOLUTE 3.61 1.56 - 6.13 K/uL 07/13/2018 2:33 AM T [facility] LYMPHOCYTE ABSOLUTE 5.51(H) 1.20 - 3.40 K/uL 07/13/2018 2:33 AM [facility] MONOCYTE ABSOLUTE 0.83(H) 0.24 - 0.36 K/uL 07/13/2018 2:33 AM [facility] EOSINOPHIL ABSOLUTE 0.53(H) 0.04 - 0.36 K/uL 07/13/2018 2:33 AM [facility] BASOPHILS ABSOLUTE 0.04 0.01 - 0.08 K/uL 07/13/2018 2:33 AM [facility] IMMATURE GRANULOCYTES ABSOLUTE 0.03 K/uL 07/13/2018 2:33 AM [facility] Blood Collection / Unknown 07/12/2018 10:00 PM CDT 07/13/2018 2:29 AM CDT us Dj Gross SUBCONTRACT ADMINISTRATOR HEMATOLOGY ORDERABLES Final Resu lt [facility] CLIA # [id number] [address] [place] [address] * COMPREHENSIVE METABOLIC PANEL (07/12/2018 10:00 PM CDT) SODIUM 141 136 - 145 mmol/L 07/13/2018 2:31 AM [facility] POTASSIUM 3.8 3.5 - 5.1 mmol/L 07/13/2018 2:31 AM [facility] CHLORIDE 103 98 - 107 mmol/L 07/13/2018 2:31 AM [facility] CO2 25 22 - 29 mmol/L 07/13/2018 2:31 AM [facility] CALCIUM 9.7 8.6 - 10.0 mg/dL 07/13/2018 2:31 AM [facility] BUN 14 6 - 20 mg/dL 07/13/2018 2:31 AM [facility] CREATININE 0.66 0.51 - 0.95 mg/dL 07/13/2018 2:31 AM [facility] GLUCOSE 95 74 - 99 mg/dL 07/13/2018 2:31 AM [facility] TOTAL PROTEIN 7.4 6.6 - 8.7 g/dL 07/13/2018 2:31 AM [facility] ALBUMIN 4.3 3.5 - 5.2 g/dL 07/13/2018 2:31 AM [facility] BILIRUBIN TOTAL <0.2 0.0 - 1.2 mg/dL 07/13/2018 2:31 AM [facility] ALKALINE PHOSPHATASE 82 35 - 104 U/L 07/13/2018 2:31 AM [facility] AST 12 10 - 35 U/L 07/13/2018 2:31 AM [facility] ALT 10 10 - 35 U/L 07/13/2018 2:31 AM [facility] GFR >60 >=60 mL/min/1.7 3 sq meter 07/13/2018 2:31 AM [facility] Comment: eGFR has not been [...] mL/min/1.7 3 sq meter 07/13/2018 2:31 AM [facility] ANION GAP 13 12 - 20 mmol/L 07/13/2018 2:31 AM [facility] Blood Collection / Unknown 07/12/2018 10:00 PM CDT 07/13/2018 2:10 AM CDT us Dj Gross SUBCONTRACT ADMINISTRATOR CHEMISTRY ORDERABLES Final Resul t [facility] CLIA # [id number] [address] [address] * (ABNORMAL) HEMOGLOBIN A1C (07/12/2018 10:00 PM CDT) HEMOGLOBIN A1C 6.5(H) 4.8 - 5.9 % 07/13/2018 2:46 AM CDT [facility] EST. AVG GLUCOSE, A1C 140 mg/dL 07/13/2018 2:46 AM CDT [facility] Blood Collection / Unknown 07/12/2018 10:00 PM CDT 07/13/2018 2:30 AM CDT Narrative [facility] - 07/13/2018 2:46 AM CDT HGB A1C INTERPRETATION NORMAL: <5.7% PRE-DIABETES: 5.7 - 6.4% DIABETES: 6.5% OR GREATER us Dj Gross SUBCONTRACT ADMINISTRATOR CHEMISTRY ORDERABLES Final Resul t [facility] CLIA # [id number] [address] [id number] documented in this encounter Visit Diagnoses Not on filedocumented in this encounter Care Teams Tankroom Worker Relationship Specialty Start Date End Date Rufino Childers MD [address] [phone] PCP - General Family Practice 11/10/18 documented as of this encounter
--- OUTSIDE RECORDS SUMMARY | 2024-10-27 14:03 | XMS_ITS | Encounter Summary ---
Author Organization [facility] Address [address] [place] [address] Care Team Providers Care Business Applications Analyst Name Role Phone Rufino Childers MD Primary Care Provider [phone] Encounter Details Date Type Department Care Team (Late st Contact Info) Description 08/24/2017 Lab Requisition [facility] Laboratory Services [place] [address] [place] [address] Flavio Flores, WIL [address] [place] [address] Social History Tobacco Use Types Packs/Day Years Used Date Smoking Tobacco: Every Day Cigarettes 1 30 Smokeless Tobacco: Never Alcohol Use Standard Drinks/Week Comments No 0 (1 standard drink = 0.6 oz pur e alcohol) Comments No Sex and Gender Information Value Date Recorded Sex Assigned at Not on file 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 Gender Identity Not on file Sexual [...] SCREEN W/REFLEX (08/24/2017 9:00 PM CDT) Pathologist [facility] GLORY SCREEN Negative Negative 08/26/2017 3:28 PM CDT [facility] Blood Collection / Unknown 08/24/2017 9:00 PM CDT 08/24/2017 11:20 PM CDT Flavio Flores HVAC ENGINEERING TECHNICIAN CHEMISTRY ORDERABLES Final Resu lt Performing Organization Address City/[facility]/ZIP Co de Phone Number [facility] CLIA# [id number] [address] [place], [place] [id number] * (ABNORMAL) SEDIMENTATION RATE (08/24/2017 9:00 PM CDT) Pathologist [facility] ESR (SEDIMENTATION RATE) 31(H) 0 - 30 mm/Hr 08/24/2017 11:50 PM CDT [facility] Blood Collection / Unknown 08/24/2017 9:00 PM CDT 08/24/2017 11:20 PM CDT Flavio Flores HVAC ENGINEERING TECHNICIAN HEMATOLOGY ORDERABLES Final Res ult Performing Organization Address City/[facility]/ZIP Co de Phone Number [facility] CLIA # [id number] [address] [place] [phone] * (ABNORMAL) RHEUMATOID FACTOR (08/24/2017 9:00 PM CDT) Pathologist [facility] RHEUMATOID FACTOR 51(H) <14 IU/mL 08/25/2017 10:50 PM CDT [facility] Blood Collection / Unknown 08/24/2017 9:00 PM CDT 08/24/2017 11:20 PM CDT Flavio Flores HVAC ENGINEERING TECHNICIAN CHEMISTRY ORDERABLES Final Resu lt Performing Organization Address City/[facility]/ZIP Co de Phone Number [facility] CLIA# [id number] [address] [place], [place] [address] documented in this encounter Visit Diagnoses Not on filedocumented in this encounter Care Teams Business Applications Analyst Relationship Specialty Start Date End Date Rufino Childers MD [address] [address] PCP - General Family Practice 11/10/18 documented as of this encounter
--- OUTSIDE RECORDS SUMMARY | 2024-10-27 14:03 | XMS_ITS | Encounter Summary ---
Author Organization [facility] Address [address] [place] [address] Care Team Providers Care Pattern Marking Supervisor Name Role Phone Rufino Childers MD Primary Care Provider + [phone] Encounter Details Date Type Department Care Team (Late st Contact Info) Description 05/23/2019 Lab Requisition [facility] Laboratory Services [place] [address] [address] Kirstie Benjamin, [facility] [address] [place] [address] Social History Tobacco Use Types Packs/Day Years Used Date Smoking Tobacco: Every Day Cigarettes 1 40 Smokeless Tobacco: Never Alcohol Use Standard Drinks/Week Comments No 0 (1 standard drink = 0.6 oz pur e alcohol) Comments No Sex and Gender Information Value Date Recorded Sex Assigned at Not on file 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 Gender Identity Not on file Sexual Orientation [...] - 10.0 K/uL 05/23/2019 9:44 PM CDT [facility] RBC 4.64 3.93 - 5.22 M/uL 05/23/2019 9:44 PM [facility] HEMOGLOBIN 13.7 11.2 - 15.7 g/dL 05/23/2019 [facility] HEMAT[facility]IT 42.7 34.1 - 44.9 % 05/23/2019 9:44 PM [facility] MCV 92.0 79.4 - 94.8 fL 05/23/2019 9:44 PM [facility] MCH 29.5 25.6 - 32.2 pg 05/23/2019 9:44 PM [facility] MCHC 32.1(L) 32.2 - 35.5 g/dL 05/23/2019 9:44 PM [facility] RDW 13.3 11.0 - 14.5 % 05/23/2019 9:44 PM [facility] RDW-STDEV 43.4 36.9 - 56.9 fL 05/23/2019 9:44 PM [facility] PLATELETS 281 163 - 337 K/uL 05/23/2019 9:44 PM [facility] MPV 10.1 10.0 - 14.8 fL 05/23/2019 9:44 PM [facility] NEUTROPHILS 49 34 - 71 % 05/23/2019 9:44 PM [facility] LYMPHOCYTES 40 19 - 52 % 05/23/2019 9:44 PM [facility] MONOCYTES 7 5 - 13 % 05/23/2019 9:44 PM [facility] EOSINOPHILS 3 1 - 6 % 05/23/2019 9:44 PM [facility] BASOPHILS 0 0 - 1 % 05/23/2019 9:44 PM CDT [facility] IMMATURE GRANULOCYTES 0 % 05/23/2019 9:44 PM CDT [facility] NEUTROPHIL ABSOLUTE 5.03 1.56 - 6.13 K/uL 05/23/2019 9:44 PM CDT [facility] LYMPHOCYTE ABSOLUTE 4.13(H) 1.20 - 3.40 K/uL 05/23/2019 9:44 PM CDT [facility] MONOCYTE ABSOLUTE 0.71(H) 0.24 - 0.36 K/uL 05/23/2019 9:44 PM CDT [facility] EOSINOPHIL ABSOLUTE 0.34 0.04 - 0.36 K/uL 05/23/2019 9:44 PM CDT [facility] BASOPHILS ABSOLUTE 0.04 0.01 - 0.08 K/uL 05/23/2019 9:44 PM CDT [facility] IMMATURE GRANULOCYTES ABSOLUTE 0.01 K/uL 05/23/2019 9:44 PM CDT [facility] Blood Collection / Unknown 05/23/2019 7:18 PM CDT 05/23/2019 7:18 PM CDT us Kirstie Benjamin TAX PROFESSIONAL HEMATOLOGY ORDERABLES Fi nal Result [facility] CLIA # [id number] [address] [place] [address] * (ABNORMAL) HEMOGLOBIN A1C (05/23/2019 7:18 PM CDT) HEMOGLOBIN A1C 6.7(H) <=5.6 % 05/23/2019 10:17 PM CDT [facility] EST. AVG GLUCOSE, A1C 146 mg/dL 05/23/2019 10:17 PM CDT [facility] Blood Collection / Unknown 05/23/2019 7:18 PM CDT 05/23/2019 7:18 PM CDT Narrative [facility] - 05/23/2019 10:17 PM CDT HGB A1C INTERPRETATION NORMAL: <5.7% PRE-DIABETES: 5.7 - 6.4% DIABETES: 6.5% OR GREATER Kirstie Benjamin TAX PROFESSIONAL CHEMISTRY ORDERABLES Fin al Result [facility] CLIA # [id number] [address] [address] * (ABNORMAL) COMPREHENSIVE METABOLIC PANEL (05/23/2019 7:18 PM CDT) SODIUM 139 136 - 145 mmol/L 05/23/2019 9:46 PM [facility] POTASSIUM 3.8 3.5 - 5.1 mmol/L 05/23/2019 9:46 PM [facility] CHLORIDE 101 98 - 107 mmol/L 05/23/2019 9:46 PM [facility] CO2 26 22 - 29 mmol/L 05/23/2019 9:46 PM [facility] CALCIUM 9.8 8.6 - 10.0 mg/dL 05/23/2019 9:46 PM [facility] BUN 14 6 - 20 mg/dL 05/23/2019 9:46 PM [facility] CREATININE 0.53 0.51 - 0.95 mg/dL 05/23/2019 9:46 PM [facility] GLUCOSE 114(H) 74 - 99 mg/dL 05/23/2019 9:46 PM [facility] TOTAL PROTEIN 7.8 6.6 - 8.7 g/dL 05/23/2019 9:46 PM [facility] ALBUMIN 4.4 3.5 - 5.2 g/dL 05/23/2019 9:46 PM [facility] BILIRUBIN TOTAL <0.2 <=1.2 mg/dL 05/23/2019 9:46 PM [facility] ALKALINE PHOSPHATASE 94 35 - 104 U/L 05/23/2019 9:46 PM [facility] AST 10 10 - 35 U/L 05/23/2019 9:46 PM [facility] ALT 8(L) 10 - 35 U/L 05/23/2019 9:46 PM CDT [facility] GFR >60 >=60 mL/min/1.7 3 sq meter 05/23/2019 9:46 PM CDT [facility] Comment: eGFR has not been validated [...] 3 sq meter 05/23/2019 9:46 PM CDT [facility] ANION GAP 12 12 - 20 mmol/L 05/23/2019 9:46 PM CDT [facility] Blood Collection / Unknown 05/23/2019 7:18 PM CDT 05/23/2019 7:18 PM CDT us Kirstie Benjamin TAX PROFESSIONAL CHEMISTRY ORDERABLES Fin al Result [facility] CLIA # [id number] [address] [place] [address] * (ABNORMAL) LIPID PANEL (05/23/2019 7:18 PM CDT) CHOLESTEROL 230(H) <200 mg/dL 05/23/2019 9:47 PM CDT [facility] TRIGLYCERIDE 216(H) <150 mg/dL 05/23/2019 9:47 PM CDT [facility] HDL 39(L) 40 - 59 mg/dL 05/23/2019 9:47 PM T [facility] LDL CALCULATED 148(H) <100 mg/dL 05/23/2019 9:47 PM CDT [facility] NON-HDL CHOLESTEROL 191(H) <130 mg/dL 05/23/2019 9:47 PM T [facility] Blood Collection / Unknown 05/23/2019 7:18 PM CDT 05/23/2019 7:18 PM CDT Narrative [facility] - 05/23/2019 9:47 PM CDT TOTAL CHOLESTEROL [...] for Lipid Panels (NCEP/AMA) . Kirstie Benjamin [employer] PROFESSION[employer] CHEMISTRY ORDERABLES Fin al Result [facility] CLIA # [id number] [address] [address] documented in this encounter Visit Diagnoses Not on filedocumented in this encounter Care Teams Pattern Marking Supervisor Relationship Specialty Start Date End Date Rufino Childers MD [address] [id number] PCP - General Family Practice 11/10/18 documented as of this encounter
--- OUTSIDE RECORDS SUMMARY | 2024-10-27 14:03 | XMS_ITS | Encounter Summary ---
Author Organization [facility] Address [address] [place] [address] Care Team Providers Care Mainframe Systems Programmer Name Role Phone Rufino Childers MD Primary Care Provider [phone] [phone] Encounter Details Date Type Department Care Team (Late st Contact Info) Description 04/08/2016 Lab Requisition [facility] Laboratory Services [place] [address] [place] [address] Renay Castillo MD [address] [place] [address] Social History Tobacco Use Types Packs/Day Years Used Date Smoking Tobacco: Every Day Cigarettes 1 30 Smokeless Tobacco: Never Alcohol Use Standard Drinks/Week Comments No 0 (1 standard drink = 0.6 oz pur e alcohol) Comments No Sex and Gender Information Value Date Recorded Sex Assigned at Not on file Legal Sex Female 6:48 AM 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 Gender Identity Not on file Sexual Orientation Not on file Occupation Industry Job Start Date Job End Date Not on file Not on file Not on file Not on file documented as of this encounter Plan of Treatment Not on file documented as of this encounter Procedures Procedure Name Priority Date/Time Associated Diagnosis Comments DIFFERENTIAL, MANUAL Routine 04/07/2016 5:00 PM DRY 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 CBC WITH DIFFERENTIAL Routine 04/07/2016 5:00 PM DRY 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 HEMOGLOBIN A1C Routine 04/07/2016 5:00 PM DRY 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 COMPREHENSIVE METABOLIC PANEL Routine 04/07/2016 5:00 PM DRY 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 documented in this encounter Results * (ABNORMAL) MANUAL DIFFERENTIAL (04/07/2016 5:00 PM DRY 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) SEGMENTED NEUTROPHILS 40(L) 45 - 70 % 04/08/2016 1:12 PM [facility] LYMPHOCYTES RELATIVE 56(H) 20 - 45 % 04/08/2016 1:12 PM [facility] MONOCYTES RELATIVE 4 2 - 8 % 04/08/2016 1:12 PM [facility] NEUTROPHILS ABSOLUTE COUNT 4.04 1.78 - 5.38 K/uL 04/08/2016 1:12 PM [facility] LYMPHOCYTES ABSOLUTE 5.66(H) 1.20 - 4.00 K/uL 04/08/2016 1:12 PM [facility] MONOCYTES ABSOLUTE 0.40 0.30 - 0.82 K/uL 04/08/2016 1:12 PM [facility] TOTAL CELLS COUNTED IN DIFF 100 04/08/2016 1:12 PM [facility] PLATELET EST. Adequate 04/08/2016 1:12 PM [facility] RBC MORPHOLOGY Normal 04/08/2016 1:12 PM [facility] Blood Collection / Unknown 04/07/2016 5:00 PM DRY 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 04/08/2016 10:14 AM DRY 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 us Renay Castillo MD HEMATOLOGY ORDERABLES COM Final Result [facility] CLIA # [id number] [address] [place] [address] * (ABNORMAL) HEMOGLOBIN A1C (04/07/2016 5:00 PM DRY 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) HEMOGLOBIN A1C 7.7(H) 4.8 - 5.9 % 04/08/2016 11:18 AM [facility] EST. AVG GLUCOSE, A1C 174 mg/dL 04/08/2016 11:18 AM [facility] Blood Collection / Unknown 04/07/2016 5:00 PM DRY 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 04/08/2016 10:14 AM DRY 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 us Renay Castillo MD CHEMISTRY ORDERABLES Final Resul t [facility] CLIA # [id number] [address] [address] * (ABNORMAL) COMPREHENSIVE METABOLIC PANEL (04/07/2016 5:00 PM DRY 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) SODIUM 137 136 - 145 mmol/L 04/08/2016 11:18 AM [facility] POTASSIUM 4.3 3.5 - 5.1 mmol/L 04/08/2016 11:18 AM [facility] CHLORIDE 98 98 - 107 mmol/L 04/08/2016 11:18 AM [facility] CO2 26 22 - 29 mmol/L 04/08/2016 11:18 AM [facility] CALCIUM 9.8 8.6 - 10.0 mg/dL 04/08/2016 11:18 AM [facility] BUN 14 6 - 20 mg/dL 04/08/2016 11:18 AM [facility] CREATININE 0.61 0.51 - 0.95 mg/dL 04/08/2016 11:18 AM [facility] GLUCOSE 118(H) 74 - 106 mg/dL 04/08/2016 11:18 AM [facility] TOTAL PROTEIN 7.3 6.6 - 8.7 g/dL 04/08/2016 11:18 AM [facility] ALBUMIN 4.4 3.5 - 5.2 g/dL 04/08/2016 11:18 AM [facility] BILIRUBIN TOTAL <0.2 0.0 - 1.2 mg/dL 04/08/2016 11:18 AM [facility] ALKALINE PHOSPHATASE 73 35 - 104 U/L 04/08/2016 11:18 AM [facility] AST 14 10 - 35 U/L 04/08/2016 11:18 AM [facility] ALT 12 10 - 35 U/L 04/08/2016 11:18 AM [facility] GFR >60 >=60 mL/min/1.7 3 sq meter 04/08/2016 11:18 AM [facility] Comment: eGFR has not been [...] mL/min/1.7 3 sq meter 04/08/2016 11:18 AM [facility] ANION GAP 13 12 - 20 mmol/L 04/08/2016 11:18 AM [facility] Blood Collection / Unknown 04/07/2016 5:00 PM DRY 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 04/08/2016 10:14 AM [facility] us Renay Castillo MD CHEMISTRY ORDERABLES Final Resul t [facility] CLIA # [id number] [address] [place] [address] * (ABNORMAL) CBC WITH DIFFERENTIAL (04/07/2016 5:00 PM DRY 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) WBC 10.1(H) 4.0 - 10.0 K/uL 04/08/2016 10:42 AM [facility] RBC 4.75 3.93 - 5.22 M/uL 04/08/2016 10:42 AM [facility] HEMOGLOBIN 14.3 11.2 - 15.7 g/dL 04/08/2016 10:42 AM [facility] HEMATOCRIT 44.3 34.1 - 44.9 % 04/08/2016 10:42 AM [facility] MCV 93.3 79.4 - 94.8 fL 04/08/2016 10:42 AM [facility] MCH 30.1 25.6 - 32.2 pg 04/08/2016 10:42 AM [facility] MCHC 32.3 32.2 - 35.5 g/dL 04/08/2016 10:42 AM [facility] RDW 12.9 11.0 - 14.5 % 04/08/2016 10:42 AM [facility] RDW-STDEV 43.0 36.9 - 56.9 fL 04/08/2016 10:42 AM [facility] PLATELETS 291 163 - 337 K/uL 04/08/2016 10:42 AM [facility] MPV 9.8(L) 10.0 - 14.8 fL 04/08/2016 10:42 AM [facility] Blood Collection / Unknown 04/07/2016 5:00 PM DRY 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 04/08/2016 10:14 AM DRY 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 us Renay Castillo MD HEMATOLOGY ORDERABLES Final Resu lt [facility] CLIA # [id number] [address] [place] [address] documented in this encounter Visit Diagnoses Not on filedocumented in this encounter Care Teams Mainframe Systems Programmer Relationship Specialty Start Date End Date Rufino Childers MD [address] [phone] PCP - General Family Practice 11/10/18 documented as of this encounter
--- OUTSIDE RECORDS SUMMARY | 2024-10-27 14:04 | XMS_ITS | Encounter Summary ---
Author Organization [facility] Address [address] [place] [address] Care Team Providers Care Rural Route Carrier Name Role Phone Rufino Childers MD Primary Care Provider +1 [phone] Encounter Details Date Type Department Care Team (Late st Contact Info) Description 09/10/2020 Lab Requisition [facility] Laboratory Services [place] [address] [facility] [address] [place] [address] Anam Kenyon, NO ADDRESS ON FILE Social History Tobacco Use Types Packs/Day Years Used Date Smoking Tobacco: Every Day Cigarettes 0.5 40 Smokeless Tobacco: Never Alcohol Use Standard Drinks/Week Comments No 0 (1 standard drink = 0.6 oz pur e alcohol) Comments No Sex and Gender Information Value Date Recorded Sex Assigned at Not on file 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
--- OUTSIDE RECORDS SUMMARY | 2024-10-27 14:04 | XMS_ITS | Encounter Summary ---
Author Organization [facility] Address [address] [place] [address] Care Team Providers Care Utility Sales And Service Manager Name Role Phone Rufino Childers MD Primary Care Provider +1 [phone] Encounter Details Date Type Department Care Team (Late st Contact Info) Description 10/25/2024 External Device Data STL ABSTRACTION Provider, [...] on file Legal Sex Female 5:01 AM PAPER CUTTER Gender Identity Not on file Sexual Orientation Not on file documented as of this encounter Plan of Treatment Upcoming Encounters Date Type Department Care Team (Late st Contact Info) Description 01/23/2025 2:00 PM PAPER CUTTER Office Visit [address] [address] Kirstie Benjamin FNP [address] [address] 03/24/2025 11:20 AM PAPER CUTTER Office Visit [address] [address] Rufino Childers MD [address] [address] documented as of this encounter Visit Diagnoses Not on filedocumented in this encounter Care Teams Utility Sales And Service Manager Relationship Specialty Start Date End Date Rufino Childers MD [address] [address] PCP - General Family Practice 11/10/18 documented as of this encounter
--- OUTSIDE RECORDS SUMMARY | 2024-10-27 14:04 | XMS_ITS | Encounter Summary ---
Author Organization [facility] Address [address] [place] [address] Care Team Providers Care Lathe Puller Name Role Phone Rufino Childers MD Primary Care Provider +1 [phone] Encounter Details Date Type Department Care Team (Late st Contact Info) Description 05/08/2020 Lab Requisition [facility] Laboratory Services [place] [address] [place] [address] Anam Kenyon, NO ADDRESS ON FILE Social History Tobacco Use Types Packs/Day Years Used Date Smoking Tobacco: Every Day Cigarettes 0.5 40 Smokeless Tobacco: Never Alcohol Use Standard Drinks/Week Comments No 0 (1 standard drink = 0.6 oz pur e alcohol) Comments No Sex and Gender Information Value Date Recorded Sex Assigned at Not on file Legal Sex Female 6:48 AM FRANCHISE SALES DIRECTOR Gender Identity Not on file Sexual Orientation Not on file Occupation Industry Job Start Date Job End Date Not on file Not on file Not on file Not on file COVID-19 Exposure Response Date Recorded In the last month, have you been in contact with someone who was confirmed or suspected to have Coronavirus / COVID-19? No / Unsure 04/27/2020 9:18 AM FRANCHISE SALES DIRECTOR documented as of this encounter Plan of Treatment Not on file documented as of this encounter Procedures Procedure Name Priority Date/Time Associated Diagnosis Comments RHEUMATOID FACTOR Routine 05/08/2020 1:4 6 PM FRANCHISE SALES DIRECTOR GLORY SCREEN W/REFLEX Routine 05/08/2020 1 :46 PM FRANCHISE SALES DIRECTOR TSH Routine 05/08/2020 1:44 PM FRANCHISE SALES DIRECTOR LIPID PANEL Routine 05/08/2020 1:44 PM FRANCHISE SALES DIRECTOR COMPREHENSIVE METABOLIC PANEL Routine 05/08/2020 1:44 PM FRANCHISE SALES DIRECTOR CBC WITH DIFFERENTIAL Routine 05/08/2020 1:42 PM FRANCHISE SALES DIRECTOR HEMOGLOBIN A1C Routine 05/08/2020 1:42 PM FRANCHISE SALES DIRECTOR documented in this encounter Results * (ABNORMAL) RHEUMATOID FACTOR (05/08/2020 1:46 PM FRANCHISE SALES DIRECTOR) Pathologist [facility] RHEUMATOID FACTOR 119(H) <14 IU/mL 05/09/2020 1:00 AM FRANCHISE SALES DIRECTOR [facility] Blood Venipuncture / Unknown 05/08/2020 1:46 PM FRANCHISE SALES DIRECTOR 05/08/2020 1:46 PM FRANCHISE SALES DIRECTOR Anam Kenyon DO CHEMISTRY ORDERABLES Final Resu lt Performing Organization Address [facility]/ZIP Co de Phone Number [address] [address] * (ABNORMAL) GLORY SCREEN W/REFLEX (05/08/2020 1:46 PM FRANCHISE SALES DIRECTOR) Pathologist [facility] GLORY SCREEN Positive(A) Negative 05/09/2020 7:43 PM FRANCHISE SALES DIRECTOR [facility] GLORY TITER 1:80 Titer 05/09/2020 7:43 PM FRANCHISE SALES DIRECTOR [facility] GLORY PATTERN Homogeneous 05/09/2020 7:43 PM FRANCHISE SALES DIRECTOR [facility] Blood Venipuncture / Unknown 05/08/2020 1:46 PM FRANCHISE SALES DIRECTOR 05/08/2020 1:46 PM FRANCHISE SALES DIRECTOR Narrative [facility] - 05/09/2020 7:43 PM FRANCHISE SALES DIRECTOR GLORY performed by indirect immunofluorescence(IFA). Anam Kenyon DO CHEMISTRY ORDERABLES Final Resu lt [facility] [address] [place] [address] * TSH (05/08/2020 1:44 PM FRANCHISE SALES DIRECTOR) Pathologist [facility] TSH 2.39 0.27 - 4.20 uIU/mL 05/08/2020 2:14 PM FRANCHISE SALES DIRECTOR [facility] Blood Venipuncture / Unknown 05/08/2020 1:44 PM FRANCHISE SALES DIRECTOR 05/08/2020 1:44 PM FRANCHISE SALES DIRECTOR us Anam Kenyon DO CHEMISTRY ORDERABLES Final Resu lt [facility] CLIA # [id number] [address] [place] [address] * (ABNORMAL) LIPID PANEL (05/08/2020 1:44 PM FRANCHISE SALES DIRECTOR) Pathologist [facility] CHOLESTEROL 228(H) <200 mg/dL 05/08/2020 2:14 PM FRANCHISE SALES DIRECTOR [facility] TRIGLYCERIDE 161(H) <150 mg/dL 05/08/2020 2:14 PM [facility] HDL 42 40 - 59 mg/dL 05/08/2020 2:14 PM [facility] LDL CALCULATED 154(H) <100 mg/dL 05/08/2020 2:14 PM [facility] NON-HDL CHOLESTEROL 186(H) <130 mg/dL 05/08/2020 2:14 PM FRANCHISE SALES DIRECTOR [facility] Blood Venipuncture / Unknown 05/08/2020 1:44 PM FRANCHISE SALES DIRECTOR 05/08/2020 1:44 PM FRANCHISE SALES DIRECTOR Narrative [facility] - 05/08/2020 2:14 PM FRANCHISE SALES DIRECTOR TOTAL CHOLESTEROL mg/dL Desirable <200 Borderline high [...] Kenyon DO CHEMISTRY ORDERABLES Final Resu lt [facility] CLIA # [id number] [address] [place] [address] * (ABNORMAL) COMPREHENSIVE METABOLIC PANEL (05/08/2020 1:44 PM FRANCHISE SALES DIRECTOR) SODIUM 138 136 - 145 mmol/L 05/08/2020 2:16 PM [facility] POTASSIUM 4.4 3.5 - 5.1 mmol/L 05/08/2020 2:16 PM [facility] CHLORIDE 103 98 - 107 mmol/L 05/08/2020 2:16 PM [facility] CO2 24 22 - 29 mmol/L 05/08/2020 2:16 PM [facility] CALCIUM 9.5 8.8 - 10.2 mg/dL 05/08/2020 2:16 PM [facility] BUN 9 8 - 23 mg/dL 05/08/2020 2:16 PM [facility] CREATININE 0.56 0.51 - 0.95 mg/dL 05/08/2020 2:16 PM [facility] GLUCOSE 139(H) 74 - 99 mg/dL 05/08/2020 2:16 PM [facility] TOTAL PROTEIN 7.2 6.6 - 8.7 g/dL 05/08/2020 2:16 PM [facility] ALBUMIN 4.0 3.5 - 5.2 g/dL 05/08/2020 2:16 PM [facility] BILIRUBIN TOTAL 0.2 <=1.2 mg/dL 05/08/2020 2:16 PM [facility] ALKALINE PHOSPHATASE 91 35 - 104 U/L 05/08/2020 2:16 PM [facility] AST 15 10 - 35 U/L 05/08/2020 2:16 PM [facility] ALT <5(L) 10 - 35 U/L 05/08/2020 2:16 PM [facility] GFR >60 >=60 mL/min/1.7 3 sq meter 05/08/2020 2:16 PM [facility] Comment: eGFR has not been validated [...] mL/min/1.7 3 sq meter 05/08/2020 2:16 PM [facility] ANION GAP 11(L) 12 - 20 mmol/L 05/08/2020 2:16 PM [facility] Blood Venipuncture / Unknown 05/08/2020 1:44 PM FRANCHISE SALES DIRECTOR 05/08/2020 1:44 PM FRANCHISE SALES DIRECTOR us Anam Kenyon DO CHEMISTRY ORDERABLES Final Resu lt [facility] CLIA # [id number] [address] [place] [address] * (ABNORMAL) HEMOGLOBIN A1C (05/08/2020 1:42 PM FRANCHISE SALES DIRECTOR) HEMOGLOBIN A1C 7.6(H) <=5.6 % 05/08/2020 2:18 PM [facility] EST. AVG GLUCOSE, A1C 171 mg/dL 05/08/2020 2:18 PM [facility] Blood Venipuncture / Unknown 05/08/2020 1:42 PM FRANCHISE SALES DIRECTOR 05/08/2020 1:42 PM FRANCHISE SALES DIRECTOR Narrative [facility] - 05/08/2020 2:18 PM FRANCHISE SALES DIRECTOR HGB A1C INTERPRETATION NORMAL: <5.7% PRE-DIABETES: 5.7 - 6.4% DIABETES: 6.5% OR GREATER us Anam Kenyon DO CHEMISTRY ORDERABLES Final Resu lt [facility] CLIA # [id number] [address] [place] [address] * (ABNORMAL) CBC WITH DIFFERENTIAL (05/08/2020 1:42 PM FRANCHISE SALES DIRECTOR) WBC 8.3 4.0 - 10.0 K/uL 05/08/2020 1:49 PM [facility] RBC 4.43 3.93 - 5.22 M/uL 05/08/2020 1:49 PM [facility] HEMOGLOBIN 13.5 11.2 - 15.7 g/dL 05/08/2020 1:49 PM [facility] HEMATOCRIT 40.4 34.1 - 44.9 % 05/08/2020 1:49 PM [facility] MCV 91.2 79.4 - 94.8 fL 05/08/2020 1:49 PM [facility] MCH 30.5 25.6 - 32.2 pg 05/08/2020 1:49 PM [facility] MCHC 33.4 32.2 - 35.5 g/dL 05/08/2020 1:49 PM [facility] RDW 12.1 11.0 - 14.5 % 05/08/2020 1:49 PM [facility] RDW-STDEV 40.5 36.9 - 56.9 fL 05/08/2020 1:49 PM [facility] PLATELETS 301 163 - 337 K/uL 05/08/2020 1:49 PM [facility] MPV 9.7(L) 10.0 - 14.8 fL 05/08/2020 1:49 PM [facility] NEUTROPHILS 38 34 - 71 % 05/08/2020 1:49 PM [facility] LYMPHOCYTES 52 19 - 52 % 05/08/2020 1:49 PM [facility] MONOCYTES 6 5 - 13 % 05/08/2020 1:49 PM [facility] EOSINOPHILS 4 1 - 6 % 05/08/2020 1:49 PM [facility] BASOPHILS 1 0 - 1 % 05/08/2020 1:49 PM [facility] IMMATURE GRANULOCYTES 0 % 05/08/2020 1:49 PM [facility] NEUTROPHIL ABSOLUTE 3.14 1.56 - 6.13 K/uL 05/08/2020 1:49 PM [facility] LYMPHOCYTE ABSOLUTE 4.27(H) 1.20 - 3.40 K/uL 05/08/2020 1:49 PM [facility] MONOCYTE ABSOLUTE 0.47(H) 0.24 - 0.36 K/uL 05/08/2020 1:49 PM [facility] EOSINOPHIL ABSOLUTE 0.31 0.04 - 0.36 K/uL 05/08/2020 1:49 PM [facility] BASOPHILS ABSOLUTE 0.06 0.01 - 0.08 K/uL 05/08/2020 1:49 PM [facility] IMMATURE GRANULOCYTES ABSOLUTE 0.01 K/uL 05/08/2020 1:49 PM [facility] Blood Venipuncture / Unknown 05/08/2020 1:42 PM FRANCHISE SALES DIRECTOR 05/08/2020 1:42 PM FRANCHISE SALES DIRECTOR us Anam Kenyon DO HEMATOLOGY ORDERABLES Final Res ult [facility] CLIA # [id number] [address] [place] [address] documented in this encounter Visit Diagnoses Not on filedocumented in this encounter Care Teams Lathe Puller Relationship Specialty Start Date End Date Rufino Childers MD [address] [phone] PCP - General Family Practice 11/10/18 documented as of this encounter
--- OUTSIDE RECORDS SUMMARY | 2024-10-27 14:04 | XMS_ITS | Encounter Summary ---
Author Organization [facility] Address [address] [place] [address] Care Team Providers Care Kiln Setter Name Role Phone Rufino Childers MD Primary Care Provider +1 [phone] Encounter Details Date Type Department Care Team (Late Contact Info) Description 10/24/2024 Orders Only [facility] [address] [place] [address] Provider, Abstract NO ADDRESS ON FILE Social History Tobacco Use Types Packs/Day Years Used Date Smoking Tobacco: Every Day Cigarettes Smokeless Tobacco: Never Alcohol Use Standard Drinks/Week Comments No 0 (1 standard drink = 0.6 oz pur e alcohol) Comments No Sex and Gender Information Value Date Recorded Sex Assigned at Not on file Legal Sex Female 5:01 AM DATA ENTRY COORDINATOR Gender Identity Not on file Sexual Orientation Not on file documented as of this encounter Plan of Treatment Upcoming Encounters Date Type Department Care Team (Late st Contact Info) Description 01/23/2025 2:00 PM DATA ENTRY COORDINATOR Office Visit [address] [address] Kirstie Benjamin FNP [address] [address] 03/24/2025 11:20 AM DATA ENTRY COORDINATOR Office Visit [address] [address] Rufino Childers MD [address] [phone] documented as of this encounter Procedures Procedure Name Priority Date/Time Associated Diagnosis Comments COMPREHENSIVE METABOLIC PANEL Routine 10/23/2024 10:22 AM CDT documented in this encounter Results * COMPREHENSIVE METABOLIC PANEL (10/23/2024 10:22 AM CDT) Blood us Abstract Provider CHEMISTRY ORDERABLES Final Res ult documented in this encounter Visit Diagnoses Not on filedocumented in this encounter Care Teams Kiln Setter Relationship Specialty Start Date End Date Rufino Childers MD [address] [phone] PCP - General Family Practice 11/10/18 documented as of this encounter
--- OUTSIDE RECORDS SUMMARY | 2024-10-27 14:04 | XMS_ITS | Encounter Summary ---
Author Organization [facility] Address [address] [place] [address] Care Team Providers Care Tooler Name Role Phone Rufino Childers MD Primary Care Provider +1 -[phone] Encounter Details Date Type Department Care Team [...] on file Legal Sex Female 5:01 AM CEMENT MASON APPRENTICE Gender Identity Not on file Sexual Orientation Not on file documented as of this encounter Plan of Treatment Upcoming Encounters Date Type Department Care Team (Late st Contact Info) Description 01/23/2025 2:00 PM CEMENT MASON APPRENTICE Office Visit [address] [address] Kirstie Benjamin FNP [address] [address] 03/24/2025 11:20 AM CEMENT MASON APPRENTICE Office Visit [address] [phone] Rufino Childers MD [address] [phone] documented as of this encounter Visit Diagnoses Not on filedocumented in this encounter Care Teams Tooler Relationship Specialty Start Date End Date Rufino Childers MD [address] [phone] PCP - General Family Practice 11/10/18 documented as of this encounter
--- OUTSIDE RECORDS SUMMARY | 2024-10-27 14:04 | XMS_ITS | Encounter Summary ---
Author Organization [facility] Address [address] [place] [address] Care Team Providers Care Drain Tile Machine Operator Name Role Phone Rufino Childers MD Primary Care Provider [phone] Reason for Visit * Reason Comments Clinical Consult Before Scheduling Encounter Details Date Type Department Care Team (Late st Contact Info) Description 10/25/2024 Nurse Triage [facility] Medicine [address] [phone] Rufino Childers MD [address] [place] [phone] Social History Tobacco Use Types Packs/Day Years Used Date Smoking Tobacco: Every Day Cigarettes Smokeless Tobacco: Never Alcohol Use Standard Drinks/Week Comments No 0 (1 standard drink = 0.6 oz pur e alcohol) Comments No Sex and Gender Information Value Date Recorded Sex Assigned at Not on file Legal Sex Female 5:01 AM SKI INSTRUCTOR Gender Identity Not on file Sexual Orientation Not on file documented as of this encounter Miscellaneous Notes * Telephone Encounter - Nicole Espinal LPN - 10/25/2024 9:57 AM CDT Adult patient complains of Confusion: patient's family notes change in mental status. Symptoms started 5 days ago. Patient oriented to person Denies recent medication changes (benadryl or OTCs, pain/sleep/anxiety meds). Denies ETOH use. Denies neurological deficits (facial droop, unilateral weakness/numbness, vision change, change in speech). Patient's temperature n/a Patient's heart rate n/a Patient's BP n/a Patient is not experiencing rigors. complains of urinary symptoms. denies new respiratory symptoms. Per daughter pt was in clinic last and received a steroid shot and said she noticed that evening daughter noticed pt was confused. Pt was oriented to self but not to place and time. Said pt was repeating herself, kept asking the same questions. Daughter took pt to ER at [facility] on Thursday and pt was dx'd with UTI, pt was given medication. Daughter feels like pt's confusion is getting is getting worse. Appointment scheduled. Advised caller for any new or worsening symptoms to take pt to ER to be evaluated. Caller verbalized understanding. / Status: Patient likely cannot become . INFORMATIONAL MESSAGE ONLY. Appointment scheduled regarding this concern: 10/25/2024 Ely Benjamin FNP * Telephone Encounter - Maddie Marques - 10/25/2024 9:55 AM CDT Copied from [facility] #[id number]. Topic: Symptomatic Care >> Oct 25, 2024 9:54 AM Maddie Howard wrote: Has this patient seen any provider (current or former) at the requested clinic in the past? Yes, Select the appropriate age range and symptom Patient has symptoms and is seeking care. Caller Name: [email or web address] Callback Number: [phone] Call Notes: patient has been confused on where she is, what day it is, and forgetting day to day tasks Age Range/Symptom: Adult 18+ - Is there an encounter open? No Transferred to [facility] namrata answered call. documented in this encounter Plan of Treatment Upcoming Encounters Date Type Department Care Team (Late st Contact Info) Description 01/23/2025 2:00 PM SKI INSTRUCTOR Office Visit [facility] [address] [place] [phone] Kirstie Benjamin, [facility] [address] [place] [address] 03/24/2025 11:20 AM SKI INSTRUCTOR Office Visit [facility] [address] [place] [address] Rufino Childers MD [address] [place] [address] documented as of this encounter Visit Diagnoses Not on filedocumented in this encounter Care Teams Drain Tile Machine Operator Relationship Specialty Start Date End Date Rufino Childers MD [address] [place] [address] PCP - General Family Practice 11/10/18 documented as of this encounter
--- OUTSIDE RECORDS SUMMARY | 2024-10-27 14:04 | XMS_ITS | Encounter Summary ---
Author Organization [facility] Address [address] [place] [address] Care Team Providers Care Vba Developer Name Role Phone Rufino Childers MD Primary Care Provider [phone] Encounter Details Date Type Department Care Team [...] on file Legal Sex Female 5:01 AM TEMPLE MARKER Gender Identity Not on file Sexual Orientation Not on file documented as of this encounter Plan of Treatment Upcoming Encounters Date Type Department Care Team (Late st Contact Info) Description 01/23/2025 2:00 PM TEMPLE MARKER Office Visit [address] [phone] Kirstie Benjamin FNP [address] [phone] 03/24/2025 11:20 AM TEMPLE MARKER Office Visit [address] [phone] Rufino Childers MD [address] [phone] documented as of this encounter Visit Diagnoses Not on filedocumented in this encounter Care Teams Vba Developer Relationship Specialty Start Date End Date Rufino Childers MD [address] [phone] PCP - General Family Practice 11/10/18 documented as of this encounter
[2024-10-27] MEDS: iohexol 350 mg/mL 500 mL Btl (per mL) IV (14:05)
[2024-10-27 14:08] LABS: Hematocrit 43.1 % (36-47); Hemoglobin 14.80 g/dL (11.27-16.99); Mean Corpuscular HGB Conc 34.3 g/dL (30-55); Mean Corpuscular Hemoglobin 30.3 pg (27-33); Mean Corpuscular Volume 88.3 fl (85-98); Nucleated Red Blood Cells % 0 %; Platelet Count 319 10^3/cmm (157-399); Red Blood Count 4.88 10^6/uL (3.85-5.65); White Blood Count 12.56 10^3/uL (3.29-11.43)
--- NOTE | 2024-10-27 14:11 | ECG_ITS ---
Functional Neuromodulation Test Date: 2024-10-27 Pat Name: Fariba Nick Department: Room: Gender: Female Master Naval Parachutist: : 1960 Requested By: Justin Peoples Order Number: [id number] Reading MD: Measurements Intervals [place] Rate: 74 P: 70 TX: 174 QRS: 85 QRSD: 105 T: 178 QT: 436 QTc: 484 Interpretive Statements SINUS RHYTHM WITH OCCASIONAL SUPRAVENTRICULAR PREMATURE COMPLEXES ST DEVIATION AND MODERATE T-WAVE ABNORMALITY, CONSIDER ANTEROLATERAL ISCHEMIA [-0.1+ mV T-WAVE IN V3-V6] ST DEVIATION AND MODERATE T-WAVE ABNORMALITY, CONSIDER INFERIOR ISCHEMIA [-0.1+ mV T-WAVE IN II/aVF] No previous ECG available for comparison [email or web address]
[2024-10-27 14:13] LABS: INR 0.88 (0.8-1.2); Prothrombin Time 12.50 SECONDS (12.1-14.9)
--- NOTE | 2024-10-27 14:14 | ED_ITS ---
HPI - Neuro Symptoms/Deficit 2 General: Chief Complaint: Neuro Symptoms/Deficit Stated Complaint: stroke like symptoms Time Seen by Provider: 10/27/24 13:57 Source: patient Mode of arrival: EMS History of Present Illness: This patient was transported from her home by EMS with history of a class I stroke and proceeded through the stroke protocol. I evaluated the patient after she returned from imaging. She says that she is here because someone thinks she had a stroke but she does not think she had a stroke although she feels as if she is not talking normally and has weakness on her left side. She states that the symptoms seem to be new since yesterday. Additional history obtained from the daughter who is now present. She relates over the past several days her mother has had some issues with just fatigue and weakness which seem to be more global weakness and she was evaluated in the emergency department as well as her own private physician and told that there was no evidence of acute process at those times. She stated that last night she seemed to be little less energetic but they did not notice any focal weakness until this morning when she awoke approximately 830 they noted that she had some more difficulty ambulating seemed to have some changes in her speech. Those progressed throughout the day until they called EMS this afternoon and presented her to the emergency department. There is no history of recent illness, falls or other contributing factors at this time. She does have a history of pnn-qhaexjn-vfgndcypj diabetes for which she takes glipizide and metformin. She also has hypertension that she takes lisinopril. She has no prior history of stroke or other chronic illness. Onset (ago): unknown (Family reports some vague symptoms yesterday evening but definitely noted weakness early today approximately 830 that seems to have progressed through the day) Timing confirmed by: family member Location: speech, left face, left arm and left leg Associated symptoms: Deny chest pain, headache(s), nausea or vomiting Related Data Home Medications ?Medication ?Instructions ?Recorded ?Confirmed ibuprofen 200 mg tablet (Advil) 200 mg PO TID PRN Pain 03/24/23 10/27/24 dapagliflozin propanediol 10 mg 10 mg PO DAILY 5 10/27/24 tablet (Farxiga) diclofenac sodium 75 mg 75 mg PO BID 10/27/24 tablet,delayed release lisinopril 10 mg tablet 10 mg PO DAILY 10/27/2410/14 Previous Rx's ?Medication ?Instructions ?Recorded glipizide 5 mg tablet 5 mg PO DAILY [address] month #[facility] 10/19/24 metformin 500 mg tablet 500 mg PO BID [address] #60 [facility] 10/19/24 sulfamethoxazole 800 1 tab PO DAILY 5 days #14 [facility] 10/24/24 mg-trimethoprim 160 mg tablet (Bactrim DS) Allergies Allergy/AdvReac Type Severity Reaction Status Date / Time Penicillins Allergy Unknown Verified 10/20/24 13:41 Review of Systems 2 Const: Denies: fever(s) or chills Eyes: Denies: change in vision ENMT: Denies: throat pain, odynophagia or nasal discharge Card: Denies: chest pain or palpitations Resp: Denies: dyspnea, productive cough or non-productive cough GI: Denies: abdominal pain, nausea, vomiting or diarrhea : Denies: flank pain, difficulty voiding, dysuria or urinary frequency Musc: Denies: neck pain, back pain or extremity pain Neuro: Reports: weakness in extremities and Slurred speech present; Denies: headache(s) Psych: Denies: anxiety or depression PFSH ED 2 PFSH: Social History Smoking and tobacco/nicotine status: unknown if used tobacco/nicotine NIH stroke score 2 NIHSS: Level Of Consciousness - 1a: 0 Level Of Consciousness Questions - 1b: Both Correct Level Of Consciousness Commands - 1c: Both Correct Best Gaze - 2: Normal Visual Barrno - 3: No Visual Loss Facial Palsy - 4: P artial Paralysis Motor Arm Right - 5: No Drift Motor Arm Left - 5: No Effort Against [place] Motor Leg Right - 6: No Drift Motor Leg Left - 6: D rift Limb Ataxia - 7: Absent Sensory - 8: Normal Best Language - 9: No Aphasia Dysarthia - 10: Mild/Moderate Dysarthia Extinction And Inattention - 11: 0 Score: Total Score: 7 Physical Exam 2 Narrative: EXAM NARRATIVE: The patient is alert and answers questions appropriately she does have some expressive dysarthria Const: COMMON NORMALS: no acute distress, average body habitus and patient oriented x3 GENERAL APPEARANCE: cooperative and comfortable O RIENTATION/CONSCIOUSNESS: Yes awake HENMT: COMMON NORMALS: atraumatic HEAD & SCALP: atraumatic FACE & SINUS: face not symmetric (Left facial droop) Eye: COMMON NORMALS: Equal, round and reactive pupils present, EOMs intact bilaterally and conjunctivae normal CONJUNCTIVA: Yes conjunctivae normal P UPIL: Yes Equal, round and reactive pupils present Neck/C-Spine: COMMON NORMALS: full ROM, supple, Thyroid normal and No carotid bruits THYROID: Thyroid normal Chest: COMMONS NORMALS: normal inspection of the chest Resp: COMMON NORMALS: normal respiratory effort, No retractions, No use of accessory muscles and clear to auscultation bilaterally AUSCULTATION: clear to auscultation bilaterally Cardio: COMMON NORMALS: regular rate, regular rhythm, No murmurs present (Cardio) and Peripheral pulses 2+ throughout RATE: regular rate RHYTHM: r egular rhythm PERIPHERAL PULSES: Peripheral pulses 2+ throughout GI: COMMON NORMALS: Normal to inspection, nondistended, normoactive bowel sounds present, Soft to palpation and non-tender PALPATION: Yes Soft to palpation : COMMON NORMALS: Yes no CVA tenderness BLADDER/KIDNEY EXAM: Yes no CVA tenderness Back/Pelvis: COMMON NORMALS: no CVA tenderness and thoracic and lumbar spine normal to inspection Extremity: COMMON NORMALS: normal to inspection, capillary refill normal, no calf tenderness and no pedal edema Neuro: SELINA COMA SCALE: document GCS findings Selina coma scale eye opening: Spontaneous [place] coma scale verbal response: Orientated [place] coma scale motor response: Obey commands [place] coma scale total score: 15 COMMON NORMALS: patient oriented x3 and no sensory deficits noted CRANIAL NERVES: Y es CN VII (facial) Laterality: left CN VII left: facial droop Course 2 Reevaluation(s): Reevaluation #1: Unknown clear time of onset but appears to be 24 hours or greater therefore making her exclusionary to thrombolysis. Time: 14:31 Reevaluation #2: Radiology called report on CT and CTA. She also apparently had an MRI completed on the . She is had what appears to be a right thalamic infarct that was up apparently present on review on [address] completed here. Please see full radiology report for delineation of the findings Time: 14:38 Reevaluation #3: Patient remained stable. Discussed current findings and also the lack of indication for thrombolysis of both patient and daughter. Consultations: Consultation #1: [place] with stroke service from [facility] was obtained. Dr. Barcenas and I discussed her case reviewed her imaging and her history and her clinical presentation. Given her duration of symptoms suspected time of onset there is no indication at this time for thrombolysis or mechanical thrombectomy. We will proceed with usual stroke care. Time: 15:08 Consultation #2: Discussed with Dr. Nava attending hospitalist who agreed to admit the patient. Time: 16:12 Vital Signs: Vital signs: Vital Signs Temperature 97.9 F 10/27/24 14:38 Pulse Rate 83 10/27/24 16:00 Respiratory Rate 16 10/27/24 16:00 Blood Pressure 151/70 10/27/24 16:00 Pulse Oximetry 95 10/27/24 16:00 Oxygen Delivery Me thod Room Air 10/27/24 15:00 MDM - Neuro Symptoms/Deficit Medical Decision Making This patient presented via EMS from home as noted in HPI. Initial history is obtained solely from the patient with later history obtained from the daughter. Patient was admitted with a code stroke with additional history that delineated best case scenario of time of onset of 830 but likely had preceded that by several hours perhaps is as many as 24 hours. Her NIH initially was 7. She obtain imaging to include noncontrast CT as well as a CTA. There is no evidence of hemorrhage or midline shift but she did have thalamic changes consistent with CVA. Stroke services at [facility] was consulted and we reviewed her current presentation findings and imaging studies. No indication at this time for thrombolysis given that uncertain time 0 and certainly even the best case scenario she was well passed a 4-1/2-hour elly. The patient's laboratories were obtained and she did have elevation in her sed rate and CRP but unclear as to the contribution of these findings to her clinical picture given that her CTA did not show any findings suggestive of vasculitis. Blood pressure and other vital signs remained stable. Her clinical exam remained stable with left facial droop, left upper extremity paresis as well as left lower extremity weakness and drift. She was initiated on enteric- coated aspirin and a statin in the emergency department she is being admitted to stepdown unit under the care of the hospitalist for additional workup to include echocardiogram, neurology consultation and rehabilitation etc. Currently clinically stable. Medical Records I reviewed the patient's medical records. Recent CT out of the emergency department as well as recent MRI. CT was noted as normal 23 October with MRI noted of thalamic changes on 26 October Lab Data I reviewed the patient's lab results. 10/27/24 13:44 10/27/24 13:[address] 10/27/24 13:53 IMPRESSION: 1. No evidence of intracranial hemorrhage 2. Previously described RIGHT thalamic and bilateral rowan radiata lesions appear stable since the recent studies. 3. No significant changes since the recent studies. Notified Jutsin Peoples DO at 10/27/2024 2:10PM. Head/Neck CTA 10/27/24 13:54 IMPRESSION: 1. RIGHT ICA stenosis measures approximately 50% with moderate calcified atheromatous plaque. 2. LEFT ICA stenosis measures 75 to 80%. 3. No flow-limiting intracranial stenosis. 4. Mild segmental narrowing in the proximal SENIOR LOAN PROCESSOR territory bilaterally and likely due to atheromatous disease. 5. RIGHT thalamic and bilateral rowan radiata lesions/infarcts similar in appearance. 6. No other acute findings. Notified Justin Peoples DO at 10/27/2024 2:39 PM. Laboratory Results WBC 12.56 10^3/uL (3.29-11.43) H 10/27/24 13:44 RBC 4.88 10^6/uL (3.85-5.65) 10/27/24 13:44 Hgb 14.80 g/dL (11.27-16.99) 10/27/24 13:44 Hct 43.1 % (36-47) 10/27/24 13:44 MCV 88.3 fl (85-98) 10/27/24 13:44 MCH 30.3 pg (27-33) 10/27/24 13:44 MCHC 34.3 g/dL (30-55) 10/27/24 13:44 RDW 12.7 % (12.1-15.1) 10/27/24 13:44 Plt Count 319 10^3/cmm (157-399) 10/27/24 13:44 MPV 9.2 fL (7.4-10.4) 10/27/24 13:44 Neut % (Auto) 57.3 % 10/27/24 13:44 Lymph % (Auto) 31.7 % 10/27/24 13:44 [place] % (Auto) 7.2 % 10/27/24 13:44 Eos % (Auto) 2.8 % 10/27/24 13:44 Baso % (Auto) 0.6 % 10/27/24 13:44 Neut # (Auto) 7.21 10^3/uL (1.8-7.7) 10/27/24 13:44 Lymph # (Auto) 4.0 10^3/uL (0.8-4.8) 10/27/24 13:44 [place] # (Auto) 0.9 10^3/uL (0.2-0.9) 10/27/24 13:44 Eos # (Auto) 0.4 10^3/uL (0.0-0.8) 10/27/24 13:44 Baso # (Auto) 0.1 10^3/uL (0.0-0.1) 10/27/24 13:44 Nucleated RBC % (auto) 0 % 10/27/24 13:44 Nucleated RBCs # 0.0 /100WBC 10/27/24 13:44 ESR 52 mm/hr (0-15) H 10/27/24 13:44 PT 12.50 SECONDS (12.1-14.9) 10/27/24 13:44 INR 0.88 (0.8-1.2) 10/27/24 13:44 APTT 25.6 SECONDS (23.9-36.7) 10/27/24 13:44 Sodium 136 mmol/L (136-145) 10/27/24 13:44 Potassium 3.5 mmol/L (3.5-5.1) 10/27/24 13:44 Chloride 100 mmol/L (98-107) 10/27/24 13:44 Carbon Dioxide 19 mmol/L (22-29) L 10/27/24 13:44 Anion Gap 20.5 (5-19) H 10/27/24 13:44 BUN 15 mg/dL (8-23) 10/27/24 13:44 Creatinine 0.6 mg/dL (0.5-0.9) 10/27/24 13:44 GFR Calculation 100.6 mL/min (90-130) 10/27/24 13:44 Glucose 75 mg/dL (65-115) 10/27/24 13:44 POC Glucose 75 mg/dL (70-110) 10/27/24 14:06 Calculated Osmolality 282 mOsm/kg (285-295) L 10/27/24 13:44 Calcium 9.5 mg/dL (8.5-10.5) 10/27/24 13:44 Total Bilirubin 0.2 mg/dL (0.15-1.2) 10/27/24 13:44 AST 10 U/L (0-32) 10/27/24 13:44 ALT 7 U/L (0-33) 10/27/24 13:44 Alkaline Phosphatase 102 U/L (35-105) 10/27/24 13:44 Troponin T Baseline 9 ng/L (0-10) 10/27/24 13:44 Troponin T 120 Minute 9.05 ng/L (0-10) 10/27/24 15:25 Delta Troponin T 0.05 ABS# (0-10) 10/27/24 15:25 C-React Prot High Sens 3.980 mg/dL (0.0-0.3) H 10/27/24 13:44 Total Protein 7.4 g/dL (6.6-8.7) 10/27/24 13:44 Albumin 4.0 g/dL (3.5-5.2) 10/27/24 13:44 Globulin 3.4 g/dL (1.3-4.6) 10/27/24 13:44 All radiology interpretation(s) finalized by discharge EKG Data EKG 1: I personally reviewed and interpreted this EKG as follows: Interpretation: Contemporaneous review of resting EKG reveals ventricular to 74 bpm with normal TX interval, QRS duration, corrected QT interval. Normal axis. She has nonspecific ST-T wave inversions in limb leads I, II and III as well as precordial leads V2, V3, V4, V5 V6-these changes were not present on most recent EKG within the system on 01/07/2023 Discharge Plan Discharge Patient Disposition: Admitted As Inpatient Clinical Impression: Non-hemorrhagic stroke, Diabetes mellitus, Hypertension Condition: Stable Coding Level of Care Code ED Data Typist for Carlitos Parry
[2024-10-27 14:15] LABS: Partial Thromboplastin Time 25.6 SECONDS (23.9-36.7)
[2024-10-27 14:22] LABS: Alanine Aminotransferase 7 U/L (0-33); Albumin Level 4.0 g/dL (3.5-5.2); Alkaline Phosphatase 102 U/L (35-105); Anion Gap 20.5 (5-19); Aspartate Amino Transferase 10 U/L (0-32); Blood Urea Nitrogen 15 mg/dL (8-23); Calcium 9.5 mg/dL (8.5-10.5); Carbon Dioxide 19 mmol/L (22-29); Chloride 100 mmol/L (98-107); Creatinine Clr Calc Pharmacy 94.5523; Globulin 3.4 g/dL (1.3-4.6); Glucose 75 mg/dL (65-115); Osmolality Calculated 282 mOsm/kg (285-295); Potassium 3.5 mmol/L (3.5-5.1); Sodium 136 mmol/L (136-145); Total Protein 7.4 g/dL (6.6-8.7)
--- NOTE | 2024-10-27 14:34 | ECG_ITS ---
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
--- NOTE | 2024-10-27 14:53 | DCPLANNER ---
Addendum entered by Ilene Johnson 10/27/24 15:02: [facility] called back at 1501 Original Note: Dr. Peoples asked for [facility] consult @ 2285. Pushed images and called [facility] @ [phone].
[2024-10-27 14:54] LABS: Troponin(5th) Baseline 9 ng/L (0-10)
[2024-10-27 15:44] LABS: CRP High Sensitivity Cardiac 3.980 mg/dL (0.0-0.3)
[2024-10-27 15:55] LABS: Troponin 5 2HR 9.05 ng/L (0-10); Troponin 5 2HR Delta 0.05 ABS# (0-10)
[2024-10-27 16:28] LABS: Glucose Urine UA 3+ (Normal); Nitrate Urine Negative (Negative)
[2024-10-27 16:39] LABS: Specific Gravity, Urine 1.094 (1.005-1.030); UA Slide Review UA Slide Review Perf
[2024-10-27 16:40] LABS: Add Urine Microscopic? YES
--- NOTE | 2024-10-27 16:42 | PM.HP ---
Providers/Chief Complaint Admitting Physician: Jasper Mascorro MD Primary Care Provider: Rufino Childers Chief Complaint: stroke like symptoms History of Present Illness Fariba Nick is a 63 year old female presenting with left sided weakness. She initially had some confusion and slowing of gait on Thursday. She normally walks with a shuffle at baseline but is independent of ADL and does not use a walker. She presented to the ER Thursday and had CT done which did not demonstrate any acute issues. She was then told to follow up with her primary care and she was able to follow up on Thursday. She did not have any new symptoms at that time. After her primary care visit she had an MRI done on the which did show bilateral diffusion abnormalities and right thalamic lesion as well as left temporal lobe lesion. Noted to have atypical appearance for infarcts but per radiology this was most likely the source. It is unclear if she had any follow up after this MRI. This AM, she had worsening of her symptoms to include left upper and lower extremity weakness with upper extremity completely flacid, associated with left facial droop which started around 8:30 AM and progressed during the day. She the presented to the ER for further evaluation. CT here shows no hemorrhage, stable right thalamic and bilateral rowan radiata lesions. She is admitted for further treatment of her stroke. Outside the window for tPA. At the end of the interview she states adamantly that she will leave AMA if is cannot smoke. Family at bedside is attempting to convince her to stay. Review of Systems Const: Denies: fever(s), chills or fatigue Eyes: Denies: change in vision or blurry vision ENMT: Denies: hoarseness Card: Denies: chest pain Resp: Denies: dyspnea or productive cough GI: Denies: abdominal pain, nausea or vomiting : Denies: flank pain Musc: Denies: neck pain, back pain or joint swelling Skin/Breast: Denies: rash, pruritus or erythema Neuro: Reports: weakness in extremities, difficulty walking and confusion; Denies: headache(s) Psych: Denies: anxiety or depression Medications/Allergies Home Medications ?Medication ?Instructions ?Recorded ?Confirmed ?Last Taken ?Type ibuprofen 200 mg tablet (Advil) 200 mg PO TID PRN Pain 03/24/23 10/27/24 04/21/23 History glipizide 5 mg tablet 5 mg PO DAILY 1 month #30 tabs 08/06/25 08/14/25 08/14/25 Rx metformin 500 mg tablet 500 mg PO BID 1 month #60 tabs 10/19/24 10/27/24 10/27/24 Rx sulfamethoxazole 800 1 tab PO DAILY 5 days #14 tabs 10/24/24 10/27/24 10/27/24 Rx mg-trimethoprim 160 mg tablet (Bactrim DS) dapagliflozin propanediol 10 mg 10 mg PO DAILY 10/27/24 10/27/24 10/27/24 History tablet (Farxiga) diclofenac sodium 75 mg 75 mg PO BID 10/27/24 10/27/24 10/27/24 History tablet,delayed release lisinopril 10 mg tablet 10 mg PO DAILY 10/27/24 10/27/24 10/27/24 History Allergies Allergy/AdvReac Type Severity Reaction Status Date / Time Penicillins Allergy Unknown Verified 10/20/24 13:41 PFSH Acute PFSH: Medical History Diabetes mellitus Hypertension Hyperlipidemia Surgical History H/O skin graft Family History Mother Cancer Father Heart disease Social History Smoking and tobacco/nicotine status: current every day tobacco/nicotine user Alcohol intake: never Substance/Drug Use: never Vitals/I&O/Wt Last Vital Signs Temp 97.9 F 10/27/24 14:38 Pulse 90 10/27/24 16:18 Resp 16 10/27/24 16:18 BP 151/67 10/27/24 16:18 Pulse Ox 91 10/27/24 16:18 O2 Del Method Room Air 10/27/24 15:00 Weight last 48 hrs Weight 72.575 kg Physical Exam Const: COMMON NORMALS: no acute distress and average body habitus HENMT: COMMON NORMALS: normocephalic and atraumatic Eye: COMMON NORMALS: Equal, round and reactive pupils present and EOMs intact bilaterally Neck/C-Spine: COMMON NORMALS: no lymphadenopathy and supple Resp: COMMON NORMALS: normal respiratory effort, No retractions and clear to auscultation bilaterally Cardio: COMMON NORMALS: regular rate, regular rhythm, S1 normal heart sound present, No gallops present (Cardio), No murmurs present (Cardio) and No rub (Cardio) GI: COMMON NORMALS: Soft to palpation and non-tender Extremity: COMMON NORMALS: no clubbing, cyanosis or edema Neuro: COMMON NORMALS: CN's II-XII intact bilaterally OTHER: left upper extremity flaccid. Left lower extremity 3/5 strength. left sided facial droop. Psych: COMMON NORMALS: mental status grossly normal, Normal thought process present and normal affect Skin: COMMON NORMALS: no rashes or lesions noted and no wounds Data 10/27/24 13:44 10/27/24 13:44 A&P Assessment and plan 1. Hypertension: 2. Diabetes mellitus: 3. Non-hemorrhagic stroke: Plan: 63 year old female presenting with stroke like symptoms Acute embolic stroke - Symptoms started Sun. with confusion, negative CT in ER - MRI done 10/26 with findings of bilateral diffusion abnormalities and right thalamic lesion as well as left temporal lobe lesion. Noted to have atypical appearance for infarcts but per radiology this was most likely the source. - on 10/27, left sided weakness started around 8:30 AM, worsening throughout the day. - outside window for tPA - given ASA/Plavix in ER, cont. DAPT, high intensity statin therapy. - fasting lipid in AM - CT head 10/27 shows no hemorrhage, stable right thalamic and bilateral rowan radiata lesions - CTA head/neck shows right ICA stenosis 50%, left ICA stenosis 75-80% - lesions likely embolic, potentially from the carotid lesions. - per recommendations: recently symptomatic carotid stenosis >70%, revascularization is recommended without two weeks of symptoms onset, when possible, recommend close outpatient follow up with vascular surgery after discharge. Tobaccoism - cessation advised - nicotine patch provided, however she states that this won't work and she is saying she will leave AMA to smoke DMII - controlled on oral - hold outpatient antidiabetics for now - get A1c HTN - cont. lisinopril Diet: CC PPx: lovenox, SCDs ordered Disposition - it appears she is on suppressive abx for UTIs, can continue - Full code - encouraged her to stay for ongoing treatment, however she was adamant that she will leave AMA to smoke. Family is also encouraging her to stay. - She will need to follow up with vascular surgery for consideration of CEA of the left ICA for findings on her CTA within two weeks. PDMP PDMP Reviewed: Not Reviewed Attestations Medical Necessity Statement*: Anticipate > two midnights inpatient care for acute stroke. Time Spent in Patient Care: 16 - 35 minutes (>than 50% of time spent in counselling and/or direct pt care on unit). Coding Level of Care Code Acute Code for [facility] Diagnoses Hypertension I10 Diabetes mellitus E11.9 Non-hemorrhagic stroke I63.9
--- NOTE | 2024-10-27 17:14 | USCV_ITS ---
Fariba Nick Age: 63 Gender: F : 1960 Exam Date: 10/27/2024 18:28 Ordering Phys: Jasper Mascorro MD Technologist: Mundo Colvin Exam Location: [facility] – [place] Indication: acute stroke, LEFT hemiparesis, confusion BP: 151 / 67 HR: 70 Rhythm: Sinus Technical Quality: Adequate MEASUREMENTS (Male / Female) Normal Values 2D ECHO LV Diastolic Diameter PLAX 3.4 cm 4.2 - 5.9 / 3.9 - 5.3 cm IVS Diastolic Thickness 1.7 cm 0.6 - 1.0 / 0.6 - 0.9 cm IVS Systolic Thickness 1.6 cm LVPW Diastolic Thickness 1.5 cm 0.6 - 1.0 / 0.6 - 0.9 cm LVPW Systolic Thickness 2.0 cm LVOT Diameter 1.8 cm LV Ejection Fraction 2D Teich 59.3 % LV Ejection Fraction MOD 4C 55.5 % LV Ejection Fraction MOD 2C 57.4 % LV Ejection Fraction 2C AL 63.8 % LA Diameter 3.5 cm Aorta at Sinotubular Diameter 2.6 cm IVC Diameter 1.1 cm M-MODE LA Ao Ratio MM 1.4 AV Cusp Separation MM 1.6 cm DOPPLER AV Peak Velocity 165.0 cm/s LVOT Peak Velocity 106.0 cm/s AV Area Cont Eq vti 2.2 cm squared AV Area Cont Eq pk 1.7 cm squared MV Peak Velocity 116.0 cm/s MV Area PHT 3.2 cm squared Mitral E to A Ratio 0.8 PV Peak Velocity 150.0 cm/s FINDINGS Left Ventricle Left ventricle is normal in size. LV systolic function is normal with EF of 60-65%. No regional wall motion abnormalities are seen. Grade 1 diastolic dysfunction. Right Ventricle Normal in size and function Right Atrium Normal in size Left Atrium Normal in size Mitral Valve Mild mitral annular calcification. Mild mitral regurgitation. Aortic Valve Structurally normal aortic valve. No significant stenosis or regurgitation. Tricuspid Valve Mild tricuspid regurgitation. Insufficient TR jet to calculate RVSP Pulmonic Valve Pulmonic valve not well visualized. Pericardium Normal Aorta Normal in size IVC Appears to be normal CONCLUSIONS LV systolic function is normal with EF of 60-65% Grade 1 diastolic dysfunction Mild mitral regurgitation Mild tricuspid regurgitation No comparison studies are available. Seven Gomez MD (Electronically Signed) Final Date: 28 October 2024 14:02 S
--- NOTE | 2024-10-27 17:30 | ECG_ITS ---
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
[2024-10-27 20:11] LABS: Troponin 5 6HR 9.64 ng/L (0-10); Troponin 5 6HR Delta 0.64 ng/L (0-12)
--- NOTE | 2024-10-27 20:34 | ECG_ITS ---
[facility] Test Date: 2024-10-27 Pat Name: Fariba Nick Department: Room: Gender: Female Disease Education Specialist: : 1960 Requested By: Justin Peoples Order Number: [id number] Reading MD: Measurements Intervals [place] Rate: 84 P: 49 NE: 161 QRS: 74 QRSD: 90 T: 142 QT: 381 QTc: 452 Interpretive Statements SINUS RHYTHM WITH OCCASIONAL SUPRAVENTRICULAR PREMATURE COMPLEXES ST DEVIATION AND MODERATE T-WAVE ABNORMALITY, CONSIDER ANTEROLATERAL ISCHEMIA [-0.1+ mV T-WAVE IN V3-V6] ST DEVIATION AND MODERATE T-WAVE ABNORMALITY, CONSIDER INFERIOR ISCHEMIA [-0.1+ mV T-WAVE IN II/aVF] [id number]
[2024-10-28 02:44] VITALS: BP 166/65; PULSE 70; RESP 16; TEMP 36.7; O2SAT 96
[2024-10-28 03:32] LABS: Cholesterol 248 mg/dL (0-200); HDL Cholesterol 31 mg/dL (60-100); Triglycerides 181 mg/dL (0-150)
[2024-10-28 06:00] VITALS: BP 142/66; PULSE 71; RESP 16; TEMP 36.7; O2SAT 95
--- NOTE | 2024-10-28 08:54 | PC.SLP ---
Therapist attempted. Nursing reported PT was currently in pt's room. Will attempt around lunch.
[2024-10-28] MEDS: sulfamethoxazole-trimeth DS 160-800 mg Tablet 1 TAB PO (09:53)
--- NOTE | 2024-10-28 11:24 | P.TS_ITS ---
Transfer Summary Providers Date of Admission: 10/27/24 16:30 Date of Discharge/Transfer: 10/28/24 Attending Provider at Admission: Jasper Mascorro MD Attending Provider at Transfer: Jasper Mascorro MD Consults: teleneuro Primary Care Provider: Rufino Magañano Transfer Plans: Anticipated date of transfer: 10/28/24 . Receiving Facility: [facility] . Diagnoses at Discharge Discharge Diagnosis 1. Hypertension: 2. Diabetes mellitus: 3. Non-hemorrhagic stroke: Details from hospital stay: 63 year old female presenting with stroke like symptoms Other Information Additional DC diagnoses/information: Acute embolic stroke - Symptoms started Sun. with confusion, negative CT in ER on 10/23 - Outpatient MRI done 10/26 with findings of bilateral diffusion abnormalities and right thalamic lesion as well as left temporal lobe lesion. Noted to have atypical appearance for infarcts but per radiology this was most likely the source. - on 10/27, left sided weakness started around 8:30 AM, worsening throughout the day. - outside window for tPA - given ASA/Plavix in ER, cont. DAPT, high intensity statin therapy. - fasting lipid this AM shows LDL of 181. Started on high intensity statin. - CT head 10/27 shows no hemorrhage, stable right thalamic and bilateral rowan radiata lesions - CTA head/neck 10/27 shows right ICA stenosis 50%, left ICA stenosis 75-80% - lesions likely embolic, potentially from the carotid lesions. - per recommendations: recently symptomatic carotid stenosis >70%, revascularization is recommended without two weeks of symptoms onset, when possible, recommend close outpatient follow up with vascular surgery after discharge. - discussed with teleneuro at [facility] and they will accept patient for transfer to be evaluated by vascular surgery vs. interventional neurology for possible CEA. Tobaccoism - cessation advised - nicotine patch provided, however she states that this won't work and she is saying she will leave AMA to smoke DMII - controlled on oral - hold outpatient antidiabetics for now - get A1c (currently pending, no priors) HTN - cont. lisinopril Diet: CC PPx: lovenox, SCDs ordered Disposition - it appears she is on suppressive abx for UTIs, can continue - Full code - encouraged her to stay for ongoing treatment, she was previously adamant that she will leave AMA to smoke. Family is also encouraging her to stay. She is now resigned to stay. - She will need to follow up with vascular surgery for consideration of CEA of the left ICA for findings on her CTA within two weeks. - discussed case again with [facility] and they will accept patient for transfer to consider CEA, patient is agreeable. Transfer planning for today. Reason for Visit Reason for Visit stroke like symptoms Physical Exam Const: COMMON NORMALS: no acute distress and average body habitus HENMT: COMMON NORMALS: normocephalic and atraumatic HEAD & SCALP: normocephalic and atraumatic Eye: COMMON NORMALS: Equal, round and reactive pupils present and EOMs intact bilaterally PUPIL: Yes Equal, round and reactive pupils present Neck/C-Spine: COMMON NORMALS: no lymphadenopathy and supple Resp: COMMON NORMALS: normal respiratory effort, No retractions and clear to auscultation bilaterally AUSCULTATION: clear to auscultation bilaterally Cardio: COMMON NORMALS: regular rate, regular rhythm, S1 normal heart sound present, No gallops present (Cardio), No murmurs present (Cardio) and No rub (Cardio) RATE: regular rate RHYTHM: regular rhythm HEART SOUNDS: S1 normal heart sound present GI: COMMON NORMALS: Soft to palpation and non-tender PALPATION: Yes Soft to palpation Extremity: COMMON NORMALS: no clubbing, cyanosis or edema Neuro: COMMON NORMALS: CN's II-XII intact bilaterally OTHER: left upper extremity flaccid. Left lower extremity 3/5 strength. left sided facial droop. Psych: COMMON NORMALS: mental status grossly normal, Normal thought process present and normal affect THOUGHT PROCESS: Normal thought process present Skin: COMMON NORMALS: no rashes or lesions noted and no wounds GENERAL SKIN EXAM: no rashes or lesions noted TS Data Studies Completed and Pending Pending at discharge Category Date Time Status Hemoglobin A1C AM LABS Lab 10/28/24 04:00 Received CV. echo complete* [id number] Routine Ultrasound 10/27/24 17:14 Taken Completed Studies During Hospitalization Category Date Time Status CT angio headneck* [id number] Stat Cat Scan 10/27/24 13:[address] head thrombolytic [id number] Stat Cat Scan 10/27/24 13:53 Completed Laboratory Last Values WBC 12.56 10^3/uL (3.29-11.43) H 10/27/24 13:44 RBC 4.88 10^6/uL (3.85-5.65) 10/27/24 13:44 Hgb 14.80 g/dL (11.27-16.99) 10/27/24 13:44 Hct 43.1 % (36-47) 10/27/24 13:44 MCV 88.3 fl (85-98) 10/27/24 13:44 MCH 30.3 pg (27-33) 10/27/24 13:44 MCHC 34.3 g/dL (30-55) 10/27/24 13:44 RDW 12.7 % (12.1-15.1) 10/27/24 13:44 Plt Count 319 10^3/cmm (157-399) 10/27/24 13:44 MPV 9.2 fL (7.4-10.4) 10/27/24 13:44 Neut % (Auto) 57.3 % 10/27/24 13:44 Lymph % (Auto) 31.7 % 10/27/24 13:44 Crawford % (Auto) 7.2 % 10/27/24 13:44 Eos % (Auto) 2.8 % 10/27/24 13:44 Baso % (Auto) 0.6 % 10/27/24 13:44 Neut # (Auto) 7.21 10^3/uL (1.8-7.7) 10/27/24 13:44 Lymph # (Auto) 4.0 10^3/uL (0.8-4.8) 10/27/24 13:44 Crawford # (Auto) 0.9 10^3/uL (0.2-0.9) 10/27/24 13:44 Eos # (Auto) 0.4 10^3/uL (0.0-0.8) 10/27/24 13:44 Baso # (Auto) 0.1 10^3/uL (0.0-0.1) 10/27/24 13:44 Nucleated RBC % (auto) 0 % 10/27/24 13:44 Nucleated RBCs # 0.0 /100WBC 10/27/24 13:44 ESR 52 mm/hr (0-15) H 10/27/24 13:44 PT 12.50 SECONDS (12.1-14.9) 10/27/24 13:44 INR 0.88 (0.8-1.2) 10/27/24 13:44 APTT 25.6 SECONDS (23.9-36.7) 10/27/24 13:44 Sodium 136 mmol/L (136-145) 10/27/24 13:44 Potassium 3.5 mmol/L (3.5-5.1) 10/27/24 13:44 Chloride 100 mmol/L (98-107) 10/27/24 13:44 Carbon Dioxide 19 mmol/L (22-29) L 10/27/24 13:44 Anion Gap 20.5 (5-19) H 10/27/24 13:44 BUN 15 mg/dL (8-23) 10/27/24 13:44 Creatinine 0.6 mg/dL (0.5-0.9) 10/27/24 13:44 GFR Calculation 100.6 mL/min (90-130) 10/27/24 13:44 Glucose 75 mg/dL (65-115) 10/27/24 13:44 POC Glucose 75 mg/dL (70-110) 10/27/24 14:06 Calculated Osmolality 282 mOsm/kg (285-295) L 10/27/24 13:44 Calcium 9.5 mg/dL (8.5-10.5) 10/27/24 13:44 Total Bilirubin 0.2 mg/dL (0.15-1.2) 10/27/24 13:44 AST 10 U/L (0-32) 10/27/24 13:44 ALT 7 U/L (0-33) 10/27/24 13:44 Alkaline Phosphatase 102 U/L (35-105) 10/27/24 13:44 Troponin T Baseline 9 ng/L (0-10) 10/27/24 13:44 Troponin T 120 Minute 9.05 ng/L (0-10) 10/27/24 15:25 Delta Troponin T 0.05 ABS# (0-10) 10/27/24 15:25 Troponin T Hi Sens 6Hr 9.64 ng/L (0-10) 10/27/24 19:45 Troponin T Hi Sens 6Hr Delta 0.64 ng/L (0-12) 10/27/24 19:45 C-React Prot High Sens 3.980 mg/dL (0.0-0.3) H 10/27/24 13:44 Total Protein 7.4 g/dL (6.6-8.7) 10/27/24 13:44 Albumin 4.0 g/dL (3.5-5.2) 10/27/24 13:44 Globulin 3.4 g/dL (1.3-4.6) 10/27/24 13:44 Triglycerides 181 mg/dL (0-150) H 10/27/24 19:45 Cholesterol 248 mg/dL (0-200) H 10/27/24 19:45 LDL Cholesterol, Calc 181 mg/dL (50-129) H 10/27/24 19:45 HDL Cholesterol 31 mg/dL (60-100) L 10/27/24 19:45 LDL/HDL Ratio 5.84 RATIO (0.00-3.22) H 10/27/24 19:45 Cholesterol/HDL Ratio 8.00 mg/dL (0.0-4.40) H 10/27/24 19:45 Urine Color Yellow (Yellow) 10/27/24 16:13 Urine Appearance Cloudy (CLEAR) A 10/27/24 16:13 Urine pH 5.5 (5-7) 10/27/24 16:13 Ur Specific [place] 1.094 (1.005-1.030) H 10/27/24 16:13 Urine Protein 1+ (Negative) A 10/27/24 16:13 Urine Glucose (UA) 3+ (Normal) H 10/27/24 16:13 Urine Ketones 3+ (Negative) H 10/27/24 16:13 Urine Blood Non-haemolysed trace (Negative) 10/27/24 16:13 Urine Nitrate Negative (Negative) 10/27/24 16:13 Urine Bilirubin Negative (Negative) 10/27/24 16:13 Urine Urobilinogen 1.0 mg/dL (Negative) 10/27/24 16:13 Ur Leukocyte Esterase Negative (Negative) 10/27/24 16:13 Urine RBC 0-4 /hpf (0-2) H 10/27/24 16:13 Urine WBC 0-4 /hpf (0-5) H 10/27/24 16:13 Ur Squamous Epith Cells 0-4 /hpf (0-5) H 10/27/24 16:13 Amorphous Sediment Not Reportable 10/27/24 16:13 Urine Bacteria Trace /hpf (NONE) 10/27/24 16:13 Hyaline Casts 0-4 /lpf H 10/27/24 16:13 Urine Mucus None /hpf 10/27/24 16:[address] 10/27/24 13:53 IMPRESSION: 1. No evidence of intracranial hemorrhage 2. Previously described RIGHT thalamic and bilateral rowan radiata lesions appear stable since the recent studies. 3. No significant changes since the recent studies. Notified Justin Peoples DO at 10/27/2024 2:10PM. Head/Neck CTA 10/27/24 13:54 IMPRESSION: 1. RIGHT ICA stenosis measures approximately 50% with moderate calcified atheromatous plaque. 2. LEFT ICA stenosis measures 75 to 80%. 3. No flow-limiting intracranial stenosis. 4. Mild segmental narrowing in the proximal [employer] territory bilaterally and like ly due to atheromatous disease. 5. RIGHT thalamic and bilateral rowan radiata lesions/infarcts similar in appearance. 6. No other acute findings. Notified Justin Peoples DO at 10/27/2024 2:39 PM. Recent Clincial Data Last Vital Signs Temp 98.1 F 10/28/24 06:00 Pulse 71 10/28/24 06:00 Resp 16 10/28/24 06:00 BP 142/66 10/28/24 06:00 Pulse Ox 95 10/28/24 06:00 O2 Del Method Room Air 10/28/24 06:00 Vital Signs Temp Pulse Resp BP Pulse Ox O2 Del Method 10/28/24 06:00 98.1 F 71 16 142/66 95 Room Air 10/28/24 02:44 98.1 F 70 16 166/65 96 Room Air Intake & Output/Weight 10/26/24 10/27/24 10/28/24 10/29/24 06:59 06:59 06:59 06:59 Intake Total 240 / 240 Output Total 200 / 200 Balance 40 / 40 Weight 73.618 kg Vitals Last Vital Signs Temp 98.1 F 10/28/24 06:00 Pulse 71 10/28/24 06:00 Resp 16 10/28/24 06:00 BP 142/66 10/28/24 06:00 Pulse Ox 95 10/28/24 06:00 O2 Del Method Room Air 10/28/24 06:00 TS Medications Medications Aspirin (Aspirin 81 Mg Ec Tablet) 81 mg PO DAILY [facility] Last Admin: 10/28/24 09:53 Dose: 81 mg Atorvastatin Calcium (Atorvastatin 40 Mg Tablet) 80 mg PO BEDTIME [facility] Last Admin: 10/27/24 21:20 Dose: 80 mg Clopidogrel Bisulfate (Clopidogrel 75 Mg Tablet) 75 mg PO DAILY [facility] Last Admin: 10/28/24 09:53 Dose: 75 mg Enoxaparin Sodium (Enoxaparin 40 Mg/0.4 Ml Syringe) 40 mg SUBCUT Q24H [facility] Last Admin: 10/27/24 18:26 Dose: 40 mg Lisinopril (Lisinopril 10 Mg Tablet) 10 mg PO DAILY [facility] Last Admin: 10/28/24 09:53 Dose: 10 mg Lorazepam (Lorazepam 1 Mg Tablet) 1 mg PO TID PRN PRN Reason: ANXIETY Nicotine (Nicotine 21 Mg Patch) 1 patch TRANSDERMA DAILY [facility] Last Admin: 10/28/24 09:53 Dose: Not Given Trimethoprim/Sulfamethoxazole (Sulfamethoxazole-Trimeth Ds 160-800 Mg Tablet) 1 tab PO DAILY [facility]; Protocol Last Admin: 10/28/24 09:53 Dose: 1 tab Discontinued Medications Aspirin (Aspirin 81 Mg Chew Tablet) 324 mg PO NOW ONE Stop: 10/27/24 15:09 Last Admin: 10/27/24 15:19 Dose: 324 mg Atorvastatin Calcium (Atorvastatin 40 Mg Tablet) 40 mg PO ONCE ONE Stop: 10/27/24 15:09 Last Admin: 10/27/24 15:19 Dose: 40 mg Iohexol (Iohexol 350 Mg/Ml 500 Ml Btl (Per Ml)) 0 ml IV ONCE ONE Stop: 10/27/24 14:06 Last Admin: 10/27/24 14:05 Dose: 100 ml Allergies Penicillins Allergy (Verified 10/20/24 13:41) Unknown Home Medications ibuprofen 200 mg tablet (Advil) 200 mg PO TID PRN Pain 03/24/23 [History Confirmed 10/27/24] glipizide 5 mg tablet 5 mg PO DAILY 1 month #30 tabs 10/19/24 [Rx Confirmed 10/27/24] metformin 500 mg tablet 500 mg PO BID 1 month #60 tabs 10/19/24 [Rx Confirmed 10/27/24] sulfamethoxazole 800 mg-trimethoprim 160 mg tablet (Bactrim DS) 1 tab PO DAILY 5 days #14 tabs 10/24/24 [Rx Confirmed 10/27/24] dapagliflozin propanediol 10 mg tablet (Farxiga) 10 mg PO DAILY 10/27/24 [History Confirmed 10/27/24] diclofenac sodium 75 mg tablet,delayed release 75 mg PO BID 10/27/24 [History Confirmed 10/27/24] lisinopril 10 mg tablet 10 mg PO DAILY 10/27/24 [History Confirmed 10/27/24] Discharge Plan Discharge Patient Disposition: Xfer Other Condition: Stable Prescriptions: No Action ibuprofen [Advil] 200 mg tablet 200 mg PO TID PRN (Reason: Pain) glipizide 5 mg tablet 5 mg PO DAILY 30 Days Qty: 30 0RF metformin 500 mg tablet 500 mg PO BID 30 Days Qty: 60 0RF sulfamethoxazole-trimethoprim [Bactrim DS] 800-160 mg tablet 1 tab PO DAILY 5 Days Qty: 14 0RF lisinopril 10 mg tablet 10 mg PO DAILY diclofenac sodium 75 mg Tablet,Delayed Release (Dr/Ec) 75 mg PO BID dapagliflozin propanediol [Farxiga] 10 mg Tablet 10 mg PO DAILY Referrals: Rufino Childers [Primary Care Provider, Family Practice] Discharge Diet: Diabetic Discharge Activity: Resume usual activity Transfer Attestations Time Spent in Transfer Care: greater than 30 min Specific Discharge Activities: educating patient, educating and/or supporting family/caregiver, discussing with pcp/other providers, discussing with case supervisor/social workers/dc planners, documenting/other paperwork and evaluating patient/reviewing data Quality Metrics Clinical Quality Measures [ Cerebrovascular Accident { Contraindication to Antithrombotic: None; antithrombotic prescribed; Contraindication to Anticoagulation: Medical contraindication (outside time window); Contraindication to Statin: None; Statin prescribed; Contraindication to antithrombotic day 2: None; Antithrombotic given day 2; Contraindication to tPA: Did not meet criteria; Onset of Symptoms Date: 10/23/24; Onset of Symptoms Time: 08:00; Symptom Onset Unknown: Yes; Reason stroke education not provided: Stroke education provided to patient; Rehab services assessed: Activities of daily living assessment, Rehabilitation assessment, Physical therapy, Occupational therapy, Speech therapy, Stroke rehabilitation; Reason rehab assessment not done: Rehab assessment done}] Coding Level of Care Code Acute Code for [facility] Diagnoses Hypertension I10 Diabetes mellitus E11.9 Non-hemorrhagic stroke I63.9
[2024-10-28 12:11] VITALS: BP 162/76; PULSE 74; RESP 20; TEMP 36.4
--- NOTE | 2024-10-28 12:20 | PC.SLP ---
Attempted once again. Pt was being placed on bedside commode.
[2024-10-28 13:26] LABS: Estmated Average Glucose 263; Hemoglobin A1C 10.8 % (4.0-6.0)
[2024-10-28 16:00] VITALS: BP 149/71; PULSE 84; RESP 18; TEMP 36.6
--- NOTE | 2024-10-28 19:01 | PC.NURSE ---
Received a bed at [facility] RN Parish.. pt is transferring for vascular surgery/stroke neurology referral. packet prepared. daughter at bedside notified of the bed availability, the room# provided to dgtr.
--- NOTE | 2024-10-28 19:05 | PC.NURSE ---
EMS called for a transport to [facility].
--- NOTE | 2024-10-28 19:50 | PC.NURSE ---
[facility] here to transport patient to [facility] via ground ambulance, pt's packet provided to EMS team.
[2024-10-28 20:06] VITALS: BP 149/71; PULSE 85; O2SAT 95
== END 2024-10-28 20:08 | disposition short-term general hospital (02) | DRG 65 ==
LOC: ER 16:12 → CSU 16:30
PROVIDERS: Admitting Provider Internal Medicine; Emergency Provider Emergency Medicine; PCP Family Medicine; Visit Provider Internal Medicine
DX: I63.133 Cerebral infarction due to embolism of bilateral carotid arteries (principal); G81.94 Hemiplegia, unspecified affecting left nondominant side; N39.0 Urinary tract infection, site not specified; I10 Essential (primary) hypertension; E11.9 Type 2 diabetes mellitus without complications; F17.210 Nicotine dependence, cigarettes, uncomplicated; Z79.84 Long term (current) use of oral hypoglycemic drugs
CPT/HCPCS: 36415; 36416; 70450; 70496; 70498; 80053; 80061; 81001; 82962; 83036; 84484; 85025; 85610; 85651; 85730; 86141; 92610; 93005; 93306; 96372; 97161; 97166; 99291; J1650; J9999